=== PATIENT | male | born 1955 | race Caucasian/White ===

== ENCOUNTER → 2019-12-27 15:30 | Outpatient (BNVA) | payer OTHER, SELFPAY | PROVIDERS: PCP Internal Medicine; Referring Provider Internal Medicine; Visit Provider Internal Medicine Gastroenterology | DX: Z01.818 Encounter for other preprocedural examination (principal); K64.8 Other hemorrhoids; Z86.19 Personal history of other infectious and parasitic diseases | CPT/HCPCS: Q3014 ==

== ENCOUNTER 2020-01-01 06:42 | Outpatient (REF) | payer OTHER, SELFPAY ==
[2020-01-01 08:34] LABS: Creatinine Urine 83.17 mg/dL
[2020-01-01 09:15] LABS: Alanine Aminotransferase 18 U/L (0-40); Albumin Level 4.1 g/dL (3.5-5.0); Anion Gap 12 (12-20); Aspartate Amino Transferase 18 U/L (5-37); Bilirubin Total 0.5 mg/dL (0.0-1.0); Blood Urea Nitrogen 27 mg/dL (9-16); Calcium 9.1 mg/dL (8.4-10.2); Carbon Dioxide 29 mmol/L (22-29); Chloride 102 mmol/L (96-108); Cholesterol 117 mg/dL; Estimated Glomerular Filt Rate > 60; Glucose Fasting 140 mg/dL (60-99); HDL Cholesterol 39 mg/dL; LDL Cholesterol Calculated 61 mg/dl; Sodium 138 mmol/L (135-145); Total Protein 7.4 g/dL (6.5-8.0); Triglycerides 87 mg/dL
[2020-01-01 09:23] LABS: Alkaline Phosphatase 63 U/L (39-117)
== END 2020-01-01 06:43 | disposition home or self-care (01) ==
LOC: HO.LAB 06:42
PROVIDERS: PCP Internal Medicine; Visit Provider Internal Medicine Gastroenterology
DX: E11.9 Type 2 diabetes mellitus without complications (principal)
CPT/HCPCS: 80053; 80061; 82043

== ENCOUNTER 2020-02-06 15:10 | Outpatient (REF) | payer OTHER, SELFPAY | END 2020-02-06 15:11 | disposition home or self-care (01) | LOC: HO.LAB 15:10 | PROVIDERS: PCP Internal Medicine; Visit Provider Internal Medicine Gastroenterology | DX: Z86.19 Personal history of other infectious and parasitic diseases (principal) | CPT/HCPCS: 87338 ==

== ENCOUNTER 2020-02-07 06:54 | Outpatient (REF) | payer OTHER, SELFPAY ==
[2020-02-07 08:05] LABS: Alanine Aminotransferase 22 U/L (0-40); Albumin Level 4.1 g/dL (3.5-5.0); Alkaline Phosphatase 69 U/L (39-117); Anion Gap 10 (12-20); Aspartate Amino Transferase 20 U/L (5-37); Bilirubin Total 0.6 mg/dL (0.0-1.0); Blood Urea Nitrogen 23 mg/dL (9-16); Calcium 9.5 mg/dL (8.4-10.2); Carbon Dioxide 30 mmol/L (22-29); Chloride 101 mmol/L (96-108); Cholesterol 132 mg/dL; Estimated Glomerular Filt Rate > 60; Glucose Fasting 145 mg/dL (60-99); HDL Cholesterol 43 mg/dL; LDL Cholesterol Calculated 70 mg/dl; Potassium 4.7 mmol/l (3.3-5.1); Sodium 136 mmol/L (135-145); Total Protein 7.7 g/dL (6.5-8.0); Triglycerides 96 mg/dL
== END 2020-02-07 06:55 | disposition home or self-care (01) ==
LOC: HO.LAB 06:54
PROVIDERS: Absent Provider Internal Medicine Gastroenterology; PCP Internal Medicine; Visit Provider Internal Medicine
DX: E11.65 Type 2 diabetes mellitus with hyperglycemia (principal)
CPT/HCPCS: 80053; 80061

== ENCOUNTER 2020-03-11 12:53 | Outpatient (REF) | payer OTHER, SELFPAY ==
--- NOTE | 2020-03-11 12:57 | US_ITS ---
EXAMINATION: US SCROTUM CLINICAL INFORMATION: Testicular pain, unspecified. COMPARISON: Scrotal ultrasound dated 09/25/2018. TECHNIQUE: A sonogram of the scrotum was performed assessing gonzalez-scale appearance and color Doppler flow. Spectral Doppler analysis of the arterial and venous flow were performed in the testes bilaterally. FINDINGS: RIGHT: Right testicle measures 3.5 x 1.6 x 2.2 cm, volume 6.6 mL. The testicle has normal parenchymal echotexture. No microlithiasis or mass. Color Doppler images with spectral analysis reveals normal arterial and venous flow within the testicle. The epididymis is unremarkable. No evidence of hypervascularity within the epididymis. No hydrocele or varicocele. LEFT: Left testicle measures 3.8 x 1.6 x 2.5 cm, volume 7.8 mL. The testicle has normal parenchymal echotexture. No microlithiasis or mass. Color Doppler images with spectral analysis reveals normal arterial and venous flow within the testicle. The epididymis is unremarkable. No evidence of hypervascularity within the epididymis. No hydrocele or varicocele. The visualized scrotal veins measure less than 0.2 cm AP diameter. US/US scrotum IMPRESSION: No acute sonographic abnormalities within the scrotum. No evidence of epididymoorchitis or testicular mass.
== END 2020-03-11 12:54 | disposition home or self-care (01) ==
LOC: HO.US 12:53
PROVIDERS: PCP Internal Medicine; Visit Provider Internal Medicine
DX: N50.819 Testicular pain, unspecified (principal)
CPT/HCPCS: 76870

== ENCOUNTER 2020-04-05 10:23 | Outpatient (REF) | payer OTHER, SELFPAY ==
--- NOTE | ~2020-04-05 | XR_ITS ---
EXAMINATION: XR LUMBOSACRAL SPINE CLINICAL INFORMATION: Sciatica COMPARISON: Previous lumbar spine x-ray May 2015 TECHNIQUE: Three views of the lumbosacral spine. FINDINGS: Bone alignment is normal. No fracture or dislocation is seen. There is mild degenerative spondylosis and degenerative disc disease at T11-T12. There is mild degenerative spondylosis at L3-L4. Disc spaces are otherwise normal. There is lower lumbar spine facet arthritis. XR/XR lumbar spine 2-3V IMPRESSION: Mild degenerative changes.
== END 2020-04-05 10:24 | disposition home or self-care (01) ==
LOC: HO.XRAY 10:23
PROVIDERS: PCP Internal Medicine; Visit Provider Internal Medicine
DX: M54.30 Sciatica, unspecified side (principal)
CPT/HCPCS: 72100

== ENCOUNTER → 2020-05-07 08:51 | Outpatient (BNVA) | payer OTHER, SELFPAY | PROVIDERS: PCP Internal Medicine; Visit Provider Nurse Practitioner Gerontology | DX: E11.65 Type 2 diabetes mellitus with hyperglycemia (principal); E66.09 Other obesity due to excess calories; Z68.38 Body mass index [BMI] 38.0-38.9, adult | CPT/HCPCS: Q3014 ==

== ENCOUNTER → 2020-06-19 13:42 | Outpatient (BNVA) | payer OTHER, SELFPAY | PROVIDERS: PCP Internal Medicine; Visit Provider Internal Medicine Gastroenterology | DX: K64.8 Other hemorrhoids (principal); E11.65 Type 2 diabetes mellitus with hyperglycemia; I10 Essential (primary) hypertension; E66.01 Morbid (severe) obesity due to excess calories; Z88.8 Allergy status to other drugs, medicaments and biological substances; Z86.19 Personal history of other infectious and parasitic diseases; Z79.84 Long term (current) use of oral hypoglycemic drugs; Z79.899 Other long term (current) drug therapy | CPT/HCPCS: Q3014 ==

== ENCOUNTER 2020-08-16 11:00 | Emergency (ER) | payer MEDICARE, SELFPAY ==
[2020-08-16] VITALS (12 sets, daily range): BP systolic 119–170; BP diastolic 71–92; PULSE 58–87; RESP 17–18; TEMP 36.6–36.8; O2SAT 98; BMI 40.5
--- NOTE | 2020-08-16 11:34 | ED_ITS ---
HPI - General Adult General Chief complaint: General Medical Stated complaint: high blood sugar Time Seen by Provider: 08/16/20 11:25 Source: patient Mode of arrival: ambulatory Limitations: no limitations History of Present Illness HPI narrative: 65 y/o male with history of obesity, DM2, HTN, sciatica, hx H. pylori who presents with hyperglycemia and dizziness. He reports a glucose of 239 at home which increased from 130s shortly before. He is on Metformin for his diabetes and reports good glucose control. He started to feel slightly dizzy so he rechecked it and found to go have gone up 100 points so he came to the ER for evaluation. He did he a normal breakfast this morning. He reports his dizziness is much better on arrival. No weakness, numbness, tingling, headache, N/V, abdominal pain. POC 195 on arrival. MD complaint: hyeprglycemia & dizzy Onset (ago): hour(s) Location: head Radiation: non-radiation Severity: mild Severity scale (1-10): 3 Pain Consistency: now resolved Relieving factors: none Exacerbating factors: movement Associated symptoms: denies other symptoms Treatments prior to arrival: none Related Data Home Medications Medication Instructions Recorded Confirmed blood sugar diagnostic #10 ea 01/01/20 06/19/20 lancets 33 gauge #100 ea 01/01/20 06/19/20 Previous Rx's Medication Instructions Recorded dulaglutide 0.75 mg/0.5 mL 0.75 mg SUBCUT QWEEK 28 Days #2 ml 12/09/19 subcutaneous pen injector tadalafil 20 mg tablet 20 mg PO DAILY PRN 30 Days #3 tab 01/01/20 blood sugar diagnostic #50 ea 01/02/20 blood sugar diagnostic #50 ea 02/22/20 blood-glucose meter #1 ea 02/22/20 metformin 1,000 mg tablet 1,000 mg PO BID #60 tab 05/25/20 pioglitazone 15 mg tablet 15 mg PO DAILY #30 tab 05/25/20 Allergies Allergy/AdvReac Type Severity Reaction Status Date / Time canagliflozin [Invokana] AdvReac Unknown dizziness Verified 08/16/20 11:08 Review of Systems Review of Systems: Constitutional: No Fever, No Chills ENT/Mouth: No sore throat, No Rhinorrhea, No Swallowing Difficulty Eyes: No Eye Pain, No Swelling, No Redness, No vision changes Cardiovascular: No Chest Pain, No SOB, No Orthopnea, No Edema Respiratory: No Cough, No Sputum, No Wheezing, No dyspnea Gastrointestinal: No Nausea, No Vomiting, No Diarrhea, No abdominal Pain Genitourinary: No Dysuria, No Urinary Frequency, No Hematuria Musculoskeletal: No joint pain, No Myalgias Skin: No Skin Lesions, No rash Neuro: No Weakness, No Numbness, + Dizziness, No Headache Psych: + Anxiety/Panic, No Depression Heme/Lymph: No Bruising, No Lymphadenopathy Endocrine: No Polyuria, No Polydipsia [facility] Past Medical History Attestation statement: The following information was validated with the patient. Medical History BMI 38.0-38.9,adult Other obesity due to excess calories Sciatica Testicular pain Type 2 diabetes mellitus with hyperglycemia, without long-term current use of insulin Surgical History History of colonoscopy Hx of endoscopy Meningioma Family History Family History Father History of cancer Mother Hx of diabetes insipidus Social History Social History Household Members: Spouse Alcohol intake: never Advance Directives: Yes Advance Directives Information Provided: Yes Advance Directives on File: No Physical Exam Vital Signs: Vital Signs: Last Vital Signs Temp 98.2 F 08/16/20 12:21 Pulse 64 08/16/20 12:21 Resp 18 08/16/20 12:21 BP 119/71 08/16/20 12:21 Pulse Ox 98 08/16/20 12:21 Body Mass Index 40.5 Appearance: Alert. Oriented X3. No acute distress. Eyes: Pupils equal, round and reactive to light. ENT: Pharynx normal. Neck: Normal inspection. Neck supple. CVS: Normal heart rate and rhythm. Pulses normal. Respiratory: No respiratory distress. Breath sounds normal. Abdomen: Rotund, Soft and nontender. +BS x4 Skin: Skin warm and dry. Normal skin color. Normal skin turgor. No rashes. Extremities: No lower extremity edema. Neuro: Oriented X 3. No motor deficit. No sensory deficit. Steady gait. Non- focal. Course Course Course Narrative: 65 y/o male presenting with mild dizziness, now resolved and mild hyperglycemia. No signs or symptoms of infection or GA. Neuro exam is nonfocal. Doubt CVA or TIA as symptom seems to be related to hyperglycmia, NIH 0. Not a tPA candidate. His orthostatics VS are slightly positive wtih increase in HR upon standing. Will give 1L IVF, check basic labs, UA and repeat orthostatics. Anticipate d/c home. Reevaluation(s) Reevaluation #1: Lab workup unremarkable. Mildly elevated BUN, possible mild dehydration. Repeat orthostatic VS are negative. Glucose 160's on chemistry. He feels at his baseline. He is stable for discharge home. Medical Decision Making Lab Data Result diagrams: 08/16/20 12:29 08/16/20 12:29 Labs: Lab Results 08/16/20 08/16/20 08/16/20 Range/Units 11:28 12:29 12:29 WBC 7.0 (4.8-10.8) X10*3/uL RBC 4.31 L (4.60-5.80) X10*6/uL Hgb 13.6 L (14.0-18.0) g/dl Hct 40.7 L (42-52) % MCV 94.4 (80-98) fL MCH 31.6 (27.0-33.0) pg MCHC 33.4 (31.0-36.0) g/dl RDW 13.2 (11.0-16.0) % Plt Count 270 (160-400) X10*3/uL MPV 10.0 (9.4-12.4) fL Immature Gran % (Auto) 0.3 (0.0-0.4) % Neut % (Auto) 62.5 (45-73) % Lymph % (Auto) 23.9 (20-40) % [place] % (Auto) 11.9 H (2-11) % Eos % (Auto) 1.1 (0-4) % Baso % (Auto) 0.3 (0-2) % Lymph # (Auto) 1.7 (1.2-4.9) X10*3/uL [place] # (Auto) 0.8 (0.1-1.2) X10*3/uL Eos # (Auto) 0.1 (0.0-0.4) X10*3/uL Baso # (Auto) 0.0 (0.0-0.2) X10*3/uL Abs Immat Gran (auto) 0.02 (0.00-0.03) X10*3/uL Absolute Neuts (auto) 4.4 (2.0-8.3) X10*3/uL Absolute Nucleated RBC 0.000 (0.0-0.012) X10*3/uL Nucleated RBC % (auto) 0.0 (0.0-0.2) /100WBC Sodium 139 (135-145) mmol/L Potassium 4.9 (3.3-5.1) mmol/L Chloride 103 (96-108) mmol/L Carbon Dioxide 29 (22-29) mmol/L Anion Gap 12 (12-20) BUN 17 H (9-16) mg/dL Creatinine 0.96 (0.5-1.4) mg/dL Estim Creat Clear Calc 85.0 Estimated GFR > 60 POC Glucose 195 H (60-115) mg/dL Random Glucose 164 H (60-115) mg/dL Calcium 9.8 (8.4-10.2) mg/dL Magnesium 1.9 (1.6-2.6) mg/dL Urine Color Urine Appearance Urine pH (5.0-8.0) Ur Specific [place] (1.005-1.025) Urine Protein (NEG-TRACE) MG/DL Urine Glucose (UA) (NEG) MG/DL Urine Ketones (NEG) MG/DL Urine Blood (NEG) Urine Nitrite (NEG) Ur Leukocyte Esterase (NEG) 08/16/20 Range/Units 12:29 WBC (4.8-10.8) X10*3/uL RBC (4.60-5.80) X10*6/uL Hgb (14.0-18.0) g/dl Hct (42-52) % MCV (80-98) fL MCH (27.0-33.0) pg MCHC (31.0-36.0) g/dl RDW (11.0-16.0) % Plt Count (160-400) X10*3/uL MPV (9.4-12.4) fL Immature Gran % (Auto) (0.0-0.4) % Neut % (Auto) (45-73) % Lymph % (Auto) (20-40) % [place] % (Auto) (2-11) % Eos % (Auto) (0-4) % Baso % (Auto) (0-2) % Lymph # (Auto) (1.2-4.9) X10*3/uL [place] # (Auto) (0.1-1.2) X10*3/uL Eos # (Auto) (0.0-0.4) X10*3/uL Baso # (Auto) (0.0-0.2) X10*3/uL Abs Immat Gran (auto) (0.00-0.03) X10*3/uL Absolute Neuts (auto) (2.0-8.3) X10*3/uL Absolute Nucleated RBC (0.0-0.012) X10*3/uL Nucleated RBC % (auto) (0.0-0.2) /100WBC Sodium (135-145) mmol/L Potassium (3.3-5.1) mmol/L Chloride (96-108) mmol/L Carbon Dioxide (22-29) mmol/L Anion Gap (12-20) BUN (9-16) mg/dL Creatinine (0.5-1.4) mg/dL Estim Creat Clear Calc Estimated GFR POC Glucose (60-115) mg/dL Random Glucose (60-115) mg/dL Calcium (8.4-10.2) mg/dL Magnesium (1.6-2.6) mg/dL Urine Color YELLOW Urine Appearance CLEAR Urine pH 6.0 (5.0-8.0) Ur Specific [place] 1.010 (1.005-1.025) Urine Protein NEG (NEG-TRACE) MG/DL Urine Glucose (UA) 250 H (NEG) MG/DL Urine Ketones NEG (NEG) MG/DL Urine Blood NEG (NEG) Urine Nitrite NEG (NEG) Ur Leukocyte Esterase NEG (NEG) Discharge Plan Discharge Clinical Impression: Hyperglycemia Patient Disposition: Home, Self-Care Instructions: Diabetic Hyperglycemia (ED) Additional Instructions: Your blood glucose was mildly elevated today. You may have had some mild dehydation. Your sugar and your vital signs improved with IV fluids. Continue taking your metformin as prescribed. Monitor your blood glucose at home as directed by your doctor. Stick to a low carb, diabetic diet. Recommend following up with your doctor next week for further management. If you develop new or worsening symptoms call 911 or come back to the ER for further evaluation. Salazar nivel de glucosa en mary ellen se elev? levemente hoy. Es posible que haya tenido osiel deshidrataci?n leve. Salazar az?car y gwendolyn signos vitales mejoraron con l?quidos intravenosos. Contin?e tomando salazar metformina seg?n lo prescrito. Controle salazar glucosa en mary ellen en casa seg?n las indicaciones de salazar m?dico. Siga osiel dieta para diab?ticos baja en carbohidratos. Recomiende hacer un seguimiento con salazar m?dico la pr?xima semana para un mayor control. Si presenta s?ntomas nuevos o que empeoran, llame al 911 o regrese a la daniela de emergencias para osiel evaluaci?n adicional. Prescriptions: No Action Trulicity 0.75 mg/0.5 mL pen injector 0.75 mg subcut QWEEK 28 Days Qty: 2 RF: 5 (DME) blood sugar diagnostic Strip See Rx Instructions .ROUTE .MEDSUPPLY Qty: 50 RF: 2 (DME) FreeStyle Lite Strips Strip See Rx Instructions .ROUTE .MEDSUPPLY Qty: 50 RF: 11 (DME) blood-glucose meter [FreeStyle Lite Meter] Kit See Rx Instructions .ROUTE .MEDSUPPLY Qty: 1 RF: 0 pioglitazone 15 mg tablet 15 mg PO DAILY Qty: 30 RF: 2 metformin 1,000 mg tablet 1,000 mg PO BID Qty: 60 RF: 2 (DME) OneTouch Ultra Blue Test Strip Strip See Rx Instructions ea Not Applicable BID Qty: 10 RF: 0 (DME) lancets 33 gauge misc See Rx Instructions ea Not Applicable BID Qty: 100 RF: 0 tadalafil [Cialis] 20 mg tablet 20 mg PO DAILY PRN (Reason: sexual activity) 30 Days Qty: 3 RF: 5 Referrals: Ritika Forte MD [Primary Care Provider] - 3 days (diabetes management)
[2020-08-16 11:41] LABS: Glucose, Whole Blood 195 mg/dL (60-115)
[2020-08-16] MEDS: 0.9 % Sodium Chloride 1,000 ML 999 ML IVCONT (12:30)
--- NOTE | 2020-08-16 12:36 | PC.NURSE ---
pt denies dizziness since arrival to ED, states one episode of dizziness while he was getting into his car earlier today. + orthos upon arrival & asymptomatic , repeat orthos were neg.
[2020-08-16 12:37] LABS: Basophils Percent Auto 0.3 % (0-2); Eosinophils Absolute Auto 0.1 X10*3/uL (0.0-0.4); Eosinophils Percent Auto 1.1 % (0-4); Hematocrit 40.7 % (42-52); Hemoglobin 13.6 g/dl (14.0-18.0); Imm Gran Abs Auto 0.02 X10*3/uL (0.00-0.03); Imm Gran Pct Auto 0.3 % (0.0-0.4); Lymphocytes Absolute Auto 1.7 X10*3/uL (1.2-4.9); Lymphocytes Percent Auto 23.9 % (20-40); MANUAL DIFF FLAG NO; Mean Corpuscular HGB Conc 33.4 g/dl (31.0-36.0); Mean Corpuscular Hemoglobin 31.6 pg (27.0-33.0); Mean Corpuscular Volume 94.4 fL (80-98); Monocytes Absolute Auto 0.8 X10*3/uL (0.1-1.2); Monocytes Percent Auto 11.9 % (2-11); Neutrophils Absolute Auto 4.4 X10*3/uL (2.0-8.3); Neutrophils Percent Auto 62.5 % (45-73); Platelet Count 270 X10*3/uL (160-400); Red Blood Count 4.31 X10*6/uL (4.60-5.80); Red Cell Distribution Width 13.2 % (11.0-16.0)
[2020-08-16 12:38] LABS: Appearance Urine CLEAR; Color Urine YELLOW; Glucose Urine UA 250 MG/DL (NEG); Leukocyte Esterase Urine NEG (NEG); Nitrite Urine NEG (NEG); Urine Blood NEG (NEG); Urine Ketones NEG (NEG); Urine Protein NEG (NEG-TRACE)
[2020-08-16 13:07] LABS: Anion Gap 12 (12-20); Blood Urea Nitrogen 17 mg/dL (9-16); Calcium 9.8 mg/dL (8.4-10.2); Carbon Dioxide 29 mmol/L (22-29); Chloride 103 mmol/L (96-108); Estimated Glomerular Filt Rate > 60; Glucose Random 164 mg/dL (60-115); Magnesium 1.9 mg/dL (1.6-2.6); Potassium 4.9 mmol/L (3.3-5.1); Sodium 139 mmol/L (135-145)
== END 2020-08-16 13:30 | disposition home or self-care (01) ==
PROVIDERS: Physician Assistant; Emergency Provider Emergency Medicine Emergency Medical Services; PCP Internal Medicine
DX: E11.65 Type 2 diabetes mellitus with hyperglycemia (principal); Z79.84 Long term (current) use of oral hypoglycemic drugs
CPT/HCPCS: 36415; 80048; 81003; 82947; 83735; 85025; 96360; 99284

== ENCOUNTER → 2020-09-09 12:01 | Outpatient (BNVA) | payer MEDICARE, SELFPAY | PROVIDERS: PCP Internal Medicine; Visit Provider Nurse Practitioner Gerontology | DX: E11.65 Type 2 diabetes mellitus with hyperglycemia (principal); I10 Essential (primary) hypertension; E66.09 Other obesity due to excess calories; Z68.38 Body mass index [BMI] 38.0-38.9, adult; Z79.84 Long term (current) use of oral hypoglycemic drugs | CPT/HCPCS: 82947; 83036; 99212 ==

== ENCOUNTER 2021-01-17 07:45 | Outpatient (REF) | payer MEDICARE, SELFPAY ==
[2021-01-17 09:40] LABS: Estimated Average Glucose 171 mg/dL; Hemoglobin A1c % 7.6 %
[2021-01-17 10:04] LABS: Alanine Aminotransferase 17 U/L (0-40); Albumin Level 4.1 g/dL (3.5-5.0); Alkaline Phosphatase 75 U/L (39-117); Anion Gap 12 (12-20); Aspartate Amino Transferase 16 U/L (5-37); Bilirubin Total 0.6 mg/dL (0.0-1.0); Blood Urea Nitrogen 25 mg/dL (9-16); Calcium 9.7 mg/dL (8.4-10.2); Carbon Dioxide 27 mmol/L (22-29); Chloride 101 mmol/L (96-108); Cholesterol 148 mg/dL; Estimated Glomerular Filt Rate > 60; Glucose Fasting 143 mg/dL (60-99); HDL Cholesterol 43 mg/dL; LDL Cholesterol Calculated 88 mg/dl; Potassium 4.9 mmol/L (3.3-5.1); Sodium 135 mmol/L (135-145); Total Protein 7.6 g/dL (6.5-8.0); Triglycerides 88 mg/dL
== END 2021-01-17 07:46 | disposition home or self-care (01) ==
LOC: HO.LAB 07:45
PROVIDERS: PCP Internal Medicine; Visit Provider Nurse Practitioner Gerontology
DX: E11.65 Type 2 diabetes mellitus with hyperglycemia (principal)
CPT/HCPCS: 36415; 80053; 80061; 82043; 83036

== ENCOUNTER → 2021-01-28 12:23 | Outpatient (BNVA) | payer MEDICARE, SELFPAY | PROVIDERS: PCP Internal Medicine; Visit Provider Nurse Practitioner Gerontology | DX: E11.65 Type 2 diabetes mellitus with hyperglycemia (principal); E66.09 Other obesity due to excess calories; I10 Essential (primary) hypertension; Z68.38 Body mass index [BMI] 38.0-38.9, adult | CPT/HCPCS: 82947; 99212 ==

== ENCOUNTER 2021-05-14 09:20 | Outpatient (REF) | payer MEDICARE, SELFPAY ==
[2021-05-14 10:32] LABS: Alanine Aminotransferase 21 U/L (0-40); Albumin Level 4.1 g/dL (3.5-5.0); Alkaline Phosphatase 72 U/L (39-117); Anion Gap 13 (12-20); Aspartate Amino Transferase 17 U/L (5-37); Bilirubin Total 0.6 mg/dL (0.0-1.0); Blood Urea Nitrogen 22 mg/dL (9-16); Carbon Dioxide 28 mmol/L (22-29); Chloride 101 mmol/L (96-108); Cholesterol 132 mg/dL; Estimated Glomerular Filt Rate > 60; Glucose Fasting 151 mg/dL (60-99); HDL Cholesterol 45 mg/dL; LDL Cholesterol Calculated 75 mg/dl; Potassium 4.9 mmol/L (3.3-5.1); Sodium 137 mmol/L (135-145); Total Protein 7.7 g/dL (6.5-8.0); Triglycerides 63 mg/dL
[2021-05-14 12:42] LABS: Creatinine Urine 125.58 mg/dL; Microalbum/Creatinine Ratio Ur 4.7 ug/mg cr
== END 2021-05-14 09:21 | disposition home or self-care (01) ==
LOC: HO.LAB 09:20
PROVIDERS: PCP Internal Medicine; Visit Provider Nurse Practitioner Gerontology
DX: E11.65 Type 2 diabetes mellitus with hyperglycemia (principal)
CPT/HCPCS: 36415; 80053; 80061; 82043

== ENCOUNTER → 2021-05-18 12:00 | Outpatient (BNVA) | payer MEDICARE, MEDICAID, SELFPAY | PROVIDERS: PCP Internal Medicine; Visit Provider Nurse Practitioner Gerontology | DX: E11.65 Type 2 diabetes mellitus with hyperglycemia (principal); E66.09 Other obesity due to excess calories; Z68.38 Body mass index [BMI] 38.0-38.9, adult; I10 Essential (primary) hypertension; Z79.84 Long term (current) use of oral hypoglycemic drugs | CPT/HCPCS: 82947; 83036; 99212 ==

== ENCOUNTER 2021-07-09 12:43 | Emergency (ER) | payer MEDICARE, MEDICAID, SELFPAY ==
[2021-07-09 14:23] VITALS: BP 123/53; PULSE 98; RESP 18; TEMP 38.2; O2SAT 98; BMI 39.0
[2021-07-09 15:17] LABS: Basophils Percent Auto 0.2 % (0-2); Eosinophils Percent Auto 0.2 % (0-4); Hemoglobin 14.3 g/dl (14.0-18.0); Imm Gran Abs Auto 0.08 X10*3/uL (0.00-0.03); Imm Gran Pct Auto 0.4 % (0.0-0.4); Lymphocytes Absolute Auto 1.4 X10*3/uL (1.2-4.9); Lymphocytes Percent Auto 7.6 % (20-40); MANUAL DIFF FLAG SCAN; Mean Corpuscular HGB Conc 33.3 g/dl (31.0-36.0); Mean Corpuscular Hemoglobin 31.4 pg (27.0-33.0); Mean Corpuscular Volume 94.3 fL (80.0-98.0); Mean Platelet Volume 10.3 fL (9.4-12.4); Monocytes Absolute Auto 2.3 X10*3/uL (0.1-1.2); Neutrophils Percent Auto 79.6 % (45-73); Platelet Count 238 X10*3/uL (160-400); Red Blood Count 4.56 X10*6/uL (4.60-5.80); Red Cell Distribution Width 13.4 % (11.0-16.0); SCAN SMEAR FLAG 1; White Blood Count 18.8 X10*3/uL (4.8-10.8)
[2021-07-09 15:39] LABS: SLIDE REVIEW VERIFIED
[2021-07-09 15:40] LABS: Alanine Aminotransferase 20 U/L (0-40); Albumin Level 3.5 g/dL (3.5-5.0); Alkaline Phosphatase 87 U/L (39-117); Anion Gap 13 (12-20); Aspartate Amino Transferase 16 U/L (5-37); Bilirubin Total 0.6 mg/dL (0.0-1.0); Blood Urea Nitrogen 22 mg/dL (9-16); Carbon Dioxide 24 mmol/L (22-29); Chloride 101 mmol/L (96-108); Creatinine Clr Calc Pharmacy 67.8; Estimated Glomerular Filt Rate > 60; Glucose Random 199 mg/dL (60-115); Potassium 4.3 mmol/L (3.3-5.1); Sodium 134 mmol/L (135-145)
[2021-07-09 15:43] LABS: IDNOW Serial# 08D9AD1C; Influenza A Negative (Negative); Influenza B2 Negative (Negative)
[2021-07-09 15:44] LABS: COVID-19 Test Negative (Negative)
--- NOTE | 2021-07-09 18:14 | ED.GENADULT ---
HPI - General Adult General Chief complaint: General Medical Stated complaint: headache and back pain, pain when urinating Time Seen by Provider: 07/09/21 17:57 Source: patient Mode of arrival: ambulatory Limitations: no limitations History of Present Illness HPI narrative: Patient comes to the emergency room complaining of 2 days lower back pain, dysuria, head pressure. Patient denies respiratory symptoms or GI symptoms. Patient took ibuprofen this morning with no relief. When patient came, his temperature was 100.7 degrees. Patient states that he is unaware having a fever previously. Related Data Previous Rx's Medication Instructions Recorded blood sugar diagnostic (FreeStyle #50 ea 09/11/20 Lite Strips) blood-glucose meter (FreeStyle #1 ea 09/11/20 Lite Meter) lancets 33 gauge #100 ea 09/11/20 metformin 1,000 mg tablet 1,000 mg PO BID #60 tab 02/21/21 lisinopril 2.5 mg tablet 2.5 mg PO DAILY #30 tab 02/22/21 pioglitazone 15 mg tablet 15 mg PO DAILY #30 tab 03/03/21 dulaglutide 3 mg/0.5 mL 3 mg (0.5 mL) SUBCUT QWEEK 28 Days 05/18/21 subcutaneous pen injector #2 ml ([facility]) levofloxacin 750 mg tablet 750 mg PO DAILY #9 tab 07/09/21 Allergies Allergy/AdvReac Type Severity Reaction Status Date / Time canagliflozin [Invokana] AdvReac Unknown dizziness Verified 07/09/21 14:23 Review of Systems Review of Systems: Constitutional : No Weight loss, No Fever, No Chills, No Night Sweats, No Fatigue, No Malaise ENT/Mouth : No Hearing loss, No Ear Pain, No Nasal Congestion, No Sinus Pain, No Hoarseness, No sore throat, No Rhinorrhea, No Swallowing Difficulty Eyes: No Eye Pain, No Swelling, No Redness, No Foreign Body, No Discharge, No Vision Changes Cardiovascular : No Chest Pain, No SOB, No Dyspnea on Exertion, No Orthopnea, No Edema, No Palpitations Respiratory : No Cough, No Sputum, No Wheezing, No Smoke Exposure, No Dyspnea Gastrointestinal : No Nausea, No Vomiting, No Diarrhea, No Constipation, No abdominal Pain, No Hematochezia, No Melena Genitourinary : Complaining of dysuria, No Urinary Frequency, No Hematuria, No Urinary Incontinence, No Urgency, No Flank Pain, complaining of lower back pain, No Urinary Flow Changes, No Hesitancy Musculoskeletal : No joint pain, No Myalgias, No Joint Swelling Skin : No Skin Lesions, No rash Neuro : No Weakness, No Numbness, No Paresthesias, No Loss of Consciousness, No Dizziness, No Headache Psych : No Anxiety/Panic, No Depression, No SI/HI/AH/VH, No Social Issues, Heme/Lymph: No Bruising, No Bleeding,No Lymphadenopathy Endocrine : No Polyuria, No Polydipsia, No Temperature Intolerance [facility] Past Medical History Medical History BMI 38.0-38.9,adult Other obesity due to excess calories Sciatica Testicular pain Type 2 diabetes mellitus with hyperglycemia, without long-term current use of insulin Surgical History History of colonoscopy Hx of endoscopy Meningioma Family History Family History Father History of cancer Mother Hx of diabetes insipidus Social History Social History Household Members: Spouse Alcohol intake: never Patient Tobacco Use Status: Never used Tobacco Advance Directives: No Advance Directives Information Provided: No Physical Exam ED Vital Signs: Vital Signs - 24 hr 07/09/21 14:23 07/09/21 20:23 Temperature 100.7 F H 98.6 F Pulse Rate 98 99 Respiratory Rate 18 18 Blood Pressure 123/53 L 99/51 L Pulse Oximetry 98 97 BMI result Body Mass Index 39.0 Const Other: Appearance: Alert. Oriented X3. No acute distress. Eyes: Pupils equal, round and reactive to light. ENT: Pharynx normal. Neck: Normal inspection. Neck supple. No lymph nodes noted. No crepitus CVS: Normal heart rate and rhythm. Pulses normal. Normal S1 and S2 Respiratory: No respiratory distress. Breath sounds normal. No Wheezing. No rales Abdomen: Soft and nontender. No rigidity. No distention. Back: No CVA tenderness, no pain to palpation over the thoracic/lumbar spine, no pain over paraspinal muscles Skin: Skin warm and dry. Normal skin color. Normal skin turgor. Extremities: No lower extremity edema. No Lacerations. No Rash Neuro: Oriented X 3. No motor deficit. No sensory deficit. Moving all extremities. No slurred speech. CN 2 through 12 grossly intact Psych: calm, cooperative, normal affect Course Course Course Narrative: Patient has a white blood cell count of 18.8. Patient likely has UTI, urinalysis pending (18:20) Urinalysis resolved, Patient has a UTI, causing pyelonephritis. Lactic acid within normal limits, at this time no fever or chills. Patient refuses to stay in the hospital requesting to be discharged. Patient given 1 dose of levofloxacin. Medical Decision Making Lab Data Result diagrams: 07/09/21 15:03 07/09/21 15:03 Labs: Lab Results 07/09/21 07/09/21 07/09/21 Range/Units 15:03 15:03 15:03 WBC 18.8 H (4.8-10.8) X10*3/uL RBC 4.56 L (4.60-5.80) X10*6/uL Hgb 14.3 (14.0-18.0) g/dl Hct 43.0 (42.0-52.0) % MCV 94.3 (80.0-98.0) fL MCH 31.4 (27.0-33.0) pg MCHC 33.3 (31.0-36.0) g/dl RDW 13.4 (11.0-16.0) % Plt Count 238 (160-400) X10*3/uL MPV 10.3 (9.4-12.4) fL Immature Gran % (Auto) 0.4 (0.0-0.4) % Neut % (Auto) 79.6 H (45-73) % Lymph % (Auto) 7.6 L (20-40) % [place] % (Auto) 12.0 H (2-11) % Eos % (Auto) 0.2 (0-4) % Baso % (Auto) 0.2 (0-2) % Lymph # (Auto) 1.4 (1.2-4.9) X10*3/uL [place] # (Auto) 2.3 H (0.1-1.2) X10*3/uL Eos # (Auto) 0.0 (0.0-0.4) X10*3/uL Baso # (Auto) 0.0 (0.0-0.2) X10*3/uL Abs Immat Gran (auto) 0.08 H (0.00-0.03) X10*3/uL Absolute Neuts (auto) 15.0 H (2.0-8.3) x10*3/uL Absolute Nucleated RBC 0.000 (0.0-0.012) X10*3/uL Nucleated RBC % (auto) 0.0 (0.0-0.2) /100WBC Smear Tech's Comments VERIFIED Sodium 134 L (135-145) mmol/L Potassium 4.3 (3.3-5.1) mmol/L Chloride 101 (96-108) mmol/L Carbon Dioxide 24 (22-29) mmol/L Anion Gap 13 (12-20) BUN 22 H (9-16) mg/dL Creatinine 1.18 (0.5-1.4) mg/dL Estim Creat Clear Calc 67.8 Estimated GFR > 60 Random Glucose 199 H (60-115) mg/dL Lactic Acid (0.5-2.0) mmol/L Calcium 9.0 D (8.4-10.2) mg/dL Total Bilirubin 0.6 (0.0-1.0) mg/dL AST 16 (5-37) U/L ALT 20 (0-40) U/L Alkaline Phosphatase 87 D (39-117) U/L Total Protein 7.0 (6.5-8.0) g/dL Albumin 3.5 (3.5-5.0) g/dL Urine Color Urine Appearance Urine pH (5.0-8.0) Ur Specific [place] (1.005-1.025) Urine Protein (NEG-TRACE) MG/DL Urine Glucose (UA) (NEG) MG/DL Urine Ketones (NEG) MG/DL Urine Blood (NEG) Urine Nitrite (NEG) Ur Leukocyte Esterase (NEG) Urine RBC (0) /HPF Urine WBC (0-4) /HPF Ur Squamous Epith Cells /LPF Urine Bacteria /LPF COVID-19 ([facility]) Negative (Negative) COVID-19 Clin Com See Note Influenza Type A (MARYANA) (Negative) Influenza Type B (MARYANA) (Negative) Influenza A & B Note 07/09/21 07/09/21 07/09/21 Range/Units 15:03 18:56 20:04 WBC (4.8-10.8) X10*3/uL RBC (4.60-5.80) X10*6/uL Hgb (14.0-18.0) g/dl Hct (42.0-52.0) % MCV (80.0-98.0) fL MCH (27.0-33.0) pg MCHC (31.0-36.0) g/dl RDW (11.0-16.0) % Plt Count (160-400) X10*3/uL MPV (9.4-12.4) fL Immature Gran % (Auto) (0.0-0.4) % Neut % (Auto) (45-73) % Lymph % (Auto) (20-40) % [place] % (Auto) (2-11) % Eos % (Auto) (0-4) % Baso % (Auto) (0-2) % Lymph # (Auto) (1.2-4.9) X10*3/uL [place] # (Auto) (0.1-1.2) X10*3/uL Eos # (Auto) (0.0-0.4) X10*3/uL Baso # (Auto) (0.0-0.2) X10*3/uL Abs Immat Gran (auto) (0.00-0.03) X10*3/uL Absolute Neuts (auto) (2.0-8.3) x10*3/uL Absolute Nucleated RBC (0.0-0.012) X10*3/uL Nucleated RBC % (auto) (0.0-0.2) /100WBC Smear Tech's Comments Sodium (135-145) mmol/L Potassium (3.3-5.1) mmol/L Chloride (96-108) mmol/L Carbon Dioxide (22-29) mmol/L Anion Gap (12-20) BUN (9-16) mg/dL Creatinine (0.5-1.4) mg/dL Estim Creat Clear Calc Estimated GFR Random Glucose (60-115) mg/dL Lactic Acid 1.0 (0.5-2.0) mmol/L Calcium (8.4-10.2) mg/dL Total Bilirubin (0.0-1.0) mg/dL AST (5-37) U/L ALT (0-40) U/L Alkaline Phosphatase (39-117) U/L Total Protein (6.5-8.0) g/dL Albumin (3.5-5.0) g/dL Urine Color DK YELLOW Urine Appearance CLOUDY Urine pH 6.0 (5.0-8.0) Ur Specific [place] >= 1.030 H (1.005-1.025) Urine Protein 2+ H (NEG-TRACE) MG/DL Urine Glucose (UA) NEG (NEG) MG/DL Urine Ketones 5 (NEG) MG/DL Urine Blood 3+ H (NEG) Urine Nitrite POS H (NEG) Ur Leukocyte Esterase 1+ H (NEG) Urine RBC 5-9 H (0) /HPF Urine WBC 30-49 H (0-4) /HPF Ur Squamous Epith Cells 1+ /LPF Urine Bacteria 4+ /LPF COVID-19 ([facility]) (Negative) COVID-19 Clin Com Influenza Type A (MARYANA) Negative (Negative) Influenza Type B (MARYANA) Negative (Negative) Influenza A & B Note See Note Discharge Plan Discharge Clinical Impression: Acute pyelonephritis Patient Disposition: Home, Self-Care Instructions: Kidney Infection (ED) Additional Instructions: Please follow-up with your primary care physician tomorrow. If you have any worsening or new symptoms, please return to the emergency room or call 911 Prescriptions: New levofloxacin 750 mg tablet 750 mg PO DAILY Qty: 9 0RF No Action (DME) FreeStyle Lite Strips Strip See Rx Instructions .ROUTE .MEDSUPPLY Qty: 50 11RF Rx Instructions: As directed twice a day (DME) blood-glucose meter [FreeStyle Lite Meter] Kit See Rx Instructions .ROUTE .MEDSUPPLY Qty: 1 0RF Rx Instructions: As directed (DME) lancets 33 gauge misc See Rx Instructions ea Not Applicable BID Qty: 100 11RF Rx Instructions: Use 1 lancet once a day metformin 1,000 mg tablet 1,000 mg PO BID Qty: 60 6RF lisinopril 2.5 mg tablet 2.5 mg PO DAILY Qty: 30 4RF pioglitazone 15 mg tablet 15 mg PO DAILY Qty: 30 4RF Trulicity 3 mg/0.5 mL pen injector 3 mg subcut QWEEK 28 Days Qty: 2 6RF Rx Instructions: Dose increase
[2021-07-09 19:05] LABS: Appearance Urine CLOUDY; Color Urine DK YELLOW; Glucose Urine UA NEG (NEG); Leukocyte Esterase Urine 1+ (NEG); Nitrite Urine POS (NEG); Specific Gravity - Urine >= 1.030 (1.005-1.025); UACC Culture Trigger YES; Urine Blood 3+ (NEG); Urine Ketones 5 MG/DL (NEG); Urine Protein 2+ MG/DL (NEG-TRACE)
[2021-07-09 19:14] LABS: Bacteria Urine 4+ /LPF; Squamous Epithelial Cell Urine 1+ /LPF
[2021-07-09 19:16] LABS: WBC Urine 30-49 /HPF (0-4)
[2021-07-09 20:23] VITALS: BP 99/51; PULSE 99; RESP 18; TEMP 37; O2SAT 97
[2021-07-09] MEDS: levoFLOXacin 750 MG TABLET PO (23:02)
== END 2021-07-09 23:05 | disposition home or self-care (01) ==
PROVIDERS: Emergency Provider Emergency Medicine; PCP Internal Medicine
DX: N10 Acute pyelonephritis (principal); Z20.822 Contact with and (suspected) exposure to COVID-19; R50.9 Fever, unspecified; E11.9 Type 2 diabetes mellitus without complications; I10 Essential (primary) hypertension; Z79.899 Other long term (current) drug therapy
CPT/HCPCS: 36415; 80053; 81001; 83605; 85025; 87040; 87086; 87088; 87186; 87502; 87635; 99283; 99284

== ENCOUNTER → 2021-07-24 12:06 | Outpatient (BNVA) | payer MEDICARE, MEDICAID, SELFPAY | PROVIDERS: PCP Internal Medicine; Visit Provider Registered Nurse Diabetes Educator | DX: E11.65 Type 2 diabetes mellitus with hyperglycemia (principal) | CPT/HCPCS: 99211 ==

== ENCOUNTER 2021-08-08 09:39 | Outpatient (REF) | payer MEDICARE, MEDICAID, SELFPAY ==
[2021-08-08 09:49] LABS: MANUAL DIFF FLAG NO
[2021-08-08 10:25] LABS: Basophils Percent Auto 0.3 % (0-2); Eosinophils Absolute Auto 0.1 X10*3/uL (0.0-0.4); Eosinophils Percent Auto 1.5 % (0-4); Hematocrit 42.4 % (42.0-52.0); Hemoglobin 14.1 g/dl (14.0-18.0); Imm Gran Abs Auto 0.01 X10*3/uL (0.00-0.03); Imm Gran Pct Auto 0.1 % (0.0-0.4); Lymphocytes Absolute Auto 2.2 X10*3/uL (1.2-4.9); Mean Corpuscular HGB Conc 33.3 g/dl (31.0-36.0); Mean Corpuscular Hemoglobin 30.9 pg (27.0-33.0); Mean Platelet Volume 10.7 fL (9.4-12.4); Monocytes Absolute Auto 0.9 X10*3/uL (0.1-1.2); Monocytes Percent Auto 12.8 % (2-11); Neutrophils Absolute Auto 3.6 x10*3/uL (2.0-8.3); Neutrophils Percent Auto 53.3 % (45-73); Platelet Count 244 X10*3/uL (160-400); Red Blood Count 4.56 X10*6/uL (4.60-5.80); Red Cell Distribution Width 13.4 % (11.0-16.0); White Blood Count 6.7 X10*3/uL (4.8-10.8)
[2021-08-08 10:48] LABS: Anion Gap 11 (12-20); Blood Urea Nitrogen 26 mg/dL (9-16); Calcium 9.8 mg/dL (8.4-10.2); Carbon Dioxide 26 mmol/L (22-29); Chloride 103 mmol/L (96-108); Estimated Glomerular Filt Rate > 60; Glucose Random 152 mg/dL (60-115); Potassium 4.6 mmol/L (3.3-5.1); Sodium 135 mmol/L (135-145)
== END 2021-08-08 09:40 | disposition home or self-care (01) ==
LOC: HO.LAB 09:39
PROVIDERS: Absent Provider Internal Medicine; PCP Internal Medicine; Visit Provider Nurse Practitioner Family
DX: N10 Acute pyelonephritis (principal); D64.9 Anemia, unspecified
CPT/HCPCS: 36415; 80048; 85025

== ENCOUNTER 2021-10-22 07:05 | Outpatient (REF) | payer MEDICARE, MEDICAID, SELFPAY ==
[2021-10-22 07:29] LABS: MANUAL DIFF FLAG NO
[2021-10-22 07:43] LABS: Basophils Percent Auto 0.5 % (0-2); Eosinophils Absolute Auto 0.1 X10*3/uL (0.0-0.4); Eosinophils Percent Auto 1.5 % (0-4); Hematocrit 42.4 % (42.0-52.0); Hemoglobin 13.8 g/dl (14.0-18.0); Imm Gran Abs Auto 0.01 X10*3/uL (0.00-0.03); Imm Gran Pct Auto 0.2 % (0.0-0.4); Lymphocytes Absolute Auto 2.5 X10*3/uL (1.2-4.9); Lymphocytes Percent Auto 37.6 % (20-40); Mean Corpuscular HGB Conc 32.5 g/dl (31.0-36.0); Mean Corpuscular Hemoglobin 30.5 pg (27.0-33.0); Mean Corpuscular Volume 93.8 fL (80.0-98.0); Mean Platelet Volume 10.4 fL (9.4-12.4); Monocytes Absolute Auto 0.8 X10*3/uL (0.1-1.2); Monocytes Percent Auto 12.1 % (2-11); Neutrophils Absolute Auto 3.1 x10*3/uL (2.0-8.3); Neutrophils Percent Auto 48.1 % (45-73); Platelet Count 249 X10*3/uL (160-400); Red Blood Count 4.52 X10*6/uL (4.60-5.80); Red Cell Distribution Width 13.4 % (11.0-16.0); White Blood Count 6.5 X10*3/uL (4.8-10.8)
[2021-10-22 08:10] LABS: Alanine Aminotransferase 17 U/L (0-40); Alkaline Phosphatase 69 U/L (39-117); Anion Gap 14 (12-20); Aspartate Amino Transferase 17 U/L (5-37); Bilirubin Total 0.4 mg/dL (0.0-1.0); Blood Urea Nitrogen 21 mg/dL (9-16); Calcium 9.5 mg/dL (8.4-10.2); Carbon Dioxide 28 mmol/L (22-29); Chloride 102 mmol/L (96-108); Cholesterol 116 mg/dL; Estimated Glomerular Filt Rate > 60; Glucose Fasting 142 mg/dL (60-99); HDL Cholesterol 40 mg/dL; LDL Cholesterol Calculated 62 mg/dl; Potassium 4.7 mmol/L (3.3-5.1); Sodium 139 mmol/L (135-145); Total Protein 7.4 g/dL (6.5-8.0); Triglycerides 70 mg/dL
== END 2021-10-22 07:06 | disposition home or self-care (01) ==
LOC: HO.LAB 07:05
PROVIDERS: PCP Internal Medicine; Visit Provider Internal Medicine
DX: E78.5 Hyperlipidemia, unspecified (principal); D64.9 Anemia, unspecified; E11.65 Type 2 diabetes mellitus with hyperglycemia
CPT/HCPCS: 36415; 80053; 80061; 85025

== ENCOUNTER → 2021-10-23 13:38 | Outpatient (BNVA) | payer MEDICARE, MEDICAID, SELFPAY | PROVIDERS: PCP Internal Medicine; Visit Provider Registered Nurse Diabetes Educator | DX: E11.65 Type 2 diabetes mellitus with hyperglycemia (principal) | CPT/HCPCS: 99211 ==

== ENCOUNTER 2022-01-21 08:02 | Outpatient (REF) | payer MEDICARE, MEDICAID, SELFPAY ==
--- NOTE | ~2022-01-21 | MR_ITS ---
EXAMINATION: MR BRAIN WITHOUT CONTRAST CLINICAL INFORMATION: History of meningioma resection COMPARISON: None TECHNIQUE: Multiplanar multisequence MR imaging of the brain was obtained without intravenous contrast. FINDINGS: Stable postoperative appearance of the left posterior fossa status post retrosigmoid craniotomy with encephalomalacia and gliosis in the left cerebellar hemisphere. Within the limitations of a noncontrast examination, no evidence of local tumor recurrence. There is no acute infarct on diffusion-weighted imaging. There is no intracranial hemorrhage on iron-sensitive imaging. No extra-axial collection or mass effect/herniation. Scattered periventricular and deep white matter T2 FLAIR hyperintensities consistent with mild underlying microangiopathy. No hydrocephalus. The ventricles are normal in morphology and size. The major flow voids at the skull base are preserved. The midline structures are normal. The cerebellar tonsils are normally positioned. The craniocervical junction is normal. Marrow signal is within normal limits. The visualized soft tissues are without significant abnormality. Mild ethmoid sinus mucosal thickening. MR/MR head/brain wo con IMPRESSION: Stable postoperative appearance of the left posterior fossa status post meningioma resection. Within the limitations of a noncontrast exam, no evidence of tumor recurrence.
== END 2022-01-21 08:03 | disposition home or self-care (01) ==
LOC: HO.MRI 08:02
PROVIDERS: Visit Provider Internal Medicine
DX: H53.9 Unspecified visual disturbance (principal); R51.9 Headache, unspecified
CPT/HCPCS: 70551

== ENCOUNTER 2022-02-28 14:04 | Emergency (ER) | payer MEDICARE, MEDICAID, SELFPAY ==
[2022-02-28 14:11] VITALS: BP 182/83; PULSE 87; RESP 18; TEMP 36.7; O2SAT 98; BMI 25.8
--- NOTE | 2022-02-28 14:13 | ECG_ITS ---
Test Reason : Dizziness Blood Pressure : / mmHG Vent. Rate : 058 BPM Atrial Rate : 058 BPM P-R Int : 232 ms QRS Dur : 102 ms QT Int : 388 ms P-R-T Axes : 056 028 062 degrees QTc Int : 380 ms Sinus bradycardia with 1st degree A-V block Otherwise normal ECG No previous ECGs available Referred By: Jose Roberto Rios Electronically Signed By:RICCO MANCILLA MD
--- NOTE | 2022-02-28 14:16 | ED_ITS ---
HPI - General Adult General Chief complaint: General Medical Stated complaint: High blood sugar/Dizziness Related Data Previous Rx's Medication Instructions Recorded lancets 33 gauge #100 ea 09/11/20 metformin 1,000 mg tablet 1,000 mg PO BID #60 tabs 10/21/21 blood sugar diagnostic (FreeStyle #50 ea 01/28/22 Lite Strips) blood-glucose meter (FreeStyle #1 ea 01/28/22 Lite Meter kit) lisinopril 2.5 mg tablet 2.5 mg PO DAILY #30 tabs 02/08/22 dulaglutide 4.5 mg/0.5 mL 4.5 mg (0.5 mL) subcut QWEEK 90 02/11/22 subcutaneous pen injector days #6.5 mL (Trulicity) rosuvastatin 5 mg tablet 5 mg PO DAILY 90 days #90 tabs 02/11/22 Allergies Allergy/AdvReac Type Severity Reaction Status Date / Time pioglitazone AdvReac Mild diarrhea,po Verified 02/28/22 14:11 lyuria canagliflozin [Invokana] AdvReac Unknown dizziness Verified 02/28/22 14:11 [facility] Past Medical History Medical History BMI 38.0-38.9,adult Other obesity due to excess calories Sciatica Testicular pain Type 2 diabetes mellitus with hyperglycemia, without long-term current use of insulin Surgical History History of colonoscopy Hx of endoscopy Meningioma Family History Family History Father History of cancer Mother Hx of diabetes insipidus Social History Social History Household Members: Spouse Housing: Apartment Alcohol intake: never Patient Tobacco Use Status: Never used Tobacco e-Cigarette/Vaping Use: Never Used Second Hand Smoke Exposure: No service: No Current occupational status: employed Current occupational exposures/hazards: No Cognitive needs: No Hearing needs: No Vision needs: No Physical Exam ED Vital Signs: Vital Signs - 24 hr 02/28/22 14:11 Temperature 98.1 F Pulse Rate 87 Respiratory Rate 18 Blood Pressure 182/83 H Pulse Oximetry 98 Oxygen Delivery Method Room Air BMI result Body Mass Index 25.8 Course Course Course Narrative: RME: patient presents to the ED dizziness describes as room spiining and elevated gluce of 300. patient is a known diabetic and hypertensive without meds at home. patient nuero exam is intact. labs, EKg ordered. Discharge Plan Discharge Prescriptions: No Action (DME) lancets 33 gauge misc See Rx Instructions Not Applicable BID Qty: 100 11RF Rx Instructions: Use 1 lancet once a day metformin 1,000 mg tablet 1,000 mg PO BID Qty: 60 6RF (DME) blood-glucose meter [FreeStyle Lite Meter] Kit See Rx Instructions .ROUTE .MEDSUPPLY Qty: 1 0RF Rx Instructions: As directed (DME) FreeStyle Lite Strips Strip See Rx Instructions .ROUTE .MEDSUPPLY Qty: 50 11RF Rx Instructions: As directed twice a day lisinopril 2.5 mg tablet 2.5 mg PO DAILY Qty: 30 4RF rosuvastatin 5 mg tablet 5 mg PO DAILY 90 Days Qty: 90 1RF Trulicity 4.5 mg/0.5 mL pen injector 4.5 mg subcut QWEEK 90 Days Qty: 6.5 1RF
[2022-02-28 14:25] LABS: Glucose, Whole Blood 197 mg/dL (60-115)
[2022-02-28 14:26] VITALS: BP 152/69; PULSE 65; RESP 15
[2022-02-28 14:59] LABS: MANUAL DIFF FLAG NO
[2022-02-28 15:02] LABS: Basophils Percent Auto 0.3 % (0-2); Eosinophils Percent Auto 0.7 % (0-4); Hematocrit 42.3 % (42.0-52.0); Imm Gran Abs Auto 0.01 X10*3/uL (0.00-0.03); Imm Gran Pct Auto 0.2 % (0.0-0.4); Lymphocytes Absolute Auto 1.4 X10*3/uL (1.2-4.9); Lymphocytes Percent Auto 24.2 % (20-40); Mean Corpuscular HGB Conc 33.1 g/dl (31.0-36.0); Mean Corpuscular Volume 93.6 fL (80.0-98.0); Mean Platelet Volume 10.1 fL (9.4-12.4); Monocytes Absolute Auto 0.6 X10*3/uL (0.1-1.2); Monocytes Percent Auto 11.1 % (2-11); Neutrophils Absolute Auto 3.7 x10*3/uL (2.0-8.3); Neutrophils Percent Auto 63.5 % (45-73); Platelet Count 243 X10*3/uL (160-400); Red Blood Count 4.52 X10*6/uL (4.60-5.80); Red Cell Distribution Width 12.7 % (11.0-16.0); White Blood Count 5.8 X10*3/uL (4.8-10.8)
[2022-02-28 15:02] LABS: Appearance Urine Clear; Color Urine Yellow; Glucose Urine UA 250 mg/dL (Negative); Leukocyte Esterase Urine Negative (Negative); Nitrite Urine Negative (Negative); Specific Gravity - Urine <= 1.005 (1.005-1.025); Urine Blood Negative (Negative); Urine Ketones Negative (Negative); Urine Protein Negative (Neg-Trace)
--- NOTE | 2022-02-28 15:04 | PC.NURSE ---
report received from ANTONIA Miller Primarily zimbabwean speaking pt, resting comfortably on stretcher at this time. All blood work and orders have been complete up til this time. Dr. Machuca currently in with lang interpreter, awaiting new orders
[2022-02-28 15:05] LABS: INTERNATIONAL NORM RATIO 1.1 (0.9-1.1); Prothrombin Time 12.6 SEC (10.0-13.1)
[2022-02-28 15:08] LABS: Partial Thromboplastin Time 32.6 SEC (26.0-36.4)
[2022-02-28 15:18] LABS: Acetone, serum QL Negative (Negative)
[2022-02-28 15:25] LABS: Alanine Aminotransferase 18 U/L (0-40); Alkaline Phosphatase 69 U/L (39-117); Anion Gap 13 (12-20); Aspartate Amino Transferase 18 U/L (5-37); Bilirubin Total 0.3 mg/dL (0.0-1.0); Blood Urea Nitrogen 23 mg/dL (9-16); Calcium 9.6 mg/dL (8.4-10.2); Carbon Dioxide 27 mmol/L (22-29); Chloride 99 mmol/L (96-108); Creatinine Clr Calc Pharmacy 66.3; Estimated Glomerular Filt Rate > 60; Glucose Random 175 mg/dL (60-115); Potassium 4.4 mmol/L (3.3-5.1); Sodium 135 mmol/L (135-145); Total Protein 7.4 g/dL (6.5-8.0)
[2022-02-28 15:31] LABS: Troponin-I High Sensitivity < 3.5 ng/L (<3.5-35.0)
[2022-02-28 15:36] LABS: Influenza A PCR NEGATIVE (Negative); Influenza B PCR NEGATIVE (Negative); Resp Syncy Virus RNA Qual PCR NEGATIVE (Negative); SARS COV2 PCR INHOUSE NEGATIVE (Negative)
--- NOTE | 2022-02-28 16:02 | ED.GENADULT ---
HPI - General Adult General Chief complaint: General Medical Stated complaint: High blood sugar/Dizziness Time Seen by Provider: 02/28/22 15:00 Source: patient and lang interpreter Mode of arrival: ambulatory Limitations: no limitations History of Present Illness HPI narrative: 66-year-old male with history of type 2 diabetes patient is compliant with his medication, came in for elevated blood sugar to 190 at home despite taking his medication, patient also been feeling dizzy and low back pain, no fainting, no lightheadedness, no CP SOB, no coughing, no fever. Related Data Previous Rx's Medication Instructions Recorded lancets 33 gauge #100 ea 09/11/20 metformin 1,000 mg tablet 1,000 mg PO BID #60 tabs 10/21/21 blood sugar diagnostic (FreeStyle #50 ea 01/28/22 Lite Strips) blood-glucose meter (FreeStyle #1 ea 01/28/22 Lite Meter kit) lisinopril 2.5 mg tablet 2.5 mg PO DAILY #30 tabs 02/08/22 dulaglutide 4.5 mg/0.5 mL 4.5 mg (0.5 mL) subcut QWEEK 90 02/11/22 subcutaneous pen injector days #6.5 mL (Trulicity) rosuvastatin 5 mg tablet 5 mg PO DAILY 90 days #90 tabs 02/11/22 Allergies Allergy/AdvReac Type Severity Reaction Status Date / Time pioglitazone AdvReac Mild diarrhea,po Verified 02/28/22 14:11 lyuria canagliflozin [Invokana] AdvReac Unknown dizziness Verified 02/28/22 14:11 Review of Systems Review of Systems: All other systems are reviewed and are negative Constitutional: Reports as per HPI and Reports no additional constitutional complaints Eyes: Reports as per HPI and Reports no additional eye complaints Reports system reviewed and no additional complaints, except as documented Cardiovascular: Reports as per HPI and Reports no additional cardiovascular complaints Respiratory: Reports as per HPI and Reports no additional respiratory complaints Gastrointestinal: Reports as per HPI and Reports no additional gastrointestinal complaints Genitourinary: Reports no additional female genitourinary complaints Musculoskeletal: Reports no additional musculoskeletal complaints Skin/Breast: Reports system reviewed and no additional complaints, except as docu Psychiatric: Reports no additional psychiatric complaints Endocrine: Reports no additional endocrine complaints Hematologic/Lymphatic: Reports no additional hematologic/lymphatic complaints Allergic/Immunologic: Reports no additional allergic/immunologic complaints Reports system reviewed and no additional complaints, except as documented and Reports Abnormal speech present [facility] Past Medical History Medical History BMI 38.0-38.9,adult Other obesity due to excess calories Sciatica Testicular pain Type 2 diabetes mellitus with hyperglycemia, without long-term current use of insulin Surgical History History of colonoscopy Hx of endoscopy Meningioma Family History Family History Father History of cancer Mother Hx of diabetes insipidus Social History Social History Household Members: Spouse Housing: Apartment Alcohol intake: never Patient Tobacco Use Status: Never used Tobacco e-Cigarette/Vaping Use: Never Used Second Hand Smoke Exposure: No Advance Directives: No Advance Directives Information Provided: Yes service: No Current occupational status: employed Current occupational exposures/hazards: No Cognitive needs: No Hearing needs: No Vision needs: No Physical Exam ED Vital Signs: Vital Signs - 24 hr 02/28/22 14:11 02/28/22 14:26 Temperature 98.1 F Pulse Rate 87 65 Respiratory Rate 18 15 Blood Pressure 182/83 H 152/69 H Pulse Oximetry 98 Oxygen Delivery Method Room Air BMI result Body Mass Index 25.8 Vital signs have been reviewed as appeared to be correct. Blood pressure normal. Heart rate normal. Respiration rate normal. Temperature normal. Oxygen saturation normal. Appearance: Alert. Oriented X3. No acute distress. Head: Normal external exam. Normocephalic. Atraumatic. No Huertas signs noted. No raccoon eyes noted Eyes: PERRLA. EOMI. Conjunctiva and sclera normal. Eyelids normal. ENT: TM's Normal. Pharynx normal. Uvula midline. Moist mucous membranes. No trismus noted. No drooling noted. No muffled voice noted. Neck: Normal inspection. Neck supple. FROM. No adenopathy. Thyroid Normal. No meningeal signs. No neck mass noted. CVS: Normal heart rate and rhythm. Heart sound normal. No murmurs noted. Pulses normal throughout. Respiratory: No respiratory distress. Painless inspiration. Breath sounds normal. No wheezes/rales/rhonchi noted. Chest nontender. No accessory muscle usage noted or decreased air movement noted. Abdomen: Soft and nontender. Bowel sounds normal in all 4 quadrants. No distention noted. No organomegaly noted. No visible injury noted. Back: No CVA tenderness. Full range of motion noted. Skin: Skin warm and dry. Normal skin color. Normal skin turgor. No rashes/lesions/lacerations noted. Extremities: No lower extremity edema. Extremities exhibit normal range of motion. Extremities nontender. Neuro: Oriented X 3. Cranial nerve exam: II-XII are grossly intact No motor deficit. No sensory deficit. Reflexes normal. Course Course Course Narrative: Came for evaluation of high blood sugar despite taking his medication blood sugar is 190, no DKA. No UTI. POC is 143 at discharge. Medical Decision Making Differential Diagnosis Differential Diagnoses: The differential diagnosis associated with the presentation includes (UTI, hyperglycemia, DKA.) Lab Data MDM Lab Attestation statement: I reviewed the patient's lab results. 02/28/22 14:49 02/28/22 14:49 Labs: Lab Results 02/28/22 02/28/22 02/28/22 Range/Units 14:22 14:49 14:49 WBC 5.8 (4.8-10.8) X10*3/uL RBC 4.52 L (4.60-5.80) X10*6/uL Hgb 14.0 (14.0-18.0) g/dl Hct 42.3 (42.0-52.0) % MCV 93.6 (80.0-98.0) fL MCH 31.0 (27.0-33.0) pg MCHC 33.1 (31.0-36.0) g/dl RDW 12.7 (11.0-16.0) % Plt Count 243 (160-400) X10*3/uL MPV 10.1 (9.4-12.4) fL Immature Gran % (Auto) 0.2 (0.0-0.4) % Neut % (Auto) 63.5 (45-73) % Lymph % (Auto) 24.2 (20-40) % Villalba % (Auto) 11.1 H (2-11) % Eos % (Auto) 0.7 (0-4) % Baso % (Auto) 0.3 (0-2) % Lymph # (Auto) 1.4 (1.2-4.9) X10*3/uL Villalba # (Auto) 0.6 (0.1-1.2) X10*3/uL Eos # (Auto) 0.0 (0.0-0.4) X10*3/uL Baso # (Auto) 0.0 (0.0-0.2) X10*3/uL Abs Immat Gran (auto) 0.01 (0.00-0.03) X10*3/uL Absolute Neuts (auto) 3.7 (2.0-8.3) x10*3/uL Absolute Nucleated RBC 0.000 (0.0-0.012) X10*3/uL Nucleated RBC % (auto) 0.0 (0.0-0.2) /100WBC PT 12.6 (10.0-13.1) SEC INR 1.1 (0.9-1.1) APTT 32.6 (26.0-36.4) SEC Sodium (135-145) mmol/L Potassium (3.3-5.1) mmol/L Chloride (96-108) mmol/L Carbon Dioxide (22-29) mmol/L Anion Gap (12-20) BUN (9-16) mg/dL Creatinine (0.5-1.4) mg/dL Estim Creat Clear Calc Estimated GFR POC Glucose 197 H (60-115) mg/dL Random Glucose (60-115) mg/dL Calcium (8.4-10.2) mg/dL Total Bilirubin (0.0-1.0) mg/dL AST (5-37) U/L ALT (0-40) U/L Alkaline Phosphatase (39-117) U/L Troponin I High Sens (<3.5-35.0) ng/L Total Protein (6.5-8.0) g/dL Albumin (3.5-5.0) g/dL Urine Color Urine Appearance Urine pH (5.0-9.0) Ur Specific Adams (1.005-1.025) Urine Protein (Neg-Trace) mg/dL Urine Glucose (UA) (Negative) mg/dL Urine Ketones (Negative) mg/dL Urine Blood (Negative) Urine Nitrite (Negative) Ur Leukocyte Esterase (Negative) Acetone, Qual (Negative) Influenza Type A (PCR) (Negative) Influenza Type B (PCR) (Negative) RSV RNA Qual (PCR) (Negative) SARS-CoV-2 RNA (RT-PCR) (Negative) 02/28/22 02/28/22 02/28/22 Range/Units 14:49 14:49 14:49 WBC (4.8-10.8) X10*3/uL RBC (4.60-5.80) X10*6/uL Hgb (14.0-18.0) g/dl Hct (42.0-52.0) % MCV (80.0-98.0) fL MCH (27.0-33.0) pg MCHC (31.0-36.0) g/dl RDW (11.0-16.0) % Plt Count (160-400) X10*3/uL MPV (9.4-12.4) fL Immature Gran % (Auto) (0.0-0.4) % Neut % (Auto) (45-73) % Lymph % (Auto) (20-40) % Villalba % (Auto) (2-11) % Eos % (Auto) (0-4) % Baso % (Auto) (0-2) % Lymph # (Auto) (1.2-4.9) X10*3/uL Villalba # (Auto) (0.1-1.2) X10*3/uL Eos # (Auto) (0.0-0.4) X10*3/uL Baso # (Auto) (0.0-0.2) X10*3/uL Abs Immat Gran (auto) (0.00-0.03) X10*3/uL Absolute Neuts (auto) (2.0-8.3) x10*3/uL Absolute Nucleated RBC (0.0-0.012) X10*3/uL Nucleated RBC % (auto) (0.0-0.2) /100WBC PT (10.0-13.1) SEC INR (0.9-1.1) APTT (26.0-36.4) SEC Sodium 135 (135-145) mmol/L Potassium 4.4 (3.3-5.1) mmol/L Chloride 99 (96-108) mmol/L Carbon Dioxide 27 (22-29) mmol/L Anion Gap 13 (12-20) BUN 23 H (9-16) mg/dL Creatinine 1.06 (0.5-1.4) mg/dL Estim Creat Clear Calc 66.3 Estimated GFR > 60 POC Glucose (60-115) mg/dL Random Glucose 175 H (60-115) mg/dL Calcium 9.6 (8.4-10.2) mg/dL Total Bilirubin 0.3 (0.0-1.0) mg/dL AST 18 (5-37) U/L ALT 18 (0-40) U/L Alkaline Phosphatase 69 (39-117) U/L Troponin I High Sens < 3.5 (<3.5-35.0) ng/L Total Protein 7.4 (6.5-8.0) g/dL Albumin 4.0 (3.5-5.0) g/dL Urine Color Urine Appearance Urine pH (5.0-9.0) Ur Specific Adams (1.005-1.025) Urine Protein (Neg-Trace) mg/dL Urine Glucose (UA) (Negative) mg/dL Urine Ketones (Negative) mg/dL Urine Blood (Negative) Urine Nitrite (Negative) Ur Leukocyte Esterase (Negative) Acetone, Qual Negative (Negative) Influenza Type A (PCR) (Negative) Influenza Type B (PCR) (Negative) RSV RNA Qual (PCR) (Negative) SARS-CoV-2 RNA (RT-PCR) (Negative) 02/28/22 02/28/22 Range/Units 14:49 14:52 WBC (4.8-10.8) X10*3/uL RBC (4.60-5.80) X10*6/uL Hgb (14.0-18.0) g/dl Hct (42.0-52.0) % MCV (80.0-98.0) fL MCH (27.0-33.0) pg MCHC (31.0-36.0) g/dl RDW (11.0-16.0) % Plt Count (160-400) X10*3/uL MPV (9.4-12.4) fL Immature Gran % (Auto) (0.0-0.4) % Neut % (Auto) (45-73) % Lymph % (Auto) (20-40) % Villalba % (Auto) (2-11) % Eos % (Auto) (0-4) % Baso % (Auto) (0-2) % Lymph # (Auto) (1.2-4.9) X10*3/uL Villalba # (Auto) (0.1-1.2) X10*3/uL Eos # (Auto) (0.0-0.4) X10*3/uL Baso # (Auto) (0.0-0.2) X10*3/uL Abs Immat Gran (auto) (0.00-0.03) X10*3/uL Absolute Neuts (auto) (2.0-8.3) x10*3/uL Absolute Nucleated RBC (0.0-0.012) X10*3/uL Nucleated RBC % (auto) (0.0-0.2) /100WBC PT (10.0-13.1) SEC INR (0.9-1.1) APTT (26.0-36.4) SEC Sodium (135-145) mmol/L Potassium (3.3-5.1) mmol/L Chloride (96-108) mmol/L Carbon Dioxide (22-29) mmol/L Anion Gap (12-20) BUN (9-16) mg/dL Creatinine (0.5-1.4) mg/dL Estim Creat Clear Calc Estimated GFR POC Glucose (60-115) mg/dL Random Glucose (60-115) mg/dL Calcium (8.4-10.2) mg/dL Total Bilirubin (0.0-1.0) mg/dL AST (5-37) U/L ALT (0-40) U/L Alkaline Phosphatase (39-117) U/L Troponin I High Sens (<3.5-35.0) ng/L Total Protein (6.5-8.0) g/dL Albumin (3.5-5.0) g/dL Urine Color Yellow Urine Appearance Clear Urine pH 6.0 (5.0-9.0) Ur Specific Adams <= 1.005 (1.005-1.025) Urine Protein Negative (Neg-Trace) mg/dL Urine Glucose (UA) 250 H (Negative) mg/dL Urine Ketones Negative (Negative) mg/dL Urine Blood Negative (Negative) Urine Nitrite Negative (Negative) Ur Leukocyte Esterase Negative (Negative) Acetone, Qual (Negative) Influenza Type A (PCR) NEGATIVE (Negative) Influenza Type B (PCR) NEGATIVE (Negative) RSV RNA Qual (PCR) NEGATIVE (Negative) SARS-CoV-2 RNA (RT-PCR) NEGATIVE (Negative) Discharge Plan Discharge Clinical Impression: Hyperglycemia due to diabetes mellitus Patient Disposition: Home, Self-Care Instructions: Diabetic Hyperglycemia (ED) Prescriptions: No Action (DME) lancets 33 gauge misc See Rx Instructions Not Applicable BID Qty: 100 11RF Rx Instructions: Use 1 lancet once a day metformin 1,000 mg tablet 1,000 mg PO BID Qty: 60 6RF (DME) blood-glucose meter [FreeStyle Lite Meter] Kit See Rx Instructions .ROUTE .MEDSUPPLY Qty: 1 0RF Rx Instructions: As directed (DME) FreeStyle Lite Strips Strip See Rx Instructions .ROUTE .MEDSUPPLY Qty: 50 11RF Rx Instructions: As directed twice a day lisinopril 2.5 mg tablet 2.5 mg PO DAILY Qty: 30 4RF rosuvastatin 5 mg tablet 5 mg PO DAILY 90 Days Qty: 90 1RF Trulicity 4.5 mg/0.5 mL pen injector 4.5 mg subcut QWEEK 90 Days Qty: 6.5 1RF Referrals: Ritika Forte MD [Primary Care Provider] -
[2022-02-28 16:16] LABS: Glucose, Whole Blood 147 mg/dL (60-115)
== END 2022-02-28 16:24 | disposition home or self-care (01) ==
PROVIDERS: Physician Assistant; Emergency Provider Emergency Medicine; PCP Internal Medicine
DX: E11.65 Type 2 diabetes mellitus with hyperglycemia (principal); M54.50 Low back pain, unspecified; R42 Dizziness and giddiness; R07.89 Other chest pain; Z20.828 Contact with and (suspected) exposure to other viral communicable diseases; Z20.822 Contact with and (suspected) exposure to COVID-19; Z79.899 Other long term (current) drug therapy; Z79.4 Long term (current) use of insulin
CPT/HCPCS: 0241U; 36415; 80053; 81003; 82009; 82947; 84484; 85025; 85610; 85730; 93005; 99284

== ENCOUNTER 2022-04-22 15:40 | Outpatient (REF) | payer MEDICARE, MEDICAID, SELFPAY | END 2022-04-22 15:41 | disposition home or self-care (01) | LOC: HO.LAB 15:40 | PROVIDERS: Visit Provider Nurse Practitioner Family | DX: Z13.89 Encounter for screening for other disorder (principal) ==

== ENCOUNTER 2022-04-23 07:35 | Outpatient (REF) | payer MEDICARE, MEDICAID, SELFPAY ==
[2022-04-23 08:59] LABS: Prostate Specific Antigen 5.54 ng/mL (<0.05-4.0)
== END 2022-04-23 07:36 | disposition home or self-care (01) ==
LOC: HO.LAB 07:35
PROVIDERS: PCP Nurse Practitioner Family; Visit Provider Nurse Practitioner Family
DX: Z12.5 Encounter for screening for malignant neoplasm of prostate (principal); R35.0 Frequency of micturition
CPT/HCPCS: 36415; 84153; 87086

== ENCOUNTER → 2022-05-06 13:24 | Outpatient (BNVA) | payer MEDICARE, MEDICAID, SELFPAY | PROVIDERS: PCP Nurse Practitioner Family; Visit Provider Urology | DX: N40.1 Benign prostatic hyperplasia with lower urinary tract symptoms (principal); N52.9 Male erectile dysfunction, unspecified; R97.20 Elevated prostate specific antigen [PSA] | CPT/HCPCS: 51798; 99202 ==

== ENCOUNTER 2022-06-11 09:19 | Outpatient (REF) | payer MEDICARE, MEDICAID, SELFPAY ==
[2022-06-11 10:47] LABS: Creatinine Urine 91.15 mg/dL; Microalbum/Creatinine Ratio Ur 7.6 ug/mg cr
[2022-06-11 11:11] LABS: Alanine Aminotransferase 19 U/L (0-40); Albumin Level 3.9 g/dL (3.5-5.0); Alkaline Phosphatase 73 U/L (39-117); Anion Gap 13 (12-20); Aspartate Amino Transferase 17 U/L (5-37); Bilirubin Total 0.6 mg/dL (0.0-1.0); Blood Urea Nitrogen 25 mg/dL (9-16); Calcium 9.4 mg/dL (8.4-10.2); Carbon Dioxide 25 mmol/L (22-29); Chloride 103 mmol/L (96-108); Cholesterol 124 mg/dL; Estimated Glomerular Filt Rate > 60; Glucose Fasting 158 mg/dL (60-99); HDL Cholesterol 40 mg/dL; LDL Cholesterol Calculated 70 mg/dl; Potassium 4.7 mmol/L (3.3-5.1); Sodium 136 mmol/L (135-145); Total Protein 7.1 g/dL (6.5-8.0); Triglycerides 72 mg/dL
[2022-06-11 11:32] LABS: Vitamin D 25-OH Total 27.7 ng/mL (>30)
== END 2022-06-11 09:20 | disposition home or self-care (01) ==
LOC: HO.LAB 09:19
PROVIDERS: PCP Internal Medicine; Visit Provider Internal Medicine
DX: Z00.00 Encounter for general adult medical examination without abnormal findings (principal); E11.9 Type 2 diabetes mellitus without complications; E78.5 Hyperlipidemia, unspecified; E55.9 Vitamin D deficiency, unspecified
CPT/HCPCS: 36415; 80053; 80061; 82043; 82306

== ENCOUNTER 2022-06-28 07:14 | Outpatient (REF) | payer MEDICARE, MEDICAID, SELFPAY ==
[2022-06-28 07:47] VITALS: BMI 37.6
[2022-06-28 07:48] VITALS: BP 170/81; PULSE 58; RESP 16; TEMP 36.5; O2SAT 97
[2022-06-28 08:39] VITALS: BP 122/76; PULSE 71; RESP 16; O2SAT 95
--- NOTE | 2022-06-28 08:40 | P.HPSUR_ITS ---
Pre-Procedural Eval Section A Date of Service: 06/28/22 The History & Physical has been completed within 30 days and I have reviewed it.: No Section B Chief Complaint: Elevated prostate specific antigen [PSA] Details of Present Illness: The patient is a Sammarinese speaking male. Certified Sammarinese interpreters present during the encounter and available to assist with consent. C/o's concerns regarding problems getting and maintaining erections Wakes up 3 times at night and 2-4 times during the day to void. States he feels that he completely emptying his bladder after voiding. FHx: Father and uncle had prostate cancer. States his father was 82 years old when he was diagnosed with prostate cancer. Brother had surgery for enlarged prostate. The patient was instructed to start antibiotics one day prior to procedure. PSA results reviewed?04/23/2022?5.54. BUN levels reviewed--02/28/2022--. Relevant Family History (Specify if Yes): Yes Medical History: Significant History (Diabetes) Allergies: Allergies Allergy/AdvReac Type Severity Reaction Status Date / Time pioglitazone AdvReac Mild diarrhea,po Verified 06/17/22 13:17 lyuria canagliflozin [Invokana] AdvReac Unknown dizziness Verified 06/17/22 13:17 Review of Systems Review of Systems Comment: 10 point ROS negative other than stated in HPI Exam Surgical H&P Exam: Normal: HEENT, Normal: Heart and Normal: Lungs Plan Diagnosis/Plan: Unchanged I have reviewed the history and physical and performed a pertinent physical examination on my patient. No changes have occurred unless specified. Transrectal ultrasound guided biopsy of prostate Time Spent With Patient Time: Total time managing care of this patient today ____ minutes.
--- NOTE | 2022-06-28 08:45 | W.PM.OPN ---
Operative Note Operative Note Date of Service: 06/28/22 Narrative: PreOperative Diagnosis:? ? Elevated PSA Post Operative Diagnosis:??Elevated PSA Procedure:?1. Transrectal ultrasound guided biopsy of the prostate 12 core 2. Transrectal ultrasound measurement of prostate 3. Transrectal ultrasound guided pudendal nerve block Surgeon:?Dr Geoffrey Ziegler Anesthesia:? Local, Valium 5 mg PO Indications for procedure: Elevated PSA Procedure: Preoperative antibiotics confirmed. After informed consent was verified the patient was placed on the procedure table in left lateral position. Patient identity confirmed. Safety pause time-out performed. Digital rectal exam performed to dilate rectal sphincter, iodine mixed with lubricant jelly 30 cc placed per rectum. Ultrasound probe was placed per rectum. The prostate was visualized. The prostate was measured height 3.70 cm, width 5.23 cm, length 4.85 cm with a volume of 49.1 mL. An ultrasound guided pudendal nerve block was performed using 10 cc of 1% lidocaine. A 12 core biopsy was performed from the left base, left mid, left apex and right base, mid, apex 2 biopsies from each section. The ultrasound probe was removed and digital palpation of the prostate for 1-2 minutes for hemostasis was performed. The patient tolerated the procedure well. Complications: None
== END 2022-06-28 07:15 | disposition home or self-care (01) ==
LOC: HO.MS 07:14
PROVIDERS: PCP Internal Medicine; Visit Provider Urology
PROC: (CPT 55700; principal; 2022-06-28 08:00)
DX: R97.20 Elevated prostate specific antigen [PSA] (principal)
CPT/HCPCS: 55700; 76942; 88305

== ENCOUNTER 2022-09-09 11:24 | Outpatient (AMB) | payer MEDICARE, MEDICAID, SELFPAY ==
--- NOTE | 2022-09-09 06:55 | MHC.OFFVIS ---
Intake Intake Visit Reasons: biops results Intake Note: Patient presents today for a follow-up on Biopsy Results: Meds- None Allergies to Antibiotic- No Known Allergies Blood Thinner- None Production Control Expediter Required: Yes Production Control Expediter Language: Lebanese Accompanied by: Self / Same As Patient Allergies pioglitazone Adverse Reaction (Mild, Verified 09/09/22 11:29) diarrhea,polyuria canagliflozin [Invokana] Adverse Reaction (Unknown, Verified 09/09/22 11:29) dizziness Medication List - Last Reconciled 09/09/22 by Geoffrey Ziegler MD blood sugar diagnostic (FreeStyle Lite Strips) As directed twice a day blood-glucose meter (FreeStyle Lite Meter kit) As directed diazepam (Valium) 5 mg PO DAILY dulaglutide (Trulicity) 4.5 mg (0.5 mL) subcut QWEEK 90 days finasteride (Proscar) 5 mg PO DAILY 90 days lancets (TRUEplus Lancets) TEST BLOOD SUGAR ONCE DAILY losartan 50 mg PO DAILY 30 days metformin 1,000 mg PO BID miscellaneous medical supply (Blood Pressure Cuff) As directed rosuvastatin 5 mg PO DAILY 90 days HPI HPI Comments History of Present Illness Details Hay is a 66-year-old male who presents to the clinic as fu evaluation for elevated PSA. Prior visit 05/06/2022-- The patient is a male. Qualified Lebanese speaker was present during the encounter. He complains increased voiding. C/o's concerns regarding problems getting and maintaining erections Wakes up 3 times at night and 2-4 times during the day to void. States completely emptying his bladder after voiding. Complains having right lower back pain. FHx: Father and uncle had prostate cancer. States his father was 82 years old when he was diagnosed with prostate cancer. Brother had surgery for enlarged prostate. PSA results reviewed?04/23/2022?5.54. BUN levels reviewed--02/28/2022--23. Evaluation today-- Blood: negative, Leukocytes: negative. Bladder scan PVR: 50 mL.? USG scrotum results reviewed--03/11/2020--Unremarkable. Prostate exam: Moderately enlarged.? Plan: Elevated PSA- Schedule prostate biopsy procedure minor procedure room. ED- Testosterone free and total test prior was ordered due to problem with erections. ? ? Today's visit-- 09/09/2022-- Hay is a 67-year-old Lebanese speaking male who presents today to the office for follow-up on biopsy results. The patient is a Lebanese speaking male. Certified director of research center was present during the visit. He is here today to review the prostate biopsy results which were done on 06/28/2022. He was evaluated for elevated PSA; his last visit in the office was on 05/06/2022. He reports on and off urinary urgency. He denies any dysuria or hematuria. Pathology of the prostate tissue was benign, estimated prostate size on transrectal was 49.1mL. I have discussed place the patient on Proscar 5 mg daily. Will monitor PSA. Plan: Repeat the PSA in 6 months. Prescribed Proscar 5 mg once daily. Follow up in 6 months [facility] Medical History BMI 38.0-38.9,adult Other obesity due to excess calories Sciatica Testicular pain Type 2 diabetes mellitus with hyperglycemia, without long-term current use of insulin Surgical History History of colonoscopy Hx of endoscopy Meningioma Family History Father History of cancer Mother Hx of diabetes insipidus Social History Household Members: Spouse Housing: Apartment Alcohol intake: never Patient Tobacco Use Status: Never used Tobacco e-Cigarette/Vaping Use: Never Used Second Hand Smoke Exposure: No service: No Current occupational status: employed Current occupational exposures/hazards: No Cognitive needs: No Hearing needs: No Vision needs: No Review of Systems Const All systems reviewed & are unremarkable except as noted in HPI and below Reports no additional complaints Eyes Reports no additional complaints ENT Reports no additional complaints Card Denies dyspnea Resp Denies cough and Denies dyspnea GI Reports no additional complaints Musc Reports no additional complaints Skin/Breast Denies rash and Denies unusual bruising Neuro Reports no additional complaints Psych Reports no additional complaints Endo Reports no additional complaints Giancarlo/Lymph Reports no additional complaints Aller/Immun Reports no additional complaints Physical Exam Const General: no acute distress and well developed Orientation/consciousness: patient oriented x3 HEENT Head: Yes normocephalic and Yes atraumatic Eyes Conjunctivae: conjunctivae normal Neck Neck: Yes normal visual inspection Chest Chest palpation & inspection: normal inspection of the chest Resp Effort & Inspection: normal respiratory effort Cardio Rate: regular rate GI Inspection: Yes normal to inspection Skin General skin exam: no rashes or lesions noted Neuro General: patient oriented x3 Psych Appearance: grossly normal Affect: normal affect Results AMB Urinalysis, Automated UA Leukoctes 0 Martín/uL Last Edit by JALEESA Parker on 09/09/22 11:38 UA Nitrite Negative Last Edit by Mansi Nunez Jorge on 09/09/22 11:38 UA Urobilinogen 0.2 mg/dL Last Edit by JALEESA Parker on 09/09/22 11:38 UA Protein 0 mg/dL Last Edit by Mansi Nunez [facility] on 09/09/22 11:38 UA pH 6.0 Last Edit by Mansi Nunez Jorge on 09/09/22 11:38 UA Blood 0 Yvon/uL Last Edit by Mansi Nunez [facility] on 09/09/22 11:38 UA Specific Oral 1.015 Last Edit by JALEESA Parker on 09/09/22 11:38 UA Ketone Negative Last Edit by Mansi Nunez Jorge on 09/09/22 11:38 UA Bilirubin 0 mg/dL Last Edit by Mansi Nunez Jorge on 09/09/22 11:38 UA Glucose 1000 mg/dL Last Edit by Mansi Nunez [facility] on 09/09/22 11:38 3+ Mansi Nunez 09/09/22 11:38 Results Reviewed Results Reviewed: Laboratory Last Values Urine pH (Auto) 6.0 09/09/22 11:28 Specific Oral (Auto) 1.015 09/09/22 11:28 Urine Protein (Auto) 0 mg/dL 09/09/22 11:28 Glucose (UA)(Auto) 1000 mg/dL 09/09/22 11:28 Urine Ketones (Auto) Negative 09/09/22 11:28 Urine Blood (Auto) 0 Yvon/uL 09/09/22 11:28 Urine Nitrite (Auto) Negative 09/09/22 11:28 Urine Bilirubin (Auto) 0 mg/dL 09/09/22 11:28 Urine Urobilinogen (Auto) 0.2 mg/dL 09/09/22 11:28 Leukocyte Esterase (Auto) 0 Martín/uL 09/09/22 11:28 Assessment & Plan Assessment & Plan (1) Elevated PSA: Code(s): R97.20 - Elevated prostate specific antigen [PSA] (2) BPH loc w urin obs/LUTS: Code(s): N40.1 - Benign prostatic hyperplasia with lower urinary tract symptoms Plan Repeat the PSA in 6 months. Prescribed Proscar 5 mg once daily. Follow up in 6 months Orders: Orders AMB Urinalysis Automated 09/09/22 Z13.9 - Encounter for screening, unspecified Medications: New finasteride (Proscar) 5 mg PO DAILY 90 tabs 3RF 90 days C61 - Malignant neoplasm of prostate Patient Instructions: The patient had an opportunity to ask questions regarding treatment plan. All questions were answered. Imaging, Laboratory studies and physical exam results were discussed and reviewed in detail. No major barriers to understanding were identified. The patient expressed understanding and agreement with the above treatment plan.? ? ? The patient is aware they should contact our office by phone for worsening of their current condition or the appearance of new symptoms. Compliance is encouraged with any medications and followup testing that is ordered.? ? ? It is a privilege to be allowed the opportunity to participate in the urologic care of your patient. If you have any questions or concerns regarding treatment for the above conditions please do not hesitate to contact me. The office telephone contact is [phone].? ? ? This note is constructed in part using voice recognition software. While every effort has been made to ensure accuracy flying squad worker errors may have been included.? ? ? Yours sincerely,? ? ? Geoffrey Ziegler MD? Coding Level of Care Code Est Pt Level 4 (82849) Diagnoses Elevated PSA R97.20 BPH loc w urin obs/LUTS N40.1
== END 2022-09-09 11:53 | disposition home or self-care (01) ==
PROVIDERS: PCP Internal Medicine; Visit Provider Urology
DX: R97.20 Elevated prostate specific antigen [PSA] (principal); N40.1 Benign prostatic hyperplasia with lower urinary tract symptoms
CPT/HCPCS: 99214

== ENCOUNTER → 2022-09-09 11:24 | Outpatient (BNVA) | payer MEDICARE, MEDICAID, SELFPAY | PROVIDERS: PCP Internal Medicine; Visit Provider Urology | DX: N40.1 Benign prostatic hyperplasia with lower urinary tract symptoms (principal); R97.20 Elevated prostate specific antigen [PSA] | CPT/HCPCS: 99212 ==

== ENCOUNTER 2022-10-16 07:35 | Outpatient (REF) | payer MEDICARE, MEDICAID, SELFPAY ==
[2022-10-16 09:17] LABS: Alanine Aminotransferase 17 U/L (0-40); Albumin Level 3.6 g/dL (3.5-5.0); Alkaline Phosphatase 66 U/L (39-117); Anion Gap 13 (12-20); Aspartate Amino Transferase 16 U/L (5-37); Bilirubin Total 0.4 mg/dL (0.0-1.0); Blood Urea Nitrogen 22 mg/dL (9-16); Calcium 9.3 mg/dL (8.4-10.2); Carbon Dioxide 22 mmol/L (22-29); Chloride 105 mmol/L (96-108); Cholesterol 110 mg/dL (<200); Estimated Glomerular Filt Rate > 60; Glucose Fasting 168 mg/dL (60-99); HDL Cholesterol 35 mg/dL (>40); LDL Cholesterol Calculated 60 mg/dL (<100); Potassium 4.2 mmol/L (3.3-5.1); Sodium 136 mmol/L (135-145); Total Protein 7.1 g/dL (6.5-8.0); Triglycerides 77 mg/dL (<150)
[2022-10-16 09:19] LABS: Microalbum/Creatinine Ratio Ur 5.6 ug/mg cr (<30)
[2022-10-20 14:53] LABS: Testosterone, Free 53.5 pg/mL (35.0-155.0); Testosterone, Total 332 ng/dL (250-1100)
== END 2022-10-16 07:36 | disposition home or self-care (01) ==
LOC: HO.LAB 07:35
PROVIDERS: Urology; PCP Internal Medicine; Visit Provider Internal Medicine
DX: E11.65 Type 2 diabetes mellitus with hyperglycemia (principal); N52.9 Male erectile dysfunction, unspecified; E78.5 Hyperlipidemia, unspecified
CPT/HCPCS: 36415; 80053; 80061; 82043; 82570; 84402; 84403

== ENCOUNTER 2022-10-21 13:58 | Outpatient (AMB) | payer MEDICARE, MEDICAID, SELFPAY ==
[2022-10-21 14:08] VITALS: BP 118/72; BMI 37.4
--- NOTE | 2022-10-21 14:08 | A.OFFPC_ITS ---
Vital Signs 10/21/22 14:08 Height 5 ft 4 in Weight 218 lb BMI 37.4 BP 118/72 Blood Pressure Location Lt brachial Position Sitting Intake Visit Reasons: dm Intake Note: Patient here for a follow up DM Transplant Surgeon Required: No Accompanied by: Self / Same As Patient Allergies pioglitazone Adverse Reaction (Mild, Verified 10/21/22 14:21) diarrhea,polyuria canagliflozin [Invokana] Adverse Reaction (Unknown, Verified 10/21/22 14:21) dizziness Medication List - Last Reconciled 10/21/22 by Ritika Hernández MD blood sugar diagnostic (FreeStyle Lite Strips) As directed twice a day blood-glucose meter (FreeStyle Lite Meter kit) As directed dulaglutide (Trulicity) 4.5 mg (0.5 mL) subcut QWEEK 90 days finasteride (Proscar) 5 mg PO DAILY 90 days lancets (TRUEplus Lancets) TEST BLOOD SUGAR ONCE DAILY losartan 50 mg PO DAILY 30 days metformin 1,000 mg PO BID miscellaneous medical supply (Blood Pressure Cuff) As directed rosuvastatin 5 mg PO DAILY 90 days Tobacco use date assessed: 05/26/22 Fall risk assessment: No Falls in past year Last assessed Fall Risk: 10/21/22 Dental Screening Dental Screen Date: 10/21/22 Did you have a dental visit in the last 12 months?: No Did you have a dental problem in the last 6 months where you did not have access to dental care?: No Was dental information given to patient?: Patient has dentist HPI HPI Comments History of Present Illness Details This is a 67-year-old male with diabetes mellitus type 2, hypertension and hyperlipidemia that comes today for follow-up on his conditions. He has BPH and is follow by Urology. A1c elevated and I will add a medication. Blood pressure stable. LDL within goal. Has nocturia due to BPH. No chest pain or shortness of breath. PFSH Medical History Sciatica Testicular pain Type 2 diabetes mellitus with hyperglycemia, without long-term current use of insulin Other obesity due to excess calories BMI 38.0-38.9,adult Surgical History Meningioma Hx of endoscopy History of colonoscopy Family History Father History of cancer Mother Hx of diabetes insipidus Social History Household Members: Spouse Housing: Apartment Alcohol intake: never Patient Tobacco Use Status: Never used Tobacco e-Cigarette/Vaping Use: Never Used Second Hand Smoke Exposure: No service: No Current occupational status: employed Current occupational exposures/hazards: No Cognitive needs: No Hearing needs: No Vision needs: No Questionnaire Thrive Questionnaire Date Thrive assessed: 06/17/22 KALEB-7 AMB Questionnaire KALEB-7 Date KALEB - 7 assessed: 06/17/22 Source: Developed by Drs. Rocael Sarabia, Whitney Hoang, Schuyler Dickens and colleagues, with an educational rei from [employer]. Review of Systems Const All systems reviewed & are unremarkable except as noted in HPI and below Eyes Reports no additional complaints, Denies change in vision and Denies other vi sual disturbances Card Denies chest pain at rest, Denies chest pain with activity, Denies edema, Denies irregular heart rhythm, Denies claudication, Denies dyspnea, Denies dyspnea on exertion, Denies orthopnea, Denies paroxysmal nocturnal dyspnea and Denies slow heart rate Resp Denies cough, Denies dyspnea and Denies dyspnea on exertion GI Denies abdominal pain, Denies change in bowel habits, Denies excessive flatus, Denies nausea and Denies vomiting Denies urinary hesitancy, Denies urinary incontinence and Denies urinary urgency Musc Denies abnormal gait, Denies atrophy, Denies deformity and Denies limited range of motion Skin/Breast Denies bleeding lesions, Denies changing lesions and Denies rash Neuro Denies abnormal gait and Denies lack of coordination Physical exam (Primary Care) Vital Signs: Last Vital Signs BP 118/72 10/21/22 14:08 BMI result Body Mass Index 37.4 Tobacco/Smoking Status: Tobacco use Status Tobacco use date assessed 05/26/22 10/21/22 14:12 Patient Tobacco Use Status Never used Tobacco 10/21/22 14:12 e-Cigarette/Vaping Use Never Used 10/21/22 14:12 Thrive Assessment: Date of Thrive Assessment Date Thrive assessed 06/17/22 10/21/22 14:12 Eyes General: appearance normal, both eyes and all related structures Eyelids: Yes eyelids normal Conjunctivae: conjunctivae normal Neck Neck: Yes normal visual inspection and Yes supple Resp Effort & Inspection: normal respiratory effort Auscultation: clear to auscultation bilaterally Cardio Jugular venous distension: no JVD Rate: regular rate Rhythm: regular rhythm Heart sounds: S1 normal heart sound present and S2 normal heart sound present Extrem General: Yes full ROM Results AMB Hemoglobin A1c AMB Hemoglobin A1c 7.5 % Last Edit by JALEESA Chester on 10/21/22 14:1 5 Results Reviewed Results Reviewed: Laboratory Last Values Hgb A1c (Clinic) 7.5 % (4.0-6.0) H 10/21/22 14:13 Assessment and Plan Assessment & Plan (1) Type 2 diabetes mellitus with hyperglycemia, without long-term current use of insulin: Code(s): E11.65 - Type 2 diabetes mellitus with hyperglycemia Plan: Continue metformin and Trulicity. Start Farxiga. A1c goal is equal or less than 7%. (2) Hypertension: Code(s): I10 - Essential (primary) hypertension Qualifiers: Hypertension type: primary hypertension Qualified Code(s): I10 - Essential (primary) hypertension Plan: Continue losartan. Blood pressure goal is equal or less than 130/80 (3) Hyperlipidemia LDL goal <70: Code(s): E78.5 - Hyperlipidemia, unspecified Plan: Continue statins. LDL goal is less than 70. (4) BPH loc w urin obs/LUTS: Code(s): N40.1 - Benign prostatic hyperplasia with lower urinary tract symptoms Plan: Continue finasteride. Follow-up with Urology. Orders: Orders AMB Hemoglobin A1c Today E11.65 - Type 2 diabetes mellitus with hyperglycemia Microalbumin, Random (w Creat) 4 Months E11.9 - Type 2 diabetes mellitus without complications Lipid Panel 4 Months E78.5 - Hyperlipidemia, unspecified Medications: New dapagliflozin propanediol (Farxiga) 5 mg PO DAILY 30 days 30 tabs 1RF Coding Level of Care Code Est Pt Level 4 (64527) Diagnoses Type 2 diabetes mellitus with hyperglycemia, without long-term current use of insulin E11.65 Primary hypertension I10 Hypertension type: primary hypertension Hyperlipidemia LDL goal <70 E78.5 BPH loc w urin obs/LUTS N40.1 Time Spent (min) 20
== END 2022-10-21 14:31 | disposition home or self-care (01) ==
PROVIDERS: PCP Internal Medicine; Visit Provider Internal Medicine
DX: E11.65 Type 2 diabetes mellitus with hyperglycemia (principal); I10 Essential (primary) hypertension; E78.5 Hyperlipidemia, unspecified; N40.1 Benign prostatic hyperplasia with lower urinary tract symptoms
CPT/HCPCS: 83036; 99214

== ENCOUNTER 2022-12-05 09:06 | Emergency (ER) | payer MEDICARE, MEDICAID, SELFPAY ==
[2022-12-05 09:10] VITALS: BP 154/86; PULSE 74; RESP 18; TEMP 35.8; O2SAT 99; BMI 37.5
[2022-12-05 09:27] LABS: MANUAL DIFF FLAG NO
[2022-12-05 09:29] LABS: Basophils Percent Auto 0.3 % (0-2); Eosinophils Absolute Auto 0.1 X10*3/uL (0.0-0.4); Eosinophils Percent Auto 0.9 % (0-4); Hematocrit 45.4 % (42.0-52.0); Hemoglobin 15.1 g/dl (14.0-18.0); Imm Gran Abs Auto 0.01 X10*3/uL (0.00-0.03); Imm Gran Pct Auto 0.2 % (0.0-0.4); Lymphocytes Absolute Auto 1.8 X10*3/uL (1.2-4.9); Lymphocytes Percent Auto 28.5 % (20-40); Mean Corpuscular HGB Conc 33.3 g/dl (31.0-36.0); Mean Corpuscular Hemoglobin 31.4 pg (27.0-33.0); Mean Corpuscular Volume 94.4 fL (80.0-98.0); Mean Platelet Volume 10.1 fL (9.4-12.4); Monocytes Absolute Auto 0.8 X10*3/uL (0.1-1.2); Monocytes Percent Auto 12.8 % (2-11); Neutrophils Absolute Auto 3.7 x10*3/uL (2.0-8.3); Neutrophils Percent Auto 57.3 % (45-73); Platelet Count 280 X10*3/uL (160-400); Red Blood Count 4.81 X10*6/uL (4.60-5.80); White Blood Count 6.4 X10*3/uL (4.8-10.8)
[2022-12-05 09:45] LABS: IDNOW Serial# BCCEAD1C; Influenza A Negative (Negative); Influenza B2 Negative (Negative)
[2022-12-05 09:48] LABS: Alanine Aminotransferase 21 U/L (0-40); Alkaline Phosphatase 77 U/L (39-117); Anion Gap 14 (12-20); Aspartate Amino Transferase 18 U/L (5-37); Bilirubin Direct 0.2 mg/dL (0.0-0.5); Bilirubin Total 0.6 mg/dL (0.0-1.0); Blood Urea Nitrogen 24 mg/dL (9-16); Calcium 9.7 mg/dL (8.4-10.2); Carbon Dioxide 24 mmol/L (22-29); Chloride 106 mmol/L (96-108); Creatinine Clr Calc Pharmacy 70.5; Estimated Glomerular Filt Rate > 60; Glucose Random 153 mg/dL (60-115); Lipase 21 U/L (8-78); Potassium 4.5 mmol/L (3.3-5.1); Sodium 139 mmol/L (135-145); Total Protein 7.9 g/dL (6.5-8.0)
[2022-12-05 09:50] LABS: COVID-19 Test Negative (Negative); IDNOW Serial# 08D9AD1C
--- NOTE | 2022-12-05 10:23 | ED_ITS ---
HPI - Nausea/Vomiting/Diarrhea General Chief complaint: Nausea/Vomiting/Diarrhea Stated complaint: Diarrhea Time Seen by Provider: 12/05/22 10:15 Source: patient, old records reviewed and [employer] Mode of arrival: ambulatory Limitations: no limitations History of Present Illness HPI Narrative: 67 yo male with PMH of HLD, BPH, UTI, pyelonephritis, HTN, DM, here with c/o diarrhea x 3 days but only 2 to 3 episodes per day without pain, blood, fevers, weakness. He is blaming his new medication farxiga. He has not been on antibiotics in the past month. He has not had this before. He otherwise feels fine. Tried a little bit of pepto without relief. MD elicited complaint: diarrhea Onset (ago): day(s) (3) Description of diarrhea: loose Associated nausea: No Associated abdominal pain: No Severity: mild Exacerbating factors: eating Relieving factors: none Context: new medication Associated symptoms: denies other symptoms Treatment prior to arrival: other OTC medicine Related Data Previous Rx's Medication Instructions Recorded blood sugar diagnostic (FreeStyle #50 ea 01/28/22 Lite Strips) blood-glucose meter (FreeStyle #1 ea 01/28/22 Lite Meter kit) lancets 33 gauge (TRUEplus Lancets) ##100 04/24/22 miscellaneous medical supply #1 ea 05/26/22 (Blood Pressure Cuff) metformin 1,000 mg tablet 1,000 mg PO BID #60 tabs 06/27/22 rosuvastatin 5 mg tablet 5 mg PO DAILY 90 days #90 tabs 08/26/22 finasteride 5 mg tablet (Proscar) 5 mg PO DAILY 90 days #90 tabs 09/09/22 dulaglutide 4.5 mg/0.5 mL 4.5 mg (0.5 mL) subcut QWEEK 90 09/17/22 subcutaneous pen injector days #6.5 mL (Trulicity) losartan 50 mg tablet 50 mg PO DAILY 30 days #30 tabs 10/03/22 dapagliflozin propanediol 5 mg 5 mg PO DAILY 30 days #30 tabs 10/21/22 tablet (Farxiga) diphenoxylate-atropine 2.5 5 ml PO BID PRN diarrhea 2 days 12/05/22 mg-0.025 mg/5 mL oral liquid #60 mL Allergies Allergy/AdvReac Type Severity Reaction Status Date / Time pioglitazone AdvReac Mild diarrhea,po Verified 10/21/22 14:21 lyuria canagliflozin [Invokana] AdvReac Unknown dizziness Verified 10/21/22 14:21 Review of Systems 2 Review of Systems: Constitutional : No Weight loss, No Fever, No Chills ENT/Mouth : No sore throat, No Rhinorrhea Eyes: No Swelling, No Redness Cardiovascular : No Chest Pain, No SOB, NoEdema Respiratory : No Cough, No Sputum, No Wheezing Gastrointestinal : no Nausea, no Vomiting, positive Diarrhea, no abdominal Pain, No Hematochezia, No Melena Genitourinary : No Dysuria, No Urinary Frequency, No Hematuria, No Urgency Musculoskeletal : No joint pain, No Myalgias, No Joint Swelling Skin : No Skin Lesions, No rash Neuro : No Weakness, No Numbness, No Dizziness, No Headache Psych : No Anxiety/Panic, No Depression Heme/Lymph: No Bruising, No Lymphadenopathy Endocrine : No Polyuria, No Polydipsia All other systems reviewed and are negative. Gastrointestinal: Gastrointestinal: Denies nausea PMFSH Past Medical History Attestation statement: The following information was validated with the patient. Source: old records reviewed Medical History Sciatica Testicular pain Type 2 diabetes mellitus with hyperglycemia, without long-term current use of insulin Other obesity due to excess calories BMI 38.0-38.9,adult Surgical History Meningioma Hx of endoscopy History of colonoscopy Family History Family History Father History of cancer Mother Hx of diabetes insipidus Social History Social History Household Members: Spouse Housing: Apartment Alcohol intake: never Patient Tobacco Use Status: Never used Tobacco e-Cigarette/Vaping Use: Never Used Second Hand Smoke Exposure: No Advance Directives: No Advance Directives Information Provided: Yes service: No Current occupational status: employed Current occupational exposures/hazards: No Cognitive needs: No Hearing needs: No Vision needs: No Physical Exam 2 Vital Signs: Vital Signs: Last Vital Signs Temp 96.5 F L 12/05/22 09:10 Pulse 74 12/05/22 09:10 Resp 18 12/05/22 09:10 BP 154/86 H 12/05/22 09:10 Pulse Ox 99 12/05/22 09:10 O2 Del Method Room Air 12/05/22 09:10 BMI result Body Mass Index 37.5 Appearance: Alert. Oriented X3. No acute distress. Eyes: Pupils equal, round and reactive to light. ENT: Pharynx normal. Neck: Normal inspection. Neck supple. CVS: Normal heart rate and rhythm. Pulses normal. Respiratory: No respiratory distress. Breath sounds normal. Abdomen: Soft and nontender. Skin: Skin warm and dry. Normal skin color. Normal skin turgor. Extremities: No lower extremity edema. No calf ttp Neuro: Oriented X 3. No motor deficit. No sensory deficit. Medical Decision Making Medical Decision Making [facility] Narrative: 67 yo male with PMH of HLD, BPH, UTI, pyelonephritis, HTN, DM, here with c/o diarrhea x 3 days but only 2 to 3 episodes per day without pain, blood, fevers, weakness and no sick contacts, travel, abx with benign abdominal exam. At this time he is eating multiple cups of oatmeal a day, he will have a stool sample and diarrhea diet along with immodium x 2 days. He is otherwise not toxic. Differential Diagnosis Differential Diagnoses: The differential diagnosis associated with the presentation includes diarrhea, med reaction, increased fiber Admission/Observation Consideration of admission/observation: Escalation of care including admission/observation considered not toxic, stable for outpatient management Lab Data [facility] Lab Attestation statement: I reviewed the patient's lab results. 12/05/22 09:24 12/05/22 09:24 Labs: Lab Results 12/05/22 Range/Units 09:24 WBC 6.4 (4.8-10.8) X10*3/uL RBC 4.81 (4.60-5.80) X10*6/uL Hgb 15.1 (14.0-18.0) g/dl Hct 45.4 (42.0-52.0) % MCV 94.4 (80.0-98.0) fL MCH 31.4 (27.0-33.0) pg MCHC 33.3 (31.0-36.0) g/dl RDW 13.0 (11.0-16.0) % Plt Count 280 (160-400) X10*3/uL MPV 10.1 (9.4-12.4) fL Immature Gran % (Auto) 0.2 (0.0-0.4) % Neut % (Auto) 57.3 (45-73) % Lymph % (Auto) 28.5 (20-40) % [place] % (Auto) 12.8 H (2-11) % Eos % (Auto) 0.9 (0-4) % Baso % (Auto) 0.3 (0-2) % Lymph # (Auto) 1.8 (1.2-4.9) X10*3/uL [place] # (Auto) 0.8 (0.1-1.2) X10*3/uL Eos # (Auto) 0.1 (0.0-0.4) X10*3/uL Baso # (Auto) 0.0 (0.0-0.2) X10*3/uL Abs Immat Gran (auto) 0.01 (0.00-0.03) X10*3/uL Absolute Neuts (auto) 3.7 (2.0-8.3) x10*3/uL Absolute Nucleated RBC 0.000 (0.0-0.012) X10*3/uL Nucleated RBC % (auto) 0.0 (0.0-0.2) /100WBC Sodium 139 (135-145) mmol/L Potassium 4.5 (3.3-5.1) mmol/L Chloride 106 (96-108) mmol/L Carbon Dioxide 24 (22-29) mmol/L Anion Gap 14 (12-20) BUN 24 H (9-16) mg/dL Creatinine 1.08 (0.5-1.4) mg/dL Estim Creat Clear Calc 70.5 Estimated GFR > 60 Random Glucose 153 H (60-115) mg/dL Calcium 9.7 (8.4-10.2) mg/dL Total Bilirubin 0.6 (0.0-1.0) mg/dL Direct Bilirubin 0.2 (0.0-0.5) mg/dL AST 18 (5-37) U/L ALT 21 (0-40) U/L Alkaline Phosphatase 77 (39-117) U/L Total Protein 7.9 (6.5-8.0) g/dL Albumin 4.0 (3.5-5.0) g/dL Lipase 21 (8-78) U/L COVID-19 ([facility]) Negative (Negative) COVID-19 Clin Com See Note Influenza Type A (MARYANA) Negative (Negative) Influenza Type B (MARYANA) Negative (Negative) Influenza A & B Note See Note Independent Historian Clinical information obtained from an independent historian. History obtained from or confirmed by: Spouse External Record Review External record reviewed: Inpatient record Tests considered The following testing was considered but not selected: CT scan but given no pain and only loose stools doubt colitis/diverticulitis Prescription Management I considered prescription management with: Other Discharge Plan Discharge Clinical Impression: Diarrhea Qualifiers: Diarrhea type: unspecified type Qualified Code(s): R19.7 - Diarrhea, unspecified Patient Disposition: Home, Self-Care Instructions: Acute Diarrhea (ED) Additional Instructions: return for pain, fevers, inability to eat or drink, blood in stool. decrease your fiber intake. immodium for only 2 days. eat a diarrhea diet. we will call you for abnormal stool results. Regrese por dolor, fiebre, incapacidad para comer o beber, mary ellen en las heces. Disminuya rizzo consumo de fibra. immodium por solo 2 d?as. seguir osiel dieta para la diarrea. Lo llamaremos si hay resultados anormales en las heces. Prescriptions: New diphenoxylate-atropine 2.5-0.025 mg/5 mL liquid 5 ml PO BID PRN (Reason: diarrhea) 2 Days Qty: 60 0RF No Action (DME) blood-glucose meter [FreeStyle Lite Meter] Kit See Rx Instructions .ROUTE .MEDSUPPLY Qty: 1 0RF Rx Instructions: As directed (DME) FreeStyle Lite Strips Strip See Rx Instructions .ROUTE .MEDSUPPLY Qty: 50 11RF Rx Instructions: As directed twice a day (DME) lancets [TRUEplus Lancets] 33 gauge misc See Rx Instructions .ROUTE .COMPLEX Qty: 100 11RF Dose Instruction: TEST BLOOD SUGAR ONCE DAILY Rx Instructions: TEST BLOOD SUGAR ONCE DAILY metformin 1,000 mg tablet 1,000 mg PO BID Qty: 60 6RF rosuvastatin 5 mg tablet 5 mg PO DAILY 90 Days Qty: 90 1RF Trulicity 4.5 mg/0.5 mL pen injector 4.5 mg subcut QWEEK 90 Days Qty: 6.5 1RF losartan 50 mg tablet 50 mg PO DAILY 30 Days Qty: 30 1RF Farxiga 5 mg tablet 5 mg PO DAILY 30 Days Qty: 30 1RF (DME) Blood Pressure Cuff Misc See Rx Instructions .ROUTE .MEDSUPPLY Qty: 1 0RF Rx Instructions: As directed finasteride [Proscar] 5 mg tablet 5 mg PO DAILY 90 Days Qty: 90 3RF Print Language: Chinese
[2022-12-05 11:41] VITALS: BP 135/72; PULSE 56; RESP 18; TEMP 36.9; O2SAT 97
== END 2022-12-05 11:55 | disposition home or self-care (01) ==
PROVIDERS: Emergency Provider Emergency Medicine; PCP Internal Medicine
DX: R11.2 Nausea with vomiting, unspecified (principal); R19.7 Diarrhea, unspecified; Z11.52 Encounter for screening for COVID-19; Z20.822 Contact with and (suspected) exposure to COVID-19; Z79.899 Other long term (current) drug therapy
CPT/HCPCS: 36415; 80053; 82248; 83690; 85025; 87502; 87635; 99283; 99284

== ENCOUNTER 2022-12-24 07:04 | Outpatient (AMB) | payer MEDICARE, MEDICAID, SELFPAY ==
[2022-12-24 07:07] VITALS: BP 150/68; PULSE 80; O2SAT 98; BMI 37.6
--- NOTE | 2022-12-24 07:07 | A.OFFPC_ITS ---
Vital Signs 12/24/22 07:07 Height 5 ft 4 in Weight 219 lb BMI 37.6 BP 150/68 H Blood Pressure Location Lt brachial Position Sitting Pulse 80 Pulse Source Pulse Oximeter Pulse Oximetry (%) 98 Oxygen Delivery Method Room Air Intake Visit Reasons: feels like BP is high/medication is not working Intake Note: Patient did have coffee this morning. Attendant Self Service Store Required: Yes Attendant Self Service Store Language: Grinder Set Up Operator Universal Name: [id number] Information Interpreted: non-clinical & clinical Allergies pioglitazone Adverse Reaction (Mild, Verified 12/24/22 07:20) diarrhea,polyuria canagliflozin [Invokana] Adverse Reaction (Unknown, Verified 12/24/22 07:20) dizziness Medication List - Last Reconciled 12/24/22 by FREDO Ortiz blood sugar diagnostic (FreeStyle Lite Strips) As directed twice a day blood-glucose meter (FreeStyle Lite Meter kit) As directed dapagliflozin propanediol (Farxiga) 5 mg PO DAILY diphenoxylate-atropine 2.5-0.025 mg/5 mL 5 mL PO BID PRN 2 days dulaglutide (Trulicity) 4.5 mg (0.5 mL) subcut QWEEK 90 days finasteride (Proscar) 5 mg PO DAILY 90 days lancets (TRUEplus Lancets) TEST BLOOD SUGAR ONCE DAILY losartan 50 mg PO DAILY 30 days metformin 1,000 mg PO BID miscellaneous medical supply (Blood Pressure Cuff) As directed rosuvastatin 5 mg PO DAILY 90 days Tobacco use date assessed: 05/26/22 Fall risk assessment: No Falls in past year Last assessed Fall Risk: 12/24/22 Dental Screening Dental Screen Date: 12/24/22 Did you have a dental visit in the last 12 months?: Yes Did you have a dental problem in the last 6 months where you did not have access to dental care?: No Was dental information given to patient?: Patient has dentist HPI HPI Comments History of Present Illness Details 67-year-old Ukrainian-speaking male past m edical history significant type 2 diabetes mellitus, hypertension, hyperlipidemia,bph and elevated PSA. Patient of Dr. Randall presents today for high bloodpressure. Patient reports that his blood pressures have been running high and feels like his medication is not working. Patient does not check blood pressure at home as he states he never received the blood pressure cuff. Refill sent on this prescription. Patient states he does have headaches and vision changes for which she thinks is related to elevated blood pressure. Blood pressure in office today 150/68, discussed increasing losartan to 75 mg daily, patient agreeable. Appointment was com pleted with certified civil litigation attorney. [facility] Medical History Sciatica Testicular pain Type 2 diabetes mellitus with hyperglycemia, without long-term current use of insulin Other obesity due to excess calories BMI 38.0-38.9,adult Surgical History Meningioma Hx of endoscopy History of colonoscopy Family History Father History of cancer Mother Hx of diabetes insipidus Social History Household Members: Spouse Housing: Apartment Alcohol intake: never Patient Tobacco Use Status: Never used Tobacco e-Cigarette/Vaping Use: Never Used Second Hand Smoke Exposure: No service: No Current occupational status: employed Current occupational exposures/hazards: No Cognitive needs: No Hearing needs: No Vision needs: No Questionnaire PHQ-9 Over the last 2 weeks, how often have you been bothered by any of the following problems? 1. Little interest or pleasure in doing things: not at all 2. Feeling down, depressed, or hopeless: not at all 3. Trouble falling or staying asleep, or sleeping too much: not at all 4. Feeling tired or having little energy: not at all 5. Poor appetite or overeating: not at all 6. Feeling bad about yourself - or that you are a failure or have let yourself or your family down: not at all 7. Trouble concentrating on things, such as reading the newspaper or watching television: not at all 8. Moving or speaking so slowly that other people could have noticed. Or the opposite - being so fidgety or restless that you have been moving around a lot more than usual: not at all 9. Thoughts that you would be better off or of hurting yourself in some way: not at all Total score: 0 Depression Screening Interpretation: Negative Depression Screening Done: Yes 61396 - PHQ-9 Billing: Yes Source: Developed by Drs. Rocael Sarabia, Whitney Hoang, Schuyler Dickens and colleagues, with an educational rei from [employer]. Thrive Questionnaire Date Thrive assessed: 06/17/22 AUDIT C Alcohol Use Questionnaire (AUDIT-C) 1. How often do you have a drink containing alcohol?: Never Total Score: 0 Score Reviewed/Action Taken: No KALEB-7 AMB Questionnaire KALEB-7 Date KALEB - 7 assessed: 06/17/22 Source: Developed by Drs. Rocael Sarabia, Schuyler Martin and colleagues, with an educational rei from [employer]. Review of Systems Const Denies chills, Denies fatigue, Denies fever(s) and Denies poor appetite Eyes Denies no additional complaints ENT Reports Normal hearing present Card Denies chest pain, Denies syncope, Denies rapid heart rate and Denies dyspnea Resp Denies cough and Denies dyspnea GI Denies change in stool character, Denies constipation, Denies diarrhea, Denies nausea and Denies vomiting Denies dysuria, Denies urinary frequency and Denies urinary urgency Neuro Reports Normal hearing present, Denies confusion and Denies syncope Psych Denies confusion Endo Denies fatigue Physical exam (Primary Care) Vital Signs: Last Vital Signs Pulse 80 12/24/22 07:07 BP 150/68 H 12/24/22 07:07 Pulse Ox 98 12/24/22 07:07 Oxygen Delivery Method Room Air 12/24/22 07:07 BMI result Body Mass Index 37.6 Tobacco/Smoking Status: Tobacco use Status Tobacco use date assessed 05/26/22 12/24/22 07:12 Patient Tobacco Use Status Never used Tobacco 12/24/22 07:12 e-Cigarette/Vaping Use Never Used 12/24/22 07:12 PHQ-9: PHQ-9 Score PHQ-9: Total score 0 12/24/22 07:18 Depression Screening Interpretation: Negative Thrive Assessment: Date of Thrive Assessment Date Thrive assessed 06/17/22 12/24/22 07:12 Const General: No confusion Orientation/consciousness: No confusion HENMT Head: Yes normocephalic and Yes atraumatic Eyes Conjunctivae: conjunctivae normal Chest Chest palpation & inspection: normal inspection of the chest Resp Effort & Inspection: normal respiratory effort Auscultation: clear to auscultation bilaterally, no crackles, no rhonchi and no wheezes Cardio Rate: regular rate Rhythm: regular rhythm Heart sounds: S1 normal heart sound present and S2 normal heart sound present GI Inspection: Yes normal to inspection Neuro General: No confusion Cranial nerves: Yes Normal hearing present Extrem General: No edema Assessment and Plan Assessment & Plan (1) Hypertension: Code(s): I10 - Essential (primary) hypertension Qualifiers: Hypertension type: primary hypertension Qualified Code(s): I10 - Essential (primary) hypertension Plan: Will increase losartan 50 mg daily to 75 mg daily. Patient advised to follow low-salt diet and exercise. Follow-up in 2 weeks with navigation nurse for blood pressure recheck. (2) Type 2 diabetes mellitus with hyperglycemia, without long-term current use of insulin: Code(s): E11.65 - Type 2 diabetes mellitus with hyperglycemia Plan: Continue on metformin and Trulicity. Patient educated to decrease the amount of carbohydrate intake such as pasta, bread, rice and potatoes are all sugar in addition to the sweet stuff. Remember that fruits are good but they also have sugar. A1c:7.3% in October (3) Hyperlipidemia LDL goal <70: Code(s): E78.5 - Hyperlipidemia, unspecified Plan: Continue on rosuvastatin 5 mg daily. Avoid fried foods, chicken skin, eggs, butter,margarine, pastries and?? red meat. LDL below goal: 60 Plan Keep scheduled follow-up with PCP or follow-up sooner if needed. Medications: New losartan 25 mg PO DAILY 30 tabs 3RF Refilled miscellaneous medical supply (Blood Pressure Cuff) As directed 1 ea 0RF I10 - Essential (primary) hypertension Coding Level of Care Code Est Pt Level 4 (74332) Diagnoses Primary hypertension I10 Hypertension type: primary hypertension Type 2 diabetes mellitus with hyperglycemia, without long-term current use of insulin E11.65 Hyperlipidemia LDL goal <70 E78.5
== END 2022-12-24 07:34 | disposition home or self-care (01) ==
PROVIDERS: PCP Internal Medicine; Visit Provider Nurse Practitioner Family
DX: I10 Essential (primary) hypertension (principal); E11.65 Type 2 diabetes mellitus with hyperglycemia; E78.5 Hyperlipidemia, unspecified
CPT/HCPCS: 99214

== ENCOUNTER 2022-12-25 09:31 | Emergency (ER) | payer MEDICARE, MEDICAID, SELFPAY ==
[2022-12-25 09:33] VITALS: BP 171/93; PULSE 84; RESP 17; TEMP 36.3; O2SAT 97; BMI 37.5
--- NOTE | 2022-12-25 09:44 | ED.GENADULT ---
HPI - General Adult General Chief complaint: General Medical Stated complaint: high blood pressure Time Seen by Provider: 12/25/22 09:44 Source: patient and family Mode of arrival: ambulatory Limitations: language barrier (Afghan speaking only) History of Present Illness HPI narrative: 67-year-old male with history of hypertension, diabetes mellitus, hyperlipidemia who presents emergency department for evaluation elevated blood pressure. Patient states that approximately 2-3 hours after taking his losartan he develops a hot sensation in his face and turns red. He states that his doctor has been increasing his losartan medication he believes that the medication is making feel worse. The patient states that he has a new blood pressure machine but has not started using it. Patient's son took him to the pharmacy today and had his blood pressure checked he was told that his blood pressure was high therefore came to emergency department for evaluation. He denied headache, nausea, vomiting, chest pain, shortness of breath, dyspnea on exertion. He states that he has had normal urine output. He denied myalgias arthralgias Related Data Previous Rx's Medication Instructions Recorded blood sugar diagnostic (FreeStyle #50 ea 01/28/22 Lite Strips) blood-glucose meter (FreeStyle #1 ea 01/28/22 Lite Meter kit) lancets 33 gauge (TRUEplus Lancets) ##100 04/24/22 rosuvastatin 5 mg tablet 5 mg PO DAILY 90 days #90 tabs 08/26/22 finasteride 5 mg tablet (Proscar) 5 mg PO DAILY 90 days #90 tabs 09/09/22 dulaglutide 4.5 mg/0.5 mL 4.5 mg (0.5 mL) subcut QWEEK 90 09/17/22 subcutaneous pen injector days #6.5 mL (Trulicity) diphenoxylate-atropine 2.5 5 ml PO BID PRN diarrhea 2 days 12/05/22 mg-0.025 mg/5 mL oral liquid #60 mL dapagliflozin propanediol 5 mg 5 mg PO DAILY 90 days #90 tabs 12/24/22 tablet (Farxiga) losartan 25 mg tablet 25 mg PO DAILY #30 tabs 12/24/22 losartan 50 mg tablet 50 mg PO DAILY 90 days #90 tabs 12/24/22 metformin 1,000 mg tablet 1,000 mg PO BID #180 tabs 12/24/22 miscellaneous medical supply #1 ea 12/24/22 (Blood Pressure Cuff) Allergies Allergy/AdvReac Type Severity Reaction Status Date / Time pioglitazone AdvReac Mild diarrhea,po Verified 12/24/22 07:20 lyuria canagliflozin [Invokana] AdvReac Unknown dizziness Verified 12/24/22 07:20 Review of Systems Review of Systems: Yes all other systems are reviewed and are negative [facility] Past Medical History [facility] Narrative: Social history: He denies tobacco, alcohol and drug use Medical History Sciatica Testicular pain Type 2 diabetes mellitus with hyperglycemia, without long-term current use of insulin Other obesity due to excess calories BMI 38.0-38.9,adult Surgical History Meningioma Hx of endoscopy History of colonoscopy Family History Family History Father History of cancer Mother Hx of diabetes insipidus Social History Social History Household Members: Spouse Housing: Apartment Alcohol intake: never Patient Tobacco Use Status: Never used Tobacco Smoked in Last 30 Days: No e-Cigarette/Vaping Use: Never Used Second Hand Smoke Exposure: No Use of substances other than those prescribed or required for medical reasons: No Advance Directives: No Advance Directives Information Provided: No service: No Current occupational status: employed Current occupational exposures/hazards: No Cognitive needs: No Hearing needs: No Vision needs: No Physical Exam ED Vital Signs: Vital Signs - 24 hr 12/25/22 09:33 12/25/22 14:18 Temperature 97.4 F 98.1 F Pulse Rate 84 74 Respiratory Rate 17 18 Blood Pressure 171/93 H 146/74 H Pulse Oximetry 97 98 Oxygen Delivery Method Room Air Room Air BMI result Body Mass Index 37.5 Vital signs revealed an elevated blood pressure of 171/93 Exam General: Awake, alert in no distress Head: Normocephalic, atraumatic EENT: PERRL, Lids normal, sclera normal, conjunctiva normal, nose normal , ears normal, throat without erythema or exudates Neck: Supple, no adenopathy, no trachea midline or C-spine tenderness Lung: breath sounds symmetric, no wheezing, rales or rhonchi Chest: symmetric movement, nontender Heart: regular rate and rhythm, normal S1, S2 no murmurs or rubs Abdomen: soft, non-tender, nondistended, normal bowel sounds Back: no vertebral tenderness, no CVAT Extremities: no deformities, moves all extremities symmetrically Skin: no rashes, no lesion, normal color and warmth Neuro: Awake, alert, oriented, normal speech, cranial nerves intact, moves all extremities symmetrically Psych: Pleasant, cooperative Medical Decision Making Lab Data 12/25/22 11:22 12/25/22 11: Labs: Lab Results 12/25/22 Range/Units 11: WBC 5.7 (4.8-10.8) X10*3/uL RBC 4.72 (4.60-5.80) X10*6/uL Hgb 14.6 (14.0-18.0) g/dl Hct 43.9 (42.0-52.0) % MCV 93.0 (80.0-98.0) fL MCH 30.9 (27.0-33.0) pg MCHC 33.3 (31.0-36.0) g/dl RDW 12.8 (11.0-16.0) % Plt Count 275 (160-400) X10*3/uL MPV 9.8 (9.4-12.4) fL Immature Gran % (Auto) 0.2 (0.0-0.4) % Neut % (Auto) 61.7 (45-73) % Lymph % (Auto) 27.0 (20-40) % Casey % (Auto) 9.8 (2-11) % Eos % (Auto) 0.9 (0-4) % Baso % (Auto) 0.4 (0-2) % Lymph # (Auto) 1.5 (1.2-4.9) X10*3/uL Casey # (Auto) 0.6 (0.1-1.2) X10*3/uL Eos # (Auto) 0.1 (0.0-0.4) X10*3/uL Baso # (Auto) 0.0 (0.0-0.2) X10*3/uL Abs Immat Gran (auto) 0.01 (0.00-0.03) X10*3/uL Absolute Neuts (auto) 3.5 (2.0-8.3) x10*3/uL Absolute Nucleated RBC 0.000 (0.0-0.012) X10*3/uL Nucleated RBC % (auto) 0.0 (0.0-0.2) /100WBC Sodium 136 (135-145) mmol/L Potassium 4.2 (3.3-5.1) mmol/L Chloride 103 (96-108) mmol/L Carbon Dioxide 26 (22-29) mmol/L Anion Gap 11 L (12-20) BUN 22 H (9-16) mg/dL Creatinine 0.83 (0.5-1.4) mg/dL Estim Creat Clear Calc 91.7 Estimated GFR > 60 Random Glucose 124 H (60-115) mg/dL Calcium 9.4 (8.4-10.2) mg/dL Total Bilirubin 0.5 (0.0-1.0) mg/dL AST 17 (5-37) U/L ALT 14 (0-40) U/L Alkaline Phosphatase 72 (39-117) U/L Troponin I High Sens < 2.7 (<3.5-35.0) ng/L Total Protein 7.4 (6.5-8.0) g/dL Albumin 3.8 (3.5-5.0) g/dL Discharge Plan Discharge Clinical Impression: Essential (primary) hypertension Patient Disposition: Home, Self-Care Additional Instructions: Your blood work was normal. Take your lisinopril 1-1/2 pills daily until your doctor gives you the extra 25 mg pill. Take your blood blood pressure in the morning on Wednesdays and Fridays for 2 weeks and then show these blood pressures to your doctor. When your doctor changes your blood pressure medication is sometimes takes 4-6 weeks before the medication helps with your blood pressure. Continue taking your other medications as prescribed by your providers Follow-up with your doctor in 2 days. Please return to the emergency department if your symptoms get worse or if you develop any symptoms that are concerning to you. Please see the work Prescriptions: No Action (DME) blood-glucose meter [FreeStyle Lite Meter] Kit See Rx Instructions .ROUTE .MEDSULY Qty: 1 0RF Rx Instructions: As directed (DME) FreeStyle Lite Strips Strip See Rx Instructions .ROUTE .MEDSUPPLY Qty: 50 11RF Rx Instructions: As directed twice a day (DME) lancets [TRUEplus Lancets] 33 gauge misc See Rx Instructions .ROUTE .COMPLEX Qty: 100 11RF Dose Instruction: TEST BLOOD SUGAR ONCE DAILY Rx Instructions: TEST BLOOD SUGAR ONCE DAILY rosuvastatin 5 mg tablet 5 mg PO DAILY 90 Days Qty: 90 1RF Trulicity 4.5 mg/0.5 mL pen injector 4.5 mg subcut QWEEK 90 Days Qty: 6.5 1RF metformin 1,000 mg tablet 1,000 mg PO BID Qty: 180 3RF Farxiga 5 mg tablet 5 mg PO DAILY 90 Days Qty: 90 1RF losartan 50 mg tablet 50 mg PO DAILY 90 Days Qty: 90 1RF diphenoxylate-atropine 2.5-0.025 mg/5 mL liquid 5 ml PO BID PRN (Reason: diarrhea) 2 Days Qty: 60 0RF losartan 25 mg tablet 25 mg PO DAILY Qty: 30 3RF (DME) Blood Pressure Cuff Misc See Rx Instructions .ROUTE .MEDSUPPLY Qty: 1 0RF Rx Instructions: As directed finasteride [Proscar] 5 mg tablet 5 mg PO DAILY 90 Days Qty: 90 3RF Stand Alone Forms: Work/School Release
--- NOTE | 2022-12-25 10:15 | PC.NURSE ---
PROVIDER AND THIS RN AT BEDSIDE. PT STATES HE HAS NOT TAKEN HIS RECENTLY PRESCRIBED BP MEDICATION BECAUSE IT DOES NOT WORK AND MAKES HIM FEEL UNWELL. PROVIDER PROVIDED EDUCATION TO PT AND STATES IT CAN GENERALLY TAKE 4-6 WEEKS TO SEE RESULTS/CHANGE WITH BP; PT ALSO EDUCATED ON THE IMPORTANCE OF NOT ABRUPTLY STOPPING THESE MEDICATIONS, AND PROVIDED WITH TIMES TO CHECK HIS BP. PT STATES UNDERSTANDING OF THIS INFORMATION; ORDERS TO FOLLOW.
[2022-12-25 11:35] LABS: MANUAL DIFF FLAG NO
[2022-12-25 11:48] LABS: Basophils Percent Auto 0.4 % (0-2); Eosinophils Absolute Auto 0.1 X10*3/uL (0.0-0.4); Eosinophils Percent Auto 0.9 % (0-4); Hematocrit 43.9 % (42.0-52.0); Hemoglobin 14.6 g/dl (14.0-18.0); Imm Gran Abs Auto 0.01 X10*3/uL (0.00-0.03); Imm Gran Pct Auto 0.2 % (0.0-0.4); Lymphocytes Absolute Auto 1.5 X10*3/uL (1.2-4.9); Mean Corpuscular HGB Conc 33.3 g/dl (31.0-36.0); Mean Corpuscular Hemoglobin 30.9 pg (27.0-33.0); Mean Platelet Volume 9.8 fL (9.4-12.4); Monocytes Absolute Auto 0.6 X10*3/uL (0.1-1.2); Monocytes Percent Auto 9.8 % (2-11); Neutrophils Absolute Auto 3.5 x10*3/uL (2.0-8.3); Neutrophils Percent Auto 61.7 % (45-73); Platelet Count 275 X10*3/uL (160-400); Red Blood Count 4.72 X10*6/uL (4.60-5.80); Red Cell Distribution Width 12.8 % (11.0-16.0); White Blood Count 5.7 X10*3/uL (4.8-10.8)
[2022-12-25 11:54] LABS: Alanine Aminotransferase 14 U/L (0-40); Albumin Level 3.8 g/dL (3.5-5.0); Alkaline Phosphatase 72 U/L (39-117); Anion Gap 11 (12-20); Aspartate Amino Transferase 17 U/L (5-37); Bilirubin Total 0.5 mg/dL (0.0-1.0); Blood Urea Nitrogen 22 mg/dL (9-16); Calcium 9.4 mg/dL (8.4-10.2); Carbon Dioxide 26 mmol/L (22-29); Chloride 103 mmol/L (96-108); Creatinine Clr Calc Pharmacy 91.7; Estimated Glomerular Filt Rate > 60; Glucose Random 124 mg/dL (60-115); Potassium 4.2 mmol/L (3.3-5.1); Sodium 136 mmol/L (135-145); Total Protein 7.4 g/dL (6.5-8.0)
[2022-12-25 12:05] LABS: Troponin-I High Sensitivity < 2.7 ng/L (<3.5-35.0)
[2022-12-25 14:18] VITALS: BP 146/74; PULSE 74; RESP 18; TEMP 36.7; O2SAT 98
[2022-12-25 16:25] VITALS: BP 138/78; PULSE 98; RESP 18; O2SAT 98
== END 2022-12-25 16:34 | disposition home or self-care (01) ==
PROVIDERS: Emergency Provider Emergency Medicine Emergency Medical Services; PCP Internal Medicine
DX: I10 Essential (primary) hypertension (principal); E11.9 Type 2 diabetes mellitus without complications; E78.5 Hyperlipidemia, unspecified; Z79.85 Long-term (current) use of injectable non-insulin antidiabetic drugs; Z79.84 Long term (current) use of oral hypoglycemic drugs; Z79.899 Other long term (current) drug therapy
CPT/HCPCS: 36415; 80053; 84484; 85025; 99284

== ENCOUNTER 2023-02-24 12:59 | Outpatient (AMB) | payer MEDICARE, MEDICAID, SELFPAY ==
[2023-02-24 13:24] VITALS: BP 160/70; BMI 37.1
--- NOTE | 2023-02-24 13:24 | MHC.PC.OV ---
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 Required: No Accompanied by: Self / Same As Patient Allergies pioglitazone Adverse Reaction (Mild, Verified 02/24/23 13:52) diarrhea,polyuria canagliflozin [Invokana] Adverse Reaction (Unknown, Verified 02/24/23 13:52) dizziness Medication List - Last Reconciled 02/24/23 by Ritika Hernández MD blood sugar diagnostic (FreeStyle Lite Strips) As directed twice a day blood-glucose meter (FreeStyle Lite Meter kit) As directed dapagliflozin propanediol (Farxiga) 5 mg PO DAILY 90 days dulaglutide (Trulicity) 4.5 mg (0.5 mL) subcut QWEEK 90 days finasteride (Proscar) 5 mg PO DAILY 90 days lancets (TRUEplus Lancets) TEST BLOOD SUGAR ONCE DAILY losartan 50 mg PO DAILY 90 days losartan 25 mg PO DAILY metformin 1,000 mg PO BID miscellaneous medical supply (Blood Pressure Cuff) As directed rosuvastatin 5 mg PO DAILY 90 days Tobacco use date assessed: 02/24/23 Fall risk assessment: No Falls in past year Last assessed Fall Risk: 02/24/23 Dental Screening Dental Screen Date: 02/24/23 Did you have a dental visit in the last 12 months?: No Did you have a dental problem in the last 6 months where you did not have access to dental care?: No Was dental information given to patient?: Patient has dentist HPI HPI Comments History of Present Illness Details This is a 67-year-old male with diabetes mellitus type 2, hypertension, hyperlipidemia and elevated PSA that comes today for follow-up on his conditions. A1c elevated and I will discontinue Farxiga and start him on Jardiance. Blood pressure elevated and I will increase losartan from 75 mg to 100 mg. Blood pressure will be recheck in 3 weeks by nurse navigator. Lipid panel was ordered. PSAs elevated and this is follow by Urology which did prostate biopsy in June 2022 which was negative. Had colonoscopy recently with a poor prep and needs to be repeated. Has follow-up 03/17/2023 due to that matter. FORMERLY [facility], [facility] Medical History (Updated 12/26/22 @ 00:01 by Dali Salas) Sciatica Testicular pain Type 2 diabetes mellitus with hyperglycemia, without long-term current use of insulin Other obesity due to excess calories BMI 38.0-38.9,adult Surgical History Meningioma Hx of endoscopy History of colonoscopy Family History Father History of cancer Mother Hx of diabetes insipidus Social History Household Members: Spouse Housing: Apartment Alcohol intake: never Patient Tobacco Use Status: Never used Tobacco e-Cigarette/Vaping Use: Never Used Second Hand Smoke Exposure: No service: No Current occupational status: employed Current occupational exposures/hazards: No Cognitive needs: No Hearing needs: No Vision needs: No Questionnaire PHQ-9 Over the last 2 weeks, how often have you been bothered by any of the following problems? 1. Little interest or pleasure in doing things: not at all 2. Feeling down, depressed, or hopeless: not at all 3. Trouble falling or staying asleep, or sleeping too much: not at all 4. Feeling tired or having little energy: not at all 5. Poor appetite or overeating: not at all 6. Feeling bad about yourself - or that you are a failure or have let yourself or your family down: not at all 7. Trouble concentrating on things, such as reading the newspaper or watching television: not at all 8. Moving or speaking so slowly that other people could have noticed. Or the opposite - being so fidgety or restless that you have been moving around a lot more than usual: not at all 9. Thoughts that you would be better off or of hurting yourself in some way: not at all Total score: 0 Depression Screening Interpretation: Negative Depression Screening Done: Yes 84615 - PHQ-9 Billing: Yes Source: Developed by Drs. Rocael Sarabia, Whitney Hoang, Schuyler Dickens and colleagues, with an educational rei from [employer]. Thrive Questionnaire Date Thrive assessed: 02/24/23 I am a: Patient What is your living situation today?: I have a steady place to live Within the past 12 months, did the food you bought not last and you didn't have the money to get more?: Never true Within the past 12 months, did you worry whether your food would run out before you got money to buy more?: Never true Do you have trouble paying for medicines?: No Do you have trouble getting transportation to medical appointments?: No Do you have trouble paying your heating and electricity bill?: No Do you have trouble taking care of your child, family member or friend?: No Do you have trouble with day-to-day activities such as bathing, preparing meals, shopping, managing finances, etc.?: No Are you currently unemployed and looking for a job?: No Are you interested in more education?: No Please select the resources that you would like help with: None Currently or been in a relationship where the following occur: no concerns reported AUDIT C Alcohol Use Questionnaire (AUDIT-C) 1. How often do you have a drink containing alcohol?: Never Total Score: 0 KALEB-7 AMB Questionnaire KALEB-7 Date KALEB - 7 assessed: 02/24/23 Feeling nervous, anxious, or on edge: 0 = Not at all Not being able to stop or control worryin = Not at all Worrying too much about different things: 0 = Not at all Trouble relaxin = Not at all Being so restless that it is hard to sit still: 0 = Not at all Becoming easily annoyed or irritable: 0 = Not at all Feeling afraid as if something awful might happen: 0 = Not at all Total KALEB-7 score (0-4 normal; 5-9 mild; 10-14 moderate; 15-21 severe): 0 Source: Developed by Drs. Rocael Sarabia, Whitney Hoang, Schuyler Dickens and colleagues, with an educational rei from [employer]. KALEB-7 Assessment Billing KALEB-7 Assessment Tool: KALEB-7 Assessment 01324 Review of Systems Const All systems reviewed & are unremarkable except as noted in HPI and below Eyes Reports no additional complaints, Denies change in vision and Denies other visual disturbances Card Denies chest pain at rest, Denies chest pain with activity, Denies edema, Denies irregular heart rhythm, Denies claudication, Denies dyspnea, Denies dyspnea on exertion, Denies orthopnea, Denies paroxysmal nocturnal dyspnea and Denies slow heart rate Resp Denies cough, Denies dyspnea and Denies dyspnea on exertion GI Denies abdominal pain, Denies change in bowel habits, Denies excessive flatus, Denies nausea and Denies vomiting Denies urinary hesitancy, Denies urinary incontinence and Denies urinary urgency Musc Denies abnormal gait, Denies atrophy, Denies deformity and Denies limited range of motion Skin/Breast Denies bleeding lesions, Denies changing lesions and Denies rash Neuro Denies abnormal gait, Denies behavioral changes and Denies lack of coordination Psych Denies behavioral changes Physical exam (Primary Care) Vital Signs: Last Vital Signs BP 160/70 H 02/24/23 13:24 BMI result Body Mass Index 37.1 Tobacco/Smoking Status: Tobacco use Status Tobacco use date assessed 02/24/23 02/24/23 13:31 Patient Tobacco Use Status Never used Tobacco 02/24/23 13:31 e-Cigarette/Vaping Use Never Used 02/24/23 13:31 PHQ-9: PHQ-9 Score PHQ-9: Total score 0 02/24/23 13:39 Depression Screening Interpretation: Negative Thrive Assessment: Date of Thrive Assessment Date Thrive assessed 02/24/23 02/24/23 13:33 Currently or been in a relationship where the following occur: no concerns reported Eyes General: appearance normal, both eyes and all related structures Eyelids: Yes eyelids normal Conjunctivae: conjunctivae normal Neck Neck: Yes normal visual inspection and Yes supple Resp Effort & Inspection: normal respiratory effort Auscultation: clear to auscultation bilaterally Cardio Jugular venous distension: no JVD Rate: regular rate Rhythm: regular rhythm Heart sounds: S1 normal heart sound present and S2 normal heart sound present Extrem General: Yes full ROM Office Procedures Flu Questionnaire Does the patient have a severe egg allergy?: No Results AMB Hemoglobin A1c AMB Hemoglobin A1c 9.3 % Last Edit by JALEESA Chester on 02/24/23 13:34 Immunizations flu vacc [id number] 6mos up(PF) 60 mcg(15 mcgx4)/0.5 mL IM syringe Performing Provider: Ritika Hernández MD [facility] Documented (not given) by: JALEESA Chester on 02/24/23 13:31 Reason Not Given: Patient Refused Results Reviewed Results Reviewed: Laboratory Last Values Hgb A1c (Clinic) 9.3 % (4.0-6.0) H 02/24/23 13:22 Assessment and Plan Assessment & Plan (1) Type 2 diabetes mellitus with hyperglycemia, without long-term current use of insulin: Code(s): E11.65 - Type 2 diabetes mellitus with hyperglycemia Plan: Continue Trulicity and metformin. Discontinue Farxiga. Start Jardiance. A1c goal is equal or less than 7%. (2) Hyperlipidemia LDL goal <70: Code(s): E78.5 - Hyperlipidemia, unspecified Plan: Continue statins. Repeat lipid panel. LDL goal is less than 70. (3) Hypertension: Code(s): I10 - Essential (primary) hypertension Qualifiers: Hypertension type: primary hypertension Qualified Code(s): I10 - Essential (primary) hypertension Plan: Increase losartan to 100 mg once a day. Recheck blood pressure with nurse navigator in 3 weeks. Blood pressure goal is equal or less than 130/80. (4) Elevated PSA: Code(s): R97.20 - Elevated prostate specific antigen [PSA] Plan: Follow-up with Urology. Orders: Orders Influenza [id number] Immunization Today Z23 - Encounter for immunization Microalbumin, Random (w Creat) Today E11.9 - Type 2 diabetes mellitus without complications AMB Hemoglobin A1c Today E11.65 - Type 2 diabetes mellitus with hyperglycemia Lipid Panel Today E78.5 - Hyperlipidemia, unspecified Comprehensive Umpire. Panel Fast Today E11.65 - Type 2 diabetes mellitus with hyperglycemia Medications: New empagliflozin (Jardiance) 25 mg PO DAILY 90 days 90 tabs 1RF losartan 100 mg PO DAILY 90 days 90 tabs 1RF I10 - Essential (primary) hypertension Refilled dulaglutide (Trulicity) 4.5 mg (0.5 mL) subcut QWEEK 90 days 6.5 mL 1RF E11.65 - Type 2 diabetes mellitus with hyperglycemia Discontinued losartan Discontinued Reason: Patient Completed Course 50 mg PO DAILY 90 days 90 tabs 1RF I10 - Essential (primary) hypertension losartan Discontinued Reason: Patient Completed Course 25 mg PO DAILY 30 tabs 3RF dapagliflozin propanediol (Farxiga) Discontinued Reason: Patient Completed Course 5 mg PO DAILY 90 days 90 tabs 1RF Coding Level of Care Code Est Pt Level 4 (66117) Diagnoses Type 2 diabetes mellitus with hyperglycemia, without long-term current use of insulin E11.65 Hyperlipidemia LDL goal <70 E78.5 Primary hypertension I10 Hypertension type: primary hypertension Elevated PSA R97.20 Additional Codes KALEB-7 Assessment Billing - KALEB-7 Assessment Tool: KALEB-7 Assessment 35707 ([id number]) Time Spent (min) 22
== END 2023-02-24 14:05 | disposition home or self-care (01) ==
PROVIDERS: PCP Internal Medicine; Visit Provider Internal Medicine
DX: E11.65 Type 2 diabetes mellitus with hyperglycemia (principal); E78.5 Hyperlipidemia, unspecified; I10 Essential (primary) hypertension; R97.20 Elevated prostate specific antigen [PSA]
CPT/HCPCS: 83036; 99214

== ENCOUNTER 2023-03-08 13:36 | Emergency (ER) | payer MEDICARE, MEDICAID, SELFPAY ==
--- NOTE | ~2023-03-08 | XR_ITS ---
EXAMINATION: XR LUMBOSACRAL SPINE CLINICAL INFORMATION: Low back pain COMPARISON: Lumbar spine April 05, 2020 TECHNIQUE: Three views of the lumbosacral spine. FINDINGS: There is no acute abnormality. No fracture or subluxation. Alignment of vertebrae normal. No spondylolysis. Moderate multilevel degenerative spondylosis. Multilevel vertebral endplate spurs. Mild disc height narrowing at L3-L4. Facet joints are normal. Normal sacroiliac joint. Compared to prior study of 2020 there has been progressive degenerative arthrosis of the lumbar spine with interval development of larger vertebral endplate spurs. The disc height narrowing at L3-L4 has slightly progressed. XR/XR lumbar spine 2-3V IMPRESSION: 1. No acute abnormality. 2. Degenerative spondylosis of lumbar spine.
--- NOTE | 2023-03-08 13:53 | ED_ITS ---
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 Patient denies fall or other trauma. States pain began after lifting heavy trays at work. Has been using ibuprofen with mild temporary relief. Denies any radiation of pain to lower extremities. Denies any weakness, numbness or tingling to lower extremities. Denies any saddle anesthesia or bowel or bladder incontinence. Denies any urinary symptoms. Denies any fevers. Has been using topical lidocaine patches as well with good relief. MD elicited complaint: back pain Pertinent past history: prior back pain Onset (ago): day(s) Timing: constant Severity: severe Similar Symptoms Previously: Yes Quality: aching Location: lumbar spine Radiation: none Relieving factors: medication Context: while lifting Associated symptoms: denies other symptoms Treatments prior to arrival: NSAIDS Related Data Previous Rx's Medication Instructions Recorded lancets 33 gauge (TRUEplus Lancets) ##100 04/24/22 rosuvastatin 5 mg tablet 5 mg PO DAILY 90 days #90 tabs 08/26/22 finasteride 5 mg tablet (Proscar) 5 mg PO DAILY 90 days #90 tabs 09/09/22 miscellaneous medical supply #1 ea 12/24/22 (Blood Pressure Cuff) metformin 1,000 mg tablet 1,000 mg PO BID #180 tabs 01/08/23 blood sugar diagnostic (FreeStyle #50 ea 02/05/23 Lite Strips) blood-glucose meter (FreeStyle #1 ea 02/05/23 Lite Meter kit) dulaglutide 4.5 mg/0.5 mL 4.5 mg (0.5 mL) subcut QWEEK 90 02/24/23 subcutaneous pen injector days #6.5 mL (Trulicity) empagliflozin 25 mg tablet 25 mg PO DAILY 90 days #90 tabs 02/24/23 (Jardiance) losartan 100 mg tablet 100 mg PO DAILY 90 days #90 tabs 02/24/23 cyclobenzaprine 5 mg tablet 5 mg PO TID PRN muscle spasm #10 03/08/23 tabs diclofenac sodium 1 % topical gel 2 g topical TID #100 grams 03/08/23 lidocaine 5 % topical patch 1 patch topical DAILY #15 ea 03/08/23 Allergies Allergy/AdvReac Type Severity Reaction Status Date / Time pioglitazone AdvReac Mild diarrhea,po Verified 03/08/23 13:53 lyuria canagliflozin [Invokana] AdvReac Unknown dizziness Verified 03/08/23 13:53 Review of Systems Review of Systems: As per HPI. Yes all other systems are reviewed and are negative Constitutional: Constitutional: Reports as per HPI [facility] Past Medical History Medical History Sciatica Testicular pain Type 2 diabetes mellitus with hyperglycemia, without long-term current use of insulin Other obesity due to excess calories BMI 38.0-38.9,adult Surgical History Meningioma Hx of endoscopy History of colonoscopy Family History Family History Father History of cancer Mother Hx of diabetes insipidus Social History Social History Household Members: Spouse Housing: Apartment Alcohol intake: never Patient Tobacco Use Status: Never used Tobacco e-Cigarette/Vaping Use: Never Used Second Hand Smoke Exposure: No Advance Directives: No Advance Directives Information Provided: Yes service: No Current occupational status: employed Current occupational exposures/hazards: No Cognitive needs: No Hearing needs: No Vision needs: No Physical Exam Vital Signs: Vital Signs: Last Vital Signs Temp 98 F 03/08/23 13:54 Pulse 98 03/08/23 13:54 Resp 18 03/08/23 13:54 BP 129/79 03/08/23 13:54 Pulse Ox 98 03/08/23 13:54 O2 Del Method Room Air 03/08/23 13:54 BMI result Body Mass Index 36.9 Vital signs have been reviewed and appear to be correct. Blood pressure normal. Heart rate normal. Respiratory rate normal. Temperature normal. Oxygen saturation normal. Const: General: cooperative, healthy appearing and no acute distress Orientation/consciousness: oriented to person, oriented to place, oriented to time and patient oriented x3 Limitations: no limitations HEENT: Head: Yes normocephalic and Yes atraumatic Ears: external ears normal General nose exam: Normal external nose present Face and sinus: Yes face symmetric Mouth: oropharynx normal and moist mucous membranes Throat: Yes uvula midline Eyes: Pupils: Equal, round and reactive pupils present Neck: Neck: Yes normal visual inspection and Yes supple Resp: Effort & Inspection: normal respiratory effort and able to speak in complete sentences Auscultation: clear to auscultation bilaterally Cardio: Rate: regular rate Rhythm: regular rhythm Heart sounds: S1 normal heart sound present and S2 normal heart sound present GI: Palpation (GI): Soft to palpation and nontender Auscultation: normoactive bowel sounds : General: Yes no CVA tenderness Back/Spine/Pelvis: Back: no CVA tenderness Thoracic/Lumbar Spine: thoracic and lumbar spine normal to inspection, thoraco-lumbar ROM normal, straight leg raise negative bilaterally, pain with thoraco-lumbar ROM, paraspinal muscle tenderness on the right in the upper lumbar and in the mid lumbar, No thoracic spinal tenderness and No lumbar spinal tenderness Pelvis: no pain with anterior-posterior compression and no pain with lateral compression Sacroiliac joints: on the right tender to palpation Skin: General skin exam: elasticity normal and turgor normal Neuro: General: oriented to person, oriented to place, oriented to time, patient oriented x3, gait normal, tone normal, moves all extremities, Normal light touch and pain sensation, no focal motor deficits, CN's II-XI intact bilaterally and deep tendon reflexes 2+ bilaterally Cranial nerves: Yes Equal, round and reactive pupils present Cognition (Neuro): normal cognition Motor exam (neuro): 5/5 motor strength present throughout, Normal motor muscle tone present throughout and Motor abnormalities not present Extrem: General: Yes full ROM, Yes no pedal edema and Yes no calf tenderness Psych: Mental Status: mental status grossly normal Affect: normal affect Thought process: Normal thought process present Course Course Course Narrative: RME: 67 year-old w/ PMHx HLD, diabetes, sciatica, presenting to the ED c/o right low back pain x2 days s/p moving heavy objects at work. Pain worse w/moving/sitting. denies incontinence/retention/hematuria ambulating w/steady gait XRs ordered. Will need pain control Full HPI, ROS and PE to be performed by primary ED provider. Medical Decision Making Medical Decision Making MDM Narrative: Patient is a 67-year-old male with history of DM, HTN presenting to the emergency department with right lower back pain for 2 days. On exam patient is awake, A+Ox3, VS WNL, afebrile, normal neurological exam without focal deficits, physical exam findings as above. Given reported symptoms and physical exam findings, initial differential includes initial differential includes lumbar strain, lumbar radiculopathy, degenerative disc disease, disc herniation, spinal stenosis, spondylosis. Less likely vertebral fracture. Do not suspect malignancy/mass, SEA, cauda equina/cord compression. X-ray notable for degenerative spondylosis of lumbar spine. My interpretation is in agreement with the radiologist's interpretation. Will treat patient with cyclobenzaprine, diclofenac gel and topical lidocaine patches. Instructed patient to follow-up with primary care provider. Return precautions discussed at bedside. Patient verbalized understanding of and agreement with plan. Differential Diagnosis Differential Diagnoses: The differential diagnosis associated with the presentation includes As per MDM. Independent Interpretation I performed an independent interpretation of an: Plain X-Ray Interpretation: Degenerative spondylosis of lumbar spine Radiology Impression Discussion of test interpretation with radiology: I have reviewed the radiologist's reading. Radiologist Impression: XR/XR lumbar spine 2-3V IMPRESSION: 1. No acute abnormality. 2. Degenerative spondylosis of lumbar spine. External Record Review External record reviewed: Inpatient record, Office record and Outpatient record Prescription Management I considered prescription management with: Pain Medication and Other Discharge Plan Discharge Clinical Impression: Lumbar strain Patient Disposition: Home, Self-Care Instructions: Low Back Strain (ED) Additional Instructions: You were evaluated in the emergency department today for back pain. Your evaluation did not show signs of medical conditions requiring emergent intervention at this time. We recommended that you use ibuprofen or Tylenol per package directions every 6 hours as needed for pain. If necessary, you can alternate these medications so that you take one medication every 3 hours. For instance, at noon take ibuprofen, then at 3:00 p.m. take Tylenol, then at 6:00 p.m. take ibuprofen. You have been prescribed a muscle relaxer which you may take every 8 hours as needed for spasms. You have been prescribed 5% topical lidocaine patches which you can wear for up to 12 hours in a 24 hour period. Do not apply heat directly over the patches. You are being prescribed diclofenac gel which you can apply three times daily as needed, do not apply under lidocaine patches. Please schedule an appointment for follow-up with your primary care physician this week for further evaluation of your symptoms. Return to the emergency department if you experience worsening back pain, difficulty walking, fevers, numbness, tingling, incontinence, groin numbness or tingling, or any other concerning symptoms. Prescriptions: New cyclobenzaprine 5 mg tablet 5 mg PO TID PRN (Reason: muscle spasm) Qty: 10 0RF lidocaine 5 % adhesive patch,medicated 1 patch topical DAILY Qty: 15 0RF Rx Instructions: leave on most painful area for up to 12 hrs diclofenac sodium 1 % gel 2 g topical TID Qty: 100 0RF Rx Instructions: apply to right lower back No Action (DME) lancets [TRUEplus Lancets] 33 gauge misc See Rx Instructions .ROUTE .COMPLEX Qty: 100 11RF Dose Instruction: TEST BLOOD SUGAR ONCE DAILY Rx Instructions: TEST BLOOD SUGAR ONCE DAILY rosuvastatin 5 mg tablet 5 mg PO DAILY 90 Days Qty: 90 1RF metformin 1,000 mg tablet 1,000 mg PO BID Qty: 180 3RF (DME) FreeStyle Lite Strips Strip See Rx Instructions .ROUTE .MEDSUPPLY Qty: 50 11RF Rx Instructions: As directed twice a day (DME) blood-glucose meter [FreeStyle Lite Meter] Kit See Rx Instructions .ROUTE .MEDSUPPLY Qty: 1 0RF Rx Instructions: As directed Jardiance 25 mg tablet 25 mg PO DAILY 90 Days Qty: 90 1RF Trulicity 4.5 mg/0.5 mL pen injector 4.5 mg subcut QWEEK 90 Days Qty: 6.5 1RF losartan 100 mg tablet 100 mg PO DAILY 90 Days Qty: 90 1RF (DME) Blood Pressure Cuff Misc See Rx Instructions .ROUTE .MEDSUPPLY Qty: 1 0RF Rx Instructions: As directed finasteride [Proscar] 5 mg tablet 5 mg PO DAILY 90 Days Qty: 90 3RF Stand Alone Forms: Work/School Release
[2023-03-08 13:54] VITALS: BP 129/79; PULSE 98; RESP 18; TEMP 36.6; O2SAT 98; BMI 36.9
== END 2023-03-08 17:35 | disposition home or self-care (01) ==
PROVIDERS: Emergency Provider Emergency Medicine Emergency Medical Services; PCP Internal Medicine
DX: S39.012A Strain of muscle, fascia and tendon of lower back, initial encounter (principal); X50.0XXA Overexertion from strenuous movement or load, initial encounter; Y93.89 Activity, other specified; Y92.9 Unspecified place or not applicable; Y99.0 Civilian activity done for income or pay
CPT/HCPCS: 72100; 99281; 99283

== ENCOUNTER 2023-03-10 09:39 | Outpatient (REF) | payer MEDICARE, MEDICAID, SELFPAY ==
[2023-03-10 11:34] LABS: Alanine Aminotransferase 16 U/L (0-40); Albumin Level 3.8 g/dL (3.5-5.0); Alkaline Phosphatase 70 U/L (39-117); Anion Gap 12 (12-20); Aspartate Amino Transferase 15 U/L (5-37); Bilirubin Total 0.5 mg/dL (0.0-1.0); Blood Urea Nitrogen 25 mg/dL (9-16); Calcium 9.9 mg/dL (8.4-10.2); Carbon Dioxide 26 mmol/L (22-29); Chloride 103 mmol/L (96-108); Cholesterol 122 mg/dL (<200); Estimated Glomerular Filt Rate > 60; Glucose Fasting 128 mg/dL (60-99); HDL Cholesterol 42 mg/dL (>40); LDL Cholesterol Calculated 67 mg/dL (<100); Potassium 4.3 mmol/L (3.3-5.1); Sodium 137 mmol/L (135-145); Total Protein 7.9 g/dL (6.5-8.0); Triglycerides 69 mg/dL (<150)
[2023-03-10 11:42] LABS: Prostate Specific Antigen 5.58 ng/mL (<0.05-4.0)
[2023-03-10 11:54] LABS: Creatinine Urine 110.87 mg/dL; Microalbum/Creatinine Ratio Ur 6.3 ug/mg cr (<30)
== END 2023-03-10 09:40 | disposition home or self-care (01) ==
LOC: HO.LAB 09:39
PROVIDERS: Absent Provider Urology; PCP Internal Medicine; Visit Provider Internal Medicine
DX: E11.65 Type 2 diabetes mellitus with hyperglycemia (principal); E78.5 Hyperlipidemia, unspecified; N40.1 Benign prostatic hyperplasia with lower urinary tract symptoms; N13.8 Other obstructive and reflux uropathy
CPT/HCPCS: 36415; 80053; 80061; 82043; 82570; 84153

== ENCOUNTER 2023-03-17 11:31 | Outpatient (AMB) | payer MEDICARE, MEDICAID, SELFPAY ==
--- NOTE | 2023-03-17 11:39 | MHC.OFFVIS ---
Intake Vital Signs 03/17/23 11:41 Height 5 ft 4 in Weight 213 lb BMI 36.6 BP 139/71 Blood Pressure Location Lt brachial Position Sitting Pulse 80 Intake Visit Reasons: pre colonoscopy screening Intake Note: Patient follow up for 2nd pre colonoscopy screening. Patient denies any other GI issues. Senior Media Planner Required: Yes Senior Media Planner Name: [facility] interpeter Accompanied by: Daughter Allergies pioglitazone Adverse Reaction (Mild, Verified 03/17/23 11:38) diarrhea,polyuria canagliflozin [Invokana] Adverse Reaction (Unknown, Verified 03/17/23 11:38) dizziness Medication List - Last Reconciled 03/17/23 by Ingrid Arita MD blood sugar diagnostic (FreeStyle Lite Strips) As directed twice a day blood-glucose meter (FreeStyle Lite Meter kit) As directed cyclobenzaprine 5 mg PO TID PRN diclofenac sodium 1% 2 grams topical TID dulaglutide (Trulicity) 4.5 mg (0.5 mL) subcut QWEEK 90 days empagliflozin (Jardiance) 25 mg PO DAILY 90 days finasteride (Proscar) 5 mg PO DAILY 90 days lancets (TRUEplus Lancets) TEST BLOOD SUGAR ONCE DAILY lidocaine 5% 1 patch topical DAILY losartan 100 mg PO DAILY 90 days metformin 1,000 mg PO BID miscellaneous medical supply (Blood Pressure Cuff) As directed rosuvastatin 5 mg PO DAILY 90 days HPI pre colonoscopy screening HPI Details GI CLINIC VISIT FOR THIS 67-YEAR-OLD GUATEMALAN-SPEAKING MALE FOR FOLLOW-UP OF RECTAL BLEEDING. . 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 Plan: Await pathology results Continue present medications Patient has an appointment on 01/09/19 in the GI Clinic with Ingrid Arita M.D. Repeat Colonoscopy in 1 year due to fair to poor prep in the right colon. Colon polyps and hemorrhoids handouts were provided. BIOPSIES SHOWED: A. Stomach, random, biopsies: Moderate active gastritis; Helicobacter pylori organisms present. B. Esophagus, distal, biopsies: Esophagogastric junctional mucosa with moderate chronic inflammation and squamous epithelium with reactive features suggestive of reflux disease; negative for intestinal metaplasia; negative for dysplasia. C. Rectum, polyp, polypectomy: Fragments of hyperplastic polyp. TODAY'S VISIT Patient follow up for 2nd pre colonoscopy screening. Patient denies any other GI issues. 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 Denies change in appetite, heartburn or dysphagia. Has not been vaccinated for COVID LAST VISIT: One episode of rectal bleeding a week. Blood was bright red without any clots. He passed pure blood - in the toilet bowl and on the toilet bowl Denies abdominal or rectal pain. DEnies recent change in bowel habits - has a BM 1-2 times a day. Denies dysphagia, heartburn, nausea or vomiting, change in appetite or weight. Denies known FH of colon polyps or colon cancer in the family. Dad had stomach cancer at age 82 yrs [facility] Medical History Sciatica Testicular pain Type 2 diabetes mellitus with hyperglycemia, without long-term current use of insulin Other obesity due to excess calories BMI 38.0-38.9,adult Surgical History Meningioma Hx of endoscopy History of colonoscopy Family History Father History of cancer Mother Hx of diabetes insipidus Social History Household Members: Spouse Housing: Apartment Alcohol intake: never Patient Tobacco Use Status: Never used Tobacco e-Cigarette/Vaping Use: Never Used Second Hand Smoke Exposure: No service: No Current occupational status: employed Current occupational exposures/hazards: No Cognitive needs: No Hearing needs: No Vision needs: No Review of Systems Const All systems reviewed & are unremarkable except as noted in HPI and below Physical Exam Vital Signs: Last Vital Signs Pulse 80 03/17/23 11:41 BP 139/71 03/17/23 11:41 BMI result Body Mass Index 36.6 Const General: healthy appearing and no acute distress Nutritional Appearance: obese Orientation/consciousness: patient oriented x3 Limitations: language barrier HEENT Head: Yes normal to inspection Ears: hearing grossly normal bilaterally Eyes Sclerae: sclerae normal Pupils: Equal, round and reactive pupils present Neck Neck: Yes normal visual inspection Chest Chest palpation & inspection: normal inspection of the chest Resp Effort & Inspection: normal respiratory effort Auscultation: clear to auscultation bilaterally Cardio Palpation: normal PMI Rate: regular rate Rhythm: regular rhythm Heart sounds: S1 normal heart sound present, S2 normal heart sound present and no murmurs GI Palpation (GI): Soft to palpation, nontender and No hepatosplenomegaly present Auscultation: normal bowel sounds Rectal Exam - Male: Yes deferred Skin General skin exam: no rashes or lesions noted Neuro General: patient oriented x3, gait normal and moves all extremities Cranial nerves: Yes Equal, round and reactive pupils present Psych Appearance: grossly normal Mental Status: mental status grossly normal Assessment & Plan Assessment & Plan (1) Rectal bleeding: Code(s): K62.5 - Hemorrhage of anus and rectum (2) Colon cancer screening: Comment: Dec 2018 colonoscopy showed hemorrhoids and a hyperplastic polyp was removed. Patient denies known family history of colon polyps or colon cancer. He was advised to have a stool fit test checked - if positive repeat colonoscopy will be scheduled due to fair to poor prep in the right colon during last Colonoscopy. If FIT test is negative, repeat colon in 5 yrs. Code(s): Z12.11 - Encounter for screening for malignant neoplasm of colon (3) Hemorrhoids, internal, with bleeding: Code(s): K64.8 - Other hemorrhoids (4) History of Helicobacter pylori infection: Comment: 12/25/18 EGD showed gastritis with positive H Pylori. Patient was treated with amoxicillin, clarithromycin and omeprazole twice daily for 10 days. FU Stool test for H pylori antigen was negative Code(s): Z86.19 - Personal history of other infectious and parasitic diseases Plan 67 YM ith hypertension, diabetes mellitus, joint pain followed in GI for rectal bleeding. 12/25/18 EGD showed gastritis with positive H Pylori. Patient was treated with amoxicillin, clarithromycin and omeprazole twice daily for 10 days. FU Stool test for H pylori antigen was negative Same day colonoscopy showed hemorrhoids and a hyperplastic polyp was removed. Patient denies known family history of colon polyps or colon cancer. He was advised to have a stool fit test checked - if positive repeat colonoscopy will be scheduled due to fair to poor prep in the right colon during last Colonoscopy. Rectal bleeding likely from hemorrhoids - he denies recurrent bleeding. 03/17/23 Pt was advised to schedule a colonoscopy in summer due to fair to poor prep in the right colon on past colonoscopy Follow-up appointment after colonoscopy. Medications: New polyethylene glycol 3350 (Miralax) Mix Miralax with 64 oz(8 cups) of Crystal light. Take 2 tablets of Dulcolax qt 12 pm. Wait to have your 1st bowel movement, then begin drinking Miralax. Drink a glass of Miralax every 10-15 minutes until you are finished. You will drink at least another 4 cups of clear liquid of your choice over the next 2 hours. Please drink as many clear liquids as possible You may have clear liquids up to four hours before your procedure 17 grams PO DAILY 1 day 238 grams 0RF Colonoscopy prep bisacodyl (Dulcolax (bisacodyl)) Take 2 tablets at 12 pm starting 5 days before colonoscopy 10 mg (2 x 5 mg) PO ONCE 5 days 10 tabs 0RF colonoscopy prep Coding Level of Care Code Est Pt Level 4 (55556) Diagnoses Rectal bleeding K62.5 Colon cancer screening Z12.11 Hemorrhoids, internal, with bleeding K64.8 History of Helicobacter pylori infection Z86.19 Time Spent (min) 21
[2023-03-17 11:41] VITALS: BP 139/71; PULSE 80; BMI 36.6
== END 2023-03-17 12:51 | disposition home or self-care (01) ==
PROVIDERS: PCP Internal Medicine; Referring Provider Internal Medicine; Visit Provider Internal Medicine Gastroenterology
DX: K62.5 Hemorrhage of anus and rectum (principal); Z12.11 Encounter for screening for malignant neoplasm of colon; K64.8 Other hemorrhoids; Z86.19 Personal history of other infectious and parasitic diseases
CPT/HCPCS: 99214

== ENCOUNTER → 2023-03-17 11:31 | Outpatient (BNVA) | payer MEDICARE, MEDICAID, SELFPAY | PROVIDERS: PCP Internal Medicine; Visit Provider Internal Medicine Gastroenterology | DX: K62.5 Hemorrhage of anus and rectum (principal); K64.8 Other hemorrhoids; Z86.19 Personal history of other infectious and parasitic diseases | CPT/HCPCS: 99212 ==

== ENCOUNTER 2023-04-22 09:56 | Outpatient (AMB) | payer MEDICARE, MEDICAID, SELFPAY ==
--- NOTE | 2023-04-22 09:59 | A.OFFVIS_ITS ---
Intake Intake Visit Reasons: 6m/PSA Intake Note: Patient presents today for a follow-up on PSA: Results 5.58 ng/mL 03/10/2023 Meds- Finasteride Allergies to Antibiotic- No Known Allergies Blood Thinner- None Post Void Residual: Executor Of Estate Required: No Accompanied by: Family/Other Allergies pioglitazone Adverse Reaction (Mild, Verified 04/22/23 10:03) diarrhea,polyuria canagliflozin [Invokana] Adverse Reaction (Unknown, Verified 04/22/23 10:03) dizziness HPI HPI Comments History of Present Illness Details 04/22/23--Hay is a 66-year-old male who presents to the clinic as fu evaluation for elevated PSA. He is here with his daughters who interprets for him. I have reviewed recent PSA obtained 03/10/2023 which is stable at 5.58 ng/mL. He is prescribed Proscar 5 mg daily. The patient is compliant on the medication. He denies irritative voiding symptoms. He states he has a good urinary flow. Review of chart 05/06/2022--The patient is a mal e. Qualified Prydeinig speaker was present during the encounter. He complains increased voiding. C/o's concerns regarding problems getting and maintaining erections Wakes up 3 times at night and 2-4 times during the day to void. States completely emptying his bladder after voiding. Complains having right lower back pain. FHx: Father and uncle had prostate cancer. States his father was 82 years old when he was diagnosed with prostate cancer. Brother had surgery for enlarged prostate. PSA results reviewed?04/23/2022?5.54. BUN levels reviewed--02/28/2022--23. Evaluation today-- Blood: negative, Leukocytes: negative. Bladder scan PVR: 50 mL.? USG scrotum results reviewed--03/11/2020--Unremarkable. Prostate exam: Moderately enlarged.? Plan: Elevated PSA- Schedule prostate biopsy procedure minor procedure room. ED- Testosterone free and total test prior was ordered due to problem with erections. ? ? 09/09/2022-- Hay is a 67-year-old Prydeinig speaking male who presents today to the office for follow-up on biopsy results. The patient is a Prydeinig speaking male. 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 He is here today to review the prostate biopsy results which were done on 06/28/2022. He was evaluated for elevated PSA; his last visit in the office was on 05/06/2022. He reports on and off urinary urgency. He denies any dysuria or hematuria. Pathology of the prostate tissue was benign, estimated prostate size on t ransrectal was 49.1mL. I have discussed place the patient on Proscar 5 mg daily. Will monitor PSA. 04/22/2023 Plan: Continue to monitor PSA. Repeat the PSA in 6 months. Continue Proscar 5 mg once daily. Follow up in 6 months PFSH Medical History Sciatica Testicular pain Type 2 diabetes mellitus with hyperglycemia, without long-term current use of insulin Other obesity due to excess calories BMI 38.0-38.9,adult Surgical History Meningioma Hx of endoscopy History of colonoscopy Family History Father History of cancer Mother Hx of diabetes insipidus Social History Household Members: Spouse Housing: Apartment Alcohol intake: never Patient Tobacco Use Status: Never used Tobacco e-Cigarette/Vaping Use: Never Used Second Hand Smoke Exposure: No service: No Current occupational status: employed Current occupational exposures/hazards: No Cognitive needs: No Hearing needs: No Vision needs: No Review of Systems Const All systems reviewed & are unremarkable except as noted in HPI and below Reports no additional complaints Eyes Reports no additional complaints ENT Reports no additional complaints Card Reports no additional complaints Resp Reports no additional complaints GI Reports no additional complaints Reports as per HPI Musc Reports no additional complaints Skin/Breast Reports system reviewed and no additional complaints, except as documented Neuro Reports no additional complaints Psych Reports no additional complaints Endo Reports no additional complaints Giancarlo/Lymph Reports no additional complaints Aller/Immun Reports no additional complaints Results AMB Urinalysis, Automated UA Leukoctes 0 Martín/uL Last Edit by Mansi Nunez Jorge on 04/22/23 10:20 UA Nitrite Negative Last Edit by Mansi Nunez Jorge on 04/22/23 10:20 UA Urobilinogen 0.2 mg/dL Last Edit by Mansi uNnez [facility] on 04/22/23 10:2 0 UA Protein 0 mg/dL Last Edit by Mansi Nunez [facility] on 04/22/23 10:20 UA pH 6.0 Last Edit by Mansi Nunez [facility] on 04/22/23 10:20 UA Blood 0 Yvon/uL Last Edit by Mansi Nunez [facility] on 04/22/23 10:20 UA Specific [place] 1.010 Last Edit by Mansi Nunez [facility] on 04/22/23 10: 20 UA Ketone Negative Last Edit by Mansi Nunez [facility] on 04/22/23 10:20 UA Bilirubin 0 mg/dL Last Edit by Mansi Nunez [facility] on 04/22/23 10:20 UA Glucose 1000 mg/dL Last Edit by Mansi Nunez [facility] on 04/22/23 10:20 3+ Mansi Nunez 04/22/23 10:20 Results Reviewed Results Reviewed: Laboratory Last Values Urine pH (Auto) 6.0 04/22/23 10:18 Specific [place] (Auto) 1.010 04/22/23 10:18 Urine Protein (Auto) 0 mg/dL 04/22/23 10:18 Glucose (UA)(Auto) 1000 mg/dL 04/22/23 10:18 Urine Ketones (Auto) Negative 04/22/23 10:18 Urine Blood (Auto) 0 Yvon/uL 04/22/23 10:18 Urine Nitrite (Auto) Negative 04/22/23 10:18 Urine Bilirubin (Auto) 0 mg/dL 04/22/23 10:18 Urine Urobilinogen (Auto) 0.2 mg/dL 04/22/23 10:18 Leukocyte Esterase (Auto) 0 Martín/uL 04/22/23 10:18 Assessment & Plan Assessment & Plan (1) Elevated PSA: Code(s): R97.20 - Elevated prostate specific antigen [PSA] (2) BPH loc w urin obs/LUTS: Code(s): N40.1 - Benign prostatic hyperplasia with lower urinary tract symptoms Plan Repeat the PSA in 6 months. Prescribed Proscar 5 mg once daily. Follow up in 6 months Orders: Orders AMB Urinalysis Automated 04/22/23 Z13.9 - Encounter for screening, unspecified PSA,Total (Free>4and<10) 8 Months R97.20 - Elevated prostate specific antigen [PSA] Medications: Refilled finasteride (Proscar) 5 mg PO DAILY 90 tabs 3RF 90 days C61 - Malignant neoplasm of prostate Patient Instructions: The patient had an opportunity to ask questions regarding treatment plan. All questions were answered. The patient expressed understanding and agreement with the above treatment plan. The patient is aware they should contact our office by phone for worsening of their current condition or the appearance of new symptoms. Compliance is encou raged with any medications and followup testing that is ordered. It is a privilege to be allowed the opportunity to participate in the urologic care of your patient. If you have any questions or concerns regarding treatment for the above conditions please do not hesitate to contact me. The office telephone contact is [phone]. This note is constructed in part using voice recognition software. While every effort has been made to ensure accuracy nursing tech errors may have been included. Yours sincerely, Geoffrey Ziegler MD Coding Level of Care Code Est Pt Level 3 (62619) Diagnoses Elevated PSA R97.20 BPH loc w urin obs/LUTS N40.1
== END 2023-04-22 11:09 | disposition home or self-care (01) ==
PROVIDERS: PCP Internal Medicine; Visit Provider Urology
DX: R97.20 Elevated prostate specific antigen [PSA] (principal); N40.1 Benign prostatic hyperplasia with lower urinary tract symptoms
CPT/HCPCS: 99213

== ENCOUNTER → 2023-04-22 09:56 | Outpatient (BNVA) | payer MEDICARE, MEDICAID, SELFPAY | PROVIDERS: PCP Internal Medicine; Visit Provider Urology | DX: N40.1 Benign prostatic hyperplasia with lower urinary tract symptoms (principal); R97.20 Elevated prostate specific antigen [PSA] | CPT/HCPCS: 81003; 99212 ==

== ENCOUNTER 2023-06-30 06:04 | Outpatient (REF) | payer MEDICARE, MEDICAID, SELFPAY ==
[2023-06-30 08:22] LABS: Creatinine Urine 88.32 mg/dL; Microalbum/Creatinine Ratio Ur 10.1 ug/mg cr (<30)
[2023-06-30 08:35] LABS: Alanine Aminotransferase 16 U/L (0-40); Albumin Level 3.7 g/dL (3.5-5.0); Alkaline Phosphatase 65 U/L (39-117); Anion Gap 13 (12-20); Aspartate Amino Transferase 16 U/L (5-37); Bilirubin Total 0.5 mg/dL (0.0-1.0); Blood Urea Nitrogen 25 mg/dL (9-16); Calcium 9.1 mg/dL (8.4-10.2); Carbon Dioxide 23 mmol/L (22-29); Chloride 105 mmol/L (96-108); Cholesterol 124 mg/dL (<200); Estimated Glomerular Filt Rate > 60; Glucose Fasting 188 mg/dL (60-99); HDL Cholesterol 37 mg/dL (>40); LDL Cholesterol Calculated 68 mg/dL (<100); Sodium 137 mmol/L (135-145); Total Protein 7.3 g/dL (6.5-8.0); Triglycerides 98 mg/dL (<150)
[2023-06-30 08:39] LABS: Vitamin D 25-OH Total 20.9 ng/mL (>30)
== END 2023-06-30 06:05 | disposition home or self-care (01) ==
LOC: HO.LAB 06:04
PROVIDERS: PCP Internal Medicine; Visit Provider Internal Medicine
DX: E78.5 Hyperlipidemia, unspecified (principal); E11.9 Type 2 diabetes mellitus without complications; E55.9 Vitamin D deficiency, unspecified
CPT/HCPCS: 36415; 80053; 80061; 82043; 82306; 82570

== ENCOUNTER 2023-06-30 12:31 | Outpatient (AMB) | payer MEDICARE, MEDICAID, SELFPAY ==
--- NOTE | 2023-06-30 12:40 | A.OFFPC_ITS ---
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: No Accompanied by: Self / Same As Patient Allergies pioglitazone Adverse Reaction (Mild, Verified 06/30/23 12:56) diarrhea,polyuria canagliflozin [Invokana] Adverse Reaction (Unknown, Verified 06/30/23 12:56) dizziness Medication List - Last Reconciled 06/30/23 by Ritika Hernández MD bisacodyl (Dulcolax (bisacodyl)) 10 mg (2 x 5 mg) PO ONCE 5 days blood sugar diagnostic (FreeStyle Lite Strips) As directed twice a day blood-glucose meter (FreeStyle Lite Meter kit) As directed cyclobenzaprine 5 mg PO TID PRN diclofenac sodium 1% 2 grams topical TID dulaglutide (Trulicity) 4.5 mg (0.5 mL) subcut QWEEK 90 days empagliflozin (Jardiance) 25 mg PO DAILY 90 days finasteride (Proscar) 5 mg PO DAILY 90 days lancets (TRUEplus Lancets) TEST BLOOD SUGAR ONCE DAILY lidocaine 5% 1 patch topical DAILY losartan 100 mg PO DAILY 90 days metformin 1,000 mg PO BID miscellaneous medical supply (Blood Pressure Cuff) As directed polyethylene glycol 3350 (Miralax) 17 grams PO DAILY 1 day rosuvastatin 5 mg PO DAILY 90 days Tobacco use date assessed: 02/24/23 Fall risk assessment: No Falls in past year Last assessed Fall Risk: 06/30/23 Dental Screening Dental Screen Date: 02/24/23 HPI HPI Comments History of Present Illness Details This is a 67-year-old male with diabetes mellitus type 2 that comes for his physical exam. A1c not on goal and he has not had Trulicity in a while due to being out of stock. I will change it to Ozempic. Had colonoscopy 2018 and will have a repeated colonoscopy next month. No chest pain or shortness of breath. [facility] Medical History (Updated 06/30/23 @ 13:48 by Ritika Hernández MD) Sciatica Testicular pain Type 2 diabetes mellitus with hyperglycemia, without long-term current use of insulin Other obesity due to excess calories BMI 38.0-38.9,adult Surgical History Meningioma Hx of endoscopy History of colonoscopy Family History Father History of cancer Mother Hx of diabetes insipidus Social History Household Members: Spouse Housing: Apartment Alcohol intake: never Patient Tobacco Use Status: Never used Tobacco e-Cigarette/Vaping Use: Never Used Second Hand Smoke Exposure: No service: No Current occupational status: employed Current occupational exposures/hazards: No Cognitive needs: No Hearing needs: No Vision needs: No Questionnaire Thrive Questionnaire Date Thrive assessed: 02/24/23 KALEB-7 AMB Questionnaire KALEB-7 Date KALEB - 7 assessed: 02/24/23 Source: Developed by Drs. Rocael Sarabia, Whitney Hoang, Schuyler Dickens and colleagues, with an educational rei from [employer]. Review of Systems Const All systems reviewed & are unremarkable except as noted in HPI and below Card Denies chest pain at rest, Denies chest pain with activity, Denies edema, Denies irregular heart rhythm, Denies claudication, Denies dyspnea, Denies dyspnea on exertion, Denies orthopnea, Denies paroxysmal nocturnal dyspnea and Denies slow heart rate Resp Denies cough, Denies dyspnea and Denies dyspnea on exertion Physical exam (Primary Care) Vital Signs: Last Vital Signs BP 140/72 H 06/30/23 12:41 BMI result Body Mass Index 37.2 Tobacco/Smoking Status: Tobacco use Status Tobacco use date assessed 02/24/23 06/30/23 12:48 Patient Tobacco Use Status Never used Tobacco 06/30/23 12:48 e-Cigarette/Vaping Use Never Used 06/30/23 12:48 Thrive Assessment: Date of Thrive Assessment Date Thrive assessed 02/24/23 06/30/23 12:48 Const Orientation/consciousness: patient oriented x3 HENMT Head: Yes normal to inspection, Yes normocephalic and Yes atraumatic Ears: external ears normal Eyes General: appearance normal, both eyes and all related structures Eyelids: Yes eyelids normal Conjunctivae: conjunctivae normal Neck Neck: Yes normal visual inspection and Yes supple Resp Effort & Inspection: normal respiratory effort Auscultation: clear to auscultation bilaterally Cardio Jugular venous distension: no JVD Rate: regular rate Rhythm: regular rhythm Heart sounds: S1 normal heart sound present and S2 normal heart sound present GI Inspection: Yes normal to inspection Palpation (GI): Soft to palpation and nontender Auscultation: normal bowel sounds Skin General skin exam: no rashes or lesions noted Neuro General: patient oriented x3 and no focal motor deficits Extrem General: Yes full ROM Psych Appearance: grossly normal Results AMB Hemoglobin A1c AMB Hemoglobin A1c 8.2 % Last Edit by JALEESA Chester on 06/30/23 12:5 3 Results Reviewed Results Reviewed: Laboratory Last Values Hgb A1c (Clinic) 8.2 % (4.0-6.0) H 06/30/23 12:40 Assessment and Plan Assessment & Plan (1) Physical exam: Code(s): Z00.00 - Encounter for general adult medical examination without abnormal findings Plan: Repeat in a year. (2) Type 2 diabetes mellitus with hyperglycemia, without long-term current use of insulin: Code(s): E11.65 - Type 2 diabetes mellitus with hyperglycemia Plan: Continue Jardiance. Discontinue Trulicity. Start Ozempic. A1c goal is equal or less than 7%. Orders: Orders Lipid Panel 4 Months E78.5 - Hyperlipidemia, unspecified Vitamin D 25-OH Total 4 Months E55.9 - Vitamin D deficiency, unspecified AMB Hemoglobin A1c Today E11.65 - Type 2 diabetes mellitus with hyperglycemia Microalbumin, Random (w Creat) 4 Months E11.9 - Type 2 diabetes mellitus without complications Comprehensive [place] [facility]. Panel Fast 4 Months E11.65 - Type 2 diabetes mellitus with hyperglycemia Medications: New cholecalciferol (vitamin D3) 25 mcg PO DAILY 90 caps 1RF 90 days semaglutide (Ozempic) for 4 weeks 0.25 mg (0.368 mL) subcut QWEEK 4 weeks 1.472 mL 0RF E11.65 - Type 2 diabetes mellitus with hyperglycemia semaglutide (Ozempic) for 4 weeks 0.25 mg (0.368 mL) subcut QWEEK 1.472 mL 0RF 4 weeks E11.65 - Type 2 diabetes mellitus with hyperglycemia Refilled empagliflozin (Jardiance) 25 mg PO DAILY 90 days 90 tabs 1RF empagliflozin (Jardiance) 25 mg PO DAILY 90 tabs 1RF 90 days losartan 100 mg PO DAILY 90 tabs 1RF 90 days I10 - Essential (primary) hypertension rosuvastatin 5 mg PO DAILY 90 tabs 1RF 90 days Discontinued dulaglutide (Trulicity) Discontinued Reason: Patient Completed Course 4.5 mg (0.5 mL) subcut QWEEK 90 days 6.5 mL 1RF E11.65 - Type 2 diabetes mellitus with hyperglycemia Coding Level of Care Code Est Pt Prev Care >65y(04105) Diagnoses Physical exam Z00.00 Type 2 diabetes mellitus with hyperglycemia, without long-term current use of insulin E11.65 Time Spent (min) 31
[2023-06-30 12:41] VITALS: BP 140/72; BMI 37.2
== END 2023-06-30 13:16 | disposition home or self-care (01) ==
PROVIDERS: PCP Internal Medicine; Visit Provider Internal Medicine
DX: Z00.00 Encounter for general adult medical examination without abnormal findings (principal); E11.65 Type 2 diabetes mellitus with hyperglycemia
CPT/HCPCS: 83036; 99397

== ENCOUNTER 2023-07-24 09:12 | Emergency (ER) | payer MEDICARE, MEDICAID, SELFPAY ==
--- NOTE | ~2023-07-24 | XR_ITS ---
Examination: Right ankle and right foot CLINICAL INFORMATION: pain in the right foot and ankle COMPARISON: None TECHNIQUE: AP oblique and lateral view of right foot and right ankle FINDINGS: Right ankle 3 views demonstrate no fractures soft tissues unremarkable. Ankle mortise is preserved. Right foot: 3 views of right foot reveals no fractures or changes of osteoarthritis. Soft tissues unremarkable there is plantar calcaneal spur. XR/XR ankle RT 2V IMPRESSION: Plantar calcaneal spur.
--- NOTE | ~2023-07-24 | XR_ITS ---
Examination: Right ankle and right foot CLINICAL INFORMATION: pain in the right foot and ankle COMPARISON: None TECHNIQUE: AP oblique and lateral view of right foot and right ankle FINDINGS: Right ankle 3 views demonstrate no fractures soft tissues unremarkable. Ankle mortise is preserved. Right foot: 3 views of right foot reveals no fractures or changes of osteoarthritis. Soft tissues unremarkable there is plantar calcaneal spur. XR/XR foot RT 2V IMPRESSION: Plantar calcaneal spur.
[2023-07-24 09:28] VITALS: BP 146/80; PULSE 96; RESP 16; TEMP 36.2; O2SAT 97; BMI 40.8
[2023-07-24 10:00] VITALS: BP 139/83; PULSE 89; TEMP 36.5; O2SAT 99
--- NOTE | 2023-07-24 11:44 | ED.LOWEXIN ---
HPI - Extremity Injury (Lower) General Chief Complaint: Extremity Injury, Lower Stated Complaint: Foot pain Time Seen by Provider: 07/24/23 11:35 Source: patient Mode of arrival: ambulatory Limitations: no limitations History of Present Illness HPI Narrative: Patient is a 67-year-old male who presents emergency department for evaluation of right lateral foot pain. Reports while walking down the stairs he tripped resulting in a mechanical fall, and inversion injury of his right foot. He denies any head strike or loss of consciousness he denies or cold sensation to the foot. Related Data Previous Rx's ?Medication ?Instructions ?Recorded lancets 33 gauge (TRUEplus Lancets) ##100 04/24/22 miscellaneous medical supply #1 ea 12/24/22 (Blood Pressure Cuff) metformin 1,000 mg tablet 1,000 mg PO BID #180 tabs 01/08/23 blood sugar diagnostic (FreeStyle #50 ea 02/05/23 Lite Strips) blood-glucose meter (FreeStyle #1 ea 02/05/23 Lite Meter kit) cyclobenzaprine 5 mg tablet 5 mg PO TID PRN muscle spasm #10 03/08/23 tabs diclofenac sodium 1 % topical gel 2 g topical TID #100 grams 03/08/23 lidocaine 5 % topical patch 1 patch topical DAILY #15 ea 03/08/23 bisacodyl 5 mg tablet,delayed 10 mg (2 x 5 mg) PO ONCE 03/17/23 release (Dulcolax (bisacodyl)) colonoscopy prep 5 days #10 tabs polyethylene glycol 3350 17 17 g PO DAILY Colonoscopy prep 1 03/17/23 gram/dose oral powder (Miralax) day #238 grams finasteride 5 mg tablet (Proscar) 5 mg PO DAILY 90 days #90 tabs 04/22/23 cholecalciferol (vitamin D3) 25 25 mcg PO DAILY 90 days #90 caps 06/30/23 mcg (1,000 unit) capsule empagliflozin 25 mg tablet 25 mg PO DAILY 90 days #90 tabs 06/30/23 (Jardiance) losartan 100 mg tablet 100 mg PO DAILY 90 days #90 tabs 06/30/23 rosuvastatin 5 mg tablet 5 mg PO DAILY 90 days #90 tabs 06/30/23 dulaglutide 1.5 mg/0.5 mL 1.5 mg (0.5 mL) subcut QWEEK 90 07/20/23 subcutaneous pen injector days #6.5 mL (Trulicity) Allergies Allergy/AdvReac Type Severity Reaction Status Date / Time pioglitazone AdvReac Mild diarrhea,po Verified 07/24/23 09:29 lyuria canagliflozin [Invokana] AdvReac Unknown dizziness Verified 07/24/23 09:29 Review of Systems Review of Systems: Yes all other systems are reviewed and are negative [facility] Past Medical History Attestation statement: The following information was validated with the patient. Source: old records reviewed Medical History Sciatica Testicular pain Type 2 diabetes mellitus with hyperglycemia, without long-term current use of insulin Other obesity due to excess calories BMI 38.0-38.9,adult Surgical History Meningioma Hx of endoscopy History of colonoscopy Family History Family History Father History of cancer Mother Hx of diabetes insipidus Social History Social History Household Members: Spouse Housing: Apartment Alcohol intake: never Patient Tobacco Use Status: Never used Tobacco e-Cigarette/Vaping Use: Never Used Second Hand Smoke Exposure: No Advance Directives: No Advance Directives Information Provided: Yes Do you have a plan to hurt others: No Plan service: No Current occupational status: employed Current occupational exposures/hazards: No Cognitive needs: No Hearing needs: No Vision needs: No Physical Exam Vital Signs: Vital Signs: Last Vital Signs Temp 97.7 F 07/24/23 10:00 Pulse 89 07/24/23 10:00 Resp 16 07/24/23 09:28 BP 139/83 07/24/23 10:00 Pulse Ox 99 07/24/23 10:00 O2 Del Method Room Air 07/24/23 10:00 BMI result Body Mass Index 40.8 Appearance: Alert.?Oriented to person, place and time. No acute distress.?Normal affect.?? Neck: Normal inspection.? Neck supple.?? CVS: Heart sounds normal. Normal heart rate and rhythm.? Pulses normal.?? Respiratory: No respiratory distress.? Lung sounds clear to auscultation bilaterally?? Skin: Skin warm and dry.? Normal skin color.? Extremities: No lower extremity edema.? No calf ttp? Tenderness upon palpation to the right lateral malleolus. 2+ DP/PT pulse bilaterally Neuro: Moves all extremities spontaneously. Sensation intact bilaterally. Ambulates with normal steady gait. Medical Decision Making Medical Decision Making MDM Narrative: patient is a 67-year-old male who presents emergency department for evaluation of traumatic right lateral ankle pain after a mechanical trip and fall. XR is obtained to exclude fracture /dislocation, and is without acute pathology. Symptoms at this time most concerning for a sprain. He has ambulatory with a steady gait, provided with an Alphonso bandage for compression, discussed rest, ice, elevation, acetaminophen for pain, provided with a work note and advised outpatient follow-up with his primary care provider. All questions answered. Stable for discharge. Differential Diagnosis Differential Diagnoses: The differential diagnosis associated with the presentation includes ( See narrative above) Independent Interpretation I performed an independent interpretation of an: Plain X-Ray ( see narrative above) Radiology Impression Discussion of test interpretation with radiology: I have reviewed the radiologist's reading. Radiologist Impression: XR/XR foot RT 2V IMPRESSION: Plantar calcaneal spur. Independent Historian Clinical information obtained from an independent historian. History obtained from or confirmed by: Spouse Prescription Management I considered prescription management with: Pain Medication Discharge Plan Discharge Clinical Impression: Ankle sprain Qualifiers: Encounter type: initial encounter Laterality: right Patient Disposition: Home, Self-Care Instructions: Ankle Sprain (ED), How to Use an Elastic Bandage (ED), R.I.C.E. Treatment (ED) Prescriptions: No Action (DME) lancets [TRUEplus Lancets] 33 gauge misc See Rx Instructions .ROUTE .COMPLEX Qty: 100 11RF Dose Instruction: TEST BLOOD SUGAR ONCE DAILY Rx Instructions: TEST BLOOD SUGAR ONCE DAILY metformin 1,000 mg tablet 1,000 mg PO BID Qty: 180 3RF (DME) FreeStyle Lite Strips Strip See Rx Instructions .ROUTE .MEDSUPPLY Qty: 50 11RF Rx Instructions: As directed twice a day (DME) blood-glucose meter [FreeStyle Lite Meter] Kit See Rx Instructions .ROUTE .MEDSUPPLY Qty: 1 0RF Rx Instructions: As directed Trulicity 1.5 mg/0.5 mL pen injector 1.5 mg subcut QWEEK 90 Days Qty: 6.5 0RF cyclobenzaprine 5 mg tablet 5 mg PO TID PRN (Reason: muscle spasm) Qty: 10 0RF lidocaine 5 % adhesive patch,medicated 1 patch topical DAILY Qty: 15 0RF Rx Instructions: leave on most painful area for up to 12 hrs diclofenac sodium 1 % gel 2 g topical TID Qty: 100 0RF Rx Instructions: apply to right lower back losartan 100 mg tablet 100 mg PO DAILY 90 Days Qty: 90 1RF Jardiance 25 mg tablet 25 mg PO DAILY 90 Days Qty: 90 1RF rosuvastatin 5 mg tablet 5 mg PO DAILY 90 Days Qty: 90 1RF cholecalciferol (vitamin D3) 25 mcg (1,000 unit) capsule 25 mcg PO DAILY 90 Days Qty: 90 1RF (DME) Blood Pressure Cuff Misc See Rx Instructions .ROUTE .MEDSUPPLY Qty: 1 0RF Rx Instructions: As directed bisacodyl [Dulcolax (bisacodyl)] 5 mg tablet,delayed release (DR/EC) 10 mg PO ONCE 5 Days Qty: 10 0RF Rx Instructions: Take 2 tablets at 12 pm starting 5 days before colonoscopy polyethylene glycol 3350 [Miralax] 17 gram/dose powder 17 g PO DAILY 1 Days Qty: 238 0RF Rx Instructions: Mix Miralax with 64 oz(8 cups) of Crystal light. Take 2 tablets of Dulcolax qt 12 pm. Wait to have your 1st bowel movement, then begin drinking Miralax. Drink a glass of Miralax every 10-15 minutes until you are finished. You will drink at least another 4 cups of clear liquid of your choice over the next 2 hours. Please drink as many clear liquids as possible You may have clear liquids up to four hours before your procedure finasteride [Proscar] 5 mg tablet 5 mg PO DAILY 90 Days Qty: 90 3RF Referrals: Ritika Forte MD [Primary Care Provider] - Print Language: Australian
[2023-07-24 13:59] VITALS: BP 123/65; PULSE 74; TEMP 36.1; O2SAT 98
[2023-07-24 14:26] VITALS: BP 123/65; PULSE 74; RESP 17; TEMP 36.1; O2SAT 98
== END 2023-07-24 14:27 | disposition home or self-care (01) ==
PROVIDERS: Emergency Provider Emergency Medicine; PCP Internal Medicine
DX: S93.401A Sprain of unspecified ligament of right ankle, initial encounter (principal); E11.9 Type 2 diabetes mellitus without complications; W10.9XXA Fall (on) (from) unspecified stairs and steps, initial encounter; Y93.9 Activity, unspecified; Y92.9 Unspecified place or not applicable; Y99.9 Unspecified external cause status
CPT/HCPCS: 73600; 73620; 99283; 99284

== ENCOUNTER 2023-09-07 05:33 | Emergency (ER) | payer MEDICARE, SELFPAY ==
[2023-09-07 05:35] VITALS: BP 153/80; PULSE 94; RESP 18; TEMP 37; O2SAT 96; BMI 37.1
--- NOTE | 2023-09-07 06:29 | ED_ITS ---
HPI - Headache General Chief Complaint: Headache Stated Complaint: gen med? 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 He reports the it is a constant, vague, frontal headache that is now improved and does not radiate elsewhere. He checked his BP this morning and states that his systolic BP being in the 170s making him come to the ER. He is not sure if his BP machine at home is accurate. He is on 100 mg of losartan, compliant with his medications, has not taken them yet today. Patient has associated ear pain which he notes how that typically happens with his headaches. Did not take any medication to help with symptoms. He admits to not watching what he has been eating lately; eating a lot of rice and salt. He reports having a scheduled appointment with his PCP either this month or next month. He keeps track of all his BP readings. Denies vision changes, dizziness, chest pain, palpitations, dyspnea, N/V, abdominal pain, fever and chills. MD elicited complaint: headache Pertinent past history: hypertension Onset (ago): day(s) (1) Onset description: gradually Location: frontal Severity: mild Quality & Timing: aching Exacerbating factors: none Relieving factors: nothing Context: occurred at rest Associated symptoms: none Treatments prior to arrival: none Related Data Previous Rx's ?Medication ?Instructions ?Recorded lancets 33 gauge (TRUEplus Lancets) ##100 04/24/22 miscellaneous medical supply #1 ea 12/24/22 (Blood Pressure Cuff) metformin 1,000 mg tablet 1,000 mg PO BID #180 tabs 01/08/23 blood sugar diagnostic (FreeStyle #50 ea 02/05/23 Lite Strips) blood-glucose meter (FreeStyle #1 ea 02/05/23 Lite Meter kit) cyclobenzaprine 5 mg tablet 5 mg PO TID PRN muscle spasm #10 03/08/23 tabs diclofenac sodium 1 % topical gel 2 g topical TID #100 grams 03/08/23 lidocaine 5 % topical patch 1 patch topical DAILY #15 ea 03/08/23 bisacodyl 5 mg tablet,delayed 10 mg (2 x 5 mg) PO ONCE 03/17/23 release (Dulcolax (bisacodyl)) colonoscopy prep 5 days #10 tabs polyethylene glycol 3350 17 17 g PO DAILY Colonoscopy prep 1 03/17/23 gram/dose oral powder (Miralax) day #238 grams finasteride 5 mg tablet (Proscar) 5 mg PO DAILY 90 days #90 tabs 04/22/23 empagliflozin 25 mg tablet 25 mg PO DAILY 90 days #90 tabs 06/30/23 (Jardiance) losartan 100 mg tablet 100 mg PO DAILY 90 days #90 tabs 06/30/23 rosuvastatin 5 mg tablet 5 mg PO DAILY 90 days #90 tabs 06/30/23 dulaglutide 1.5 mg/0.5 mL 1.5 mg (0.5 mL) subcut QWEEK 90 07/20/23 subcutaneous pen injector days #6.5 mL (Trulicity) bisacodyl 5 mg tablet,delayed 20 mg (4 x 5 mg) PO ONCE 1 day #4 08/04/23 release (Dulcolax (bisacodyl)) tabs polyethylene glycol 3350 17 238 g PO ONCE 1 day #238 grams 08/04/23 gram/dose oral powder (Miralax) cholecalciferol (vitamin D3) 25 25 mcg PO DAILY 90 days #90 caps 08/22/23 mcg (1,000 unit) capsule Allergies Allergy/AdvReac Type Severity Reaction Status Date / Time pioglitazone AdvReac Mild diarrhea,po Verified 09/07/23 05:43 lyuria canagliflozin [Invokana] AdvReac Unknown dizziness Verified 09/07/23 05:43 Review of Systems Constitutional: Constitutional: Reports as per HPI Eyes: Eyes: Reports as per HPI ENT: Reports as per HPI Cardiovascular: Cardiovascular: Reports as per HPI Respiratory: Respiratory: Reports as per HPI Gastrointestinal: Gastrointestinal: Reports as per HPI Genitourinary: Genitourinary: Reports as per HPI Musculoskeletal: Musculoskeletal: Reports as per HPI Integumentary/Breasts: Skin/Breast: Reports as per HPI Neurologic: Reports as per HPI Psychiatric: Psychiatric: Reports as per HPI Endocrine: Endocrine: Reports as per HPI Hematologic/Lymphatic: Hematologic/Lymphatic: Reports as per HPI Allergic/Immunologic: Allergic/Immunologic: Reports as per HPI PMF Past Medical History Medical History Sciatica Testicular pain Type 2 diabetes mellitus with hyperglycemia, without long-term current use of insulin Other obesity due to excess calories BMI 38.0-38.9,adult Surgical History Meningioma Hx of endoscopy History of colonoscopy Family History Family History Father History of cancer Mother Hx of diabetes insipidus Social History Social History Household Members: Spouse Housing: Apartment Alcohol intake: never Patient Tobacco Use Status: Never used Tobacco Smoked in Last 30 Days: No e-Cigarette/Vaping Use: Never Used Second Hand Smoke Exposure: No Use of substances other than those prescribed or required for medical reasons: No Advance Directives: No Advance Directives Information Provided: Yes service: No Current occupational status: employed Current occupational exposures/hazards: No Cognitive needs: No Hearing needs: No Vision needs: No Physical Exam Vital Signs: Vital Signs: Last Vital Signs Temp 98.6 F 09/07/23 07:18 Pulse 77 09/07/23 07:20 Resp 188 H 09/07/23 07:20 BP 125/74 09/07/23 07:20 Pulse Ox 96 09/07/23 07:18 O2 Del Method Room Air 09/07/23 07:18 BMI result Body Mass Index 37.1 Appearance: Alert. Oriented X3. No acute distress. Head: normocephalic, atraumatic. Eyes: Pupils equal, round and reactive to light. ENT: Pharynx normal. No tonsillar swelling or exudate. Neck: Normal inspection. Neck supple. CVS: Normal heart rate and rhythm. Pulses normal. Respiratory: No respiratory distress. Breath sounds normal. Abdomen: Soft and nontender. +BS x4 Skin: Skin warm and dry. Normal skin color. Normal skin turgor. No rashes. Extremities: No lower extremity edema. No joint swelling. Neuro/psych: Oriented X 3. No motor deficit. No sensory deficit. CN II-XII intact. Normal speech and cognition. Medications Administered Discontinued Medications Generic Name Dose Route Start Last Admin Trade Name Estuardo PRN Reason Stop Dose Admin Acetaminophen 975 mg 09/07/23 06:50 09/07/23 07:20 Acetaminophen 325 Mg Tablet PO 09/07/23 06:51 975 mg ONCE ONE Administration Medical Decision Making Medical Decision Making MDM Narrative: 68 year old male with a PMHx of sciatica, testicular pain, T2DM, obesity and HTN presents to the ER due to a headache that began last night. On arrival, the patients is afebrile, BP 155/80, HR 94, and O2 96% on room air. The patient is alert and oriented x3, in no distress. Physical exam is unremarkable. He reports that his headache have improved since arrival to the ER, repeat BP is 122/71. At this time, I have low suspicion for intracranial hemorrhage as this patients BP is WNL and symptoms have improved, therefore, not needing head CT. If BP remained elevated and patient was symptomatic I would consider CMP and urine analysis to check for kidney function. Patients history and exam is consistent with a mild tension headache. A dose of Tylenol is given for his headache in the ER. The plan is to discharge patient if no complications arise, advised to limit daily salt intake to 2 grams, exercise, and begin heart healthy diet. Cardiology contact information given to patient to schedule appointment. Return precautions were discussed with patient having clear understanding. Differential Diagnosis Differential Diagnoses: The differential diagnosis associated with the presentation includes tension-like headache, migraine, cluster headache, sinus headache, low suspicion for intracranial hemorrhage Admission/Observation Consideration of admission/observation: Escalation of care including admission/observation considered External Record Review External record reviewed: Outpatient record, Prior outpatient labs and Prior outpatient radiology Tests considered The following testing was considered but not selected: CT head, labs, EKG considered Prescription Management I considered prescription management with: Other (antihypertensive) Chronic Conditions Patient?s care impacted by: Diabetes and Hypertension Critical Care Time Critical Care Time Critical Care Time: No Discharge Plan Discharge Clinical Impression: Headache, Hypertension Patient Disposition: Home, Self-Care Instructions: DASH Eating Plan (ED), Hypertension (ED) Additional Instructions: Your blood pressure today improved to 122/71 without treatment Continue your Losartan 100 mg per day Follow up with your doctor Information for Cardiology office is below - call for an appointment If you develop new or worsening symptoms call 911 or come back to the ER for further evaluation. Prescriptions: No Action (DME) lancets [TRUEplus Lancets] 33 gauge misc See Rx Instructions .ROUTE .COMPLEX Qty: 100 11RF Dose Instruction: TEST BLOOD SUGAR ONCE DAILY Rx Instructions: TEST BLOOD SUGAR ONCE DAILY metformin 1,000 mg tablet 1,000 mg PO BID Qty: 180 3RF (DME) FreeStyle Lite Strips Strip See Rx Instructions .ROUTE .MEDSUPPLY Qty: 50 11RF Rx Instructions: As directed twice a day (DME) blood-glucose meter [FreeStyle Lite Meter] Kit See Rx Instructions .ROUTE .MEDSUPPLY Qty: 1 0RF Rx Instructions: As directed Trulicity 1.5 mg/0.5 mL pen injector 1.5 mg subcut QWEEK 90 Days Qty: 6.5 0RF bisacodyl [Dulcolax (bisacodyl)] 5 mg tablet,delayed release (DR/EC) 20 mg PO ONCE 1 Days Qty: 4 0RF Rx Instructions: take at noon the day before colonoscopy polyethylene glycol 3350 [Miralax] 17 gram/dose powder 238 g PO ONCE 1 Days Qty: 238 0RF Rx Instructions: Take as directed by mouth the day before your procedure. cholecalciferol (vitamin D3) 25 mcg (1,000 unit) capsule 25 mcg PO DAILY 90 Days Qty: 90 1RF cyclobenzaprine 5 mg tablet 5 mg PO TID PRN (Reason: muscle spasm) Qty: 10 0RF lidocaine 5 % adhesive patch,medicated 1 patch topical DAILY Qty: 15 0RF Rx Instructions: leave on most painful area for up to 12 hrs diclofenac sodium 1 % gel 2 g topical TID Qty: 100 0RF Rx Instructions: apply to right lower back losartan 100 mg tablet 100 mg PO DAILY 90 Days Qty: 90 1RF Jardiance 25 mg tablet 25 mg PO DAILY 90 Days Qty: 90 1RF rosuvastatin 5 mg tablet 5 mg PO DAILY 90 Days Qty: 90 1RF (DME) Blood Pressure Cuff Misc See Rx Instructions .ROUTE .MEDSUPPLY Qty: 1 0RF Rx Instructions: As directed bisacodyl [Dulcolax (bisacodyl)] 5 mg tablet,delayed release (DR/EC) 10 mg PO ONCE 5 Days Qty: 10 0RF Rx Instructions: Take 2 tablets at 12 pm starting 5 days before colonoscopy polyethylene glycol 3350 [Miralax] 17 gram/dose powder 17 g PO DAILY 1 Days Qty: 238 0RF Rx Instructions: Mix Miralax with 64 oz(8 cups) of Crystal light. Take 2 tablets of Dulcolax qt 12 pm. Wait to have your 1st bowel movement, then begin drinking Miralax. Drink a glass of Miralax every 10-15 minutes until you are finished. You will drink at least another 4 cups of clear liquid of your choice over the next 2 hours. Please drink as many clear liquids as possible You may have clear liquids up to four hours before your procedure finasteride [Proscar] 5 mg tablet 5 mg PO DAILY 90 Days Qty: 90 3RF Referrals: [facility] [place] [facility] [Provider Group] (HTN) Stand Alone Forms: Work/School Release Interventions: ED Discharge Assessment Last Done: 09/07/23 07:18 Discharge Date/Time: 09/07/23 07:23 Print Language: Faroese
[2023-09-07 06:53] VITALS: BP 122/71
--- NOTE | 2023-09-07 06:53 | PC.NURSE ---
report given to Brittani KNIGHT
[2023-09-07 07:18] VITALS: BP 122/71; PULSE 94; RESP 18; TEMP 37; O2SAT 96
[2023-09-07 07:20] VITALS: BP 125/74; PULSE 77; RESP 188
[2023-09-07] MEDS: Acetaminophen 325 MG TABLET 975 MG PO (07:20)
== END 2023-09-07 07:23 | disposition home or self-care (01) ==
PROVIDERS: Emergency Provider Emergency Medicine Emergency Medical Services
DX: R51.9 Headache, unspecified (principal); I10 Essential (primary) hypertension; E11.9 Type 2 diabetes mellitus without complications; Z79.899 Other long term (current) drug therapy
CPT/HCPCS: 99283; 99284

== ENCOUNTER 2023-09-18 16:47 | Emergency (ER) | payer MEDICARE, SELFPAY ==
--- NOTE | ~2023-09-18 | CT_ITS ---
EXAMINATION: CT HEAD WITHOUT CONTRAST CT CERVICAL SPINE WITHOUT CONTRAST CLINICAL INFORMATION: Posterior headache and posterior neck pain COMPARISON: MRI brain 02/02/2022 TECHNIQUE: Contiguous axial imaging was performed from the skull base to vertex without intravenous administration of contrast. Contiguous axial imaging was performed from the upper chest through the skull base without intravenous administration of contrast. Coronal and sagittal reformats were obtained at the acquisition workstation. This CT examination was performed using dose optimization techniques as appropriate, variously including the following: *Automated exposure control *Adjustment of mA and/or kV according to patient size (this includes techniques or standardized protocols for targeted exams where dose is matched to indication/reason for exam; i.e. extremities or head) *Use of iterative reconstruction technique DLP: 1346 mGy-cm FINDINGS: Head: There is no evidence of acute intracranial hemorrhage. Ventricles and cortical sulci are proportional without significant volume loss. Few scattered hypodensities in the periventricular deep white matter likely representing mild chronic microangiopathy. 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 No mass effect or midline shift. No acute extra-axial collections. No acute soft tissue or osseous abnormalities. The mastoid air cells and visualized paranasal sinuses are clear. Cervical Spine: The atlantooccipital and atlantoaxial articulations remain well aligned. Straightening of the normal cervical lordosis. Otherwise, there is anatomic alignment of the vertebral bodies and posterior elements. No evidence of acute fracture or traumatic subluxation. The vertebral body heights and disc spaces are maintained. Mild to moderate right facet arthropathy at C7-T1. There is no prevertebral soft tissue swelling. The thyroid gland appears unremarkable. Scattered subcentimeter in short axis bilateral cervical lymph nodes which are not pathologic by size criteria. The lung apices demonstrate no abnormalities. CT/CT cervical spine wo IV con IMPRESSION: 1. No acute intracranial pathology. 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 Evaluation for local tumor recurrence is limited in the absence of intravenous contrast. Mild chronic microangiopathic changes. 2. No acute fracture or traumatic subluxation involving the cervical spine.
[2023-09-18 16:59] VITALS: BP 141/88; PULSE 106; RESP 17; TEMP 37; O2SAT 97; BMI 36.7
--- NOTE | 2023-09-18 17:10 | ED.GENADULT ---
HPI - General Adult General Chief complaint: Headache Stated complaint: head/neck pain Time Seen by Provider: 09/18/23 17:39 Related Data Previous Rx's ?Medication ?Instructions ?Recorded lancets 33 gauge (TRUEplus Lancets) ##100 04/24/22 miscellaneous medical supply #1 ea 12/24/22 (Blood Pressure Cuff) metformin 1,000 mg tablet 1,000 mg PO BID #180 tabs 01/08/23 blood sugar diagnostic (FreeStyle #50 ea 02/05/23 Lite Strips) blood-glucose meter (FreeStyle #1 ea 02/05/23 Lite Meter kit) cyclobenzaprine 5 mg tablet 5 mg PO TID PRN muscle spasm #10 03/08/23 tabs diclofenac sodium 1 % topical gel 2 g topical TID #100 grams 03/08/23 lidocaine 5 % topical patch 1 patch topical DAILY #15 ea 03/08/23 bisacodyl 5 mg tablet,delayed 10 mg (2 x 5 mg) PO ONCE 03/17/23 release (Dulcolax (bisacodyl)) colonoscopy prep 5 days #10 tabs polyethylene glycol 3350 17 17 g PO DAILY Colonoscopy prep 1 03/17/23 gram/dose oral powder (Miralax) day #238 grams finasteride 5 mg tablet (Proscar) 5 mg PO DAILY 90 days #90 tabs 04/22/23 empagliflozin 25 mg tablet 25 mg PO DAILY 90 days #90 tabs 06/30/23 (Jardiance) losartan 100 mg tablet 100 mg PO DAILY 90 days #90 tabs 06/30/23 rosuvastatin 5 mg tablet 5 mg PO DAILY 90 days #90 tabs 06/30/23 dulaglutide 1.5 mg/0.5 mL 1.5 mg (0.5 mL) subcut QWEEK 90 07/20/23 subcutaneous pen injector days #6.5 mL (Trulicity) bisacodyl 5 mg tablet,delayed 20 mg (4 x 5 mg) PO ONCE 1 day #4 08/04/23 release (Dulcolax (bisacodyl)) tabs polyethylene glycol 3350 17 238 g PO ONCE 1 day #238 grams 08/04/23 gram/dose oral powder (Miralax) cholecalciferol (vitamin D3) 25 25 mcg PO DAILY 90 days #90 caps 08/22/23 mcg (1,000 unit) capsule cefuroxime axetil 500 mg tablet 500 mg PO BID 7 days #14 tabs 09/18/23 cyclobenzaprine 10 mg tablet 10 mg PO TID PRN pain #14 tabs 09/18/23 ibuprofen 400 mg tablet 400 mg PO Q6H PRN pain #20 tabs 09/18/23 Allergies Allergy/AdvReac Type Severity Reaction Status Date / Time pioglitazone AdvReac Mild diarrhea,po Verified 09/18/23 17:09 lyuria canagliflozin [Invokana] AdvReac Unknown dizziness Verified 09/18/23 17:09 [facility] Past Medical History Medical History Sciatica Testicular pain Type 2 diabetes mellitus with hyperglycemia, without long-term current use of insulin Other obesity due to excess calories BMI 38.0-38.9,adult Surgical History Meningioma Hx of endoscopy History of colonoscopy Family History Family History Father History of cancer Mother Hx of diabetes insipidus Social History Social History Household Members: Spouse Housing: Apartment Alcohol intake: never Patient Tobacco Use Status: Never used Tobacco e-Cigarette/Vaping Use: Never Used Second Hand Smoke Exposure: No Advance Directives: No Advance Directives Information Provided: Yes Do you have a plan to hurt others: No Plan service: No Current occupational status: employed Current occupational exposures/hazards: No Cognitive needs: No Hearing needs: No Vision needs: No Physical Exam ED Vital Signs: Vital Signs - 24 hr 09/18/23 16:59 09/18/23 20:00 Temperature 98.6 F 98.7 F Pulse Rate 106 H 90 Respiratory Rate 17 18 Blood Pressure 141/88 H 157/89 H Pulse Oximetry 97 97 Oxygen Delivery Method Room Air Room Air BMI result Body Mass Index 36.7 Course Course Course Narrative: RME: Done by ROSARIO Rios. 68-year-old male presents to ED for posterior neck pain and posterior headache for the past couple of days. Patient's secondary complaint is blood in his urine without any abdominal pain. Patient states history of enlarged prostate. Patient states history of brain tumor 2015 where surgeon informed him the removed 99% of the tumor in his brain. Due to patient has history of brain tumor we will order head CT scan. Also order cervical spine CT scan for posterior neck tenderness. Negative for any neuro deficits. NIH score is 0. Abdomen benign. Patient denies any chest pain, shortness of breath, nausea, vomiting, or dizziness. Medical Decision Making Lab Data 09/18/23 17:30 09/18/23 17:30 Labs: Lab Results 09/18/23 09/18/23 Range/Units 17:30 20:51 WBC 17.4 H (4.8-10.8) X10*3/uL RBC 4.69 (4.60-5.80) X10*6/uL Hgb 14.9 (14.0-18.0) g/dl Hct 43.3 (42.0-52.0) % MCV 92.3 (80.0-98.0) fL MCH 31.8 (27.0-33.0) pg MCHC 34.4 (31.0-36.0) g/dl RDW 13.2 (11.0-16.0) % Plt Count 283 (160-400) X10*3/uL MPV 9.7 (9.4-12.4) fL Immature Gran % (Auto) 0.3 (0.0-0.4) % Neut % (Auto) 82.2 H (45-73) % Lymph % (Auto) 8.6 L (20-40) % [place] % (Auto) 8.6 (2-11) % Eos % (Auto) 0.1 (0-4) % Baso % (Auto) 0.2 (0-2) % Lymph # (Auto) 1.5 (1.2-4.9) X10*3/uL [place] # (Auto) 1.5 H (0.1-1.2) X10*3/uL Eos # (Auto) 0.0 (0.0-0.4) X10*3/uL Baso # (Auto) 0.0 (0.0-0.2) X10*3/uL Abs Immat Gran (auto) 0.06 H (0.00-0.03) X10*3/uL Absolute Neuts (auto) 14.3 H (2.0-8.3) x10*3/uL Absolute Nucleated RBC 0.000 (0.0-0.012) X10*3/uL Nucleated RBC % (auto) 0.0 (0.0-0.2) /100WBC Sodium 136 (135-145) mmol/L Potassium 4.6 (3.3-5.1) mmol/L Chloride 102 (96-108) mmol/L Carbon Dioxide 25 (22-29) mmol/L Anion Gap 14 (12-20) BUN 27 H (9-16) mg/dL Creatinine 1.21 (0.5-1.4) mg/dL Estim Creat Clear Calc 61.3 Estimated GFR 60 Random Glucose 182 H (60-115) mg/dL Calcium 10.4 H D (8.4-10.2) mg/dL Total Bilirubin 0.5 (0.0-1.0) mg/dL AST 13 (5-37) U/L ALT 18 (0-40) U/L Alkaline Phosphatase 83 (39-117) U/L Total Protein 8.4 H (6.5-8.0) g/dL Albumin 4.2 (3.5-5.0) g/dL Urine Color Yellow Urine Appearance Cloudy Urine pH 5.5 (5.0-9.0) Ur Specific [place] >= 1.030 H (1.005-1.025) Urine Protein 30 (1+) H (Neg-Trace) mg/dL Urine Glucose (UA) >=1000 H (Negative) mg/dL Urine Ketones 15 (Negative) mg/dL Urine Blood Large (3+) H (Negative) Urine Nitrite Positive H (Negative) Ur Leukocyte Esterase Moderate (2+) H (Negative) Discharge Plan Discharge Clinical Impression: Urinary tract infection, Musculoskeletal neck pain Patient Disposition: Home, Self-Care Instructions: Urinary Tract Infection in Men (ED), Acute Neck Pain (ED) Prescriptions: New cefuroxime axetil 500 mg tablet 500 mg PO BID 7 Days Qty: 14 0RF cyclobenzaprine 10 mg tablet 10 mg PO TID PRN (Reason: pain) Qty: 14 0RF ibuprofen 400 mg tablet 400 mg PO Q6H PRN (Reason: pain) Qty: 20 0RF No Action (DME) lancets [TRUEplus Lancets] 33 gauge misc See Rx Instructions .ROUTE .COMPLEX Qty: 100 11RF Dose Instruction: TEST BLOOD SUGAR ONCE DAILY Rx Instructions: TEST BLOOD SUGAR ONCE DAILY metformin 1,000 mg tablet 1,000 mg PO BID Qty: 180 3RF (DME) FreeStyle Lite Strips Strip See Rx Instructions .ROUTE .MEDSUPPLY Qty: 50 11RF Rx Instructions: As directed twice a day (DME) blood-glucose meter [FreeStyle Lite Meter] Kit See Rx Instructions .ROUTE .MEDSUPPLY Qty: 1 0RF Rx Instructions: As directed Trulicity 1.5 mg/0.5 mL pen injector 1.5 mg subcut QWEEK 90 Days Qty: 6.5 0RF bisacodyl [Dulcolax (bisacodyl)] 5 mg tablet,delayed release (DR/EC) 20 mg PO ONCE 1 Days Qty: 4 0RF Rx Instructions: take at noon the day before colonoscopy polyethylene glycol 3350 [Miralax] 17 gram/dose powder 238 g PO ONCE 1 Days Qty: 238 0RF Rx Instructions: Take as directed by mouth the day before your procedure. cholecalciferol (vitamin D3) 25 mcg (1,000 unit) capsule 25 mcg PO DAILY 90 Days Qty: 90 1RF cyclobenzaprine 5 mg tablet 5 mg PO TID PRN (Reason: muscle spasm) Qty: 10 0RF lidocaine 5 % adhesive patch,medicated 1 patch topical DAILY Qty: 15 0RF Rx Instructions: leave on most painful area for up to 12 hrs diclofenac sodium 1 % gel 2 g topical TID Qty: 100 0RF Rx Instructions: apply to right lower back losartan 100 mg tablet 100 mg PO DAILY 90 Days Qty: 90 1RF Jardiance 25 mg tablet 25 mg PO DAILY 90 Days Qty: 90 1RF rosuvastatin 5 mg tablet 5 mg PO DAILY 90 Days Qty: 90 1RF (DME) Blood Pressure Cuff Misc See Rx Instructions .ROUTE .MEDSUPPLY Qty: 1 0RF Rx Instructions: As directed bisacodyl [Dulcolax (bisacodyl)] 5 mg tablet,delayed release (DR/EC) 10 mg PO ONCE 5 Days Qty: 10 0RF Rx Instructions: Take 2 tablets at 12 pm starting 5 days before colonoscopy polyethylene glycol 3350 [Miralax] 17 gram/dose powder 17 g PO DAILY 1 Days Qty: 238 0RF Rx Instructions: Mix Miralax with 64 oz(8 cups) of Crystal light. Take 2 tablets of Dulcolax qt 12 pm. Wait to have your 1st bowel movement, then begin drinking Miralax. Drink a glass of Miralax every 10-15 minutes until you are finished. You will drink at least another 4 cups of clear liquid of your choice over the next 2 hours. Please drink as many clear liquids as possible You may have clear liquids up to four hours before your procedure finasteride [Proscar] 5 mg tablet 5 mg PO DAILY 90 Days Qty: 90 3RF Referrals: Ritika Forte MD [Primary Care Provider] - 09/21/23 Print Language: Ecuadorean
[2023-09-18 17:36] LABS: MANUAL DIFF FLAG NO
[2023-09-18 17:38] LABS: Basophils Percent Auto 0.2 % (0-2); Eosinophils Percent Auto 0.1 % (0-4); Hematocrit 43.3 % (42.0-52.0); Hemoglobin 14.9 g/dl (14.0-18.0); Imm Gran Abs Auto 0.06 X10*3/uL (0.00-0.03); Imm Gran Pct Auto 0.3 % (0.0-0.4); Lymphocytes Absolute Auto 1.5 X10*3/uL (1.2-4.9); Lymphocytes Percent Auto 8.6 % (20-40); Mean Corpuscular HGB Conc 34.4 g/dl (31.0-36.0); Mean Corpuscular Hemoglobin 31.8 pg (27.0-33.0); Mean Corpuscular Volume 92.3 fL (80.0-98.0); Mean Platelet Volume 9.7 fL (9.4-12.4); Monocytes Absolute Auto 1.5 X10*3/uL (0.1-1.2); Monocytes Percent Auto 8.6 % (2-11); Neutrophils Absolute Auto 14.3 x10*3/uL (2.0-8.3); Neutrophils Percent Auto 82.2 % (45-73); Platelet Count 283 X10*3/uL (160-400); Red Blood Count 4.69 X10*6/uL (4.60-5.80); Red Cell Distribution Width 13.2 % (11.0-16.0); White Blood Count 17.4 X10*3/uL (4.8-10.8)
[2023-09-18 17:52] LABS: Alanine Aminotransferase 18 U/L (0-40); Albumin Level 4.2 g/dL (3.5-5.0); Alkaline Phosphatase 83 U/L (39-117); Anion Gap 14 (12-20); Aspartate Amino Transferase 13 U/L (5-37); Bilirubin Total 0.5 mg/dL (0.0-1.0); Blood Urea Nitrogen 27 mg/dL (9-16); Calcium 10.4 mg/dL (8.4-10.2); Carbon Dioxide 25 mmol/L (22-29); Chloride 102 mmol/L (96-108); Creatinine Clr Calc Pharmacy 61.3; Estimated Glomerular Filt Rate 60; Glucose Random 182 mg/dL (60-115); Potassium 4.6 mmol/L (3.3-5.1); Sodium 136 mmol/L (135-145); Total Protein 8.4 g/dL (6.5-8.0)
[2023-09-18 20:00] VITALS: BP 157/89; PULSE 90; RESP 18; TEMP 37.1; O2SAT 97
--- NOTE | 2023-09-18 20:38 | MHC.EDTECH ---
This tech took over care of patient at this time,rounds and vitals completed,attempted to get a urine sample ,patient is unable to at this time,patient stated he just went,RN was made aware. Call burleson in reach
--- NOTE | 2023-09-18 20:53 | MHC.EDTECH ---
Patient urinated 200mls of pink tinged urine,sample collected and sent to lab, was made aware of the color,RN aware
--- NOTE | 2023-09-18 20:56 | ED.HA ---
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 Presents today with having increasing neck pain over the last 24 hours. Patient denies any fever chills currently not on any blood thinners. No headache. No focal weakness. No nausea no vomiting. No diaphoresis. The pain is over the left side. There is no bowel urinary issues. It is made worse with movement of the head. Patient is complaining of pain on urination. Also noted some blood in the urine. Related Data Previous Rx's ?Medication ?Instructions ?Recorded lancets 33 gauge (TRUEplus Lancets) ##100 04/24/22 miscellaneous medical supply #1 ea 12/24/22 (Blood Pressure Cuff) metformin 1,000 mg tablet 1,000 mg PO BID #180 tabs 01/08/23 blood sugar diagnostic (FreeStyle #50 ea 02/05/23 Lite Strips) blood-glucose meter (FreeStyle #1 ea 02/05/23 Lite Meter kit) cyclobenzaprine 5 mg tablet 5 mg PO TID PRN muscle spasm #10 03/08/23 tabs diclofenac sodium 1 % topical gel 2 g topical TID #100 grams 03/08/23 lidocaine 5 % topical patch 1 patch topical DAILY #15 ea 03/08/23 bisacodyl 5 mg tablet,delayed 10 mg (2 x 5 mg) PO ONCE 03/17/23 release (Dulcolax (bisacodyl)) colonoscopy prep 5 days #10 tabs polyethylene glycol 3350 17 17 g PO DAILY Colonoscopy prep 1 03/17/23 gram/dose oral powder (Miralax) day #238 grams finasteride 5 mg tablet (Proscar) 5 mg PO DAILY 90 days #90 tabs 04/22/23 empagliflozin 25 mg tablet 25 mg PO DAILY 90 days #90 tabs 06/30/23 (Jardiance) losartan 100 mg tablet 100 mg PO DAILY 90 days #90 tabs 06/30/23 rosuvastatin 5 mg tablet 5 mg PO DAILY 90 days #90 tabs 06/30/23 dulaglutide 1.5 mg/0.5 mL 1.5 mg (0.5 mL) subcut QWEEK 90 06/05/24 subcutaneous pen injector days #6.5 mL (Trulicity) bisacodyl 5 mg tablet,delayed 20 mg (4 x 5 mg) PO ONCE 1 day #4 08/04/23 release (Dulcolax (bisacodyl)) tabs polyethylene glycol 3350 17 238 g PO ONCE 1 day #238 grams 08/04/23 gram/dose oral powder (Miralax) cholecalciferol (vitamin D3) 25 25 mcg PO DAILY 90 days #90 caps 08/22/23 mcg (1,000 unit) capsule cefuroxime axetil 500 mg tablet 500 mg PO BID 7 days #14 tabs 09/18/23 cyclobenzaprine 10 mg tablet 10 mg PO TID PRN pain #14 tabs 09/18/23 ibuprofen 400 mg tablet 400 mg PO Q6H PRN pain #20 tabs 09/18/23 Allergies Allergy/AdvReac Type Severity Reaction Status Date / Time pioglitazone AdvReac Mild diarrhea,po Verified 09/18/23 17:09 lyuria canagliflozin [Invokana] AdvReac Unknown dizziness Verified 09/18/23 17:09 Review of Systems Review of Systems: Positive neck pain on the left side Yes all other systems are reviewed and are negative PMFSH Past Medical History Attestation statement: The following information was validated with the patient. Medical History Sciatica Testicular pain Type 2 diabetes mellitus with hyperglycemia, without long-term current use of insulin Other obesity due to excess calories BMI 38.0-38.9,adult Surgical History Meningioma Hx of endoscopy History of colonoscopy Family History Family History Father History of cancer Mother Hx of diabetes insipidus Social History Social History Household Members: Spouse Housing: Apartment Alcohol intake: never Patient Tobacco Use Status: Never used Tobacco e-Cigarette/Vaping Use: Never Used Second Hand Smoke Exposure: No Advance Directives: No Advance Directives Information Provided: Yes Do you have a plan to hurt others: No Plan service: No Current occupational status: employed Current occupational exposures/hazards: No Cognitive needs: No Hearing needs: No Vision needs: No Physical Exam Vital Signs: Vital Signs: Last Vital Signs Temp 98.7 F 09/18/23 20:00 Pulse 90 09/18/23 20:00 Resp 18 09/18/23 20:00 BP 157/89 H 09/18/23 20:00 Pulse Ox 97 09/18/23 20:00 O2 Del Method Room Air 09/18/23 20:00 BMI result Body Mass Index 36.7 Appearance: Alert. Oriented X3. No acute distress. Eyes: Pupils equal, round and reactive to light. ENT: Pharynx normal. Neck: Normal inspection. Neck supple. No lymph nodes noted. No crepitus CVS: Normal heart rate and rhythm. Pulses normal. Normal S1 and S2 Respiratory: No respiratory distress. Breath sounds normal. No Wheezing. No rales Abdomen: Soft and nontender. No rigidity. No distention. good BS x4 Skin: Skin warm and dry. Normal skin color. Normal skin turgor. Extremities: No lower extremity edema. Neurovascular intact to all extremities. No Lacerations. No Rash Neuro: Oriented X 3. No motor deficit. No sensory deficit. Moving all extermities. No slurred speech Medical Decision Making Medical Decision Making [facility] Narrative: Patient well-appearing no acute distress neurologically intact. No headache. No fever. Symptoms not consistent with having meningitis. Patient is range of motion is actually grossly intact. There is good strength in the upper and lower extremity there is no evidence of any bowel urinary incontinence. CT scan of the head showed no acute evidence of bleeding. It showed postoperative changes. Not new. C-spine CT showed no acute fracture. Patient is white count was elevated. Electrolytes are unremarkable. Urine was sent off as patient had some pain on urination some blood he saw in the urine. Urine is grossly infected. Started patient on a dose of Rocephin after previous culture reviewed. Will give a prescription for Ceftin. Follow-up on an outpatient basis. Differential Diagnosis Differential Diagnoses: The differential diagnosis associated with the presentation includes Urinary tract infection, intracranial mass, fracture, bleed Admission/Observation Consideration of admission/observation: Escalation of care including admission/observation considered Lab Data [facility] Lab Attestation statement: I reviewed the patient's lab results. 09/18/23 17:30 09/18/23 17:30 Labs: Lab Results 09/18/23 09/18/23 Range/Units 17:30 20:51 WBC 17.4 H (4.8-10.8) X10*3/uL RBC 4.69 (4.60-5.80) X10*6/uL Hgb 14.9 (14.0-18.0) g/dl Hct 43.3 (42.0-52.0) % MCV 92.3 (80.0-98.0) fL MCH 31.8 (27.0-33.0) pg MCHC 34.4 (31.0-36.0) g/dl RDW 13.2 (11.0-16.0) % Plt Count 283 (160-400) X10*3/uL MPV 9.7 (9.4-12.4) fL Immature Gran % (Auto) 0.3 (0.0-0.4) % Neut % (Auto) 82.2 H (45-73) % Lymph % (Auto) 8.6 L (20-40) % [place] % (Auto) 8.6 (2-11) % Eos % (Auto) 0.1 (0-4) % Baso % (Auto) 0.2 (0-2) % Lymph # (Auto) 1.5 (1.2-4.9) X10*3/uL [place] # (Auto) 1.5 H (0.1-1.2) X10*3/uL Eos # (Auto) 0.0 (0.0-0.4) X10*3/uL Baso # (Auto) 0.0 (0.0-0.2) X10*3/uL Abs Immat Gran (auto) 0.06 H (0.00-0.03) X10*3/uL Absolute Neuts (auto) 14.3 H (2.0-8.3) x10*3/uL Absolute Nucleated RBC 0.000 (0.0-0.012) X10*3/uL Nucleated RBC % (auto) 0.0 (0.0-0.2) /100WBC Sodium 136 (135-145) mmol/L Potassium 4.6 (3.3-5.1) mmol/L Chloride 102 (96-108) mmol/L Carbon Dioxide 25 (22-29) mmol/L Anion Gap 14 (12-20) BUN 27 H (9-16) mg/dL Creatinine 1.21 (0.5-1.4) mg/dL Estim Creat Clear Calc 61.3 Estimated GFR 60 Random Glucose 182 H (60-115) mg/dL Calcium 10.4 H D (8.4-10.2) mg/dL Total Bilirubin 0.5 (0.0-1.0) mg/dL AST 13 (5-37) U/L ALT 18 (0-40) U/L Alkaline Phosphatase 83 (39-117) U/L Total Protein 8.4 H (6.5-8.0) g/dL Albumin 4.2 (3.5-5.0) g/dL Urine Color Yellow Urine Appearance Cloudy Urine pH 5.5 (5.0-9.0) Ur Specific [address] >= 1.030 H (1.005-1.025) Urine Protein 30 (1+) H (Neg-Trace) mg/dL Urine Glucose (UA) >=1000 H (Negative) mg/dL Urine Ketones 15 (Negative) mg/dL Urine Blood Large (3+) H (Negative) Urine Nitrite Positive H (Negative) Ur Leukocyte Esterase Moderate (2+) H (Negative) Independent Interpretation I performed an independent interpretation of an: CT Scan (CT scan head grossly no evidence of bleeding) Radiology Impression Discussion of test interpretation with radiology: I have reviewed the radiologist's reading. Independent Historian Clinical information obtained from an independent historian. History obtained from or confirmed by: Spouse External Record Review External record reviewed: Prior outpatient labs Previous lab results Discharge Plan Discharge Clinical Impression: Urinary tract infection, Musculoskeletal neck pain Patient Disposition: Home, Self-Care Instructions: Urinary Tract Infection in Men (ED), Acute Neck Pain (ED) Prescriptions: New cefuroxime axetil 500 mg tablet 500 mg PO BID 7 Days Qty: 14 0RF cyclobenzaprine 10 mg tablet 10 mg PO TID PRN (Reason: pain) Qty: 14 0RF ibuprofen 400 mg tablet 400 mg PO Q6H PRN (Reason: pain) Qty: 20 0RF No Action (DME) lancets [TRUEplus Lancets] 33 gauge misc See Rx Instructions .ROUTE .COMPLEX Qty: 100 11RF Dose Instruction: TEST BLOOD SUGAR ONCE DAILY Rx Instructions: TEST BLOOD SUGAR ONCE DAILY metformin 1,000 mg tablet 1,000 mg PO BID Qty: 180 3RF (DME) FreeStyle Lite Strips Strip See Rx Instructions .ROUTE .MEDSUPPLY Qty: 50 11RF Rx Instructions: As directed twice a day (DME) blood-glucose meter [FreeStyle Lite Meter] Kit See Rx Instructions .ROUTE .MEDSUPPLY Qty: 1 0RF Rx Instructions: As directed Trulicity 1.5 mg/0.5 mL pen injector 1.5 mg subcut QWEEK 90 Days Qty: 6.5 0RF bisacodyl [Dulcolax (bisacodyl)] 5 mg tablet,delayed release (DR/EC) 20 mg PO ONCE 1 Days Qty: 4 0RF Rx Instructions: take at noon the day before colonoscopy polyethylene glycol 3350 [Miralax] 17 gram/dose powder 238 g PO ONCE 1 Days Qty: 238 0RF Rx Instructions: Take as directed by mouth the day before your procedure. cholecalciferol (vitamin D3) 25 mcg (1,000 unit) capsule 25 mcg PO DAILY 90 Days Qty: 90 1RF cyclobenzaprine 5 mg tablet 5 mg PO TID PRN (Reason: muscle spasm) Qty: 10 0RF lidocaine 5 % adhesive patch,medicated 1 patch topical DAILY Qty: 15 0RF Rx Instructions: leave on most painful area for up to 12 hrs diclofenac sodium 1 % gel 2 g topical TID Qty: 100 0RF Rx Instructions: apply to right lower back losartan 100 mg tablet 100 mg PO DAILY 90 Days Qty: 90 1RF Jardiance 25 mg tablet 25 mg PO DAILY 90 Days Qty: 90 1RF rosuvastatin 5 mg tablet 5 mg PO DAILY 90 Days Qty: 90 1RF (DME) Blood Pressure Cuff Misc See Rx Instructions .ROUTE .MEDSUPPLY Qty: 1 0RF Rx Instructions: As directed bisacodyl [Dulcolax (bisacodyl)] 5 mg tablet,delayed release (DR/EC) 10 mg PO ONCE 5 Days Qty: 10 0RF Rx Instructions: Take 2 tablets at 12 pm starting 5 days before colonoscopy polyethylene glycol 3350 [Miralax] 17 gram/dose powder 17 g PO DAILY 1 Days Qty: 238 0RF Rx Instructions: Mix Miralax with 64 oz(8 cups) of Crystal light. Take 2 tablets of Dulcolax qt 12 pm. Wait to have your 1st bowel movement, then begin drinking Miralax. Drink a glass of Miralax every 10-15 minutes until you are finished. You will drink at least another 4 cups of clear liquid of your choice over the next 2 hours. Please drink as many clear liquids as possible You may have clear liquids up to four hours before your procedure finasteride [Proscar] 5 mg tablet 5 mg PO DAILY 90 Days Qty: 90 3RF Referrals: Ritika Forte MD [Primary Care Provider] - 09/21/23 Print Language: Luxembourgish
[2023-09-18 21:01] LABS: Appearance Urine Cloudy; Color Urine Yellow; Glucose Urine UA >=1000 mg/dL (Negative); Leukocyte Esterase Urine Moderate (2+) (Negative); Nitrite Urine Positive (Negative); PH 5.5 (5.0-9.0); Specific Gravity - Urine >= 1.030 (1.005-1.025); UMIC TRIGGER UACC YES; Urine Blood Large (3+) (Negative); Urine Ketones 15 mg/dL (Negative); Urine Protein 30 (1+) mg/dL (Neg-Trace)
--- NOTE | 2023-09-18 21:26 | PC.NURSE ---
Per DR. Tillman, blood draw for lactic acid and blood cultures not needed prior ICVCefriaxone administration.
--- NOTE | 2023-09-18 21:37 | PC.NURSE ---
Per MD, patient adjusted basal rate of insulin pump to 0.5, continue to monitor POC Q 1 H.
[2023-09-18 22:00] VITALS: BP 162/84; PULSE 89; RESP 18; TEMP 37; O2SAT 96
[2023-09-18 22:00] LABS: Bacteria Urine 2+ (None Seen); RBC Urine >20 /HPF (0-2); Squamous Epithelial Cell Urine 0-2 /HPF (0-2); UACC Culture Trigger YES; WBC Urine >50 /HPF (0-5)
[2023-09-18] MEDS: cefTRIAXone sodium 1 GM in 0.9 % Sodium Chloride 50 ML IV (22:12)
[2023-09-18 23:26] VITALS: BP 149/78; PULSE 80; RESP 16; TEMP 36.8; O2SAT 97
== END 2023-09-18 23:27 | disposition home or self-care (01) ==
PROVIDERS: Physician Assistant; Emergency Provider Emergency Medicine Emergency Medical Services; PCP Internal Medicine
DX: N39.0 Urinary tract infection, site not specified (principal); R51.9 Headache, unspecified; M54.2 Cervicalgia; Z79.899 Other long term (current) drug therapy
CPT/HCPCS: 36415; 70450; 72125; 80053; 81001; 81003; 85025; 87086; 87088; 87186; 96360; 99284; J0696

== ENCOUNTER 2023-09-20 15:35 | Outpatient (AMB) | payer MEDICARE, SELFPAY ==
[2023-09-20 15:48] VITALS: BP 122/86; BMI 36.4
--- NOTE | 2023-09-20 15:48 | MHC.PC.OV ---
Vital Signs 09/20/23 15:48 Height 5 ft 4 in Weight 212 lb BMI 36.4 BP 122/86 Blood Pressure Location Lt brachial Position Sitting Intake Visit Reasons: [facility] [place] 09/17 Head/neck pain Rn Recovery Required: No Accompanied by: Self / Same As Patient Allergies pioglitazone Adverse Reaction (Mild, Verified 09/20/23 16:00) diarrhea,polyuria canagliflozin [Invokana] Adverse Reaction (Unknown, Verified 09/20/23 16:00) dizziness Medication List - Last Reconciled 09/20/23 by Riitka Hernández MD bisacodyl (Dulcolax (bisacodyl)) 20 mg (4 x 5 mg) PO ONCE 1 day bisacodyl (Dulcolax (bisacodyl)) 10 mg (2 x 5 mg) PO ONCE 5 days blood sugar diagnostic (FreeStyle Lite Strips) As directed twice a day blood-glucose meter (FreeStyle Lite Meter kit) As directed cefuroxime axetil 500 mg PO BID 7 days cholecalciferol (vitamin D3) 25 mcg PO DAILY 90 days cyclobenzaprine 5 mg PO TID PRN cyclobenzaprine 10 mg PO TID PRN diclofenac sodium 1% 2 grams topical TID dulaglutide (Trulicity) 1.5 mg (0.5 mL) subcut QWEEK 90 days empagliflozin (Jardiance) 25 mg PO DAILY 90 days finasteride (Proscar) 5 mg PO DAILY 90 days ibuprofen 400 mg PO Q6H PRN lancets (TRUEplus Lancets) TEST BLOOD SUGAR ONCE DAILY lidocaine 5% 1 patch topical DAILY losartan 100 mg PO DAILY 90 days metformin 1,000 mg PO BID miscellaneous medical supply (Blood Pressure Cuff) As directed polyethylene glycol 3350 (Miralax) 17 grams PO DAILY 1 day polyethylene glycol 3350 (Miralax) 238 grams PO ONCE 1 day rosuvastatin 5 mg PO DAILY 90 days Tobacco use date assessed: 02/24/23 Fall risk assessment: No Falls in past year Last assessed Fall Risk: 09/20/23 Dental Screening Dental Screen Date: 02/24/23 HPI HPI Comments History of Present Illness Details This is a 68-year-old male with diabetes mellitus type 2, hypertension hyperlipidemia that comes today accompanied by significant other as hospital discharge follow-up due to neck pain that started few days ago. Denies any previous trauma. He woke up like that. Has limited neck lateral movements and limited extension. No fever. Neck CT showed no acute abnormality. Was found to have a UTI and elevated white blood cells and was given antibiotics. Will be referred to physical therapy and start a stronger muscle relaxer. A1c elevated but improving. Blood pressure stable. On statins for hyperlipidemia. No chest pain or shortness on breath. [facility] Medical History (Updated 09/20/23 @ 16:06 by Ritika Hernández MD) Sciatica Testicular pain Type 2 diabetes mellitus with hyperglycemia, without long-term current use of insulin Other obesity due to excess calories BMI 38.0-38.9,adult Surgical History Meningioma Hx of endoscopy History of colonoscopy Family History Father History of cancer Mother Hx of diabetes insipidus Social History Household Members: Spouse Housing: Apartment Alcohol intake: never Patient Tobacco Use Status: Never used Tobacco e-Cigarette/Vaping Use: Never Used Second Hand Smoke Exposure: No service: No Current occupational status: employed Current occupational exposures/hazards: No Cognitive needs: No Hearing needs: No Vision needs: No Questionnaire Thrive Questionnaire Date Thrive assessed: 02/24/23 KALEB-7 AMB Questionnaire KALEB-7 Date KALEB - 7 assessed: 02/24/23 Source: Developed by Drs. Rocael Sarabia, Whitney Hoang, Schuyler Dickens and colleagues, with an educational rei from [employer]. Review of Systems Const All systems reviewed & are unremarkable except as noted in HPI and below ENT Reports neck pain Card Denies chest pain at rest, Denies chest pain with activity, Denies edema, Denies irregular heart rhythm, Denies claudication, Denies dyspnea, Denies dyspnea on exertion, Denies orthopnea, Denies paroxysmal nocturnal dyspnea and Denies slow heart rate Resp Denies cough, Denies dyspnea and Denies dyspnea on exertion Musc Reports neck pain Neuro Denies lack of coordination Physical exam (Primary Care) Vital Signs: Last Vital Signs BP 122/86 09/20/23 15:48 BMI result Body Mass Index 36.4 BMI Assessment/Plan discussion: High BMI High, discussed plan: lifestyle, weight reduction, dietary and physical activity Tobacco/Smoking Status: Tobacco use Status Tobacco use date assessed 02/24/23 09/20/23 15:48 Patient Tobacco Use Status Never used Tobacco 09/20/23 15:48 e-Cigarette/Vaping Use Never Used 09/20/23 15:48 Thrive Assessment: Date of Thrive Assessment Date Thrive assessed 02/24/23 09/20/23 15:48 Neck Other: Limited neck extension and lateral neck movements. Neck: Yes tender Resp Effort & Inspection: normal respiratory effort Auscultation: clear to auscultation bilaterally Cardio Jugular venous distension: no JVD Rate: regular rate Rhythm: regular rhythm Heart sounds: S1 normal heart sound present and S2 normal heart sound present Neuro General: no focal motor deficits Extrem General: Yes full ROM Assessment and Plan Assessment & Plan (1) Neck pain: Code(s): M54.2 - Cervicalgia Plan: Start physical therapy. Start Soma. (2) Type 2 diabetes mellitus with hyperglycemia, without long-term current use of insulin: Code(s): E11.65 - Type 2 diabetes mellitus with hyperglycemia Plan: Continue metformin, Jardiance and Trulicity. A1c goal is equal or less than 7%. (3) Hyperlipidemia LDL goal <70: Code(s): E78.5 - Hyperlipidemia, unspecified Plan: Continue statins. LDL goal is less than 70. (4) Hypertension: Code(s): I10 - Essential (primary) hypertension Qualifiers: Hypertension type: primary hypertension Qualified Code(s): I10 - Essential (primary) hypertension Plan: Continue losartan. Blood pressure goal is equal or less than 130/80. Orders: Orders PT Evaluation and Treatment Today M54.2 - Cervicalgia Medications: New carisoprodol 250 mg PO BEDTIME 7 days PRN 7 tabs 0RF muscle pain M54.2 - Cervicalgia Coding Level of Care Code Est Pt Level 4 (59287) Complex EM visit Add On G2211 Diagnoses Neck pain M54.2 Type 2 diabetes mellitus with hyperglycemia, without long-term current use of insulin E11.65 Hyperlipidemia LDL goal <70 E78.5 Primary hypertension I10 Hypertension type: primary hypertension Time Spent (min) 21
== END 2023-09-20 16:08 | disposition home or self-care (01) ==
PROVIDERS: PCP Internal Medicine; Visit Provider Internal Medicine
DX: M54.2 Cervicalgia (principal); E11.65 Type 2 diabetes mellitus with hyperglycemia; E78.5 Hyperlipidemia, unspecified; I10 Essential (primary) hypertension
CPT/HCPCS: 99214; G2211

== ENCOUNTER 2023-11-24 14:23 | Outpatient (AMB) | payer MEDICARE, SELFPAY ==
--- NOTE | 2023-11-24 14:40 | MHC.PC.OV ---
Vital Signs 11/24/23 14:41 Height 5 ft 4 in Weight 212 lb BMI 36.4 BP 122/80 Blood Pressure Location Lt brachial Position Sitting Intake Visit Reasons: dm Intake Note: Patient here for a follow up DM Event Sales Assistant Required: No Accompanied by: Self / Same As Patient Allergies pioglitazone Adverse Reaction (Mild, Verified 11/24/23 15:01) diarrhea,polyuria canagliflozin [Invokana] Adverse Reaction (Unknown, Verified 11/24/23 15:01) dizziness Medication List - Last Reconciled 11/24/23 by Ritika Hernández MD bisacodyl (Dulcolax (bisacodyl)) 20 mg (4 x 5 mg) PO ONCE 1 day blood sugar diagnostic (FreeStyle Lite Strips) As directed twice a day blood-glucose meter (FreeStyle Lite Meter kit) As directed carisoprodol 250 mg PO BEDTIME PRN 7 days cholecalciferol (vitamin D3) 25 mcg PO DAILY 90 days cyclobenzaprine 10 mg PO TID PRN diclofenac sodium 1% 2 grams topical TID dulaglutide (Trulicity) 1.5 mg (0.5 mL) subcut QWEEK 90 days empagliflozin (Jardiance) 25 mg PO DAILY 90 days finasteride (Proscar) 5 mg PO DAILY 90 days ibuprofen 400 mg PO Q6H PRN lancets (TRUEplus Lancets) TEST BLOOD SUGAR ONCE DAILY lidocaine 5% 1 patch topical DAILY losartan 100 mg PO DAILY 90 days metformin 1,000 mg PO BID miscellaneous medical supply (Blood Pressure Cuff) As directed polyethylene glycol 3350 (Miralax) 17 grams PO DAILY 1 day polyethylene glycol 3350 (Miralax) 238 grams PO ONCE 1 day rosuvastatin 5 mg PO DAILY 90 days Tobacco use date assessed: 02/24/23 Fall risk assessment: No Falls in past year Last assessed Fall Risk: 11/24/23 Dental Screening Dental Screen Date: 11/24/23 Did you have a dental visit in the last 12 months?: No Did you have a dental problem in the last 6 months where you did not have access to dental care?: No Was dental information given to patient?: Patient has dentist HPI HPI Comments History of Present Illness Details This is a 68-year-old male with diabetes mellitus type 2, hypertension and hyperlipidemia that comes today for follow-up on his conditions. A1c not on goal and I will increase Trulicity. Blood pressure stable. LDL within goal. Had leukocytosis that will be repeated. Denies any chest pain or shortness on breath. No fever or cough. He is obese with a BMI of 36.4 and was advised to do diet and exercise to reach BMI goal less than 30. [facility] Medical History (Updated 11/24/23 @ 17:27 by Ritika Hernández MD) Sciatica Testicular pain Type 2 diabetes mellitus with hyperglycemia, without long-term current use of insulin Other obesity due to excess calories BMI 38.0-38.9,adult Surgical History Meningioma Hx of endoscopy History of colonoscopy Family History Father History of cancer Mother Hx of diabetes insipidus Social History Household Members: Spouse Housing: Apartment Alcohol intake: never Patient Tobacco Use Status: Never used Tobacco e-Cigarette/Vaping Use: Never Used Second Hand Smoke Exposure: No service: No Current occupational status: employed Current occupational exposures/hazards: No Cognitive needs: No Hearing needs: No Vision needs: No Questionnaire Thrive Questionnaire Date Thrive assessed: 02/24/23 Are you currently unemployed and looking for a job?: Yes KALEB-7 AMB Questionnaire KALEB-7 Date KALEB - 7 assessed: 02/24/23 Source: Developed by Drs. Rocael Sarabia, Whitney Hoang, Schuyler Dickens and colleagues, with an educational rei from [employer]. Review of Systems Const All systems reviewed & are unremarkable except as noted in HPI and below Card Denies chest pain at rest, Denies chest pain with activity, Denies edema, Denies irregular heart rhythm, Denies claudication, Denies dyspnea, Denies dyspnea on exertion, Denies orthopnea, Denies paroxysmal nocturnal dyspnea and Denies slow heart rate Resp Denies cough, Denies dyspnea and Denies dyspnea on exertion Physical exam (Primary Care) Vital Signs: Last Vital Signs BP 122/80 11/24/23 14:41 BMI result Body Mass Index 36.4 BMI Assessment/Plan discussion: High BMI High, discussed plan: lifestyle, weight reduction, dietary and physical activity Tobacco/Smoking Status: Tobacco use Status Tobacco use date assessed 02/24/23 11/24/23 14:43 Patient Tobacco Use Status Never used Tobacco 11/24/23 14:43 e-Cigarette/Vaping Use Never Used 11/24/23 14:43 Thrive Assessment: Date of Thrive Assessment Date Thrive assessed 02/24/23 11/24/23 14:43 Resp Effort & Inspection: normal respiratory effort Auscultation: clear to auscultation bilaterally Cardio Jugular venous distension: no JVD Rate: regular rate Rhythm: regular rhythm Heart sounds: S1 normal heart sound present and S2 normal heart sound present Extrem General: Yes full ROM Office Procedures Flu Questionnaire Does the patient have a severe egg allergy?: No Does the patient have severe life threatening allergies?: No Does the patient have a fever or illness today?: No Has the patient ever had Guillain-[place] Syndrome?: No Has the patient ever had any past reaction to a flu shot?: No Results AMB Hemoglobin A1c AMB Hemoglobin A1c 8.3 % Last Edit by JALEESA Chester on 11/24/23 14:52 Immunizations Fluarix Triv [id number] (PF) 45 mcg (15 mcg x 3)/0.5 mL IM syringe Performing Provider: Ritika Hernández MD [facility] Administered by: JALEESA Chester on 11/24/23 15:09 Dose Route Admin Location Dispensed Lot Number Expiration Date [facility] Director [employer] 0.5 mL IM Left Deltoid 0.5 mL [id number] 08/13/24 [id number] [employer] VIS Given Date VIS Provided VIS Publication Date 11/24/23 Single Vaccine 20 Eligibility Eligibility Date Funding Source Not [facility] Eligible 11/24/23 Private Results Reviewed Results Reviewed: Laboratory Last Values Hgb A1c (Clinic) 8.3 % (4.0-6.0) H 11/24/23 14:39 Coding Level of Care Code Est Pt Level 4 (54109) Complex EM visit Add On G2211 Diagnoses Type 2 diabetes mellitus with hyperglycemia, without long-term current use of insulin E11.65 Primary hypertension I10 Hypertension type: primary hypertension Hyperlipidemia LDL goal <70 E78.5 Leukocytosis D72.829 Time Spent (min) 22 Assessment & Plan Assessment & Plan (1) Type 2 diabetes mellitus with hyperglycemia, without long-term current use of insulin: Code(s): E11.65 - Type 2 diabetes mellitus with hyperglycemia Category: Medical Plan: Continue metformin and Jardiance. Increase Trulicity. A1c goal is equal or less than 7%. (2) Hypertension: Code(s): I10 - Essential (primary) hypertension Category: Medical Qualifiers: Hypertension type: primary hypertension Qualified Code(s): I10 - Essential (primary) hypertension Plan: Continue losartan. Blood pressure goal is equal or less than 130/80. (3) Hyperlipidemia LDL goal <70: Code(s): E78.5 - Hyperlipidemia, unspecified Category: Medical Plan: Continue statins. LDL goal is less than 70. (4) Leukocytosis: Code(s): D72.829 - Elevated white blood cell count, unspecified Category: Medical Plan: Repeat white blood cells. Orders: Orders Lipid Panel 4 Months E78.5 - Hyperlipidemia, unspecified Microalbumin, Random (w Creat) 4 Months R80.9 - Proteinuria, unspecified Influenza [id number] Immunization Today Z23 - Encounter for immunization AMB Hemoglobin A1c Today E11.65 - Type 2 diabetes mellitus with hyperglycemia Complete Blood Count Auto Diff 4 Months D64.9 - Anemia, unspecified Vitamin D 25-OH Total 4 Months E55.9 - Vitamin D deficiency, unspecified Vitamin B12 and Folate 4 Months E53.8 - Deficiency of other specified B group vitamins Comprehensive [place]. Panel Fast 4 Months E78.5 - Hyperlipidemia, unspecified Medications: New dulaglutide (Trulicity) 3 mg (0.5 mL) subcut QWEEK 90 days 6.5 mL 2RF Discontinued dulaglutide (Trulicity) Discontinued Reason: Patient Completed Course 1.5 mg (0.5 mL) subcut QWEEK 90 days 6.5 mL 2RF
[2023-11-24 14:41] VITALS: BP 122/80; BMI 36.4
== END 2023-11-24 15:16 | disposition home or self-care (01) ==
PROVIDERS: PCP Internal Medicine; Visit Provider Internal Medicine
DX: E11.65 Type 2 diabetes mellitus with hyperglycemia (principal); I10 Essential (primary) hypertension; E78.5 Hyperlipidemia, unspecified; D72.829 Elevated white blood cell count, unspecified; Z23 Encounter for immunization

== ENCOUNTER → 2023-11-24 14:23 | Outpatient (BNVA) | payer MEDICARE, SELFPAY | PROVIDERS: PCP Internal Medicine; Visit Provider Internal Medicine | DX: Z23 Encounter for immunization (principal); E11.65 Type 2 diabetes mellitus with hyperglycemia; E78.5 Hyperlipidemia, unspecified; D72.829 Elevated white blood cell count, unspecified; I10 Essential (primary) hypertension | CPT/HCPCS: 83036; 90471; 90656; 99212 ==

== ENCOUNTER 2023-12-07 15:35 | Emergency (ER) | payer MEDICARE, SELFPAY ==
[2023-12-07 15:48] VITALS: BP 137/81; PULSE 90; RESP 16; TEMP 36.2; O2SAT 97; BMI 36.1
--- NOTE | 2023-12-07 15:54 | ED.RECABL ---
HPI - Recheck/Abnormal Lab/Rx General Chief Complaint: Recheck/Abnormal Lab/Rx Stated Complaint: high blood sugar Time Seen by Provider: 12/07/23 16:08 Source: patient and RN notes reviewed Mode of arrival: ambulatory Limitations: no limitations History of Present Illness ED Provider: Patricia Rutherford PA-C HPI narrative: This is a 43-dcpr-lxy-male, with a hx of HTN and DM, who presents to the ER with complaints of elevated blood glucose level and blood pressure reading at home. Pt states that he was checking his blood glucose level and it was elevated at 191 this AM. He also took his BP at home and it was elevated at 150/50. He states that he is feeling well and has no current complaints at this time. He denies any headaches, dizziness, blurred vision, chest pain, SOB, abdominal pain, nausea, vomiting, diarrhea, fevers, urinary symptoms. He denies any missed dosages of any of his medications. No other complaints or concerns at this time. MD complaint: abnormal lab Initial visit (ago): hour(s) Symptoms since prior visit: no new symptoms Associated symptoms: none Related Data Previous Rx's ?Medication ?Instructions ?Recorded lancets 33 gauge (TRUEplus Lancets) ##100 04/24/22 miscellaneous medical supply #1 ea 12/24/22 (Blood Pressure Cuff) metformin 1,000 mg tablet 1,000 mg PO BID #180 tabs 01/08/23 blood sugar diagnostic (FreeStyle #50 ea 02/05/23 Lite Strips) blood-glucose meter (FreeStyle #1 ea 02/05/23 Lite Meter kit) diclofenac sodium 1 % topical gel 2 g topical TID #100 grams 03/08/23 lidocaine 5 % topical patch 1 patch topical DAILY #15 ea 03/08/23 polyethylene glycol 3350 17 17 g PO DAILY Colonoscopy prep 1 03/17/23 gram/dose oral powder (Miralax) day #238 grams finasteride 5 mg tablet (Proscar) 5 mg PO DAILY 90 days #90 tabs 04/22/23 empagliflozin 25 mg tablet 25 mg PO DAILY 90 days #90 tabs 06/30/23 (Jardiance) losartan 100 mg tablet 100 mg PO DAILY 90 days #90 tabs 06/30/23 rosuvastatin 5 mg tablet 5 mg PO DAILY 90 days #90 tabs 06/30/23 bisacodyl 5 mg tablet,delayed 20 mg (4 x 5 mg) PO ONCE 1 day #4 08/04/23 release (Dulcolax (bisacodyl)) tabs polyethylene glycol 3350 17 238 g PO ONCE 1 day #238 grams 08/04/23 gram/dose oral powder (Miralax) cholecalciferol (vitamin D3) 25 25 mcg PO DAILY 90 days #90 caps 08/22/23 mcg (1,000 unit) capsule cyclobenzaprine 10 mg tablet 10 mg PO TID PRN pain #14 tabs 09/18/23 ibuprofen 400 mg tablet 400 mg PO Q6H PRN pain #20 tabs 09/18/23 carisoprodol 250 mg tablet 250 mg PO BEDTIME PRN muscle pain 09/20/23 7 days #7 tabs dulaglutide 3 mg/0.5 mL 3 mg (0.5 mL) subcut QWEEK 90 days 11/24/23 subcutaneous pen injector #6.5 mL (Trulicity) Allergies Allergy/AdvReac Type Severity Reaction Status Date / Time pioglitazone AdvReac Mild diarrhea,po Verified 12/07/23 15:52 lyuria canagliflozin [Invokana] AdvReac Unknown dizziness Verified 12/07/23 15:52 Review of Systems Review of Systems: Yes all other systems are reviewed and are negative Constitutional: Constitutional: Reports as per [facility] Past Medical History Attestation statement: The following information was validated with the patient. Medical History Sciatica Testicular pain Type 2 diabetes mellitus with hyperglycemia, without long-term current use of insulin Other obesity due to excess calories BMI 38.0-38.9,adult Surgical History Meningioma Hx of endoscopy History of colonoscopy Family History Family History Father History of cancer Mother Hx of diabetes insipidus Social History Social History Household Members: Spouse Housing: Apartment Alcohol intake: never Patient Tobacco Use Status: Never used Tobacco e-Cigarette/Vaping Use: Never Used Second Hand Smoke Exposure: No Advance Directives: No Advance Directives Information Provided: Yes service: No Current occupational status: employed Current occupational exposures/hazards: No Cognitive needs: No Hearing needs: No Vision needs: No Physical Exam Vital Signs: Vital Signs: Last Vital Signs Temp 97.2 F 12/07/23 16:27 Pulse 90 12/07/23 16:27 Resp 16 12/07/23 16:27 BP 137/81 12/07/23 16:27 Pulse Ox 97 12/07/23 16:27 O2 Del Method Room Air 12/07/23 16:27 BMI result Body Mass Index 36.1 Const: General: cooperative, comfortable and no acute distress Orientation/consciousness: patient oriented x3 Limitations: no limitations HEENT: Head: Yes normal to inspection, Yes normocephalic and Yes atraumatic Ears: hearing grossly normal bilaterally General nose exam: Normal external nose present Face and sinus: Yes normal facial exam Mouth: Normal oral and palatal mucosa present, oropharynx normal and moist mucous membranes Throat: Yes posterior oropharynx normal Eyes: General: appearance normal, both eyes and all related structures Eyelids: Yes eyelids normal Conjunctivae: conjunctivae normal Sclerae: sclerae normal Pupils: Equal, round and reactive pupils present EOM: EOMs intact bilaterally Neck: Neck: Yes normal visual inspection, Yes full ROM and Yes no lymphadenopathy Lymphatic: no lymphadenopathy noted Chest: Chest palpation & inspection: normal inspection of the chest Resp: Effort & Inspection: normal respiratory effort and able to speak in complete sentences Auscultation: clear to auscultation bilaterally, no crackles, no rales, no rhonchi and no wheezes Cardio: Rate: regular rate Rhythm: regular rhythm Heart sounds: S1 normal heart sound present and S2 normal heart sound present GI: Inspection: Yes normal to inspection Skin: General skin exam: no rashes or lesions noted Trauma: no lacerations or abrasions Wounds: no wounds Neuro: General: patient oriented x3 and moves all extremities Cranial nerves: Yes Equal, round and reactive pupils present Extrem: General: Yes normal to inspection Right upper extremity: normal to inspection Left upper extremity: normal to inspection Right lower extremity: normal to inspection Left lower extremity: normal to inspection Medical Decision Making Medical Decision Making MDM Narrative: This is a 68 year old british speaking male (sign language interpreter used) with a known hx of DM and HTN who presents to the ER with concerns for elevated blood glucose level at home at 191. He states typically his sugars are 150s-160s, never 190s. He has been taking his medications at home with no missed dosages. He is asymptomatic. Repeat POC was 114. His blood pressure is 137/81. Discussed that his blood glucose is WNL and blood pressure is slightly elevated however would not treat as he is asymptomatic. Given these findings, pt does not need further workup. Advised to f.u with PCP and hotel front desk clerk. given return precautions. Pt stable for d.c Differential Diagnosis Differential Diagnoses: The differential diagnosis associated with the presentation includes hyperglycemia, DKA - unlikely, DM, HTN, HTN urgency, HTN emergency Lab Data MDM Lab Attestation statement: I reviewed the patient's lab results. Labs: Lab Results 12/07/23 Range/Units 16:02 POC Glucose 117 H (60-115) mg/dL Chronic Conditions Patient?s care impacted by: Diabetes and Hypertension Discharge Plan Discharge Clinical Impression: Diabetes mellitus Patient Disposition: Home, Self-Care Instructions: Diabetes and Nutrition (ED), How to Check your Blood Sugar (ED), Type 2 Diabetes Management for Adults (ED) Additional Instructions: You were seen in the emergency department in your blood glucose level was 117. Continue taking all prescribed medications at home. Follow-up with your primary care physician. If any new or worsening symptoms occur including but not limited to severe chest pain, shortness of breath, severe headache, dizziness, please seek emergent care. Prescriptions: No Action (DME) lancets [TRUEplus Lancets] 33 gauge misc See Rx Instructions .ROUTE .COMPLEX Qty: 100 11RF Dose Instruction: TEST BLOOD SUGAR ONCE DAILY Rx Instructions: TEST BLOOD SUGAR ONCE DAILY metformin 1,000 mg tablet 1,000 mg PO BID Qty: 180 3RF (DME) FreeStyle Lite Strips Strip See Rx Instructions .ROUTE .MEDSUPPLY Qty: 50 11RF Rx Instructions: As directed twice a day (DME) blood-glucose meter [FreeStyle Lite Meter] Kit See Rx Instructions .ROUTE .MEDSUPPLY Qty: 1 0RF Rx Instructions: As directed bisacodyl [Dulcolax (bisacodyl)] 5 mg tablet,delayed release (DR/EC) 20 mg PO ONCE 1 Days Qty: 4 0RF Rx Instructions: take at noon the day before colonoscopy polyethylene glycol 3350 [Miralax] 17 gram/dose powder 238 g PO ONCE 1 Days Qty: 238 0RF Rx Instructions: Take as directed by mouth the day before your procedure. cholecalciferol (vitamin D3) 25 mcg (1,000 unit) capsule 25 mcg PO DAILY 90 Days Qty: 90 1RF lidocaine 5 % adhesive patch,medicated 1 patch topical DAILY Qty: 15 0RF Rx Instructions: leave on most painful area for up to 12 hrs diclofenac sodium 1 % gel 2 g topical TID Qty: 100 0RF Rx Instructions: apply to right lower back cyclobenzaprine 10 mg tablet 10 mg PO TID PRN (Reason: pain) Qty: 14 0RF ibuprofen 400 mg tablet 400 mg PO Q6H PRN (Reason: pain) Qty: 20 0RF losartan 100 mg tablet 100 mg PO DAILY 90 Days Qty: 90 1RF Jardiance 25 mg tablet 25 mg PO DAILY 90 Days Qty: 90 1RF rosuvastatin 5 mg tablet 5 mg PO DAILY 90 Days Qty: 90 1RF carisoprodol 250 mg tablet 250 mg PO BEDTIME PRN (Reason: muscle pain) 7 Days Qty: 7 0RF (DME) Blood Pressure Cuff Misc See Rx Instructions .ROUTE .MEDSUPPLY Qty: 1 0RF Rx Instructions: As directed polyethylene glycol 3350 [Miralax] 17 gram/dose powder 17 g PO DAILY 1 Days Qty: 238 0RF Rx Instructions: Mix Miralax with 64 oz(8 cups) of Crystal light. Take 2 tablets of Dulcolax qt 12 pm. Wait to have your 1st bowel movement, then begin drinking Miralax. Drink a glass of Miralax every 10-15 minutes until you are finished. You will drink at least another 4 cups of clear liquid of your choice over the next 2 hours. Please drink as many clear liquids as possible You may have clear liquids up to four hours before your procedure finasteride [Proscar] 5 mg tablet 5 mg PO DAILY 90 Days Qty: 90 3RF Trulicity 3 mg/0.5 mL pen injector 3 mg subcut QWEEK 90 Days Qty: 6.5 2RF Stand Alone Forms: Work/School Release Interventions: ED Discharge Assessment Last Done: 12/07/23 16:27 Discharge Date/Time: 12/07/23 16:27 Print Language: Marshallese
[2023-12-07 16:07] LABS: Glucose, Whole Blood 117 mg/dL (60-115)
[2023-12-07 16:27] VITALS: BP 137/81; PULSE 90; RESP 16; TEMP 36.2; O2SAT 97
== END 2023-12-07 16:27 | disposition home or self-care (01) ==
LOC: HO.ED 16:24
PROVIDERS: Emergency Provider Emergency Medicine
DX: E11.9 Type 2 diabetes mellitus without complications (principal)
CPT/HCPCS: 82947; 99282

== ENCOUNTER 2024-02-27 08:46 | Outpatient (AMB) | payer MEDICARE, SELFPAY ==
[2024-02-27 09:20] VITALS: BP 140/78; PULSE 61; TEMP 36.7; O2SAT 98; BMI 36.4
--- NOTE | 2024-02-27 09:20 | AM.OFFWIN_ITS ---
Intake Vital Signs 02/27/24 09:20 Height 5 ft 4 in Weight 212 lb BMI 36.4 BP 140/78 H Blood Pressure Location Lt brachial Position Sitting Pulse 61 Pulse Source Pulse Oximeter Temp 98.1 F Temp Source Oral Pulse Oximetry (%) 98 Oxygen Delivery Method Room Air Intake Visit Reasons: EP Eye concerns Intake Note: Pt is here today c/o eye itchyness and redness ? pink eye Patient Tobacco Use Status: Never used Tobacco Allergies pioglitazone Adverse Reaction (Mild, Verified 02/27/24 09:21) diarrhea,polyuria canagliflozin [Invokana] Adverse Reaction (Unknown, Verified 02/27/24 09:21) dizziness HPI HPI Comments History of Present Illness Details History of Present Illness - The patient is a 68-year-old male pres enting with ocular symptoms. - He has been experiencing symptoms for three days, primarily affecting vision clarity. - Both eyes are involved, but symptoms i n the left eye are more pronounced. - Ongoing treatment includes specific in structions for medication use and frequency. - Hygienic measures were emphasized to m itigate the risk of transmission. - Does not wear contacts Physical Exam General: Cooperative, healthy appearing, comfortable, no acute distress and well developed Orientation: Patient oriented x3 Limitations: No limitations Head: Normal to inspection Ears: Hearing grossly normal bilaterally Nose: Normal Nxternal nose present Face and sinus: ormal facial exam Eyes: bilateral eyes injected with green and crusty discharge Neck: Normal visual inspection and Yes full ROM Respiratory: Normal respiratory effort and able to speak in complete sentences. Skin: No rashes or lesions noted Neuro: Patient oriented x3 Extremities: Normal to inspection PFSH Medical History Sciatica Testicular pain Type 2 diabetes mellitus with hyperglycemia, without long-term current use of insulin Other obesity due to excess calories BMI 38.0-38.9,adult Surgical History Meningioma Hx of endoscopy History of colonoscopy Family History Father History of cancer Mother Hx of diabetes insipidus Social History Household Members: Spouse Housing: Apartment Alcohol intake: never Patient Tobacco Use Status: Never used Tobacco e-Cigarette/Vaping Use: Never Used Second Hand Smoke Exposure: No service: No Current occupational status: employed Current occupational exposures/hazards: No Cognitive needs: No Hearing needs: No Vision needs: No Review of Systems Const All systems reviewed & are unremarkable except as noted in HPI and below Physical Exam Vital Signs: Last Vital Signs Temp 98.1 F 02/27/24 09:20 Pulse 61 02/27/24 09:20 BP 140/78 H 02/27/24 09:20 Pulse Ox 98 02/27/24 09:20 Oxygen Delivery Method Room Air 02/27/24 09:20 BMI result Body Mass Index 36.4 Assessment & Plan Assessment & Plan (1) Bacterial conjunctivitis of both eyes: Code(s): H10.9 - Unspecified conjunctivitis; B96.89 - Other specified bacterial agents as the cause of diseases classified elsewhere Plan: Plan The patient's conjunctivitis will be managed with the use of prescribed ophthalmic drops or ointment administered four times daily for seven days. Hand hygiene is crucial to prevent the transmission of infection. The treatment approach has been tailored to address both eyes with a focus on ensuring compliance and effectiveness. Patient was informed and verbally consented to the use of an ambient scribe for clinic note documentation during this visit. Medications: New erythromycin Apply to left eye 4 times a day while awake 0.5 inches ophthalmic (eye) QID 3.5 grams 0RF Coding Level of Care Code Est Pt Level 3 (54889) Diagnoses Bacterial conjunctivitis of both eyes H10.9; B96.89
== END 2024-02-27 10:07 | disposition home or self-care (01) ==
PROVIDERS: PCP Internal Medicine; Visit Provider Physician Assistant
DX: H10.9 Unspecified conjunctivitis (principal); B96.89 Other specified bacterial agents as the cause of diseases classified elsewhere

== ENCOUNTER → 2024-02-27 08:46 | Outpatient (BNVA) | payer MEDICARE, SELFPAY | PROVIDERS: PCP Internal Medicine; Visit Provider Physician Assistant | DX: H10.9 Unspecified conjunctivitis (principal); B96.89 Other specified bacterial agents as the cause of diseases classified elsewhere | CPT/HCPCS: 99212 ==

== ENCOUNTER 2024-03-29 14:29 | Outpatient (AMB) | payer MEDICARE, SELFPAY ==
--- NOTE | 2024-03-29 14:46 | A.OFFPC_ITS ---
Vital Signs 03/29/24 14:54 Height 5 ft 4 in Weight 212 lb BMI 36.4 BP 138/86 Blood Pressure Location Lt brachial Position Sitting Intake Visit Reasons: dm Intake Note: Patient here for a follow up DM Director Human Services Required: Yes Director Human Services Language: Mixer Whipped Topping Name: Ritika Hernández MD Information Interpreted: non-clinical & clinical Accompanied by: Self / Same As Patient Allergies pioglitazone Adverse Reaction (Mild, Verified 03/29/24 15:19) diarrhea,polyuria canagliflozin [Invokana] Adverse Reaction (Unknown, Verified 03/29/24 15:19) dizziness Medication List - Last Reconciled 03/29/24 by Ritika Hernández MD bisacodyl (Dulcolax (bisacodyl)) 20 mg (4 x 5 mg) PO ONCE 1 day blood sugar diagnostic (FreeStyle Lite Strips) As directed twice a day blood-glucose meter (FreeStyle Lite Meter kit) As directed carisoprodol 250 mg PO BEDTIME PRN 7 days cholecalciferol (vitamin D3) 25 mcg PO DAILY 90 days cyclobenzaprine 10 mg PO TID PRN dulaglutide (Trulicity) 3 mg (0.5 mL) subcut QWEEK 90 days empagliflozin (Jardiance) 25 mg PO DAILY 90 days erythromycin 0.5 inches ophthalmic (eye) QID finasteride (Proscar) 5 mg PO DAILY 90 days ibuprofen 400 mg PO Q6H PRN lancets (TRUEplus Lancets) TEST BLOOD SUGAR ONCE DAILY losartan 100 mg PO DAILY 90 days metformin 1,000 mg PO BID miscellaneous medical supply (Blood Pressure Cuff) As directed rosuvastatin 5 mg PO DAILY 90 days tobramycin 0.3% 1 drp ophthalmic (eye) Q4H 7 days Tobacco use date assessed: 03/29/24 Fall risk assessment: No Falls in past year Last assessed Fall Risk: 03/29/24 Dental Screening Dental Screen Date: 03/29/24 Did you have a dental visit in the last 12 months?: Yes Did you have a dental problem in the last 6 months where you did not have access to dental care?: No Was dental information given to patient?: Patient has dentist HPI HPI Comments History of Present Illness Details The patient is a 68-year-old male presenting with chronic management needs for essential hypertension, diabetes mellitus type 2, benign prostatic hyperplasia, and hypercholesterolemia, alongside recent discomfort in the right ear. His blood pressure was recorded at 138/86 mmHg, which he noted to be better than previous measurements. He previously tried dietary and medication adjustments, eliminating high salt intake and discontinuing soda consumption for the past decade. For diabetes, he takes Metformin and Trulicity, with a history of an HbA1c of 8.2%. His medication regime also includes Jardiance, Losartan, Flexeril, and Rosuvastatin. The patient reports taking his medications as prescribed, including vitamin D supplementation. He mentioned experiencing dizziness with a medication named Limbocana. He has a history of benign prostatic hyperplasia, for which he takes Proscar, and recently noted a concern about elevated blood glucose levels at home. The patient denies any recent chest pain but reports persistent right ear discomfort which he believes may be due to a blockage or infection. [facility] Medical History (Updated 03/30/24 @ 17:56 by Ritika Hernández MD) Sciatica Testicular pain Type 2 diabetes mellitus with hyperglycemia, without long-term current use of insulin Other obesity due to excess calories BMI 38.0-38.9,adult Surgical History Meningioma Hx of endoscopy History of colonoscopy Family History Father History of cancer Mother Hx of diabetes insipidus Social History Household Members: Spouse Housing: Apartment Alcohol intake: never Patient Tobacco Use Status: Never used Tobacco e-Cigarette/Vaping Use: Never Used Second Hand Smoke Exposure: No service: No Current occupational status: employed Current occupational exposures/hazards: No Cognitive needs: No Hearing needs: No Vision needs: No Questionnaire PHQ-9 Over the last 2 weeks, how often have you been bothered by any of the following problems? 1. Little interest or pleasure in doing things: not at all 2. Feeling down, depressed, or hopeless: not at all 3. Trouble falling or staying asleep, or sleeping too much: not at all 4. Feeling tired or having little energy: not at all 5. Poor appetite or overeating: not at all 6. Feeling bad about yourself - or that you are a failure or have let yourself or your family down: not at all 7. Trouble concentrating on things, such as reading the newspaper or watching television: not at all 8. Moving or speaking so slowly that other people could have noticed. Or the opposite - being so fidgety or restless that you have been moving around a lot more than usual: not at all 9. Thoughts that you would be better off or of hurting yourself in some way: not at all Total score: 0 Depression Screening Interpretation: Negative Depression Screening Done: Yes 92066 - PHQ-9 Billing: Yes Source: Developed by Drs. Rocael Sarabia, Whitney Hoang, Schuyler Dickens and colleagues, with an educational rei from [employer]. Thrive Questionnaire Date Thrive assessed: 03/29/24 I am a: Patient What is your living situation today?: I have a steady place to live Within the past 12 months, did the food you bought not last and you didn't have the money to get more?: Never true Within the past 12 months, did you worry whether your food would run out before you got money to buy more?: Never true Do you have trouble paying for medicines?: No Do you have trouble getting transportation to medical appointments?: No Do you have trouble paying your heating and electricity bill?: No Do you have trouble taking care of your child, family member or friend?: No Do you have trouble with day-to-day activities such as bathing, preparing meals, shopping, managing finances, etc.?: No Are you currently unemployed and looking for a job?: No Are you interested in more education?: No Please select the resources that you would like help with: None Currently or been in a relationship where the following occur: No concerns reported THRIVE Score: 0 AUDIT C Alcohol Use Questionnaire (AUDIT-C) 1. How often do you have a drink containing alcohol?: Never Total Score: 0 Score Reviewed/Action Taken: No KALEB-7 AMB Questionnaire KALEB-7 Date KALEB - 7 assessed: 03/29/24 Feeling nervous, anxious, or on edge: 0 = Not at all Not being able to stop or control worryin = Not at all Worrying too much about different things: 0 = Not at all Trouble relaxin = Not at all Being so restless that it is hard to sit still: 0 = Not at all Becoming easily annoyed or irritable: 0 = Not at all Feeling afraid as if something awful might happen: 0 = Not at all Total KALEB-7 score (0-4 normal; 5-9 mild; 10-14 moderate; 15-21 severe): 0 Source: Developed by Drs. Rocael Sarabia, Whitney Hoang, Schuyler Dickens and colleagues, with an educational rei from [employer]. KALEB-7 Assessment Billing KALEB-7 Assessment Tool: KALEB-7 Assessment 51775 Review of Systems Const All systems reviewed & are unremarkable except as noted in HPI and below Card Denies chest pain at rest, Denies chest pain with activity, Denies edema, Denies irregular heart rhythm, Denies claudication, Denies dyspnea, Denies dyspnea on exertion, Denies orthopnea, Denies paroxysmal nocturnal dyspnea and Denies slow heart rate Resp Denies cough, Denies dyspnea and Denies dyspnea on exertion GI Denies abdominal pain, Denies change in bowel habits, Denies excessive flatus, Denies nausea and Denies vomiting Physical exam (Primary Care) Vital Signs: Last Vital Signs BP 138/86 03/29/24 14:54 BMI result Body Mass Index 36.4 Tobacco/Smoking Status: Tobacco use Status Tobacco use date assessed 03/29/24 03/29/24 14:56 Patient Tobacco Use Status Never used Tobacco 03/29/24 14:48 e-Cigarette/Vaping Use Never Used 03/29/24 14:48 PHQ-9: PHQ-9 Score PHQ-9: Total score 0 03/29/24 15:23 Depression Screening Interpretation: Negative Thrive Assessment: Date of Thrive Assessment Date Thrive assessed 03/29/24 03/29/24 14:48 Currently or been in a relationship where the following occur: No concerns reported Resp Effort & Inspection: normal respiratory effort Auscultation: clear to auscultation bilaterally Cardio Jugular venous distension: no JVD Rate: regular rate Rhythm: regular rhythm Heart sounds: S1 normal heart sound present and S2 normal heart sound present GI Inspection: Yes normal to inspection Palpation (GI): Soft to palpation and nontender Auscultation: normal bowel sounds Extrem General: Yes full ROM Results AMB Hemoglobin A1c AMB Hemoglobin A1c 8.2 % Last Edit by JALEESA Chester on 03/29/24 15:0 3 Results Reviewed Results Reviewed: Laboratory Last Values Hgb A1c (Clinic) 8.2 % (4.0-6.0) H 03/29/24 14:46 Coding Level of Care Code Est Pt Level 4 (57317) Complex EM visit Add On G2211 Diagnoses Right otitis media H66.91 Hyperlipidemia LDL goal <70 E78.5 Type 2 diabetes mellitus with hyperglycemia, without long-term current use of insulin E11.65 Primary hypertension I10 Hypertension type: primary hypertension BPH (benign prostatic hyperplasia) N40.0 Additional Codes KALEB-7 Assessment Billing - KALEB-7 Assessment Tool: KALEB-7 Assessment 42697 ([id number]) PHQ-9 - 88968 - PHQ-9 Billing: Yes ([id number]) Time Spent (min) 22 Assessment & Plan Assessment & Plan (1) Right otitis media: Code(s): H66.91 - Otitis media, unspecified, right ear Category: Medical (2) Hyperlipidemia LDL goal <70: Code(s): E78.5 - Hyperlipidemia, unspecified Category: Medical (3) Type 2 diabetes mellitus with hyperglycemia, without long-term current use of insulin: Code(s): E11.65 - Type 2 diabetes mellitus with hyperglycemia Category: Medical (4) Hypertension: Code(s): I10 - Essential (primary) hypertension Category: Medical Qualifiers: Hypertension type: primary hypertension Qualified Code(s): I10 - Essential (primary) hypertension (5) BPH (benign prostatic hyperplasia): Code(s): N40.0 - Benign prostatic hyperplasia without lower urinary tract symptoms Category: Medical Plan - Plan to adjust diabetes management to optimize blood glucose control; increase Trulicity dosage. - Prescribe oral antibiotics for potential right ear infection. - Continue current antihypertensive regimen with Losartan. - Continue management of hypercholesterolemia with rosuvastatin. - Recommend consistent antihypertensive medication adherence for optimal control. - Counseling regarding medication effects and compliance. - Follow-up tests to monitor disease progression and medication effectiveness. Patient was informed and verbally consented to the use of an ambient scribe for clinic note documentation during this visit. During our discussion, we reviewed the ongoing management of the patient's chronic conditions, including hypertension, diabetes, benign prostatic hyperplasia, and hypercholesterolemia. I proposed adjusting the Trulicity dosage to better manage diabetes, and we discussed potential side effects of all medications. The patient was advised about the possible effects of medications on blood pressure, particularly noting concerns regarding the use of medications such as Viagra on blood pressure. The patient is aware of the importance of regular monitoring to assess medication efficacy. We discussed initiating antibiotic therapy for his reported right ear discomfort, suspecting an infection, and plans for continued monitoring. Clear instructions were provided for medication adherence and the importance of dietary adjustments, and both preventative and follow-up care strategies were outlined. Reinforcement was given for the discontinuation of harmful lifestyle practices and adherence to medication schedules. Follow-up appointments were encouraged to reassess treatment efficacy and address any emergent issues. Orders: Orders Lipid Panel 03/29/24 E78.5 - Hyperlipidemia, unspecified Comprehensive [place]. Panel Fast 03/29/24 E78.5 - Hyperlipidemia, unspecified AMB Hemoglobin A1c 03/29/24 E11.65 - Type 2 diabetes mellitus with hyperglycemia Microalbumin, Random (w Creat) 03/29/24 R80.9 - Proteinuria, unspecified Vitamin D 25-OH Total 03/29/24 E55.9 - Vitamin D deficiency, unspecified Medications: New dulaglutide (Trulicity) 4.5 mg (0.5 mL) subcut QWEEK 6.5 mL 1RF 90 days amoxicillin 500 mg PO Q12H 14 caps 0RF 7 days H66.91 - Otitis media, unspecified, right ear Discontinued dulaglutide (Trulicity) Discontinued Reason: Patient Completed Course 3 mg (0.5 mL) subcut QWEEK 90 days 6.5 mL 2RF Patient Instructions: - Commence prescribed antibiotics for right ear discomfort. - Adjust Trulicity dosage as directed to improve blood sugar control. - Regularly monitor blood pressure and glucose levels at home. - Continue current medication regimen, including Proscar, Metformin, Jardiance, Losartan, and Rosuvastatin. - Adhere to dietary guidelines with limited salt intake. - Schedule follow-up laboratory evaluations to monitor health conditions.
[2024-03-29 14:54] VITALS: BP 138/86; BMI 36.4
== END 2024-03-29 15:28 | disposition home or self-care (01) ==
PROVIDERS: PCP Internal Medicine; Visit Provider Internal Medicine
DX: E11.65 Type 2 diabetes mellitus with hyperglycemia (principal)

== ENCOUNTER → 2024-03-29 14:30 | Outpatient (BNVA) | payer MEDICARE, SELFPAY | PROVIDERS: PCP Internal Medicine; Visit Provider Internal Medicine | DX: H66.91 Otitis media, unspecified, right ear (principal); E78.5 Hyperlipidemia, unspecified; E11.65 Type 2 diabetes mellitus with hyperglycemia; I10 Essential (primary) hypertension; N40.0 Benign prostatic hyperplasia without lower urinary tract symptoms | CPT/HCPCS: 83036; 96127; 99212 ==

== ENCOUNTER 2024-04-13 16:54 | Emergency (ER) | payer MEDICARE, SELFPAY ==
[2024-04-13 17:15] VITALS: BP 141/81; PULSE 110; RESP 20; TEMP 36.7; O2SAT 96; BMI 36.0
--- NOTE | 2024-04-13 17:15 | ED.GENADULT ---
HPI - General Adult General Chief complaint: General Medical Stated complaint: high bp Time Seen by Provider: 04/13/24 19:46 Source: patient, family, RN notes reviewed and old records reviewed Mode of arrival: ambulatory History of Present Illness ED Provider: Myra Murrell PA-C HPI narrative: 68-year-old male with a medical history BPH, HTN, sciatica, presenting to the ED c/o high blood pressure at home 140-150/80's with assoc headache x4-5 days. reports compliance with his blood pressure medications at home, denies any recent medication changes. States normally ranges systolically 130s to 140s. Denies chest pain, shortness of breath, numbness, tingling, weakness. Related Data Previous Rx's ?Medication ?Instructions ?Recorded lancets 33 gauge (TRUEplus Lancets) ##100 04/24/22 miscellaneous medical supply #1 ea 12/24/22 (Blood Pressure Cuff) blood-glucose meter (FreeStyle #1 ea 02/05/23 Lite Meter kit) finasteride 5 mg tablet (Proscar) 5 mg PO DAILY 90 days #90 tabs 04/22/23 empagliflozin 25 mg tablet 25 mg PO DAILY 90 days #90 tabs 06/30/23 (Jardiance) bisacodyl 5 mg tablet,delayed 20 mg (4 x 5 mg) PO ONCE 1 day #4 08/04/23 release (Dulcolax (bisacodyl)) tabs cyclobenzaprine 10 mg tablet 10 mg PO TID PRN pain #14 tabs 09/18/23 ibuprofen 400 mg tablet 400 mg PO Q6H PRN pain #20 tabs 09/18/23 carisoprodol 250 mg tablet 250 mg PO BEDTIME PRN muscle pain 09/20/23 7 days #7 tabs metformin 1,000 mg tablet 1,000 mg PO BID #180 tabs 01/22/24 rosuvastatin 5 mg tablet 5 mg PO DAILY 90 days #90 tabs 01/22/24 erythromycin 5 mg/gram (0.5 %) eye 0.5 inch ophthalmic (eye) QID #3.5 02/27/24 ointment grams tobramycin 0.3 % eye drops 1 drp ophthalmic (eye) Q4H 7 days 03/01/24 #5 mL cholecalciferol (vitamin D3) 25 25 mcg PO DAILY 90 days #90 caps 03/20/24 mcg (1,000 unit) capsule losartan 100 mg tablet 100 mg PO DAILY 90 days #90 tabs 03/20/24 blood sugar diagnostic (FreeStyle #50 ea 03/23/24 Lite Strips) amoxicillin 500 mg capsule 500 mg PO Q12H 7 days #14 caps 03/29/24 dulaglutide 4.5 mg/0.5 mL 4.5 mg (0.5 mL) subcut QWEEK 90 03/29/24 subcutaneous pen injector days #6.5 mL (Trulicity) Allergies Allergy/AdvReac Type Severity Reaction Status Date / Time pioglitazone AdvReac Mild diarrhea,po Verified 04/13/24 17:16 lyuria canagliflozin [Invokana] AdvReac Unknown dizziness Verified 04/13/24 17:16 Review of Systems Review of Systems: Yes all other systems are reviewed and are negative Constitutional: Constitutional: Reports as per HPI Neurologic: Denies Abnormal speech present [facility] Past Medical History Attestation statement: The following information was validated with the patient. Source: old records reviewed Medical History Sciatica Testicular pain Type 2 diabetes mellitus with hyperglycemia, without long-term current use of insulin Other obesity due to excess calories BMI 38.0-38.9,adult Surgical History Meningioma Hx of endoscopy History of colonoscopy Family History Family History Father History of cancer Mother Hx of diabetes insipidus Social History Social History Household Members: Spouse Housing: Apartment Alcohol intake: never Patient Tobacco Use Status: Never used Tobacco e-Cigarette/Vaping Use: Never Used Second Hand Smoke Exposure: No Advance Directives: No Advance Directives Information Provided: No service: No Current occupational status: employed Current occupational exposures/hazards: No Cognitive needs: No Hearing needs: No Vision needs: No Physical Exam ED Vital Signs: Vital Signs - 24 hr 04/13/24 17:15 04/13/24 19:47 Temperature 98.1 F 97.5 F Pulse Rate 110 H 97 Respiratory Rate 20 17 Blood Pressure 141/81 H 145/83 H Pulse Oximetry 96 98 Oxygen Delivery Method Room Air Room Air BMI result Body Mass Index 36.0 Const General: cooperative, healthy appearing and no acute distress Orientation/consciousness: patient oriented x3 Limitations: no limitations HENMT Head: Yes normal to inspection and Yes atraumatic Ears: hearing grossly normal bilaterally General nose exam: Normal external nose present Face and sinus: Yes normal facial exam Eyes General: appearance normal, both eyes and all related structures EOM: EOMs intact bilaterally Neck Neck: Yes normal visual inspection and Yes no meningeal signs Resp Effort & Inspection: normal respiratory effort and no respiratory distress Auscultation: clear to auscultation bilaterally Cardio Rate: regular rate Heart sounds: S1 normal heart sound present and S2 normal heart sound present Skin Rashes: no rashes Wounds: no wounds Neuro General: patient oriented x3, gait normal, tone normal, moves all extremities, no meningeal signs, no focal motor deficits and CN's II-XI intact bilaterally Cranial nerves: Yes CN's II-XII intact bilaterally Cognition (Neuro): normal cognition Speech: No Abnormal speech present Gait exam (Neuro): Normal gait present Extrem General: Yes normal to inspection Course Course Course Narrative: This is a Rapid Medical Exam performed in triage by Myra Murrell PA-C. Full HPI, ROS and PE to be performed by primary ED provider. 68-year-old male with a medical history BPH, HTN, sciatica, presenting to the ED c/o high blood pressure at home 140-150/80 with assoc headache x4-5 days. Normal range for him is 130-140s systolically. No recent med changes. denies CP PE: nontoxic appearing, ambulating with steady gait, talking in complete sentences Plan: EKG, labs 1952-- WBC count 14.8 > low suspicion for severe sepsis. Tachycardia likely from increased anxiety. No evidence of infection. BUN chronically elevated -Troponin negative. Labs otherwise reassuring - repeat blood pressure 145/83 > patient asymptomatic Results discussed with patient including worrisome signs and symptoms and strict return precautions, and when to return to the emergency department. They verbalized understanding and feel safe for discharge at this time. Medical Decision Making Medical Decision Making MDM Narrative: 68-year-old male with a medical history BPH, HTN, sciatica, presenting to the ED c/o high blood pressure at home 140-150/80's with assoc headache x4-5 days. On exam blood pressure 141/81, NAD, nontoxic appearing, physical exam as noted above. Concern for hypertension vs metabolic abnormalities vs anxiety. Lower suspicion for hypertensive urgency /emergency. Unlikely ICH plan: EKG, labs, blood pressure monitoring Please refer to course for remaining clinical decision making, interpretation of labs/imaging results, and discussions with consultants and/or family members. Differential Diagnosis Differential Diagnoses: The differential diagnosis associated with the presentation includes As above Admission/Observation Consideration of admission/observation: Escalation of care including admission/observation considered Lab Data MDM Lab Attestation statement: I reviewed the patient's lab results. 04/13/24 17:47 04/13/24 17:47 Labs: Lab Results 04/13/24 04/13/24 Range/Units 17:46 17:47 WBC 14.8 H (4.8-10.8) X10*3/uL RBC 4.71 (4.60-5.80) X10*6/uL Hgb 14.9 (14.0-18.0) g/dl Hct 44.2 (42.0-52.0) % MCV 93.8 (80.0-98.0) fL MCH 31.6 (27.0-33.0) pg MCHC 33.7 (31.0-36.0) g/dl RDW 13.2 (11.0-16.0) % Plt Count 192 D (160-400) X10*3/uL MPV 11.1 (9.4-12.4) fL Immature Gran % (Auto) 0.3 (0.0-0.4) % Neut % (Auto) 81.5 H (45-73) % Lymph % (Auto) 7.9 L (20-40) % [place] % (Auto) 9.9 (2-11) % Eos % (Auto) 0.2 (0-4) % Baso % (Auto) 0.2 (0-2) % Lymph # (Auto) 1.2 (1.2-4.9) X10*3/uL [place] # (Auto) 1.5 H (0.1-1.2) X10*3/uL Eos # (Auto) 0.0 (0.0-0.4) X10*3/uL Baso # (Auto) 0.0 (0.0-0.2) X10*3/uL Abs Immat Gran (auto) 0.05 H (0.00-0.03) X10*3/uL Absolute Neuts (auto) 12.1 H (2.0-8.3) x10*3/uL Absolute Nucleated RBC 0.000 (0.0-0.012) X10*3/uL Nucleated RBC % (auto) 0.0 (0.0-0.2) /100WBC PT 11.4 (10.9-12.4) SEC INR 1.0 (0.9-1.1) Sodium 137 (135-145) mmol/L Potassium 4.0 (3.3-5.1) mmol/L Chloride 107 (96-108) mmol/L Carbon Dioxide 22 (22-29) mmol/L Anion Gap 12 (12-20) BUN 29 H (9-16) mg/dL Creatinine 1.11 (0.5-1.4) mg/dL Estim Creat Clear Calc 66.3 Estimated GFR > 60 Random Glucose 178 H (60-115) mg/dL Calcium 9.2 D (8.4-10.2) mg/dL Magnesium 1.9 (1.6-2.6) mg/dL Total Bilirubin 0.4 (0.0-1.0) mg/dL Direct Bilirubin 0.1 (0.0-0.5) mg/dL AST 20 (5-37) U/L ALT 19 (0-40) U/L Alkaline Phosphatase 81 (39-117) U/L Troponin I High Sens < 2.7 (<3.5-35.0) ng/L Total Protein 8.0 (6.5-8.0) g/dL Albumin 3.9 (3.5-5.0) g/dL Independent Interpretation I performed an independent interpretation of an: EKG ( my interpretation EKG sinus tachycardia with first-degree AV block rate of 103. QRS 98. No STEMI.) Radiology Impression Discussion of test interpretation with radiology: I have reviewed the radiologist's reading. Independent Historian Clinical information obtained from an independent historian. History obtained from or confirmed by: Other (daughter) External Record Review External record reviewed: Inpatient record, Office record, Outpatient record, Prior outpatient labs, Prior outpatient radiology, Primary care record and Outside ED record Tests considered The following testing was considered but not selected: As above Prescription Management I considered prescription management with: Other Chronic Conditions Patient?s care impacted by: Other Social Determinants Patient?s care significantly limited by Social Determinants of Health including: Other Social Determinant of Health Discharge Plan Discharge Clinical Impression: HTN (hypertension) Patient Disposition: Home, Self-Care Instructions: DASH Eating Plan (ED), Hypertension (ED) Additional Instructions: your blood work is reassuring Continue to monitor blood pressure at home, after physical activity or increased anxiety wait 10-15 minutes prior to taking her blood pressure If it is persistently high greater than 160s or low return to the emergency department immediately if you develop headache, lightheadedness /dizziness, chest pain return to the ED Prescriptions: No Action (DME) lancets [TRUEplus Lancets] 33 gauge misc See Rx Instructions .ROUTE .COMPLEX Qty: 100 11RF Dose Instruction: TEST BLOOD SUGAR ONCE DAILY Rx Instructions: TEST BLOOD SUGAR ONCE DAILY (DME) blood-glucose meter [FreeStyle Lite Meter] Kit See Rx Instructions .ROUTE .MEDSUPPLY Qty: 1 0RF Rx Instructions: As directed bisacodyl [Dulcolax (bisacodyl)] 5 mg tablet,delayed release (DR/EC) 20 mg PO ONCE 1 Days Qty: 4 0RF Rx Instructions: take at noon the day before colonoscopy rosuvastatin 5 mg tablet 5 mg PO DAILY 90 Days Qty: 90 1RF metformin 1,000 mg tablet 1,000 mg PO BID Qty: 180 3RF tobramycin 0.3 % drops 1 drp ophthalmic (eye) Q4H 7 Days Qty: 5 0RF cholecalciferol (vitamin D3) 25 mcg (1,000 unit) capsule 25 mcg PO DAILY 90 Days Qty: 90 1RF losartan 100 mg tablet 100 mg PO DAILY 90 Days Qty: 90 1RF (DME) FreeStyle Lite Strips Strip See Rx Instructions .ROUTE .MEDSUPPLY Qty: 50 11RF Rx Instructions: As directed twice a day cyclobenzaprine 10 mg tablet 10 mg PO TID PRN (Reason: pain) Qty: 14 0RF ibuprofen 400 mg tablet 400 mg PO Q6H PRN (Reason: pain) Qty: 20 0RF Jardiance 25 mg tablet 25 mg PO DAILY 90 Days Qty: 90 1RF carisoprodol 250 mg tablet 250 mg PO BEDTIME PRN (Reason: muscle pain) 7 Days Qty: 7 0RF (DME) Blood Pressure Cuff Misc See Rx Instructions .ROUTE .MEDSUPPLY Qty: 1 0RF Rx Instructions: As directed finasteride [Proscar] 5 mg tablet 5 mg PO DAILY 90 Days Qty: 90 3RF erythromycin 5 mg/gram (0.5 %) ointment 0.5 inch ophthalmic (eye) QID Qty: 3.5 0RF Rx Instructions: Apply to left eye 4 times a day while awake Trulicity 4.5 mg/0.5 mL pen injector 4.5 mg subcut QWEEK 90 Days Qty: 6.5 1RF amoxicillin 500 mg capsule 500 mg PO Q12H 7 Days Qty: 14 0RF Referrals: Ritika Forte MD [Primary Care Provider] - 3 days Print Language: Belarusian
--- NOTE | 2024-04-13 17:19 | ECG_ITS ---
Test Reason : HYPERTENSIVE Blood Pressure : */* mmHG Vent. Rate : 103 BPM Atrial Rate : 103 BPM P-R Int : 244 ms QRS Dur : 98 ms QT Int : 324 ms P-R-T Axes : 37 -7 43 degrees QTcB Int : 424 ms Sinus tachycardia with 1st degree A-V block Possible Left atrial enlargement Borderline ECG When compared with ECG of 28-Feb-2022 14:39, Vent. rate has increased by 45 bpm Referred By: Myra Murrell Electronically Signed By: Sushil Vang
[2024-04-13 17:53] LABS: MANUAL DIFF FLAG NO
[2024-04-13 17:59] LABS: Prothrombin Time 11.4 SEC (10.9-12.4)
[2024-04-13 18:11] LABS: Alanine Aminotransferase 19 U/L (0-40); Albumin Level 3.9 g/dL (3.5-5.0); Alkaline Phosphatase 81 U/L (39-117); Anion Gap 12 (12-20); Aspartate Amino Transferase 20 U/L (5-37); Bilirubin Direct 0.1 mg/dL (0.0-0.5); Bilirubin Total 0.4 mg/dL (0.0-1.0); Blood Urea Nitrogen 29 mg/dL (9-16); Calcium 9.2 mg/dL (8.4-10.2); Carbon Dioxide 22 mmol/L (22-29); Chloride 107 mmol/L (96-108); Creatinine Clr Calc Pharmacy 66.3; Estimated Glomerular Filt Rate > 60; Glucose Random 178 mg/dL (60-115); Magnesium 1.9 mg/dL (1.6-2.6); Sodium 137 mmol/L (135-145)
[2024-04-13 18:18] LABS: Troponin-I High Sensitivity < 2.7 ng/L (<3.5-35.0)
[2024-04-13 18:22] LABS: Basophils Percent Auto 0.2 % (0-2); Eosinophils Percent Auto 0.2 % (0-4); Hematocrit 44.2 % (42.0-52.0); Hemoglobin 14.9 g/dl (14.0-18.0); Imm Gran Abs Auto 0.05 X10*3/uL (0.00-0.03); Imm Gran Pct Auto 0.3 % (0.0-0.4); Lymphocytes Absolute Auto 1.2 X10*3/uL (1.2-4.9); Lymphocytes Percent Auto 7.9 % (20-40); Mean Corpuscular HGB Conc 33.7 g/dl (31.0-36.0); Mean Corpuscular Hemoglobin 31.6 pg (27.0-33.0); Mean Corpuscular Volume 93.8 fL (80.0-98.0); Mean Platelet Volume 11.1 fL (9.4-12.4); Monocytes Absolute Auto 1.5 X10*3/uL (0.1-1.2); Monocytes Percent Auto 9.9 % (2-11); Neutrophils Absolute Auto 12.1 x10*3/uL (2.0-8.3); Neutrophils Percent Auto 81.5 % (45-73); Platelet Count 192 X10*3/uL (160-400); Red Blood Count 4.71 X10*6/uL (4.60-5.80); Red Cell Distribution Width 13.2 % (11.0-16.0); White Blood Count 14.8 X10*3/uL (4.8-10.8)
[2024-04-13 19:47] VITALS: BP 145/83; PULSE 97; RESP 17; TEMP 36.4; O2SAT 98
[2024-04-13 19:55] VITALS: BP 145/83; PULSE 97; RESP 17; TEMP 36.4; O2SAT 98
== END 2024-04-13 19:55 | disposition home or self-care (01) ==
PROVIDERS: Physician Assistant; Emergency Provider Student in an Organized Health Care Education/Training Program; PCP Internal Medicine
DX: R51.9 Headache, unspecified (principal); I10 Essential (primary) hypertension; E11.9 Type 2 diabetes mellitus without complications; R10.2 Pelvic and perineal pain; R00.0 Tachycardia, unspecified; Z79.84 Long term (current) use of oral hypoglycemic drugs; Z79.899 Other long term (current) drug therapy
CPT/HCPCS: 36415; 80048; 80076; 83735; 84484; 85025; 85610; 93005; 99283

== ENCOUNTER → 2024-04-13 17:19 | Outpatient (BNV) | payer MEDICARE, SELFPAY | PROVIDERS: Emergency Provider Student in an Organized Health Care Education/Training Program; PCP Internal Medicine; Visit Provider Internal Medicine Cardiovascular Disease | DX: I44.0 Atrioventricular block, first degree (principal); R00.0 Tachycardia, unspecified | CPT/HCPCS: 93010 ==

== ENCOUNTER 2024-04-14 01:12 | Emergency (ER) | payer MEDICARE, SELFPAY ==
--- NOTE | ~2024-04-14 | XR_ITS ---
CLINICAL HISTORY: Lower spinal pain 3 views lumbar spine Comparison: CR/SR - XR LUMBAR SPINE 2-3V - 03/08/23 14:09 EST Findings: Normal alignment. No acute fractures or dislocation. [id number] degenerative endplate changes are present at the lumbar spine. IMPRESSION: 1. No acute fracture or dislocation injury identified at the lumbar spine. This document has been electronically signed by: Sukumar Figeuredo MD on 04/14/2024 03:48:12
[2024-04-14 01:15] VITALS: BP 133/71; PULSE 100; RESP 17; TEMP 36.2; O2SAT 98; BMI 35.7
--- NOTE | 2024-04-14 02:50 | ED.BACK ---
HPI - Back Pain/Injury General Chief Complaint: Back Pain/Injury Stated Complaint: severe back pain Time Seen by Provider: 04/14/24 02:48 Source: patient Mode of arrival: ambulatory Limitations: no limitations History of Present Illness ED Provider: HPI Narrative: Patient's history of chronic low back pain was seen at here for hypertension now comes back as he had pain in the lower back took Tylenol and felt much better no fall no injury patient has had previous x-rays which were also negative no radiation of the pain no urinary symptom Related Data Previous Rx's ?Medication ?Instructions ?Recorded lancets 33 gauge (TRUEplus Lancets) ##100 04/24/22 miscellaneous medical supply #1 ea 12/24/22 (Blood Pressure Cuff) blood-glucose meter (FreeStyle #1 ea 02/05/23 Lite Meter kit) finasteride 5 mg tablet (Proscar) 5 mg PO DAILY 90 days #90 tabs 04/22/23 empagliflozin 25 mg tablet 25 mg PO DAILY 90 days #90 tabs 06/30/23 (Jardiance) bisacodyl 5 mg tablet,delayed 20 mg (4 x 5 mg) PO ONCE 1 day #4 08/04/23 release (Dulcolax (bisacodyl)) tabs cyclobenzaprine 10 mg tablet 10 mg PO TID PRN pain #14 tabs 09/18/23 ibuprofen 400 mg tablet 400 mg PO Q6H PRN pain #20 tabs 09/18/23 carisoprodol 250 mg tablet 250 mg PO BEDTIME PRN muscle pain 09/20/23 7 days #7 tabs metformin 1,000 mg tablet 1,000 mg PO BID #180 tabs 01/22/24 rosuvastatin 5 mg tablet 5 mg PO DAILY 90 days #90 tabs 01/22/24 erythromycin 5 mg/gram (0.5 %) eye 0.5 inch ophthalmic (eye) QID #3.5 02/27/24 ointment grams tobramycin 0.3 % eye drops 1 drp ophthalmic (eye) Q4H 7 days 03/01/24 #5 mL cholecalciferol (vitamin D3) 25 25 mcg PO DAILY 90 days #90 caps 03/20/24 mcg (1,000 unit) capsule losartan 100 mg tablet 100 mg PO DAILY 90 days #90 tabs 03/20/24 blood sugar diagnostic (FreeStyle #50 ea 03/23/24 Lite Strips) amoxicillin 500 mg capsule 500 mg PO Q12H 7 days #14 caps 03/29/24 dulaglutide 4.5 mg/0.5 mL 4.5 mg (0.5 mL) subcut QWEEK 90 03/29/24 subcutaneous pen injector days #6.5 mL (Trulicity) Allergies Allergy/AdvReac Type Severity Reaction Status Date / Time pioglitazone AdvReac Mild diarrhea,po Verified 04/14/24 01:18 lyuria canagliflozin [Invokana] AdvReac Unknown dizziness Verified 04/14/24 01:18 Review of Systems Review of Systems: Yes all other systems are reviewed and are negative PMFSH Past Medical History Medical History Sciatica Testicular pain Type 2 diabetes mellitus with hyperglycemia, without long-term current use of insulin Other obesity due to excess calories BMI 38.0-38.9,adult Surgical History Meningioma Hx of endoscopy History of colonoscopy Family History Family History Father History of cancer Mother Hx of diabetes insipidus Social History Social History Household Members: Spouse Housing: Apartment Unable to assess alcohol history related to: Unknown Alcohol intake: never Patient Tobacco Use Status: Never used Tobacco e-Cigarette/Vaping Use: Never Used Second Hand Smoke Exposure: No service: No Current occupational status: employed Current occupational exposures/hazards: No Cognitive needs: No Hearing needs: No Vision needs: No Physical Exam Vital Signs: Vital Signs: Last Vital Signs Temp 97.1 F 04/14/24 04:48 Pulse 100 04/14/24 04:48 Resp 17 04/14/24 04:48 BP 133/71 04/14/24 04:48 Pulse Ox 98 04/14/24 04:48 O2 Del Method Room Air 04/14/24 04:48 BMI result Body Mass Index 35.7 Appearance: Alert. Oriented X3. No acute distress. Eyes: No pallor or icterus ENT: Pharynx normal. Oral Mucosa moist Neck: Normal inspection. Neck supple. CVS: Normal heart rate and rhythm. Pulses normal. Respiratory: No respiratory distress. Equal air entry bilateral, no wheezing/rales/rhonchi Abdomen: Soft and nontender. Bowel sounds are present, no mass palpable, no CVA tenderness Skin: Skin warm and dry. Normal skin color. Normal skin turgor. Extremities: No lower extremity edema. No calf tenderness Back: Mild tenderness L3-L4 area good range of movement sacral sensation intact ambulatory in steady gait SLR negative bilaterally Neuro: Oriented X 3. No motor deficit. No sensory deficit.No cerebellar signs , cranial nerves II-XII intact Medications Administered Discontinued Medications Generic Name Dose Route Start Last Admin Trade Name Freq PRN Reason Stop Dose Admin Ibuprofen 600 mg 04/14/24 03:03 04/14/24 03:39 Ibuprofen 600 Mg Tablet PO 04/14/24 03:04 600 mg ONCE ONE Administration Medical Decision Making Medical Decision Making [facility] Narrative: Patient with chronic low back pain x-ray negative for compression fracture ambulatory in steady gait will discharge patient home on advised to take Tylenol/Motrin Lab Data [facility] Lab Attestation statement: I reviewed the patient's lab results. Labs: Lab Results 04/14/24 Range/Units 03:58 Urine Color Yellow Urine Appearance Clear Urine pH 5.5 (5.0-9.0) Ur Specific [place] >= 1.030 H (1.005-1.025) Urine Protein Negative (Neg-Trace) mg/dL Urine Glucose (UA) >=1000 H (Negative) mg/dL Urine Ketones 15 (Negative) mg/dL Urine Blood Negative (Negative) Urine Nitrite Negative (Negative) Ur Leukocyte Esterase Negative (Negative) Urine RBC 0-2 (0-2) /HPF Urine WBC 6-10 (0-5) /HPF Ur Squamous Epith Cells 0-2 (0-2) /HPF Urine Bacteria 2+ (None Seen) Hyaline Casts 0-2 (0-2) /LPF Radiology Impression Discussion of test interpretation with radiology: I have reviewed the radiologist's reading. Discharge Plan Discharge Clinical Impression: Strain of lumbar region Patient Disposition: Home, Self-Care Instructions: Back Pain (ED) Additional Instructions: Take Tylenol/Motrin for pain Follow with your PCP as needed Prescriptions: No Action (DME) lancets [TRUEplus Lancets] 33 gauge misc See Rx Instructions .ROUTE .COMPLEX Qty: 100 11RF Dose Instruction: TEST BLOOD SUGAR ONCE DAILY Rx Instructions: TEST BLOOD SUGAR ONCE DAILY (DME) blood-glucose meter [FreeStyle Lite Meter] Kit See Rx Instructions .ROUTE .MEDSUPPLY Qty: 1 0RF Rx Instructions: As directed bisacodyl [Dulcolax (bisacodyl)] 5 mg tablet,delayed release (DR/EC) 20 mg PO ONCE 1 Days Qty: 4 0RF Rx Instructions: take at noon the day before colonoscopy rosuvastatin 5 mg tablet 5 mg PO DAILY 90 Days Qty: 90 1RF metformin 1,000 mg tablet 1,000 mg PO BID Qty: 180 3RF tobramycin 0.3 % drops 1 drp ophthalmic (eye) Q4H 7 Days Qty: 5 0RF cholecalciferol (vitamin D3) 25 mcg (1,000 unit) capsule 25 mcg PO DAILY 90 Days Qty: 90 1RF losartan 100 mg tablet 100 mg PO DAILY 90 Days Qty: 90 1RF (DME) FreeStyle Lite Strips Strip See Rx Instructions .ROUTE .MEDSUPPLY Qty: 50 11RF Rx Instructions: As directed twice a day cyclobenzaprine 10 mg tablet 10 mg PO TID PRN (Reason: pain) Qty: 14 0RF ibuprofen 400 mg tablet 400 mg PO Q6H PRN (Reason: pain) Qty: 20 0RF Jardiance 25 mg tablet 25 mg PO DAILY 90 Days Qty: 90 1RF carisoprodol 250 mg tablet 250 mg PO BEDTIME PRN (Reason: muscle pain) 7 Days Qty: 7 0RF (DME) Blood Pressure Cuff Misc See Rx Instructions .ROUTE .MEDSUPPLY Qty: 1 0RF Rx Instructions: As directed finasteride [Proscar] 5 mg tablet 5 mg PO DAILY 90 Days Qty: 90 3RF erythromycin 5 mg/gram (0.5 %) ointment 0.5 inch ophthalmic (eye) QID Qty: 3.5 0RF Rx Instructions: Apply to left eye 4 times a day while awake Trulicity 4.5 mg/0.5 mL pen injector 4.5 mg subcut QWEEK 90 Days Qty: 6.5 1RF amoxicillin 500 mg capsule 500 mg PO Q12H 7 Days Qty: 14 0RF Stand Alone Forms: Work/School Release Interventions: ED Discharge Assessment Last Done: 04/14/24 04:48 Discharge Date/Time: 04/14/24 04:48 Print Language: Tajik
[2024-04-14] MEDS: Ibuprofen 600 MG TABLET PO (03:39)
[2024-04-14 04:03] LABS: Appearance Urine Clear; Color Urine Yellow; Glucose Urine UA >=1000 mg/dL (Negative); Leukocyte Esterase Urine Negative (Negative); Nitrite Urine Negative (Negative); PH 5.5 (5.0-9.0); Specific Gravity - Urine >= 1.030 (1.005-1.025); UMIC TRIGGER UACC YES; Urine Blood Negative (Negative); Urine Ketones 15 mg/dL (Negative); Urine Protein Negative (Neg-Trace)
[2024-04-14 04:14] LABS: Bacteria Urine 2+ (None Seen); Hyaline Casts Urine 0-2 /LPF (0-2); RBC Urine 0-2 /HPF (0-2); Squamous Epithelial Cell Urine 0-2 /HPF (0-2); UACC Culture Trigger YES
[2024-04-14 04:48] VITALS: BP 133/71; PULSE 100; RESP 17; TEMP 36.2; O2SAT 98
== END 2024-04-14 04:48 | disposition home or self-care (01) ==
PROVIDERS: Emergency Provider Internal Medicine; PCP Internal Medicine
DX: S39.012A Strain of muscle, fascia and tendon of lower back, initial encounter (principal); X58.XXXA Exposure to other specified factors, initial encounter; E11.9 Type 2 diabetes mellitus without complications; I10 Essential (primary) hypertension; N40.1 Benign prostatic hyperplasia with lower urinary tract symptoms; Y93.9 Activity, unspecified; Y92.9 Unspecified place or not applicable; Y99.9 Unspecified external cause status; Z79.85 Long-term (current) use of injectable non-insulin antidiabetic drugs; Z79.4 Long term (current) use of insulin
CPT/HCPCS: 72100; 81001; 87086; 87088; 87186; 99283; 99284

== ENCOUNTER → 2024-04-14 03:03 | Outpatient (BNV) | payer MEDICARE, SELFPAY | PROVIDERS: Emergency Provider Internal Medicine; PCP Internal Medicine; Visit Provider Radiology Diagnostic Radiology | DX: M54.50 Low back pain, unspecified (principal) | CPT/HCPCS: 72100 ==

== ENCOUNTER 2024-05-21 14:04 | Outpatient (AMB) | payer MEDICARE, SELFPAY ==
[2024-05-21 14:36] VITALS: BP 138/80; PULSE 78; BMI 35.9
--- NOTE | 2024-05-21 14:36 | MHC.OFFVIS ---
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 Tile Installer Required: Yes Resilient Tile Installer Name: BRITTANY [id number] Allergies pioglitazone Adverse Reaction (Mild, Verified 04/14/24 01:18) diarrhea,polyuria canagliflozin [Invokana] Adverse Reaction (Unknown, Verified 04/14/24 01:18) dizziness Medication List - Last Reconciled 05/21/24 by Jesus Alberto Chatterjee MD blood sugar diagnostic (FreeStyle Lite Strips) As directed twice a day blood-glucose meter (FreeStyle Lite Meter kit) As directed cholecalciferol (vitamin D3) 25 mcg PO DAILY 90 days dulaglutide (Trulicity) 4.5 mg (0.5 mL) subcut QWEEK 90 days empagliflozin (Jardiance) 25 mg PO DAILY 90 days finasteride (Proscar) 5 mg PO DAILY 90 days lancets (TRUEplus Lancets) TEST BLOOD SUGAR ONCE DAILY losartan 100 mg PO DAILY 90 days metformin 1,000 mg PO BID miscellaneous medical supply (Blood Pressure Cuff) As directed HPI Comments Details: Hay is here for consultation regarding hypertension. He is on losartan 100 mg. However, blood pressure seems to be slightly on the higher side. He believes home blood pressures somewhere in the 140s systolic. Today, slightly lower than that. He has had ER visits for high blood pressure associated with a headache. However, the pressure was not too high and seems like 140/150s/80s. He also has diabetes. He does not have any known cardiac issues including coronary disease or myocardial infarction or cardiomyopathy. Within limits of his activity, no clear-cut anginal-type symptoms. He describes a burning-type sensation in his ears, somewhat nonspecific. Doubt if it reflects high blood pressure or cardiac etiology. [facility] Medical History Sciatica Testicular pain Type 2 diabetes mellitus with hyperglycemia, without long-term current use of insulin Other obesity due to excess calories BMI 38.0-38.9,adult Surgical History Meningioma Hx of endoscopy History of colonoscopy Family History Father History of cancer Mother Hx of diabetes insipidus Social History Household Members: Spouse Housing: Apartment Unable to assess alcohol history related to: Unknown Alcohol intake: never Patient Tobacco Use Status: Never used Tobacco e-Cigarette/Vaping Use: Never Used Second Hand Smoke Exposure: No service: No Current occupational status: employed Current occupational exposures/hazards: No Cognitive needs: No Hearing needs: No Vision needs: No Review of Systems Const Reports headache(s) and Denies weakness ENT Denies dizziness and Reports headache(s) Card Denies chest pain, Denies chest pain with activity, Denies syncope, Denies rapid heart rate, Denies pedal edema, Denies edema, Denies leg edema, Denies lightheadedness, Denies palpitations, Denies dyspnea, Denies dyspnea on exertion and Denies orthopnea Resp Denies cough, Denies dyspnea and Denies dyspnea on exertion GI Denies hematochezia and Denies change in stool character Musc Denies abnormal gait, Denies muscle cramps, Denies muscle weakness, Denies numbness, Denies radiating pain into limb and Denies tingling Neuro Denies abnormal gait, Denies dizziness, Denies syncope, Reports headache(s), Denies numbness, Denies tingling and Denies weakness Endo Denies palpitations Physical Exam Vital Signs: Last Vital Signs Pulse 78 05/21/24 14:36 BP 138/80 05/21/24 14:36 BMI result Body Mass Index 35.9 Const General: comfortable and no acute distress Orientation/consciousness: patient oriented x3 HEENT Other: Unremarkable Head: Yes normal to inspection Neck Neck: Yes normal visual inspection Chest Chest palpation & inspection: normal inspection of the chest Resp Auscultation: clear to auscultation bilaterally Cardio Palpation: normal PMI Heart sounds: S1 normal heart sound present, S2 normal heart sound present, no gallops, no murmurs and no rubs GI Palpation (GI): Soft to palpation Back/Spine/Pelvis Other: unremarkable Skin General skin exam: no rashes or lesions noted Neuro General: patient oriented x3 Extrem General: Yes normal to inspection Psych Mental Status: mental status grossly normal Assessment & Plan Assessment & Plan (1) Hypertension: Code(s): I10 - Essential (primary) hypertension Category: Medical Qualifiers: Hypertension type: primary hypertension Qualified Code(s): I10 - Essential (primary) hypertension (2) Type 2 diabetes mellitus with hyperglycemia, without long-term current use of insulin: Code(s): E11.65 - Type 2 diabetes mellitus with hyperglycemia Category: Medical Plan In the recent EKG, underlying rhythm is sinus at 103/Min; TN prolongation to 244 milliseconds; left atrial enlargement; normal corrected QT. Overall, hypertension with less than ideal control; diabetes. He is currently on losartan 100 mg daily. We can add amlodipine 2.5 mg daily. Dose can be uptitrated as needed. With regard to diabetes, hemoglobin A1c is 8.2%. This indicates again < ideal control. He seems to be on Trulicity, Jardiance, metformin. We will plan on getting an echocardiogram/stress test for further cardiac evaluation. Follow-up after the above. Discussed with significant other. Orders: Orders CA echo transthoracic complete Today E11.65 - Type 2 diabetes mellitus with hyperglycemia, I10 - Essential (primary) hypertension CA stress test Today E11.65 - Type 2 diabetes mellitus with hyperglycemia, I10 - Essential (primary) hypertension Medications: New amlodipine 2.5 mg PO DAILY 90 tabs 1RF Coding Level of Care Code New Pt Level 4 (78268) Complex EM visit Add On G2211 Diagnoses Primary hypertension I10 Hypertension type: primary hypertension Type 2 diabetes mellitus with hyperglycemia, without long-term current use of insulin E11.65
== END 2024-05-21 15:01 | disposition home or self-care (01) ==
LOC: HO.HCS 14:05
PROVIDERS: PCP Internal Medicine; Visit Provider Internal Medicine
DX: I10 Essential (primary) hypertension (principal); E11.65 Type 2 diabetes mellitus with hyperglycemia
CPT/HCPCS: 99204; G2211

== ENCOUNTER → 2024-05-21 14:04 | Outpatient (BNVA) | payer MEDICARE, SELFPAY | PROVIDERS: PCP Internal Medicine; Visit Provider Internal Medicine | DX: E11.65 Type 2 diabetes mellitus with hyperglycemia (principal); I10 Essential (primary) hypertension; Z79.899 Other long term (current) drug therapy | CPT/HCPCS: 99202 ==

== ENCOUNTER → 2024-06-15 10:26 | Outpatient (REF) | payer MEDICARE, SELFPAY ==
--- NOTE | 2024-06-15 10:30 | CA_ITS ---
Acquisition Time: 2024-06-15 10:48:56 Total Exercise Time: 00:07:18 Test Indications: CP Medications: SEE H&P Protocol: BRIAN Max HR: 130 BPM 85% of Pred: 152 BPM Max BP: 192/78 mmHG Max Work Load: 8.8 METS Exercise stress test with exercise 7 mins 18 secs of Brian Protoco, reduced speed to 2.9mph and incline upto 14%, achieving 86% MPHR, with reports of anginal symptoms, with isolated PVCs, with normotensive response- baseline high BP of 148/70 that hung upto 192/78 with exercise. Without EKG changes meeting criteria for ischemia. In recovery, BP improved - 140/70. Test reviewed with Dr. Vang. Referred By: Jesus Alberto Chatterjee Electronically Signed By: Rafa Patterson
== END ==
LOC: HO.CARD 10:26
PROVIDERS: PCP Internal Medicine; Visit Provider Internal Medicine
DX: I10 Essential (primary) hypertension (principal); E11.65 Type 2 diabetes mellitus with hyperglycemia
CPT/HCPCS: 93017

== ENCOUNTER → 2024-06-15 10:30 | Outpatient (BNV) | payer MEDICARE, SELFPAY | PROVIDERS: PCP Internal Medicine | DX: I49.3 Ventricular premature depolarization (principal) | CPT/HCPCS: 93016; 93018 ==

== ENCOUNTER 2024-06-20 13:14 | Emergency (ER) | payer MEDICARE, SELFPAY ==
--- NOTE | 2024-06-20 13:22 | ED_ITS ---
HPI - General Adult General Chief complaint: Urogenital-Male Stated complaint: Urinary Infection High Blood Pressure Time Seen by Provider: 06/20/24 15:04 Source: patient and paraprofessional interpreter (all interactions with this patient were facilitated with an [facility] [place]ese interpreter) Mode of arrival: ambulatory Limitations: language barrier (all interactions with this patient were facilitated with an [facility] [place]ese interpreter) History of Present Illness ED Provider: Sheila Rodriguez PA-C HPI narrative: Patient is a 68 year old assigned male at with a history of DM, HTN, BPH, HLD, and sciatica presenting to the emergency department today with painful urination and difficulty urinating. Patient states that over the last few days he has had difficulty starting his urinary stream as well as painful urination. Patient states that he is also randomly having bilateral ear redness and warmth. Patient denies any dizziness, lightheadedness, abdominal pain, nausea, vomiting, fever, chills, blurry vision, double vision, loss of vision, chest pain, difficulty breathing, shortness of breath, back pain, night sweats, syncope or a near syncopal episode, recent trauma or falls, bowel incontinence, bladder incontinence, or any other complaints at this time. Onset (ago): day(s) Related Data Previous Rx's ?Medication ?Instructions ?Recorded lancets 33 gauge (TRUEplus Lancets) ##100 04/24/22 miscellaneous medical supply #1 ea 12/24/22 (Blood Pressure Cuff) blood-glucose meter (FreeStyle #1 ea 02/05/23 Lite Meter kit) finasteride 5 mg tablet (Proscar) 5 mg PO DAILY 90 days #90 tabs 04/22/23 metformin 1,000 mg tablet 1,000 mg PO BID #180 tabs 01/22/24 cholecalciferol (vitamin D3) 25 25 mcg PO DAILY 90 days #90 caps 03/20/24 mcg (1,000 unit) capsule losartan 100 mg tablet 100 mg PO DAILY 90 days #90 tabs 03/20/24 blood sugar diagnostic (FreeStyle #50 ea 03/23/24 Lite Strips) dulaglutide 4.5 mg/0.5 mL 4.5 mg (0.5 mL) subcut QWEEK 90 03/29/24 subcutaneous pen injector days #6.5 mL (Trulicity) empagliflozin 25 mg tablet 25 mg PO DAILY 90 days #90 tabs 05/02/24 (Jardiance) amlodipine 2.5 mg tablet 2.5 mg PO DAILY #90 tabs 05/21/24 cefuroxime axetil 250 mg tablet 250 mg PO BID 7 days #14 tabs 06/20/24 Allergies Allergy/AdvReac Type Severity Reaction Status Date / Time pioglitazone AdvReac Mild diarrhea,po Verified 06/20/24 13:25 lyuria canagliflozin [Invokana] AdvReac Unknown dizziness Verified 06/20/24 13:25 Review of Systems 2 Constitutional: Constitutional: Reports no additional constitutional complaints, Denies chills, Denies fever(s) and Denies night sweats Eyes: Eyes: Reports no additional eye complaints, Denies blurry vision, Denies change in vision, Denies diplopia, Denies eye discharge, Denies loss of vision and Denies eye pain ENT: Denies dizziness Comments: intermittent bilateral ear redness / burning Cardiovascular: Cardiovascular: Reports no additional cardiovascular complaints, Denies chest pain, Denies lightheadedness, Denies Loss of Consciousness and Denies dyspnea Respiratory: Respiratory: Reports no additional respiratory complaints and Denies dyspnea Gastrointestinal: Gastrointestinal: Reports no additional gastrointestinal complaints, Denies abdominal pain, Denies melena, Denies hematochezia, Denies change in bowel habits and Denies change in stool character Genitourinary: Genitourinary: Reports no additional male genitourinary complaints, Denies hematuria, Denies oliguria, Reports difficulty urinating, Reports dysuria and Denies urinary incontinence Musculoskeletal: Musculoskeletal: Reports no additional musculoskeletal complaints, Denies numbness and Denies tingling Neurologic: Denies dizziness, Denies loss of vision, Denies numbness and Denies tingling Psychiatric: Psychiatric: Reports no additional psychiatric complaints Endocrine: Endocrine: Reports no additional endocrine complaints Hematologic/Lymphatic: Hematologic/Lymphatic: Reports no additional hematologic/lymphatic complaints Allergic/Immunologic: Allergic/Immunologic: Reports no additional allergic/immunologic complaints PMFSH Past Medical History Attestation statement: The following information was validated with the patient. Source: old records reviewed and nursing notes reviewed Medical History Sciatica Testicular pain Type 2 diabetes mellitus with hyperglycemia, without long-term current use of insulin Other obesity due to excess calories BMI 38.0-38.9,adult Surgical History Meningioma Hx of endoscopy History of colonoscopy Family History Family History Father History of cancer Mother Hx of diabetes insipidus Social History Social History Household Members: Spouse Housing: Apartment Unable to assess alcohol history related to: Unknown Alcohol intake: never Patient Tobacco Use Status: Never used Tobacco e-Cigarette/Vaping Use: Never Used Second Hand Smoke Exposure: No service: No Current occupational status: employed Current occupational exposures/hazards: No Cognitive needs: No Hearing needs: No Vision needs: No Physical Exam ED Vital Signs: Vital Signs - 24 hr 06/20/24 13:23 06/20/24 14:56 06/20/24 16:19 Temperature 97.5 F 97.9 F 97.9 F Pulse Rate 94 79 61 Respiratory Rate 18 16 18 Blood Pressure 122/77 128/70 120/60 Pulse Oximetry 95 97 96 Oxygen Delivery Method Room Air Room Air Room Air 06/20/24 16:49 Temperature 97.9 F Pulse Rate 61 Respiratory Rate 18 Blood Pressure 120/60 Pulse Oximetry 96 Oxygen Delivery Method Room Air BMI result Body Mass Index 35.3 Const General: cooperative, no acute distress, alert and awake Nutritional Appearance: well nourished Orientation/consciousness: patient oriented x3 HENMT Head: Yes normal to inspection and Yes atraumatic Ears: hearing grossly normal bilaterally and external ears normal General nose exam: Normal external nose present, no nasal discharge noted and no epistaxis Face and sinus: Yes normal facial exam, No abrasion and No laceration Mouth: Normal oral and palatal mucosa present, no drooling and no muffled voice Eyes General: appearance normal, both eyes and all related structures Periorbital: periorbital findings normal Eyelids: Yes eyelids normal Conjunctivae: conjunctivae normal Pupils: Equal, round and reactive pupils present EOM: EOMs intact bilaterally Neck Neck: Yes normal visual inspection, Yes full ROM and Yes no lymphadenopathy Resp Effort & Inspection: normal respiratory effort and able to speak in complete sentences Neuro General: patient oriented x3, moves all extremities and CN's II-XI intact bilaterally Cranial nerves: Yes Equal, round and reactive pupils present Cognition (Neuro): normal cognition Extrem General: Yes normal to inspection, Yes full ROM and Yes capillary refill normal Psych Appearance: grossly normal Mental Status: mental status grossly normal Affect: normal affect Attitude: cooperative Thought process: Normal thought process present Thought content: Normal thought content present Insight: Good insight present (Psych) Course Course Course Narrative: This is a Rapid Medical Exam performed in triage by Myra Murrell PA-C. Full HPI, ROS and PE to be performed by primary ED provider. 68 yo male with PMHx of HLD, BPH with LUTS, T2DM, H.pylori, HTN, presenting to the ED c/o difficulty urinating for 3-4 days. He states he is urinating but it is difficult. Denies fever, hematuria, nausea, vomiting, chest pain, SOB PE: No CVA TTP, lumbar paraspinal TTP, abdoment soft, non tender. Plan: Labs, UA,bladder scan Reevaluation(s) Reevaluation #1: 06/24/24 0919 ROSARIO Dong Urine culture grew over 193029 E coli. Sensitive to cefazolin, cefepime, ceftriaxone, ciprofloxacin, gentamicin, nitrofurantoin, Bactrim. Resistant to ampicillin. Patient was treated appropriately with Ceftin. Medical Decision Making Medical Decision Making [facility] Narrative: Patient is a 68 year old assigned male at with a history of DM, HTN, BPH, HLD, and sciatica presenting to the emergency department today with painful urination and difficulty urinating. Patient's physical exam was unremarkable. Patient's blood work was unremarkable. Patient's urine showed evidence of an acute infection. Patient's clinical presentation is most consistent with an acute UTI and red ear syndrome. Patient denied any flank pain to me. I explained my physical exam findings as well as all test results to the patient. I answered all questions asked by the patient. I stressed the importance of the patient taking his medication as directed (either prescribed or as the over the counter packaging recommends). I stressed the importance of the patient following up with his primary care provider and his urologist. I stressed the importance of the patient returning to the emergency department immediately if his symptoms were to worsen or if he were to develop any dizziness, shortness of breath, difficulty breathing, chest pain, blurry vision, loss of vision, nausea, vomiting, abdominal pain, fever, chills, back pain, or any other complaints. Patient verbalized agreement and understanding with this treatment plan and discharge. Differential Diagnosis Differential Diagnoses: The differential diagnosis associated with the presentation includes UTI Red ear syndrome BPH Admission/Observation Consideration of admission/observation: Escalation of care including admission/observation considered Patient would have been admitted to the hospital had his work up had any findings where hospital admission was appropriate and his clinical presentation warranted hospital admission. Lab Data [facility] Lab Attestation statement: I reviewed the patient's lab results. My interpretation of these results are in the MDM Rationale portion of this note. 06/20/24 15:22 06/20/24 15:22 Labs: Lab Results 06/20/24 Range/Units 15:22 WBC 8.9 (4.8-10.8) X10*3/uL RBC 4.99 (4.60-5.80) X10*6/uL Hgb 15.6 (14.0-18.0) g/dl Hct 45.7 (42.0-52.0) % MCV 91.6 (80.0-98.0) fL MCH 31.3 (27.0-33.0) pg MCHC 34.1 (31.0-36.0) g/dl RDW 13.4 (11.0-16.0) % Plt Count 283 D (160-400) X10*3/uL MPV 10.0 (9.4-12.4) fL Immature Gran % (Auto) 0.3 (0.0-0.4) % Neut % (Auto) 71.0 (45-73) % Lymph % (Auto) 18.8 L (20-40) % [place] % (Auto) 8.8 (2-11) % Eos % (Auto) 0.9 (0-4) % Baso % (Auto) 0.2 (0-2) % Lymph # (Auto) 1.7 (1.2-4.9) X10*3/uL [place] # (Auto) 0.8 (0.1-1.2) X10*3/uL Eos # (Auto) 0.1 (0.0-0.4) X10*3/uL Baso # (Auto) 0.0 (0.0-0.2) X10*3/uL Abs Immat Gran (auto) 0.03 (0.00-0.03) X10*3/uL Absolute Neuts (auto) 6.3 (2.0-8.3) x10*3/uL Absolute Nucleated RBC 0.000 (0.0-0.012) X10*3/uL Nucleated RBC % (auto) 0.0 (0.0-0.2) /100WBC Sodium 139 (135-145) mmol/L Potassium 4.1 (3.3-5.1) mmol/L Chloride 105 (96-108) mmol/L Carbon Dioxide 25 (22-29) mmol/L Anion Gap 13 (12-20) BUN 32 H (9-16) mg/dL Creatinine 0.96 (0.5-1.4) mg/dL Estim Creat Clear Calc 75.8 Estimated GFR > 60 Random Glucose 180 H (60-115) mg/dL Calcium 9.7 (8.4-10.2) mg/dL Magnesium 2.0 (1.6-2.6) mg/dL Total Bilirubin 0.6 (0.0-1.0) mg/dL Direct Bilirubin 0.2 (0.0-0.5) mg/dL AST 21 (5-37) U/L ALT 21 (0-40) U/L Alkaline Phosphatase 81 (39-117) U/L Total Protein 7.7 (6.5-8.0) g/dL Albumin 4.0 (3.5-5.0) g/dL Urine Color Yellow Urine Appearance Turbid Urine pH 5.5 (5.0-9.0) Ur Specific [place] >= 1.030 H (1.005-1.025) Urine Protein 30 (1+) H (Neg-Trace) mg/dL Urine Glucose (UA) >=1000 H (Negative) mg/dL Urine Ketones Trace (Negative) mg/dL Urine Blood Small (1+) H (Negative) Urine Nitrite Negative (Negative) Ur Leukocyte Esterase Moderate (2+) H (Negative) Urine RBC 6-10 H (0-2) /HPF Urine WBC >50 H (0-5) /HPF Ur Squamous Epith Cells 0-2 (0-2) /HPF Urine Bacteria 4+ (None Seen) Hyaline Casts 0-2 (0-2) /LPF Tests considered The following testing was considered but not selected: I considered obtaining a CT scan of the abdomen/pelvis however, the patient's current clinical presentation did not warrant this. I discussed this with the patient who verbalized understanding and agreement. Prescription Management I considered prescription management with: Antibiotic (patient prescribed an antibiotic for UTI) Chronic Conditions Patient?s care impacted by: Diabetes and Hypertension Discharge Plan Discharge Clinical Impression: Acute UTI Patient Disposition: Home, Self-Care Instructions: Urinary Tract Infection in Men (DC) Additional Instructions: Take your antibiotic as prescribed. [place] el antibi?marquise miley y jay se lo dewey recetado. Follow up with your primary care provider and the Urology team. [facility] will be contacting you in 2 business days (after discharge from the emergency department). During this phone call, they will inform you of when your follow up appointment with them / their office will be. If you have not received a call from [facility] after 2 business days, please call their office at [phone]. Return to the emergency department immediately if your symptoms worsen or if you develop any numbness, tingling, dizziness, shortness of breath, difficulty breathing, chest pain, blurry vision, loss of vision, nausea, vomiting, abdominal pain, fever, chills, back pain, or any other complaints. Kirstin un seguimiento con salazar proveedor de atenci?n primaria y el equipo de Urolog?a. [facility] se pondr? en contacto con usted en 2 d?as laborables (despu?s del chai del servicio de urgencias). Geraldo esta llamada telef?nreis, le informar?n de cu?ndo ser? salazar john de seguimiento con ellos / salazar consulta. Si usted no garduno recibido osiel llamada de [facility]?a despu?s de 2 d?as h?tamiko, por favor llame a salazar oficina al [phone]. Vuelva al servicio de urgencias inmediatamente si gwendolyn s?ntomas empeoran o si presenta entumecimiento, hormigueo, mareos, falta de aliento, dificultad para respirar, dolor en el pecho, visi?n borrosa, p?rdida de visi?n, n?useas, v?mitos, dolor abdominal, fiebre, escalofr?os, dolor de espalda o cualquier otra molestia. Please see the information below about our Patient Portal. If you are not yet enrolled in the [facility] Patient Portal, you will receive an enrollment email invitation following your visit to any [facility] care setting. You may also self-enroll in the Patient Portal by visiting our website: [email or web address] The following information is required to access the Patient Portal: - Your [facility] Medical Record Number - Your personal home email address (must match what is in your electronic medical record, Registration staff can assist with this) - Name - Date of Capabilities of the Patient Portal: - Message some providers - View upcoming appointments - Access your health summary, medical history, and visit history - View current conditions and allergies - View procedure and lab results - View your medications, including guidelines, side effects, and precautions - Complete pre-appointment questionnaires requested by your provider - Ready summary reports of your office visits and procedures To access the Patient Portal Mobile [employer], follow these directions: - Search [email or web address] in the [employer] Store or [employer] Store - Download the Nataliia - Search for [facility] - Enter your login/password Portal del paciente Si usted no esta inscrito en el portal de pacientes de [facility], recibira osiel invitacion de inscripcion despues de salazar visita al [facility] o al [facility] via correo electronico. Tambien puede inscribirse voluntariamente en el portal de pacientes visitando nuestra pagina web: [email or web address] La siguiente informacion sera requerida para acceder al portal: - Salazar giulia de historia medica de [facility] - Salazar direccion de correo electronico personal - Nombre - Fecha de nacimiento Capacidades: Las siguientes capacidades estan disponibles en el portal de pacientes: - Enviar mensajes a algunos doctores - Verificar proximas citas - Acceso a salazar historial de nathaly, registro medico e historial de visitas - Reji las condiciones actuales y alergias reji procedimientos y resultados del laboratorio - Reji gwendolyn medicamentos, incluyendo las pautas - Efectos secundarios y precauciones - Completar o llenar formularios / cuestionarios de - Citas solicitadas por salazar doctor - Leer los resumenes de reportes medicos de gwendolyn visitas y procedimientos [place] acceder a la aplicacion movil: - [employer] en la [employer] Store o [employer] Store - Descargue la aplicacion - [facility] - Ingrese salazar nombre de usuario / Contrasena Prescriptions: New cefuroxime axetil 250 mg tablet 250 mg PO BID 7 Days Qty: 14 0RF No Action (DME) lancets [TRUEplus Lancets] 33 gauge misc See Rx Instructions .ROUTE .COMPLEX Qty: 100 11RF Dose Instruction: TEST BLOOD SUGAR ONCE DAILY Rx Instructions: TEST BLOOD SUGAR ONCE DAILY (DME) blood-glucose meter [FreeStyle Lite Meter] Kit See Rx Instructions .ROUTE .MEDSUPPLY Qty: 1 0RF Rx Instructions: As directed metformin 1,000 mg tablet 1,000 mg PO BID Qty: 180 3RF cholecalciferol (vitamin D3) 25 mcg (1,000 unit) capsule 25 mcg PO DAILY 90 Days Qty: 90 1RF losartan 100 mg tablet 100 mg PO DAILY 90 Days Qty: 90 1RF (DME) FreeStyle Lite Strips Strip See Rx Instructions .ROUTE .MEDSUPPLY Qty: 50 11RF Rx Instructions: As directed twice a day Jardiance 25 mg tablet 25 mg PO DAILY 90 Days Qty: 90 1RF (DME) Blood Pressure Cuff Misc See Rx Instructions .ROUTE .MEDSUPPLY Qty: 1 0RF Rx Instructions: As directed finasteride [Proscar] 5 mg tablet 5 mg PO DAILY 90 Days Qty: 90 3RF amlodipine 2.5 mg tablet 2.5 mg PO DAILY Qty: 90 1RF Trulicity 4.5 mg/0.5 mL pen injector 4.5 mg subcut QWEEK 90 Days Qty: 6.5 1RF Referrals: [facility] [Provider Group] ([facility] will be contacting you in 2 business days (after discharge from the emergency department). During this phone call, they will inform you of when your follow up appointment with them / their office will be. If you have not received a call from [facility] after 2 business days, please call their office at [phone]. [facility] se pondr? en contacto con usted en 2 d?as laborables (despu?s del chai del servicio de urgencias). Geraldo esta llamada telef?neris, le informar?n de cu?ndo ser? salazar john de seguimiento con ellos / salazar oficina. Si usted no garduno recibido osile llamada de [facility]?a despu?s de 2 d?as h?tamiko, por favor llame a salazar oficina al [phone]. ) Ritika Forte MD [Primary Care Provider] - Stand Alone Forms: Work/School Release Interventions: ED Discharge Assessment Last Done: 06/20/24 16:49 Discharge Date/Time: 06/20/24 16:49 Print Language: Latvian
[2024-06-20 13:23] VITALS: BP 122/77; PULSE 94; RESP 18; TEMP 36.4; O2SAT 95; BMI 35.3
[2024-06-20 14:56] VITALS: BP 128/70; PULSE 79; RESP 16; TEMP 36.6; O2SAT 97
[2024-06-20 15:26] LABS: MANUAL DIFF FLAG NO
[2024-06-20 15:29] LABS: Basophils Percent Auto 0.2 % (0-2); Eosinophils Absolute Auto 0.1 X10*3/uL (0.0-0.4); Eosinophils Percent Auto 0.9 % (0-4); Hematocrit 45.7 % (42.0-52.0); Hemoglobin 15.6 g/dl (14.0-18.0); Imm Gran Abs Auto 0.03 X10*3/uL (0.00-0.03); Imm Gran Pct Auto 0.3 % (0.0-0.4); Lymphocytes Absolute Auto 1.7 X10*3/uL (1.2-4.9); Lymphocytes Percent Auto 18.8 % (20-40); Mean Corpuscular HGB Conc 34.1 g/dl (31.0-36.0); Mean Corpuscular Hemoglobin 31.3 pg (27.0-33.0); Mean Corpuscular Volume 91.6 fL (80.0-98.0); Monocytes Absolute Auto 0.8 X10*3/uL (0.1-1.2); Monocytes Percent Auto 8.8 % (2-11); Neutrophils Absolute Auto 6.3 x10*3/uL (2.0-8.3); Platelet Count 283 X10*3/uL (160-400); Red Blood Count 4.99 X10*6/uL (4.60-5.80); Red Cell Distribution Width 13.4 % (11.0-16.0); White Blood Count 8.9 X10*3/uL (4.8-10.8)
[2024-06-20 15:36] LABS: Appearance Urine Turbid; Color Urine Yellow; Glucose Urine UA >=1000 mg/dL (Negative); Leukocyte Esterase Urine Moderate (2+) (Negative); Nitrite Urine Negative (Negative); PH 5.5 (5.0-9.0); Specific Gravity - Urine >= 1.030 (1.005-1.025); UMIC TRIGGER UACC YES; Urine Blood Small (1+) (Negative); Urine Ketones Trace mg/dL (Negative); Urine Protein 30 (1+) mg/dL (Neg-Trace)
[2024-06-20 15:39] LABS: Bacteria Urine 4+ (None Seen); Hyaline Casts Urine 0-2 /LPF (0-2); Squamous Epithelial Cell Urine 0-2 /HPF (0-2); UACC Culture Trigger YES; WBC Urine >50 /HPF (0-5)
[2024-06-20 16:03] LABS: Alanine Aminotransferase 21 U/L (0-40); Anion Gap 13 (12-20); Aspartate Amino Transferase 21 U/L (5-37); Bilirubin Direct 0.2 mg/dL (0.0-0.5); Bilirubin Total 0.6 mg/dL (0.0-1.0); Blood Urea Nitrogen 32 mg/dL (9-16); Calcium 9.7 mg/dL (8.4-10.2); Carbon Dioxide 25 mmol/L (22-29); Chloride 105 mmol/L (96-108); Creatinine Clr Calc Pharmacy 75.8; Estimated Glomerular Filt Rate > 60; Glucose Random 180 mg/dL (60-115); Potassium 4.1 mmol/L (3.3-5.1); Sodium 139 mmol/L (135-145); Total Protein 7.7 g/dL (6.5-8.0)
[2024-06-20 16:19] VITALS: BP 120/60; PULSE 61; RESP 18; TEMP 36.6; O2SAT 96
[2024-06-20 16:19] LABS: Alkaline Phosphatase 81 U/L (39-117)
[2024-06-20 16:49] VITALS: BP 120/60; PULSE 61; RESP 18; TEMP 36.6; O2SAT 96
== END 2024-06-20 16:49 | disposition home or self-care (01) ==
PROVIDERS: Physician Assistant; Emergency Provider Emergency Medicine; PCP Internal Medicine
DX: N39.0 Urinary tract infection, site not specified (principal); R30.0 Dysuria; R33.9 Retention of urine, unspecified; Z79.899 Other long term (current) drug therapy
CPT/HCPCS: 36415; 51798; 80048; 80076; 81001; 83735; 85025; 87086; 87088; 87186; 99283; 99285

== ENCOUNTER → 2024-06-26 09:02 | Outpatient (REF) | payer MEDICARE, SELFPAY ==
--- NOTE | 2024-06-26 09:05 | CA_ITS ---
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 Normal LV ejection fraction of 65-70% with mild LVH with grade 1 diastolic dysfunction 2. Normal cardiac valvular Dopplers 3. Normal RV systolic pressure 4. No gross pericardial effusion Findings Left Ventricle Normal left ventricular size and systolic function. There is mildly increased left ventricular wall thickness. The visually estimated ejection fraction is between 65-70%. Spectral Doppler is indicative of an impaired relaxation filling pattern. E/E prime ratio is <8, consistent with normal filling pressures. Evidence suggests grade I (mild) diastolic dysfunction. Right Ventricle Normal right ventricular cavity size and systolic function. Atria The left atrium is likely dilated. There is no evidence of interatrial shunt. The right atrium is normal in size. Aortic Valve Normal aortic valve structure and function. There is no aortic valve stenosis. There is no aortic valve regurgitation. Mitral Valve Normal mitral valve structure and function. There is trace mitral valve regurgitation. There is no mitral valve stenosis. Pulmonic Valve The pulmonic valve is likely normal. Tricuspid Valve Normal tricuspid valve structure. There is trace tricuspid valve regurgitation. The right ventricular systolic pressure is normal. The right ventricular systolic pressure is 14 mmHg. Normal right atrial pressure. There is no evidence of pulmonary hypertension. Great Vessels All visible segments of the aorta are normal in size. The pulmonary artery was not well visualized. Venous The inferior vena cava is normal in size and collapses greater than 50% with inspiration. Pericardium/Pleural There is no evidence of pericardial effusion. Prior Study Comparison No prior study available for comparison. Measurements 2D Linear Measurements IVSd: 1.23 0.6-0.9/0.6-1.0 cm LVIDd: 4.38 3.9-5.3/4.2-5.9 cm LVIDd Index: 2.19 2.4-3.2/2.2-3.1 cm/m2 LVIDs: 2.76 2.0-3.6 cm LVPWd: 1.21 0.7-1.1 cm Ao Root: 3.60 2.1-3.5 cm LA Diam: 3.80 2.7-3.8/3.0-4.0 cm LAIDs Index: 1.90 1.5-2.3 cm/m2 LV Mass: 242.51 67-162/88-224 g LV Mass Index: 121.26 43-95/49-115 g/m2 LVOT Diam: 2.20 3.0+(-)1.3 cm 2D Systolic Function EF 4C: 68.50 >55% EF 2C: 63.00 >55% EF BiP: 65.80 >55% Mitral Valve MV Pk E: 0.77 MV PK A: 0.90 MV Decel Time: 239.00 E/A: 0.90 E'Lateral: 11.10 E'Medial: 5.77 E/E' Med: 13.40 E/E' Lat: 6.90 PHT: 70.00 MVA PHT: 3.14 Decel [place]: 3.23 Aortic Valve AoV Pk Henrique: 1.36 AoV Mn Henrique: 0.92 AoV VTI: 0.31 AoV Pk Grad: 7.00 Aov Mn Grad: 4.00 JOSUÉ Cont.VTI: 3.15 LVOT LVOT Pk [place]: 1.19 LVOT Mn [place]que: 0.79 LVOT VTI: 0.25 LVOT Pk Grad: 6.00 LVOT Mn Grad: 3.00 LVOT Diam: 2.20 LVOT Area: 3.80 Diastolic Function MV Pk E: 0.77 MV Pk A: 0.90 E/A: 0.90 E'Medial: 5.77 E/E' Med: 13.40 E' Laterial: 11.10 E/E' Lat: 6.90 Right Ventricle TAPSE (mm): 27.00 TVS' Henrique: 14.00 Tricuspid Valve TR Pk Henrique: 1.68 TR Pk Grad: 11.00 RA Press: 3.00 RVSP: 14.00 Great Vessels Aorta Ao Root-2D: 3.60 2.0-3.7 cm Ao Asc: 3.40 2.1-3.4 cm Pulmonary Valve PV Pk Henrique: 1.07 Peak PV Grad: 5.00 Updated in Other Vendor System with Status of Final Derek Soliz MD electronically signed on 06/26/2024 10:05:02 AM with status of Final
== END ==
LOC: HO.CARD 09:02
PROVIDERS: PCP Internal Medicine; Visit Provider Internal Medicine
DX: I10 Essential (primary) hypertension (principal); E11.65 Type 2 diabetes mellitus with hyperglycemia
CPT/HCPCS: 93306

== ENCOUNTER → 2024-06-26 09:05 | Outpatient (BNV) | payer MEDICARE, SELFPAY | PROVIDERS: PCP Internal Medicine; Visit Provider Internal Medicine Cardiovascular Disease | DX: I51.89 Other ill-defined heart diseases (principal); I10 Essential (primary) hypertension | CPT/HCPCS: 93306 ==

== ENCOUNTER 2024-06-29 06:05 | Outpatient (REF) | payer MEDICARE, SELFPAY ==
[2024-06-29 06:26] LABS: MANUAL DIFF FLAG NO
[2024-06-29 07:44] LABS: Basophils Percent Auto 0.6 % (0-2); Eosinophils Absolute Auto 0.2 X10*3/uL (0.0-0.4); Eosinophils Percent Auto 2.2 % (0-4); Hematocrit 43.9 % (42.0-52.0); Hemoglobin 14.3 g/dl (14.0-18.0); Imm Gran Abs Auto 0.02 X10*3/uL (0.00-0.03); Imm Gran Pct Auto 0.3 % (0.0-0.4); Lymphocytes Absolute Auto 2.1 X10*3/uL (1.2-4.9); Lymphocytes Percent Auto 30.9 % (20-40); Mean Corpuscular HGB Conc 32.6 g/dl (31.0-36.0); Mean Corpuscular Hemoglobin 30.9 pg (27.0-33.0); Mean Corpuscular Volume 94.8 fL (80.0-98.0); Mean Platelet Volume 10.5 fL (9.4-12.4); Monocytes Absolute Auto 0.7 X10*3/uL (0.1-1.2); Monocytes Percent Auto 11.1 % (2-11); Neutrophils Absolute Auto 3.7 x10*3/uL (2.0-8.3); Neutrophils Percent Auto 54.9 % (45-73); Platelet Count 299 X10*3/uL (160-400); Red Blood Count 4.63 X10*6/uL (4.60-5.80); Red Cell Distribution Width 13.5 % (11.0-16.0); White Blood Count 6.7 X10*3/uL (4.8-10.8)
[2024-06-29 08:05] LABS: Alanine Aminotransferase 26 U/L (0-40); Albumin Level 3.9 g/dL (3.5-5.0); Alkaline Phosphatase 75 U/L (39-117); Anion Gap 12 (12-20); Aspartate Amino Transferase 23 U/L (5-37); Bilirubin Total 0.3 mg/dL (0.0-1.0); Blood Urea Nitrogen 23 mg/dL (9-16); Calcium 9.7 mg/dL (8.4-10.2); Carbon Dioxide 27 mmol/L (22-29); Chloride 105 mmol/L (96-108); Cholesterol 143 mg/dL (<200); Estimated Glomerular Filt Rate > 60; Glucose Fasting 160 mg/dL (60-99); HDL Cholesterol 44 mg/dL (>40); LDL Cholesterol Calculated 79 mg/dL (<100); Potassium 4.6 mmol/L (3.3-5.1); Sodium 139 mmol/L (135-145); Total Protein 7.5 g/dL (6.5-8.0); Triglycerides 104 mg/dL (<150)
[2024-06-29 08:13] LABS: PSA,Total (Free>4and<10) 3.28 ng/mL (0.00-4.00)
[2024-06-29 08:24] LABS: Vitamin D 25-OH Total 30.4 ng/mL (>30)
[2024-06-29 08:29] LABS: Folate 13.1 ng/mL (> or = 4.0); Vitamin B12 489 pg/mL (200-900)
[2024-06-29 08:37] LABS: Creatinine Urine 57.74 mg/dL; Microalbumin Urine < 5.0 mg/L
== END 2024-06-29 06:06 | disposition home or self-care (01) ==
LOC: HO.LAB 06:05
PROVIDERS: Urology; PCP Internal Medicine; Visit Provider Internal Medicine
DX: R97.20 Elevated prostate specific antigen [PSA] (principal); E55.9 Vitamin D deficiency, unspecified; E11.65 Type 2 diabetes mellitus with hyperglycemia; E78.5 Hyperlipidemia, unspecified; D64.9 Anemia, unspecified; E53.8 Deficiency of other specified B group vitamins; Z12.5 Encounter for screening for malignant neoplasm of prostate
CPT/HCPCS: 36415; 80053; 80061; 82043; 82306; 82570; 82607; 82746; 84153; 85025

== ENCOUNTER 2024-08-30 15:50 | Outpatient (AMB) | payer MEDICARE, SELFPAY ==
--- NOTE | 2024-08-29 22:31 | A.OFFVIS_ITS ---
Intake Visit Reasons: :UTI Intake Note: Patient presents today for a follow-up/UTI Urology Meds- Finasteride Allergies to Antibiotic- No Known Allergies Blood Thinner- None PVR:90ml Plastic Press Molder Required: Yes Plastic Press Molder Name: Fidelina Oneill Information Interpreted: non-clinical & clinical Accompanied by: Family/Other Allergies pioglitazone Adverse Reaction (Mild, Verified 08/30/24 16:05) diarrhea,polyuria canagliflozin (Invokana) Adverse Reaction (Unknown, Verified 08/30/24 16:05) dizziness Medication List - Last Reconciled 08/30/24 by Geoffrey Ziegler MD amlodipine 2.5 mg PO DAILY blood sugar diagnostic (FreeStyle Lite Strips) As directed twice a day blood-glucose meter (FreeStyle Lite Meter kit) As directed cefuroxime axetil 250 mg PO BID 7 days cholecalciferol (vitamin D3) 25 mcg PO DAILY 90 days dulaglutide (Trulicity) 4.5 mg (0.5 mL) subcut QWEEK 90 days empagliflozin (Jardiance) 25 mg PO DAILY 90 days finasteride (Proscar) 5 mg PO DAILY 90 days lancets (TRUEplus Lancets) TEST BLOOD SUGAR ONCE DAILY losartan 100 mg PO DAILY 90 days metformin 1,000 mg PO BID miscellaneous medical supply (Blood Pressure Cuff) As directed HPI Comments Details: 08/30/24--Hay is a 69-year-old male who is being followed for elevated PSA he is prescribed Proscar 5 mg daily he had a prostate biopsy in the past which was benign he follow-up today with a repeat PSA which was done on PSA- 06/29/24--3.28 ng/mL History of Present Illness - The patient is a 69-year-old male presenting for follow-up of elevated PSA levels. - History of elevated PSA levels, currently being managed with Proscar (finasteride) 5 mg daily. - Previous prostate biopsy was performed, results were not explicitly discussed. - Recent PSA level on 06/29 was 3.28, showing improvement from a previous level of 5.58. Plan - Continue Proscar finasteride) 5 mg daily. follow-up PSA test in nine months to monitor levels. 04/22/23--Hay is a 66-year-old male who presents to the clinic as fu evaluation for elevated PSA. He is here with his daughters who interprets for him. I have reviewed recent PSA obtained 03/10/2023 which is stable at 5.58 ng/mL. He is prescribed Proscar 5 mg daily. The patient is compliant on the medication. He denies irritative voiding symptoms. He states he has a good urinary flow. 05/06/2022--The patient is a male. Qualified [place] speaker was present during the encounter. He complains increased voiding. C/o's concerns regarding problems getting and maintaining erections Wakes up 3 times at night and 2-4 times during the day to void. States completely emptying his bladder after voiding. Complains having right lower back pain. FHx: Father and uncle had prostate cancer. States his father was 82 years old when he was diagnosed with prostate cancer. Brother had surgery for enlarged prostate. PSA results reviewed?04/23/2022?5.54. BUN levels reviewed--02/28/2022--23. Evaluation today-- Blood: negative, Leukocytes: negative. Bladder scan PVR: 50 mL.? USG scrotum results reviewed--03/11/2020--Unremarkable. Prostate exam: Moderately enlarged.? Plan: Elevated PSA- Schedule prostate biopsy procedure minor procedure room. ED- Testosterone free and total test prior was ordered due to problem with erections. ? ? 09/09/2022-- Hay is a 67-year-old [place] speaking male who presents today to the office for follow-up on biopsy results. The patient is a [place] speaking male. Certified sign language interpreter was present during the visit. He is here today to review the prostate biopsy results which were done on 06/28. He was evaluated for elevated PSA; his last visit in the office was on 05/06/2022. He reports on and off urinary urgency. He denies any dysuria or hematuria. Pathology of the prostate tissue was benign, estimated prostate size on transrectal was 49.1mL. I have discussed place the patient on Proscar 5 mg daily. Will monitor PSA. [facility] Medical History Sciatica Testicular pain Type 2 diabetes mellitus with hyperglycemia, without long-term current use of insulin Other obesity due to excess calories BMI 38.0-38.9,adult Surgical History Meningioma Hx of endoscopy History of colonoscopy Family History Father History of cancer Mother Hx of diabetes insipidus Social History Household Members: Spouse Housing: Apartment Unable to assess alcohol history related to: Unknown Alcohol intake: never Patient Tobacco Use Status: Never used Tobacco e-Cigarette/Vaping Use: Never Used Second Hand Smoke Exposure: No service: No Current occupational status: employed Current occupational exposures/hazards: No Cognitive needs: No Hearing needs: No Vision needs: No Review of Systems Const All systems reviewed & are unremarkable except as noted in HPI and below Reports no additional complaints Eyes Reports no additional complaints ENT Reports no additional complaints Card Reports no additional complaints Resp Reports no additional complaints GI Reports no additional complaints Reports as per HPI Musc Reports no additional complaints Skin/Breast Reports system reviewed and no additional complaints, except as documented Neuro Reports no additional complaints Psych Reports no additional complaints Endo Reports no additional complaints Giancarlo/Lymph Reports no additional complaints Aller/Immun Reports no additional complaints Office Procedures Post Void Residual Post Residual Void Post Void Residual (PVR): [id number] Void Residual by ultrasound Results AMB Urinalysis, Automated UA Leukoctes 0 Martín/uL Last Edit by Lennie Johnson on 08/30/24 16:26 UA Nitrite Negative Last Edit by Lennie Johnson on 08/30/24 16:26 UA Urobilinogen 17 mg/dL Last Edit by Lennie Johnson on 08/30/24 16:26 UA Protein 1 mg/dL Last Edit by Lennie Johnson on 08/30/24 16:26 UA pH 6.0 Last Edit by Lennie Johnson on 08/30/24 16:26 UA Blood 0 Yvon/uL Last Edit by Lennie Johnson on 08/30/24 16:26 UA Specific Morton 1.015 Last Edit by Lennie Johnson on 08/30/24 16:26 UA Ketone Negative Last Edit by Lennie Johnson on 08/30/24 16:26 UA Bilirubin 0 mg/dL Last Edit by Lennie Johnson on 08/30/24 16:26 UA Glucose 60 mg/dL Last Edit by Lennie Johnson on 08/30/24 16:26 Results Reviewed Results Reviewed: Laboratory Last Values Urine pH (Auto) 6.0 08/30/24 16:17 Specific Morton (Auto) 1.015 08/30/24 16:17 Urine Protein (Auto) 1 mg/dL 08/30/24 16:17 Glucose (UA)(Auto) 60 mg/dL 08/30/24 16:17 Urine Ketones (Auto) Negative 08/30/24 16:17 Urine Blood (Auto) 0 Yvon/uL 08/30/24 16:17 Urine Nitrite (Auto) Negative 08/30/24 16:17 Urine Bilirubin (Auto) 0 mg/dL 08/30/24 16:17 Urine Urobilinogen (Auto) 17 mg/dL 08/30/24 16:17 Leukocyte Esterase (Auto) 0 Martín/uL 08/30/24 16:17 Assessment & Plan Assessment & Plan (1) Elevated PSA: Code(s): R97.20 - Elevated prostate specific antigen [PSA] Category: Medical (2) BPH loc w urin obs/LUTS: Code(s): N40.1 - Benign prostatic hyperplasia with lower urinary tract symptoms Category: Medical Plan Plan - Continue Proscar finasteride) 5 mg daily. follow-up PSA test in nine months to monitor levels. Orders: Orders AMB Urinalysis Automated Today Z13.9 - Encounter for screening, unspecified AMB Post Void Residual by ultrasound Today N40.0 - Benign prostatic hyperplasia without lower urinary tract symptoms PSA,Total (Free>4and<10) 9 Months N40.1 - Benign prostatic hyperplasia with lower urinary tract symptoms, R97.20 - Elevated prostate specific antigen [PSA] Medications: Refilled finasteride (Proscar) 5 mg PO DAILY 90 tabs 3RF 90 days C61 - Malignant neoplasm of prostate Patient Instructions: The patient had an opportunity to ask questions regarding treatment plan. The patient expressed understanding and agreement with the above treatment plan. The patient is aware they should contact our office by phone for worsening of their current condition or the appearance of new symptoms. Compliance is encouraged with any medications and followup testing that is ordered. It is a privilege to be allowed the opportunity to participate in the urologic care of your patient. If you have any questions or concerns regarding treatment for the above conditions please do not hesitate to contact me. The office telephone contact is [phone]. This note is constructed in part using voice recognition software. While every effort has been made to ensure accuracy facilities maintenance technician errors may have been included. Yours sincerely, Geoffrey Ziegler MD Scribe Plan - Not visible on output: Patient was informed and verbally consented to the use of an ambient scribe for clinic note documentation during this visit. Coding Level of Care Code Est Pt Level 4 (53994) Complex EM visit Add On G2211 Diagnoses Elevated PSA R97.20 BPH loc w urin obs/LUTS N40.1 CPT Codes Post Residual Void - PVR CPT Code: 06728-Junl Void Residual by ultrasound ([id number])
== END 2024-08-30 16:42 | disposition home or self-care (01) ==
LOC: HO.HUSH 15:51
PROVIDERS: PCP Internal Medicine; Visit Provider Urology
DX: R97.20 Elevated prostate specific antigen [PSA] (principal); N40.1 Benign prostatic hyperplasia with lower urinary tract symptoms; Z13.9 Encounter for screening, unspecified
CPT/HCPCS: 99214; G2211

== ENCOUNTER → 2024-08-30 15:50 | Outpatient (BNVA) | payer MEDICARE, SELFPAY | PROVIDERS: PCP Internal Medicine; Visit Provider Urology | DX: R97.20 Elevated prostate specific antigen [PSA] (principal); N40.1 Benign prostatic hyperplasia with lower urinary tract symptoms | CPT/HCPCS: 51798; 81003; 99212 ==

== ENCOUNTER 2024-09-05 14:44 | Outpatient (AMB) | payer MEDICARE, SELFPAY ==
--- NOTE | 2024-09-05 14:50 | MHC.OFFVIS ---
Vital Signs 09/05/24 14:51 Height 5 ft 4 in Weight 202 lb 13.204 oz BMI 34.8 BP 124/68 Blood Pressure Location Lt brachial Position Sitting Pulse 68 Pulse Source Pulse Oximeter Intake Visit Reasons: 3 mth f/up echo ett Business Practices Officer Required: Yes Business Practices Officer Name: BRITTANY [id number] Allergies pioglitazone Adverse Reaction (Mild, Verified 08/30/24 16:05) diarrhea,polyuria canagliflozin (Invokana) Adverse Reaction (Unknown, Verified 08/30/24 16:05) dizziness Medication List - Last Reconciled 09/05/24 by Jesus Alberto Chatterjee MD amlodipine 2.5 mg PO DAILY blood sugar diagnostic (FreeStyle Lite Strips) As directed twice a day blood-glucose meter (FreeStyle Lite Meter kit) As directed cholecalciferol (vitamin D3) 25 mcg PO DAILY 90 days dulaglutide (Trulicity) 4.5 mg (0.5 mL) subcut QWEEK 90 days empagliflozin (Jardiance) 25 mg PO DAILY 90 days finasteride (Proscar) 5 mg PO DAILY 90 days lancets (TRUEplus Lancets) TEST BLOOD SUGAR ONCE DAILY losartan 100 mg PO DAILY 90 days metformin 1,000 mg PO BID miscellaneous medical supply (Blood Pressure Cuff) As directed HPI Comments Details: Hay returns for follow-up. Recently seen in consultation regarding hypertension. He was on losartan 100 mg daily but blood pressures were running on the higher side. We had added amlodipine and today's blood pressure seems better. He also has a history of diabetes but not well controlled. No known coronary disease myocardial infarction. Within limits of his activity, he has got no clear-cut cardiac symptoms. Nonspecific burning in his ears. Since last seen, he has completed an echocardiogram and stress test. [facility] Medical History Sciatica Testicular pain Type 2 diabetes mellitus with hyperglycemia, without long-term current use of insulin Other obesity due to excess calories BMI 38.0-38.9,adult Surgical History Meningioma Hx of endoscopy History of colonoscopy Family History Father History of cancer Mother Hx of diabetes insipidus Social History Household Members: Spouse Housing: Apartment Unable to assess alcohol history related to: Unknown Alcohol intake: never Patient Tobacco Use Status: Never used Tobacco e-Cigarette/Vaping Use: Never Used Second Hand Smoke Exposure: No service: No Current occupational status: employed Current occupational exposures/hazards: No Cognitive needs: No Hearing needs: No Vision needs: No Review of Systems Const Denies weakness ENT Denies dizziness Card Denies chest pain, Denies chest pain with activity, Denies syncope, Denies rapid heart rate, Denies pedal edema, Denies edema, Denies leg edema, Denies lightheadedness, Denies palpitations, Denies dyspnea, Denies dyspnea on exertion and Denies orthopnea Resp Denies cough, Denies dyspnea and Denies dyspnea on exertion GI Denies hematochezia and Denies change in stool character Musc Denies abnormal gait, Denies muscle cramps, Denies muscle weakness, Denies numbness, Denies radiating pain into limb and Denies tingling Neuro Denies abnormal gait, Denies dizziness, Denies syncope, Denies numbness, Denies tingling and Denies weakness Endo Denies palpitations Physical Exam Vital Signs: Last Vital Signs Pulse 68 09/05/24 14:51 BP 124/68 09/05/24 14:51 BMI result Body Mass Index 34.8 Const General: comfortable and no acute distress Orientation/consciousness: patient oriented x3 HEENT Other: Unremarkable Head: Yes normal to inspection Neck Neck: Yes normal visual inspection Chest Chest palpation & inspection: normal inspection of the chest Resp Auscultation: clear to auscultation bilaterally Cardio Palpation: normal PMI Heart sounds: S1 normal heart sound present, S2 normal heart sound present, no gallops, no murmurs and no rubs GI Palpation (GI): Soft to palpation Back/Spine/Pelvis Other: unremarkable Skin General skin exam: no rashes or lesions noted Neuro General: patient oriented x3 Extrem General: Yes normal to inspection Psych Mental Status: mental status grossly normal Assessment & Plan Assessment & Plan (1) Hypertension: Code(s): I10 - Essential (primary) hypertension Category: Medical Qualifiers: Hypertension type: primary hypertension Qualified Code(s): I10 - Essential (primary) hypertension (2) Type 2 diabetes mellitus with hyperglycemia, without long-term current use of insulin: Code(s): E11.65 - Type 2 diabetes mellitus with hyperglycemia Category: Medical (3) First degree heart block: Code(s): I44.0 - Atrioventricular block, first degree Category: Medical Plan Cardiac studies reviewed. EKG- sinus at 103/Min; MS prolongation to 244 milliseconds; left atrial enlargement; normal corrected QT. Echocardiogram-LVEF is 65-70%. Mild diastolic dysfunction but otherwise unremarkable. Exercise EKG-8.8 METS on Brian protocol and reached target heart rate. No EKG evidence of ischemia. No clear-cut angina but it appears there is a typo in report. Overall, vascular risk factors but no clear evidence of obstructive CAD. With regard to blood pressure, on losartan/amlodipine. Seems stable. With regard to diabetes, hemoglobin A1c is 8.2%. This indicates less than ideal control. He seems to be on Trulicity, Jardiance, metformin. With regard to the posterior heart block, we will need monitoring with EKGs for any progressive conduction system disease in the future. Follow-up in one year. Coding Level of Care Code Est Pt Level 3 (27659) Diagnoses Primary hypertension I10 Hypertension type: primary hypertension Type 2 diabetes mellitus with hyperglycemia, without long-term current use of insulin E11.65 First degree heart block I44.0
[2024-09-05 14:51] VITALS: BP 124/68; PULSE 68; BMI 34.8
== END 2024-09-05 15:05 | disposition home or self-care (01) ==
LOC: HO.HCS 14:45
PROVIDERS: PCP Internal Medicine; Visit Provider Internal Medicine
DX: I10 Essential (primary) hypertension (principal); E11.65 Type 2 diabetes mellitus with hyperglycemia; I44.0 Atrioventricular block, first degree
CPT/HCPCS: 99213

== ENCOUNTER → 2024-09-05 14:44 | Outpatient (BNVA) | payer MEDICARE, SELFPAY | PROVIDERS: PCP Internal Medicine; Visit Provider Internal Medicine | DX: I44.0 Atrioventricular block, first degree (principal); I10 Essential (primary) hypertension; E11.65 Type 2 diabetes mellitus with hyperglycemia | CPT/HCPCS: 99212 ==

== ENCOUNTER 2024-09-24 12:35 | Outpatient (AMB) | payer MEDICARE, SELFPAY ==
[2024-09-24 12:36] VITALS: BP 126/60; PULSE 84; RESP 18; TEMP 37.2; O2SAT 98; BMI 35.2
--- NOTE | 2024-09-24 12:36 | MHC.PC.OV ---
Vital Signs 09/24/24 12:36 Height 5 ft 4 in Weight 205 lb BMI 35.2 BP 126/60 Blood Pressure Location Lt brachial Position Sitting Respiration 18 Pulse 84 Pulse Source Pulse Oximeter Temp 99 F Temp Source Temporal Artery Scan Pulse Oximetry (%) 98 Oxygen Delivery Method Room Air Intake Visit Reasons: annual exam- see comments Nanofabrication Specialist Required: No Accompanied by: Self / Same As Patient Allergies pioglitazone Adverse Reaction (Mild, Verified 09/24/24 12:47) diarrhea,polyuria canagliflozin (Invokana) Adverse Reaction (Unknown, Verified 09/24/24 12:47) dizziness Medication List - Last Reconciled 09/24/24 by Ritika Hernández MD amlodipine 2.5 mg PO DAILY blood sugar diagnostic (FreeStyle Lite Strips) As directed twice a day blood-glucose meter (FreeStyle Lite Meter kit) As directed cholecalciferol (vitamin D3) 25 mcg PO DAILY 90 days dulaglutide (Trulicity) 4.5 mg (0.5 mL) subcut QWEEK 90 days empagliflozin (Jardiance) 25 mg PO DAILY 90 days finasteride (Proscar) 5 mg PO DAILY 90 days lancets (TRUEplus Lancets) TEST BLOOD SUGAR ONCE DAILY losartan 100 mg PO DAILY 90 days metformin 1,000 mg PO BID miscellaneous medical supply (Blood Pressure Cuff) As directed rosuvastatin 5 mg PO DAILY 90 days Tobacco use date assessed: 09/24/24 Fall risk assessment: No Falls in past year Last assessed Fall Risk: 09/24/24 Dental Screening Dental Screen Date: 09/24/24 Did you have a dental visit in the last 12 months?: No Did you have a dental problem in the last 6 months where you did not have access to dental care?: No Was dental information given to patient?: No HPI HPI Comments History of Present Illness Details The patient is a 69-year-old male presenting for a routine physical examination and management of chronic conditions. The patient has a history of hypertension, currently managed with losartan 100 mg. He also has diabetes mellitus, for which he is taking metformin and Trulicity. The patient reports a family history of diabetes, with his mother and her siblings affected. He has been diagnosed with prostate enlargement and is on Procarbide 5 mg for management. Additionally, he has a history of meningioma, though no specific treatment details were discussed. The patient has coronary artery disease, though specific management details were not provided. He reports penile erythema but denies associated pruritus. Preventative care measures include a colonoscopy last performed in 2019, with a recommendation for repeat screening. He also received a pneumonia vaccination during this visit. [facility] Medical History (Updated 09/24/24 @ 13:39 by Ritika Hernández MD) Sciatica Testicular pain Type 2 diabetes mellitus with hyperglycemia, without long-term current use of insulin Other obesity due to excess calories BMI 38.0-38.9,adult Surgical History Meningioma Hx of endoscopy History of colonoscopy Family History Father History of cancer Mother Hx of diabetes insipidus Social History Household Members: Spouse Housing: Apartment Unable to assess alcohol history related to: Unknown Alcohol intake: never Patient Tobacco Use Status: Never used Tobacco e-Cigarette/Vaping Use: Never Used Second Hand Smoke Exposure: No service: No Current occupational status: employed Current occupational exposures/hazards: No Cognitive needs: No Hearing needs: No Vision needs: No Questionnaire PHQ-9 Over the last 2 weeks, how often have you been bothered by any of the following problems? 1. Little interest or pleasure in doing things: several days 2. Feeling down, depressed, or hopeless: not at all 3. Trouble falling or staying asleep, or sleeping too much: not at all 4. Feeling tired or having little energy: not at all 5. Poor appetite or overeating: not at all 6. Feeling bad about yourself - or that you are a failure or have let yourself or your family down: not at all 7. Trouble concentrating on things, such as reading the newspaper or watching television: not at all 8. Moving or speaking so slowly that other people could have noticed. Or the opposite - being so fidgety or restless that you have been moving around a lot more than usual: not at all 9. Thoughts that you would be better off or of hurting yourself in some way: not at all Total score: 1 Depression Screening Interpretation: Negative Depression Screening Done: Yes 00456 - PHQ-9 Billing: Yes Source: Developed by Whitney Ferrer, Schuyler Dickens and colleagues, with an educational rei from [employer]. Thrive Questionnaire Date Thrive assessed: 09/24/24 I am a: Patient What is your living situation today?: I have a steady place to live Within the past 12 months, did the food you bought not last and you didn't have the money to get more?: Never true Within the past 12 months, did you worry whether your food would run out before you got money to buy more?: Never true Do you have trouble paying for medicines?: No Do you have trouble getting transportation to medical appointments?: No Do you have trouble paying your heating and electricity bill?: No Do you have trouble taking care of your child, family member or friend?: No Do you have trouble with day-to-day activities such as bathing, preparing meals, shopping, managing finances, etc.?: No Are you currently unemployed and looking for a job?: No Are you interested in more education?: No Please select the resources that you would like help with: None Currently or been in a relationship where the following occur: No concerns reported THRIVE Score: 0 AUDIT C Alcohol Use Questionnaire (AUDIT-C) 1. How often do you have a drink containing alcohol?: Never 3. How often do you have six or more drinks on one occasion?: Never Total Score: 0 Score Reviewed/Action Taken: No KALEB-7 AMB Questionnaire KALEB-7 Date KALEB - 7 assessed: 09/24/24 Feeling nervous, anxious, or on edge: 0 = Not at all Not being able to stop or control worryin = Not at all Worrying too much about different things: 0 = Not at all Trouble relaxin = Not at all Being so restless that it is hard to sit still: 0 = Not at all Becoming easily annoyed or irritable: 0 = Not at all Feeling afraid as if something awful might happen: 0 = Not at all Total KALEB-7 score (0-4 normal; 5-9 mild; 10-14 moderate; 15-21 severe): 0 Source: Developed by Whitney Ferrer Kurt Kroenke and colleagues, with an educational rei from [employer]. KALEB-7 Assessment Billing KALEB-7 Assessment Tool: KALEB-7 Assessment 51638 Review of Systems Const All systems reviewed & are unremarkable except as noted in HPI and below Card Denies chest pain at rest, Denies chest pain with activity, Denies edema, Denies irregular heart rhythm, Denies claudication, Denies dyspnea, Denies dyspnea on exertion, Denies orthopnea, Denies paroxysmal nocturnal dyspnea and Denies slow heart rate Resp Denies cough, Denies dyspnea and Denies dyspnea on exertion GI Denies abdominal pain, Denies change in bowel habits, Denies excessive flatus, Denies nausea and Denies vomiting Denies urinary hesitancy, Denies urinary incontinence and Denies urinary urgency Musc Denies atrophy, Denies deformity and Denies limited range of motion Physical exam (Primary Care) Vital Signs: Last Vital Signs Temp 99 F 09/24/24 12:36 Pulse 84 09/24/24 12:36 Resp 18 09/24/24 12:36 BP 126/60 09/24/24 12:36 Pulse Ox 98 09/24/24 12:36 Oxygen Delivery Method Room Air 09/24/24 12:36 BMI result Body Mass Index 35.2 BMI Assessment/Plan discussion: High BMI High, discussed plan: lifestyle, weight reduction, dietary and physical activity Tobacco/Smoking Status: Tobacco use Status Tobacco use date assessed 09/24/24 09/24/24 12:44 Patient Tobacco Use Status Never used Tobacco 09/24/24 12:44 e-Cigarette/Vaping Use Never Used 09/24/24 12:44 PHQ-9: PHQ-9 Score PHQ-9: Total score 1 09/24/24 13:07 Depression Screening Interpretation: Negative Thrive Assessment: Date of Thrive Assessment Date Thrive assessed 09/24/24 09/24/24 12:44 Currently or been in a relationship where the following occur: No concerns reported HENMT Head: Yes normal to inspection, Yes normocephalic and Yes atraumatic Ears: external ears normal Eyes General: appearance normal, both eyes and all related structures Eyelids: Yes eyelids normal Conjunctivae: conjunctivae normal Neck Neck: Yes normal visual inspection and Yes supple Resp Effort & Inspection: normal respiratory effort Auscultation: clear to auscultation bilaterally Cardio Jugular venous distension: no JVD Rate: regular rate Rhythm: regular rhythm Heart sounds: S1 normal heart sound present and S2 normal heart sound present GI Inspection: Yes normal to inspection Palpation (GI): Soft to palpation and nontender Auscultation: normal bowel sounds Skin General skin exam: no rashes or lesions noted Neuro General: no focal motor deficits Extrem General: Yes full ROM Psych Appearance: grossly normal Results AMB Hemoglobin A1c AMB Hemoglobin A1c 7.8 % Last Edit by Josee Peña CMA on 09/24/24 13:06 Immunizations pneumoc 20-steffen conj-dip cr(PF) 0.5 mL IM syringe Performing Provider: Ritika Hernández MD [facility] Administered by: Robina Marlow LPN on 09/24/24 13:07 Dose Route Admin Location Dispensed Lot Number Expiration Date NDC Director Occupational 0.5 mL IM Right Deltoid 0.5 mL [id number] 09/13/25 4485-3049-44 [email or web address] Total Dispensed Waste 0.5 mL 0 % VIS Given Date VIS Provided VIS Publication Date 09/24/24 Single Vaccine 24 Eligibility Eligibility Date Funding Source Not [facility] Eligible 09/24/24 Private Results Reviewed Results Reviewed: Laboratory Last Values Hgb A1c (Clinic) 7.8 % (4.0-6.0) H 09/24/24 13:05 Coding Level of Care Code Est Pt Level 3 (89853) Est Pt Prev Care >65y(92628) Diagnoses Physical exam Z00.00 Type 2 diabetes mellitus with hyperglycemia, without long-term current use of insulin E11.65 Rash R21 Additional Codes KALEB-7 Assessment Billing - KALEB-7 Assessment Tool: KALEB-7 Assessment 40676 ([id number]) PHQ-9 - 88447 - PHQ-9 Billing: Yes ([id number]) Time Spent (min) 33 Assessment & Plan Assessment & Plan (1) Physical exam: Code(s): Z00.00 - Encounter for general adult medical examination without abnormal findings Category: Medical (2) Type 2 diabetes mellitus with hyperglycemia, without long-term current use of insulin: Code(s): E11.65 - Type 2 diabetes mellitus with hyperglycemia Category: Medical (3) Rash: Code(s): R21 - Rash and other nonspecific skin eruption Category: Medical Plan The plan includes continued management of hypertension with losartan and diabetes with metformin and Trulicity. The patient will receive a follow-up colonoscopy as part of preventative care measures. A pneumonia vaccination was administered during this visit. Further evaluation of penile erythema is recommended, although the patient denies pruritus. Patient was informed and verbally consented to the use of an ambient scribe for clinic note documentation during this visit. Orders: Orders Lipid Panel 4 Months E78.5 - Hyperlipidemia, unspecified Microalbumin, Random (w Creat) 4 Months R80.9 - Proteinuria, unspecified Comprehensive [place]. Panel Fast 4 Months Z00.00 - Encounter for general adult medical examination without abnormal findings AMB Hemoglobin A1c Today Z13.9 - Encounter for screening, unspecified Pneumococcal 20 Immunization Today Z23 - Encounter for immunization Medications: New clotrimazole 1% 1 appl topical BID 15 grams 0RF 2 weeks R21 - Rash and other nonspecific skin eruption
== END 2024-09-24 13:09 | disposition home or self-care (01) ==
LOC: HO.HMCH 12:36
PROVIDERS: PCP Internal Medicine; Visit Provider Internal Medicine
DX: Z00.00 Encounter for general adult medical examination without abnormal findings (principal); E11.65 Type 2 diabetes mellitus with hyperglycemia; R21 Rash and other nonspecific skin eruption; Z23 Encounter for immunization

== ENCOUNTER → 2024-09-24 12:35 | Outpatient (BNVA) | payer MEDICARE, SELFPAY | PROVIDERS: PCP Internal Medicine; Visit Provider Internal Medicine | DX: Z00.00 Encounter for general adult medical examination without abnormal findings (principal); I10 Essential (primary) hypertension; E11.9 Type 2 diabetes mellitus without complications; E11.65 Type 2 diabetes mellitus with hyperglycemia; R21 Rash and other nonspecific skin eruption; E78.5 Hyperlipidemia, unspecified; R80.9 Proteinuria, unspecified; Z23 Encounter for immunization; Z79.899 Other long term (current) drug therapy | CPT/HCPCS: 83036; 90471; 90677; 96127; 99212; 99397 ==

== ENCOUNTER 2024-11-17 09:22 | Observation (INO) | payer MEDICARE, SELFPAY ==
--- NOTE | ~2024-11-17 | US_ITS ---
CLINICAL HISTORY: PAIN, SWELLING US Scrotum with Doppler Comparison: US - US SCROTUM - 03/11/2020 01:15 PM EST Findings: Right testicle normal echotexture, 3.1 x 2.3 x 1.9 cm. Left testicle normal echotexture, 3.6 x 2.0 x 1.7 cm. Color Doppler and arterial/venous spectral tracings of both testicles within normal limits. Epididymides are unremarkable. No varicoceles. There is a right pyocele or hematocele. IMPRESSION: 1. Complex right hydrocele, possible pyocele or hematocele 2. No evidence of torsion. This document has been electronically signed by: Boom Lima MD on 11/17/2024 12:11:05
[2024-11-17 09:24] VITALS: BP 145/70; PULSE 81; RESP 20; TEMP 36.3; O2SAT 97; BMI 35.1
--- NOTE | 2024-11-17 09:43 | ED.GENADULT ---
HPI - General Adult General Chief complaint: General Medical Stated complaint: ?hernia Time Seen by Provider: 11/17/24 09:43 History of Present Illness ED Provider: Jia BURTON narrative: The patient is a 69-year-old male who presents with a 2-3 day history of pain in his right testicle. He says there has been no trauma or other inciting incident. He simply as a felt that he has developed swelling and pain in the region of his right testicle. He denies fever, sweats, chills. He denies any urinary discomfort. He says he is not sexually active and has not been sexually active for a long time. No abdominal pain. No nausea or vomiting. No change in his bowel habits. The pain is worse when he moves. Related Data Home Medications ?Medication ?Instructions ?Recorded ?Confirmed amlodipine 2.5 mg tablet 2.5 mg PO DAILY@1200 11/17/24 11/17/24 dulaglutide 4.5 mg/0.5 mL 4.5 mg subcut WE@0900 11/17/24 11/17/24 subcutaneous pen injector (Trulicity) losartan 100 mg tablet 100 mg PO DAILY@1200 11/17/24 11/17/24 Previous Rx's ?Medication ?Instructions ?Recorded lancets 33 gauge (TRUEplus Lancets) ##100 04/24/22 miscellaneous medical supply #1 ea 12/24/22 (Blood Pressure Cuff) blood-glucose meter (FreeStyle #1 ea 02/05/23 Lite Meter kit) metformin 1,000 mg tablet 1,000 mg PO BID #180 tabs 01/22/24 cholecalciferol (vitamin D3) 25 25 mcg PO DAILY 90 days #90 caps 03/20/24 mcg (1,000 unit) capsule blood sugar diagnostic (FreeStyle #50 ea 03/23/24 Lite Strips) rosuvastatin 5 mg tablet 5 mg PO DAILY 90 days #90 tabs 09/16/24 empagliflozin 25 mg tablet 25 mg PO DAILY 90 days #90 tabs 11/04/24 (Jardiance) Allergies Allergy/AdvReac Type Severity Reaction Status Date / Time pioglitazone AdvReac Mild diarrhea,po Verified 11/17/24 09:31 lyuria canagliflozin (Invokana) AdvReac Unknown dizziness Verified 11/17/24 09:31 Review of Systems Review of Systems: Yes all other systems are reviewed and are negative [facility] Past Medical History Medical History Sciatica Testicular pain Type 2 diabetes mellitus with hyperglycemia, without long-term current use of insulin Other obesity due to excess calories BMI 38.0-38.9,adult Surgical History Meningioma Hx of endoscopy History of colonoscopy Family History Family History Father History of cancer Mother Hx of diabetes insipidus Social History Social History Household Members: Spouse Housing: Apartment Do you presently have visiting nurse or other home services: No Alcohol intake: never Patient Tobacco Use Status: Never used Tobacco Smoked in Last 30 Days: No e-Cigarette/Vaping Use: Never Used Second Hand Smoke Exposure: No Use of substances other than those prescribed or required for medical reasons: No Have you been hit, kicked, punched, or otherwise hurt by someone within the past year? If so, by whom?: No Do you feel safe in your current relationship?: Yes Is there a partner from a previous relationship who is making you feel unsafe now?: No Are you made to feel afraid or neglected: No Sikhism Healthcare Practices: mormon Advance Directives: No Advance Directives Information Provided: No Do you have a plan to hurt others: No Plan Recently lost weight without trying: No Nutrition Risks: No Nutritional Risk service: No Current occupational status: employed Current occupational exposures/hazards: No Cognitive needs: No Hearing needs: No Vision needs: No Physical Exam ED Vital Signs: Vital Signs - 24 hr 11/17/24 09:24 Temperature 97.3 F Pulse Rate 81 Respiratory Rate 20 Blood Pressure 145/70 H Pulse Oximetry 97 Oxygen Delivery Method Room Air BMI result Body Mass Index 35.1 Const Other: The patient is a frausto older man who was awake and alert, pleasant cooperative. He does not appear in obvious distress. Orientation/consciousness: patient oriented x3 HENMT Other: The face is symmetrical. ?Mucous membranes moist. Eyes Other: Pupils are round equal, conjunctivae are clear, extraocular movements intact Neck Neck: Yes normal visual inspection and Yes full ROM Resp Effort & Inspection: normal respiratory effort Auscultation: clear to auscultation bilaterally Cardio Rate: regular rate Rhythm: regular rhythm Heart sounds: S1 normal heart sound present and S2 normal heart sound present GI Other: The patient has a large and protuberant abdomen that is soft and nontender. Other: The patient has what I believe is a significantly swollen right testicle. There was no erythema to the skin of the scrotum although the skin looks mildly edematous. The left testicle is normal in size and is nontender. The right testicle is large and tender. No fluctuance. I do not appreciate any hernia in the inguinal canal. Skin Other: The skin is dry and unremarkable Neuro General: patient oriented x3, tone normal, moves all extremities, no focal motor deficits and CN's II-XI intact bilaterally Extrem Other: There is no calf swelling or tenderness. No asymmetry. No peripheral edema. Medications Administered Generic Name Dose Route Start Last Admin Trade Name Freq PRN Reason Stop Dose Admin Acetaminophen 650 mg 11/17/24 13:10 11/17/24 15:58 Acetaminophen 325 Mg Tablet PO 650 mg Q6H PRN Administration Pain, Mild 1-3,fever,headache Heparin Sodium (Porcine) 5,000 unit 11/17/24 14:00 11/17/24 13:29 Heparin Sodium,Porcine 5,000 Unit/Ml Vial SUBCUT Not Given Q12H VIJI Sodium Chloride 3 ml 11/17/24 16:00 11/17/24 15:59 0.9 % Sodium Chloride Flush 3 Ml Syringe IVFLUSH 3 ml QSHIFT VIJI Administration Discontinued Medications Generic Name Dose Route Start Last Admin Trade Name Freq PRN Reason Stop Dose Admin Ceftriaxone Sodium 2 gm 11/17/24 12:06 11/17/24 12:28 Ceftriaxone Sodium 2 Gm Vial IVPUSH 11/17/24 12:07 2 gm ONCE ONE Administration Metronidazole 500 mg in 100 mls @ 100 mls/hr 11/17/24 12:06 11/17/24 13:32 Flagyl IV 11/17/24 13:05 Infused ONCE ONE Infusion Sodium Chloride 1,000 mls @ 999 mls/hr 11/17/24 13:15 11/17/24 14:27 Ns IV 11/17/24 14:15 Infused .Q1H1M VIJI Infusion Medical Decision Making Medical Decision Making [facility] Narrative: The patient is a 69-year-old male who presents with right testicular pain and swelling. Symptoms has been coming on for 3 days. The right testicle is painful, swollen, and tender. The skin of the surrounding scrotum is mildly edematous but not erythematous. This does not, in my opinion, have the appearance of Alexandre gangrene. He has a mildly elevated white count. Also a C-reactive protein of 9.8. He is afebrile. The patient had an ultrasound of the scrotum that shows a complex right hydrocele which is probably a pyocele. The patient was started on antibiotics with ceftriaxone and metronidazole. I discussed the case with Dr. Ziegler of Urology who recommended hospitalization for ongoing antibiotics. Dr. Vigil was comfortable with these antibiotics. The patient will be admitted to the hospitalist service with Urology consult. The patient seemed comfortable. He does not seem toxic or severely ill. Lab Data 11/17/24 10:04 11/17/24 10:04 Labs: Lab Results 11/17/24 11/17/24 Range/Units 10:04 12:22 WBC 12.1 H (4.8-10.8) X10*3/uL RBC 4.43 L (4.60-5.80) X10*6/uL Hgb 14.0 (14.0-18.0) g/dl Hct 40.5 L (42.0-52.0) % MCV 91.4 (80.0-98.0) fL MCH 31.6 (27.0-33.0) pg MCHC 34.6 (31.0-36.0) g/dl RDW 13.5 (11.0-16.0) % Plt Count 256 (160-400) X10*3/uL MPV 9.7 (9.4-12.4) fL Immature Gran % (Auto) 0.4 (0.0-0.4) % Neut % (Auto) 73.9 H (45-73) % Lymph % (Auto) 13.5 L (20-40) % Island % (Auto) 11.8 H (2-11) % Eos % (Auto) 0.2 (0-4) % Baso % (Auto) 0.2 (0-2) % Lymph # (Auto) 1.6 (1.2-4.9) X10*3/uL Island # (Auto) 1.4 H (0.1-1.2) X10*3/uL Eos # (Auto) 0.0 (0.0-0.4) X10*3/uL Baso # (Auto) 0.0 (0.0-0.2) X10*3/uL Abs Immat Gran (auto) 0.05 H (0.00-0.03) X10*3/uL Absolute Neuts (auto) 8.9 H (2.0-8.3) x10*3/uL Absolute Nucleated RBC 0.000 (0.0-0.012) X10*3/uL Nucleated RBC % (auto) 0.0 (0.0-0.2) /100WBC Sodium 136 (135-145) mmol/L Potassium 4.1 (3.3-5.1) mmol/L Chloride 104 (96-108) mmol/L Carbon Dioxide 26 (22-29) mmol/L Anion Gap 10 L (12-20) BUN 26 H (9-16) mg/dL Creatinine 0.92 (0.5-1.4) mg/dL Estim Creat Clear Calc 77.8 Estimated GFR > 60 Random Glucose 243 H (60-115) mg/dL Lactic Acid 2.7 H* (0.5-2.0) mmol/L Calcium 9.4 (8.4-10.2) mg/dL C-Reactive Protein 9.84 H (< or = 0.50) mg/dL Urine Color Yellow Urine Appearance Clear Urine pH 5.5 (5.0-9.0) Ur Specific [place] >= 1.030 H (1.005-1.025) Urine Protein Negative (Neg-Trace) mg/dL Urine Glucose (UA) >=1000 H (Negative) mg/dL Urine Ketones 15 (Negative) mg/dL Urine Blood Negative (Negative) Urine Nitrite Negative (Negative) Ur Leukocyte Esterase Negative (Negative) Urine RBC 0-2 (0-2) /HPF Urine WBC 0-5 (0-5) /HPF Ur Squamous Epith Cells 0-2 (0-2) /HPF Urine Bacteria None Seen (None Seen) Hyaline Casts 0-2 (0-2) /LPF Discharge Plan Discharge Clinical Impression: Pyocele Patient Disposition: Admitted As Inpatient Interventions: Admission Worksheet (ED) Last Done: 11/17/24 14:33 Discharge Date/Time: 11/17/24 15:02
[2024-11-17 10:08] LABS: MANUAL DIFF FLAG NO
[2024-11-17 10:09] LABS: Hematocrit 40.5 % (42.0-52.0); Hemoglobin 14.0 g/dl (14.0-18.0); Imm Gran Abs Auto 0.05 X10*3/uL (0.00-0.03); Imm Gran Pct Auto 0.4 % (0.0-0.4); Lymphocytes Absolute Auto 1.6 X10*3/uL (1.2-4.9); Mean Corpuscular HGB Conc 34.6 g/dl (31.0-36.0); Mean Corpuscular Hemoglobin 31.6 pg (27.0-33.0); Mean Corpuscular Volume 91.4 fL (80.0-98.0); NRBC Abs Auto 0.000 X10*3/uL (0.0-0.012); NRBC Pct Auto 0.0 /100WBC (0.0-0.2); Platelet Count 256 X10*3/uL (160-400); Red Blood Count 4.43 X10*6/uL (4.60-5.80); White Blood Count 12.1 X10*3/uL (4.8-10.8)
[2024-11-17 10:17] LABS: Appearance Urine Clear; Glucose Urine UA >=1000 mg/dL (Negative); PH 5.5 (5.0-9.0); Specific Gravity - Urine >= 1.030 (1.005-1.025); UMIC TRIGGER UACC YES
[2024-11-17 10:27] LABS: Anion Gap 10 (12-20); Blood Urea Nitrogen 26 mg/dL (9-16); Calcium 9.4 mg/dL (8.4-10.2); Carbon Dioxide 26 mmol/L (22-29); Chloride 104 mmol/L (96-108); Creatinine Clr Calc Pharmacy 77.8; Estimated Glomerular Filt Rate > 60; Potassium 4.1 mmol/L (3.3-5.1); Sodium 136 mmol/L (135-145)
[2024-11-17] MEDS: metroNIDAZOLE/NS 500 MG/100 ML PIGGYBACK 100 MG IV ×2 (12:32→17:22)
--- NOTE | 2024-11-17 12:38 | PC.NURSE ---
20g IV access obtained in R-AC, labs obtained, pt medicated per APR, all questions answered with ladle repairman, juanita Hicks within reach
[2024-11-17 14:28] VITALS: BP 132/67; PULSE 77; RESP 16; O2SAT 98
[2024-11-17 14:31] LABS: Reflex Lactate? Lactic Acid Added
--- NOTE | 2024-11-17 14:31 | HO.NURTONUR ---
PER MD: patient is a 69-year-old male who presents with a 2-3 day history of pain in his right testicle. He says there has been no trauma or other inciting incident. He simply as a felt that he has developed swelling and pain in the region of his right testicle. He denies fever, sweats, chills. He denies any urinary discomfort. He says he is not sexually active and has not been sexually active for a long time. No abdominal pain. No nausea or vomiting. No change in his bowel habits. The pain is worse when he moves. Per RN: Albanian speaking only Alert and oriented,ambulatory independent Admitting dx: epididymo-orchitis RX: ABX and fluids, vanco and rocephin Pain: with movement, minimal at rest Relevant Labs: Lactic 2.7, C-reactive 9.84. WBC 12.1 IV: 20G in right AC Meds done at this time.
[2024-11-17 15:08] VITALS: BP 155/75; PULSE 78; RESP 18; TEMP 36.4; O2SAT 97
[2024-11-17 15:41] LABS: ~Lactic Acid-LAB USE ONLY 1.8 mmol/L (0.5-2.0)
[2024-11-17] MEDS: 0.9 % Sodium Chloride Flush 3 ML SYRINGE IVFLUSH (15:59)
--- NOTE | 2024-11-17 16:13 | PM.IMHP ---
History of Present Illness Date of Service: 11/17/24 Attending physician on admission: Spring Persaud Chief Complaint: swelling and pain in the region of his right testicle. 69y/o M with Pmhx diabetes type 2 with hyperglycemia,? testicular pain, morbid obesity, hypertension, BPH: who presents with a 2-3 day history of pain in his right testicle. He says there has been no trauma or other inciting incident. He simply as a felt that he has developed swelling and pain in the region of his right testicle: Patient says that he was having some foamy urine and some frequency from at least 5 days-subsequently he started having pain in the testicle and swelling. He says his quite painful in the testicular area, has mild swelling also. He says he is not sexually active and has not been sexually active for a long time. Denies any dysuria but complains of frequency and foamy urine from few days as above. No fever. No abdominal pain or nausea vomiting. In addition patient says that he he was also treated for UTI 4-5 months ago. Lab imaging reviewed: WBC count 12.1, no fever or tachycardia, lactic acid is 2.7-repeated 1.8 BUN 26, creatinine 0.92, glucose 243 UA is negative for pyuria and bacteriuria, but has significant glucosuria. Testicular ultrasound: 1. Complex right hydrocele, possible pyocele or hematocele 2. No evidence of torsion. Blood culture pending Patient was given ceftriaxone and Flagyl in the ED -after discussion with Urology -requested admission for possible testicle infection . Review of Systems Review of Systems: As above. Yes all other systems are reviewed and are negative [facility] Medical History Sciatica Testicular pain Type 2 diabetes mellitus with hyperglycemia, without long-term current use of insulin Other obesity due to excess calories BMI 38.0-38.9,adult Family History Father History of cancer Mother Hx of diabetes insipidus Surgical History Meningioma Hx of endoscopy History of colonoscopy Social History Household Members: Spouse Housing: Apartment Do you presently have visiting nurse or other home services: No Alcohol intake: never Patient Tobacco Use Status: Never used Tobacco Smoked in Last 30 Days: No e-Cigarette/Vaping Use: Never Used Second Hand Smoke Exposure: No Use of substances other than those prescribed or required for medical reasons: No Have you been hit, kicked, punched, or otherwise hurt by someone within the past year? 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 Healthcare Practices: mormonism Advance Directives: No Advance Directives Information Provided: No Do you have a plan to hurt others: No Plan Recently lost weight without trying: No Nutrition Risks: No Nutritional Risk service: No Current occupational status: employed Current occupational exposures/hazards: No Cognitive needs: No Hearing needs: No Vision needs: No Meds Allergies Allergy/AdvReac Type Severity Reaction Status Date / Time pioglitazone AdvReac Mild diarrhea,po Verified 11/17/24 09:31 lyuria canagliflozin (Invokana) AdvReac Unknown dizziness Verified 11/17/24 09:31 Active Medications: Current Medications Acetaminophen (Acetaminophen 325 Mg Tablet) 650 mg PO Q6H PRN PRN Reason: Pain, Mild 1-3,fever,headache Last Admin: 11/17/24 15:58 Dose: 650 mg Calcium Carbonate (Calcium Carbonate 750 Mg Tab.Chew) 750 mg PO Q4H PRN PRN Reason: Heartburn Ceftriaxone Sodium (Ceftriaxone Sodium 1 Gm Vial) 1 gm IVPUSH Q24H [facility] Dextrose (Dextrose 50 % 25 Gm/50 Ml Syringe) 25 gm IVPUSH Q15M PRN; Protocol PRN Reason: per Hypoglycemia Standing Ord. Glucose (Glucose Gel 15 Gm Gel..Gram.) 15 gm PO Q15M PRN; Protocol PRN Reason: per Hypoglycemia Standing Ord. Heparin Sodium (Porcine) (Heparin Sodium,Porcine 5,000 Unit/Ml Vial) 5,000 unit SUBCUT Q12H [facility] Last Admin: 11/17/24 13:29 Dose: Not Given Metronidazole (Flagyl) 500 mg in 100 mls @ 100 mls/hr IV Q6H [facility] Insulin Human Lispro (Insulin Lispro 100 Unit/Ml 3 Ml Vial) 0 unit SUBCUT QIDACHS COUNTS INCLUDE 234 BEDS AT THE [facility]; Protocol Magnesium Hydroxide (Milk Of Magnesia 30 Ml Oral.Susp) 30 ml PO DAILY PRN PRN Reason: Constipation Melatonin (Melatonin 3 Mg Tablet) 6 mg PO BEDTIME PRN PRN Reason: Insomnia Sodium Chloride (0.9 % Sodium Chloride Flush 3 Ml Syringe) 3 ml IVFLUSH QSHIFT COUNTS INCLUDE 234 BEDS AT THE [facility] Last Admin: 11/17/24 15:59 Dose: 3 ml Home Medications ?Medication ?Instructions ?Recorded ?Confirmed ?Last Taken ?Type amlodipine 2.5 mg tablet 2.5 mg PO DAILY@1200 11/17/24 11/17/24 11/16/24 History dulaglutide 4.5 mg/0.5 mL 4.5 mg subcut WE@0900 11/17/24 11/17/24 11/14/24 History subcutaneous pen injector (Trulicity) losartan 100 mg tablet 100 mg PO DAILY@1200 11/17/24 11/17/24 11/16/24 History Physical Exam Vital Signs and Narrative: Vital Signs: Last Vital Signs Temp 97.6 F 11/17/24 15:08 Pulse 78 11/17/24 15:08 Resp 18 11/17/24 15:08 BP 155/75 H 11/17/24 15:08 Pulse Ox 97 11/17/24 15:08 O2 Del Method Room Air 11/17/24 15:08 BMI result Body Mass Index 35.1 Appearance: Alert.? Oriented X3. cvs: rrr, [id number]. res: clear to auscultation ,no rhonchii or wheezing abd: no rebound or guarding ,nt, bs present. : mostly right sided testicular swelling/pain/erythema, no fluctuation or discharge ext pulses present , no cyanosis . neuro: axo3 , nonfocal. Results Labs 11/17/24 10:04 11/17/24 10:04 Labs: Laboratory Results - last 24 hr 11/17/24 11/17/24 11/17/24 10:04 12:22 15:14 MCV 91.4 MCH 31.6 MCHC 34.6 RDW 13.5 Plt Count 256 MPV 9.7 Immature Gran % (Auto) 0.4 Neut % (Auto) 73.9 H Lymph % (Auto) 13.5 L [place] % (Auto) 11.8 H Eos % (Auto) 0.2 Baso % (Auto) 0.2 Lymph # (Auto) 1.6 [place] # (Auto) 1.4 H Eos # (Auto) 0.0 Baso # (Auto) 0.0 Abs Immat Gran (auto) 0.05 H Absolute Neuts (auto) 8.9 H Absolute Nucleated RBC 0.000 Nucleated RBC % (auto) 0.0 Hold Purple Top SEE NOTE Anion Gap 10 L Estim Creat Clear Calc 77.8 Estimated GFR > 60 Random Glucose 243 H Lactic Acid 2.7 H* Lactic Acid F/U @ 2Hr 1.8 Calcium 9.4 C-Reactive Protein 9.84 H Urine Color Yellow Urine Appearance Clear Urine pH 5.5 Ur Specific [place] >= 1.030 H Urine Protein Negative Urine Glucose (UA) >=1000 H Urine Ketones 15 Urine Blood Negative Urine Nitrite Negative Ur Leukocyte Esterase Negative Urine RBC 0-2 Urine WBC 0-5 Ur Squamous Epith Cells 0-2 Urine Bacteria None Seen Hyaline Casts 0-2 Assessment and Plan (1) Pyocele: Status: Acute Plan 69y/o M with Pmhx diabetes type 2 with hyperglycemia,? testicular pain, morbid obesity, hypertension, BPH came with right testicular pain /swelling Right testeicular pain/swlling -possible right testicular orchitis/epididymitis-possible pyocele/ epididymo-orchitis with pyocele given the slightly asymmetric color on us -in setting of BPH/also has history of diabetes.: Acute lactic acidosis-likely secondary to metformin/hyperglycemia Not septic at present-no tachycardia or tachypnea or fever . Has leukocytosis 12.1 UA negative Blood culture pending Plan: We will continue IV antibiotics, elevate testicles, blood culture pending Urology evaluation id eval. Diabetes: Fingerstick with sliding scale coverage Hypertension : continue home medications. BPH: Continue home medication. Morbid obesity: Encouraged to lose weight and cutdown calories. Ongoing need of stay-patient with benefit from at least observation admission-need IV antibiotics and close monitoring considering pididymo-orchitis with pyocele given the slightly asymmetric color on us -in setting of BPH/also has history of diabetes-concern of failure with outpatient antibiotics, need urology and ID input. Above management discussed with the patient and family at bedside in detail length they all understand and in agreement with the above plan, time spent 70 min, all questions answered. Patient is full code. Quality Stroke Does the patient have a stroke diagnosis?: No VTE Prior VTE?: No VTE Risk Level:: Medical - moderate - high VTE Device Contraindication: N/A - Device Ordered VTE Drug Contraindication: N/A - Med Ordered
--- NOTE | 2024-11-17 16:30 | PHA.MEDREC ---
Pharmacy Consult ? Medication Reconciliation Pharmacy has completed the medication reconciliation. Med rec complete utilizing transfer coordinator services. Patient was mostly able to name his medications and doses. Needed some prompting with names of a few but knew what they were for and when reminded of the names he was able to confirm them. Spouse present at bedside also able to confirm medications, doses, and times.
[2024-11-17 16:51] LABS: Glucose, Whole Blood 224 mg/dL (60-115)
[2024-11-17 19:10] VITALS: BP 117/60; PULSE 68; RESP 18; TEMP 36.2; O2SAT 96
[2024-11-17 20:22] LABS: Glucose, Whole Blood 135 mg/dL (60-115)
[2024-11-18 04:00] VITALS: BP 127/64; PULSE 73; RESP 16; TEMP 36.8; O2SAT 96
[2024-11-18] MEDS: metroNIDAZOLE/NS 500 MG/100 ML PIGGYBACK 100 MG IV ×5 (05:51→23:28)
[2024-11-18 06:37] LABS: MANUAL DIFF FLAG NO
[2024-11-18 06:46] LABS: Hematocrit 38.8 % (42.0-52.0); Hemoglobin 13.0 g/dl (14.0-18.0); Imm Gran Abs Auto 0.04 X10*3/uL (0.00-0.03); Imm Gran Pct Auto 0.5 % (0.0-0.4); Lymphocytes Absolute Auto 2.0 X10*3/uL (1.2-4.9); Mean Corpuscular HGB Conc 33.5 g/dl (31.0-36.0); Mean Corpuscular Hemoglobin 31.7 pg (27.0-33.0); Mean Corpuscular Volume 94.6 fL (80.0-98.0); NRBC Abs Auto 0.000 X10*3/uL (0.0-0.012); NRBC Pct Auto 0.0 /100WBC (0.0-0.2); Platelet Count 235 X10*3/uL (160-400); Red Blood Count 4.10 X10*6/uL (4.60-5.80); White Blood Count 8.8 X10*3/uL (4.8-10.8)
[2024-11-18 07:01] LABS: Anion Gap 10 (12-20); Blood Urea Nitrogen 25 mg/dL (9-16); Calcium 8.7 mg/dL (8.4-10.2); Carbon Dioxide 25 mmol/L (22-29); Chloride 106 mmol/L (96-108); Creatinine Clr Calc Pharmacy 87.3; Estimated Glomerular Filt Rate > 60; Potassium 4.0 mmol/L (3.3-5.1); Sodium 137 mmol/L (135-145)
[2024-11-18 07:43] LABS: Glucose, Whole Blood 100 mg/dL (60-115)
[2024-11-18] MEDS: 0.9 % Sodium Chloride Flush 3 ML SYRINGE IVFLUSH ×3 (07:45→20:46)
[2024-11-18 07:46] VITALS: BP 128/75; PULSE 73; RESP 16; TEMP 36.4; O2SAT 96
--- NOTE | 2024-11-18 07:57 | P.PNIM_ITS ---
Subjective Subjective Date of Service: 11/18/24 Interval History: possible right testicular orchitis/epididymitis Review of Systems testicular pain/swelling pain similar no fever Review of Systems: Yes all other systems are reviewed and are negative Physical Exam 2 Exam: Exam: Appearance: Alert.? Oriented X3. cvs: rrr, [id number]. res: clear to auscultation ,no rhonchii or wheezing abd: no rebound or guarding ,nt, bs present. : mostly right sided testicular swelling/pain/erythema, no fluctuation or discharge ext pulses present , no cyanosis . neuro: axo3 , nonfocal. Vital Signs: Vital Signs: Last Vital Signs Temp 97.6 F 11/18/24 07:46 Pulse 73 11/18/24 07:46 Resp 16 11/18/24 07:46 BP 128/75 11/18/24 07:46 Pulse Ox 96 11/18/24 07:46 O2 Del Method Room Air 11/18/24 07:46 BMI result Body Mass Index 35.1 Objective Data Active Medications Acetaminophen (Acetaminophen 325 Mg Tablet) 650 mg PO Q6H PRN PRN Reason: Pain, Mild 1-3,fever,headache Last Admin: 11/17/24 15:58 Dose: 650 mg Documented By: CARLA Amlodipine Besylate (Amlodipine Besylate 2.5 Mg Tablet) 2.5 mg PO DAILY@1200 [facility]; Protocol Atorvastatin Calcium (Atorvastatin Calcium 20 Mg Tablet) 20 mg PO BEDTIME [facility] Last Admin: 11/17/24 20:31 Dose: 20 mg Documented By: FRANCK Calcium Carbonate (Calcium Carbonate 750 Mg Tab.Chew) 750 mg PO Q4H PRN PRN Reason: Heartburn Ceftriaxone Sodium (Ceftriaxone Sodium 1 Gm Vial) 1 gm IVPUSH Q24H [facility] Dextrose (Dextrose 50 % 25 Gm/50 Ml Syringe) 25 gm IVPUSH Q15M PRN; Protocol PRN Reason: per Hypoglycemia Standing Ord. Glucose (Glucose Gel 15 Gm Gel..Gram.) 15 gm PO Q15M PRN; Protocol PRN Reason: per Hypoglycemia Standing Ord. Heparin Sodium (Porcine) (Heparin Sodium,Porcine 5,000 Unit/Ml Vial) 5,000 unit SUBCUT Q12H [facility] Last Admin: 11/18/24 01:41 Dose: 5,000 unit Documented By: FRANCK Metronidazole (Flagyl) 500 mg in 100 mls @ 100 mls/hr IV Q6H [facility] Last Infusion: 11/18/24 07:07 Dose: Infused Documented By: CARLA Insulin Human Lispro (Insulin Lispro 100 Unit/Ml 3 Ml Vial) 0 unit SUBCUT QIDACHS [facility]; Protocol Last Admin: 11/18/24 07:46 Dose: Not Given Documented By: CARLA Non-Admin Reason: No Insulin Coverage Losartan Potassium (Losartan Potassium 50 Mg Tablet) 100 mg PO DAILY@1200 [facility]; Protocol Magnesium Hydroxide (Milk Of Magnesia 30 Ml Oral.Susp) 30 ml PO DAILY PRN PRN Reason: Constipation Melatonin (Melatonin 3 Mg Tablet) 6 mg PO BEDTIME PRN PRN Reason: Insomnia Non-Formulary Medication (Dulaglutide [Trulicity]) 4.5 mg SUBCUT WE@0900 [facility] Sodium Chloride (0.9 % Sodium Chloride Flush 3 Ml Syringe) 3 ml IVFLUSH QSHIFT [facility] Last Admin: 11/18/24 07:45 Dose: 3 ml Documented By: CARLA Vitamin D (Cholecalciferol (Vitamin D3) 25 Mcg Tablet) 25 mcg PO DAILY [facility] Last Admin: 11/18/24 07:45 Dose: 25 mcg Documented By: CARLA Labs 11/18/24 05:58 11/18/24 05:58 Labs: Laboratory Results - last 24 hr 11/17/24 11/17/24 11/17/24 10:04 12:22 15:14 MCV 91.4 MCH 31.6 MCHC 34.6 RDW 13.5 Plt Count 256 MPV 9.7 Immature Gran % (Auto) 0.4 Neut % (Auto) 73.9 H Lymph % (Auto) 13.5 L [place] % (Auto) 11.8 H Eos % (Auto) 0.2 Baso % (Auto) 0.2 Lymph # (Auto) 1.6 [place] # (Auto) 1.4 H Eos # (Auto) 0.0 Baso # (Auto) 0.0 Abs Immat Gran (auto) 0.05 H Absolute Neuts (auto) 8.9 H Absolute Nucleated RBC 0.000 Nucleated RBC % (auto) 0.0 Hold Purple Top SEE NOTE Anion Gap 10 L Estim Creat Clear Calc 77.8 Estimated GFR > 60 POC Glucose Random Glucose 243 H Lactic Acid 2.7 H* Lactic Acid F/U @ 2Hr 1.8 Calcium 9.4 C-Reactive Protein 9.84 H Urine Color Yellow Urine Appearance Clear Urine pH 5.5 Ur Specific [place] >= 1.030 H Urine Protein Negative Urine Glucose (UA) >=1000 H Urine Ketones 15 Urine Blood Negative Urine Nitrite Negative Ur Leukocyte Esterase Negative Urine RBC 0-2 Urine WBC 0-5 Ur Squamous Epith Cells 0-2 Urine Bacteria None Seen Hyaline Casts 0-2 11/17/24 11/17/24 11/18/24 16:45 20:16 05:58 MCV 94.6 MCH 31.7 MCHC 33.5 RDW 13.4 Plt Count 235 MPV 10.3 Immature Gran % (Auto) 0.5 H Neut % (Auto) 63.2 Lymph % (Auto) 23.0 [place] % (Auto) 11.6 H Eos % (Auto) 1.4 Baso % (Auto) 0.3 Lymph # (Auto) 2.0 [place] # (Auto) 1.0 Eos # (Auto) 0.1 Baso # (Auto) 0.0 Abs Immat Gran (auto) 0.04 H Absolute Neuts (auto) 5.6 Absolute Nucleated RBC 0.000 Nucleated RBC % (auto) 0.0 Hold Purple Top Anion Gap 10 L Estim Creat Clear Calc 87.3 Estimated GFR > 60 POC Glucose 224 H 135 H Random Glucose 101 Lactic Acid Lactic Acid F/U @ 2Hr Calcium 8.7 D C-Reactive Protein Urine Color Urine Appearance Urine pH Ur Specific [place] Urine Protein Urine Glucose (UA) Urine Ketones Urine Blood Urine Nitrite Ur Leukocyte Esterase Urine RBC Urine WBC Ur Squamous Epith Cells Urine Bacteria Hyaline Casts 11/18/24 07:40 MCV MCH MCHC RDW Plt Count MPV Immature Gran % (Auto) Neut % (Auto) Lymph % (Auto) [place] % (Auto) Eos % (Auto) Baso % (Auto) Lymph # (Auto) [place] # (Auto) Eos # (Auto) Baso # (Auto) Abs Immat Gran (auto) Absolute Neuts (auto) Absolute Nucleated RBC Nucleated RBC % (auto) Hold Purple Top Anion Gap Estim Creat Clear Calc Estimated GFR POC Glucose 100 Random Glucose Lactic Acid Lactic Acid F/U @ 2Hr Calcium C-Reactive Protein Urine Color Urine Appearance Urine pH Ur Specific [place] Urine Protein Urine Glucose (UA) Urine Ketones Urine Blood Urine Nitrite Ur Leukocyte Esterase Urine RBC Urine WBC Ur Squamous Epith Cells Urine Bacteria Hyaline Casts Assessment and Plan (1) Pyocele: Status: Acute Assessment and Plan: 69y/o M with Pmhx diabetes type 2 with hyperglycemia,? testicular pain, morbid obesity, hypertension, BPH came with right testicular pain /swelling Right testeicular pain/swlling -possible right testicular orchitis/epididymitis- possible pyocele/ epididymo-orchitis with pyocele given the slightly asymmetric color on us -in setting of BPH/also has history of diabetes.: Acute lactic acidosis-likely secondary to metformin/hyperglycemia Not septic at present-no tachycardia or tachypnea or fever . Has leukocytosis 12.1 UA negative Blood culture pending Plan: We will continue IV antibiotics, elevate testicles, blood culture pending Urology evaluation noted -continue iv antibiotics for 24 hrs id eval. Diabetes: Fingerstick with sliding scale coverage Hypertension : continue home medications. BPH: Continue home medication. Morbid obesity: Encouraged to lose weight and cutdown calories. Ongoing need of stay--need IV antibiotics and close monitoring considering pididymo-orchitis with pyocele given the slightly asymmetric color on us -in setting of BPH/also has history of diabetes-concern of failure with outpatient antibiotics, ID input. Quality Stroke Does the patient have a stroke diagnosis?: No VTE Prior VTE?: No VTE Risk Level:: Medical - moderate - high VTE Device Contraindication: N/A - Device Ordered VTE Drug Contraindication: N/A - Med Ordered
--- NOTE | 2024-11-18 10:15 | P.CNUR_ITS ---
History of Present Illness Consult details Consult date: 11/18/24 Narrative: 69 year old male with Pmhx diabetes type 2 with hyperglycemia,? testicular pain, morbid obesity, hypertension, BPH: who presents with a 2-3 day history of pain in his right testicle. He says there has been no trauma or other inciting incident. Patient says that he was having some foamy urine and some frequency from at least 5 days-subsequently he started having pain in the testicle and swelling. Denies any dysuria g. He says his quite painful in the testicular area, has mild swelling also. He says he is not sexually active and has not been sexually active for a long time. No fever. No abdominal pain or nausea vomiting. Patient says that he he was also treated for UTI 4-5 months ago. Review of Systems 2 Review of Systems: Yes all other systems are reviewed and are negative Constitutional: Constitutional: Reports no additional constitutional complaints Eyes: Eyes: Reports no additional eye complaints ENT: Reports system reviewed and no additional complaints, except as documented Cardiovascular: Cardiovascular: Reports no additional cardiovascular complaints Respiratory: Respiratory: Reports no additional respiratory complaints Gastrointestinal: Gastrointestinal: Reports no additional gastrointestinal complaints Genitourinary: Genitourinary: Reports as per HPI Musculoskeletal: Musculoskeletal: Reports no additional musculoskeletal complaints Integumentary/Breasts: Skin/Breast: Reports system reviewed and no additional complaints, except as docu Neurologic: Reports system reviewed and no additional complaints, except as documented Psychiatric: Psychiatric: Reports no additional psychiatric complaints Endocrine: Endocrine: Reports no additional endocrine complaints Hematologic/Lymphatic: Hematologic/Lymphatic: Reports no additional hematologic/lymphatic complaints Allergic/Immunologic: Allergic/Immunologic: Reports no additional allergic/immunologic complaints [facility] Past Medical History Medical History Sciatica Testicular pain Type 2 diabetes mellitus with hyperglycemia, without long-term current use of insulin Other obesity due to excess calories BMI 38.0-38.9,adult Family History Family History Father History of cancer Mother Hx of diabetes insipidus Surgical History Surgical History Meningioma Hx of endoscopy History of colonoscopy Social History Social History Household Members: Spouse Housing: Apartment Do you presently have visiting nurse or other home services: No Alcohol intake: never Patient Tobacco Use Status: Never used Tobacco Smoked in Last 30 Days: No e-Cigarette/Vaping Use: Never Used Second Hand Smoke Exposure: No Use of substances other than those prescribed or required for medical reasons: No Currently Displaying Signs/Symptoms of Drug Intoxication Withdrawal: No Have you been hit, kicked, punched, or otherwise hurt by someone within the past year? 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 Healthcare Practices: nondenominational Advance Directives: No Advance Directives Information Provided: No Do you have a plan to hurt others: No Plan Recently lost weight without trying: No Nutrition Risks: No Nutritional Risk service: No Current occupational status: employed Current occupational exposures/hazards: No Cognitive needs: No Hearing needs: No Vision needs: No Meds Allergies Allergy/AdvReac Type Severity Reaction Status Date / Time pioglitazone AdvReac Mild diarrhea,po Verified 11/17/24 09:31 lyuria canagliflozin (Invokana) AdvReac Unknown dizziness Verified 11/17/24 09:31 Active Medications: Current Medications Acetaminophen (Acetaminophen 325 Mg Tablet) 650 mg PO Q6H PRN PRN Reason: Pain, Mild 1-3,fever,headache Last Admin: 11/17/24 15:58 Dose: 650 mg Amlodipine Besylate (Amlodipine Besylate 2.5 Mg Tablet) 2.5 mg PO DAILY@1200 [facility]; Protocol Atorvastatin Calcium (Atorvastatin Calcium 20 Mg Tablet) 20 mg PO BEDTIME [facility]JI Last Admin: 11/17/24 20:31 Dose: 20 mg Calcium Carbonate (Calcium Carbonate 750 Mg Tab.Chew) 750 mg PO Q4H PRN PRN Reason: Heartburn Ceftriaxone Sodium (Ceftriaxone Sodium 1 Gm Vial) 1 gm IVPUSH Q24H [facility] Dextrose (Dextrose 50 % 25 Gm/50 Ml Syringe) 25 gm IVPUSH Q15M PRN; Protocol PRN Reason: per Hypoglycemia Standing Ord. Glucose (Glucose Gel 15 Gm Gel..Gram.) 15 gm PO Q15M PRN; Protocol PRN Reason: per Hypoglycemia Standing Ord. Heparin Sodium (Porcine) (Heparin Sodium,Porcine 5,000 Unit/Ml Vial) 5,000 unit SUBCUT Q12H [facility] Last Admin: 11/18/24 01:41 Dose: 5,000 unit Metronidazole (Flagyl) 500 mg in 100 mls @ 100 mls/hr IV Q6H [facility] Last Infusion: 11/18/24 07:07 Dose: Infused Insulin Human Lispro (Insulin Lispro 100 Unit/Ml 3 Ml Vial) 0 unit SUBCUT QIDACHS [facility]; Protocol Last Admin: 11/18/24 07:46 Dose: Not Given Losartan Potassium (Losartan Potassium 50 Mg Tablet) 100 mg PO DAILY@1200 [facility]; Protocol Magnesium Hydroxide (Milk Of Magnesia 30 Ml Oral.Susp) 30 ml PO DAILY PRN PRN Reason: Constipation Melatonin (Melatonin 3 Mg Tablet) 6 mg PO BEDTIME PRN PRN Reason: Insomnia Non-Formulary Medication (Dulaglutide [Trulicity]) 4.5 mg SUBCUT WE@0900 [facility] Sodium Chloride (0.9 % Sodium Chloride Flush 3 Ml Syringe) 3 ml IVFLUSH QSHIFT [facility] Last Admin: 11/18/24 07:45 Dose: 3 ml Vitamin D (Cholecalciferol (Vitamin D3) 25 Mcg Tablet) 25 mcg PO DAILY [facility] Last Admin: 11/18/24 07:45 Dose: 25 mcg Home Medications ?Medication ?Instructions ?Recorded ?Confirmed ?Last Taken ?Type amlodipine 2.5 mg tablet 2.5 mg PO DAILY@1200 5 11/17/24 11/16/24 History dulaglutide 4.5 mg/0.5 mL 4.5 mg subcut WE@0900 11/17/24 11/14/24 History subcutaneous pen injector (Trulicity) losartan 100 mg tablet 100 mg PO DAILY@1200 5 11/17/24 11/16/24 History Physical Exam 2 Vital Signs: Vital Signs: Last Vital Signs Temp 97.6 F 11/18/24 07:46 Pulse 73 11/18/24 07:46 Resp 16 11/18/24 07:46 BP 128/75 11/18/24 07:46 Pulse Ox 96 11/18/24 07:46 O2 Del Method Room Air 11/18/24 07:46 BMI result Body Mass Index 35.1 Const: General: healthy appearing, no acute distress and well developed O rientation/consciousness: patient oriented x3 HEENT: Head: Yes normocephalic and Yes atraumatic Eyes: Conjunctivae: conjunctivae normal Neck: Neck: Yes normal visual inspection Chest: Chest palpation & inspection: normal inspection of the chest Resp: Effort & Inspection: normal respiratory effort GI: Inspection: Yes normal to inspection Palpation (GI): Soft to palpation : Other: Right testis mildly tender to palpation, minimal cellulitis Neuro: General: patient oriented x3 Psych: Appearance: grossly normal Affect: normal affect Results Labs 11/18/24 05:58 11/18/24 05:58 Labs: Abnormal lab results 11/17/24 11/17/24 11/17/24 Range/Units 10:04 12:22 16:45 RBC (4.60-5.80) X10*6/uL Hgb (14.0-18.0) g/dl Hct (42.0-52.0) % Immature Gran % (Auto) (0.0-0.4) % Island % (Auto) (2-11) % Abs Immat Gran (auto) (0.00-0.03) X10*3/uL Anion Gap 10 L (12-20) BUN 26 H (9-16) mg/dL POC Glucose 224 H (60-115) mg/dL Random Glucose 243 H (60-115) mg/dL Lactic Acid 2.7 H* (0.5-2.0) mmol/L C-Reactive Protein 9.84 H (< or = 0.50) mg/dL Ur Specific [place] >= 1.030 H (1.005-1.025) Urine Glucose (UA) >=1000 H (Negative) mg/dL 11/17/24 11/18/24 Range/Units 20:16 05:58 RBC 4.10 L (4.60-5.80) X10*6/uL Hgb 13.0 L (14.0-18.0) g/dl Hct 38.8 L (42.0-52.0) % Immature Gran % (Auto) 0.5 H (0.0-0.4) % Island % (Auto) 11.6 H (2-11) % Abs Immat Gran (auto) 0.04 H (0.00-0.03) X10*3/uL Anion Gap 10 L (12-20) BUN 25 H (9-16) mg/dL POC Glucose 135 H (60-115) mg/dL Random Glucose (60-115) mg/dL Lactic Acid (0.5-2.0) mmol/L C-Reactive Protein (< or = 0.50) mg/dL Ur Specific [place] (1.005-1.025) Urine Glucose (UA) (Negative) mg/dL Short CBC 11/18/24 Range/Units 05:58 WBC 8.8 (4.8-10.8) X10*3/uL Hgb 13.0 L (14.0-18.0) g/dl Hct 38.8 L (42.0-52.0) % Plt Count 235 (160-400) X10*3/uL BMP 11/17/24 11/18/24 10:04 05:58 Sodium 136 137 Potassium 4.1 4.0 Chloride 104 106 Carbon Dioxide 26 25 BUN 26 H 25 H Creatinine 0.92 0.82 Calcium 9.4 8.7 D Urine 11/17/24 Range/Units 10:04 Urine Color Yellow Urine Appearance Clear Urine pH 5.5 (5.0-9.0) Ur Specific [place] >= 1.030 H (1.005-1.025) Urine Protein Negative (Neg-Trace) mg/dL Urine Glucose (UA) >=1000 H (Negative) mg/dL All other labs normal. Imaging Additional studies: Date of Service: 11/17/24 Reason for Exam: PAIN, SWELLING ADDENDUM11/17/2024 12:33:40 ADDENDUM: ADDENDUM: Further historical information provided is elevated white count making the current findings more likely related to epididymo-orchitis with pyocele given the slightly asymmetric color Doppler between the testes and epididymi. I spoke with Dr. Ro regarding the findings at 11:34 am on 11/17/2024. ADDENDUMThis document has been electronically signed by: Boom Lima MD on 11/17/2024 12:11:05 ADDENDUM: Receipt of this report by the clinical staff was confirmed with Db Ro MD on Nov 17, 2024 12:32:00 EDT. This document has been electronically signed by: Ashley Longoria on 11/17/2024 12:33:40 11/17/2406/08/1232 CLINICAL HISTORY: PAIN, SWELLING US Scrotum with Doppler Comparison: US - US SCROTUM - 03/11/2020 01:15 PM EST Findings: Right testicle normal echotexture, 3.1 x 2.3 x 1.9 cm. Left testicle normal echotexture, 3.6 x 2.0 x 1.7 cm. Color Doppler and arterial/venous spectral tracings of both testicles within normal limits. Epididymides are unremarkable. No varicoceles. There is a right pyocele or hematocele. IMPRESSION: 1. Complex right hydrocele, possible pyocele or hematocele 2. No evidence of torsion. Assessment and Plan (1) Orchiditis: Status: Acute (2) Cellulitis, scrotum: Status: Acute Plan Right scrutom mildly tender to palpation, minimal cellulitis, Diabetes comorbidity orchitis, no evidence for abscess IV ABx, cultures pending Procedures Date of Service Date of Service: 11/18/24
[2024-11-18 11:08] LABS: Glucose, Whole Blood 196 mg/dL (60-115)
[2024-11-18 12:25] VITALS: BP 120/67
[2024-11-18 15:17] VITALS: BP 135/75; PULSE 56; RESP 17; TEMP 36.6; O2SAT 97
[2024-11-18 16:08] LABS: Glucose, Whole Blood 187 mg/dL (60-115)
--- NOTE | 2024-11-18 16:26 | MHC.CM.PN ---
CM MET WITH PT AND AT BEDSIDE WITH [facility]KE INSPECTOR PT LIVES WITH HIS AND IS INDEPENDENT WITH CARE HE HAS NO DME OR SERVICES HE DOES NOT HAVE A HCP AND WILL CONSIDER COMPLETING ONE PCP: UZAIR ALMAZAN OBSERVATION NOTICE DELIVERED DCP: HOME VIA FAMILY TRANSPORT
[2024-11-18 19:44] LABS: Glucose, Whole Blood 153 mg/dL (60-115)
[2024-11-18 20:00] VITALS: BP 159/74; PULSE 70; RESP 18; TEMP 36.3; O2SAT 98
[2024-11-19 03:17] VITALS: BP 126/65; PULSE 66; RESP 18; TEMP 36.4; O2SAT 98
[2024-11-19] MEDS: metroNIDAZOLE/NS 500 MG/100 ML PIGGYBACK 100 MG IV (05:33)
[2024-11-19] MEDS: oxyCODONE HCl Immed Release 5 MG TABLET PO (06:17)
[2024-11-19 07:19] LABS: Glucose, Whole Blood 119 mg/dL (60-115)
[2024-11-19 07:58] VITALS: BP 127/69; PULSE 65; RESP 18; TEMP 36.2; O2SAT 97
[2024-11-19] MEDS: 0.9 % Sodium Chloride Flush 3 ML SYRINGE IVFLUSH (09:15)
--- NOTE | 2024-11-19 10:29 | PM.DS ---
DS: Providers Provider Date of Service: 11/19/24 Date of admission: 11/17/24 13:22 Date of discharge: 11/19/24 Primary care physician: Ritika Hernández MD Consults: 11/17/24 13:08 Consult to Urology Routine Consulting Provider: [facility] [place] [facility] Reason for consultation: epididiymo-orchitis, pyocele Has provider been notified: No 11/17/24 16:40 Consult to Infectious Diseases Routine Consulting Provider: [facility] [place] [facility] Reason for consultation: epididymo-orchitis with pyocele Attending physician on discharge: Spring Persaud Discharging clinician: Spring Persaud DS: Diagnosis Discharge Diagnosis (1) Pyocele: Status: Acute DS: Summary Hospital Course Hospital Course: HPI:69y/o M with Pmhx diabetes type 2 with hyperglycemia,? testicular pain, morbid obesity, hypertension, BPH: who presents with a 2-3 day history of pain in his right testicle. He says there has been no trauma or other inciting incident. He simply as a felt that he has developed swelling and pain in the region of his right testicle: Patient says that he was having some foamy urine and some frequency from at least 5 days-subsequently he started having pain in the testicle and swelling. He says his quite painful in the testicular area, has mild swelling also. He says he is not sexually active and has not been sexually active for a long time. Denies any dysuria but complains of frequency and foamy urine from few days as above. No fever. No abdominal pain or nausea vomiting. In addition patient says that he he was also treated for UTI 4-5 months ago. Lab imaging reviewed: WBC count 12.1, no fever or tachycardia, lactic acid is 2.7-repeated 1.8 BUN 26, creatinine 0.92, glucose 243 UA is negative for pyuria and bacteriuria, but has significant glucosuria. Testicular ultrasound: 1. Complex right hydrocele, possible pyocele or hematocele 2. No evidence of torsion. Blood culture pending Patient was given ceftriaxone and Flagyl in the ED -after discussion with Urology -requested admission for possible testicle infection . Hospital course: acute orchitis -us showed:Right testeicular pain/swlling -possible right testicular orchitis/epididymitis-possible pyocele/ epididymo-orchitis with pyocele given the slightly asymmetric color on us -in setting of BPH/also has history of diabetes.: Started on IV antibiotics, blood cultures sent. UA negative Acute lactic acidosis-likely secondary to metformin/hyperglycemia which improved with the hydration.Not septic at present-no tachycardia or tachypnea or fever . With the above supportive care-patient seems improved significantly with iv antibiotics : seen by urology -possible orchitis, no abscess, seems improved ,switched to po antiobiotics upon discharge. Complete levofloxacin as above. Scrotal elevation. Follow up with Dr. Vigil's office outpatient. Plan as above: acute orchitis -seems improved significantly with iv antibiotics : seen by urology -seems imrpoved ,switched to po antiobiotics upon discharge. Complete levofloxacin as above. Scrotal elevation. Follow up with Dr. Vigil's office outpatient. Above management discussed with the patient and his in detail length-they both understand and in agreement with the above plan, time spent 45 minute. All questions answered. Time Attestation Total time managing care of this patient today: 45 mintues. Discharge Coordination Time (in mins): 45 min Quality: Safe Use of Opioids Does Pt have an Active Cancer Diagnosis on the Problem List?: No Quality: Stroke Does the patient have a stroke diagnosis?: No Physical Exam Exam: Exam: Appearance: Alert.? Oriented X3. cvs: rrr, [id number]. res: clear to auscultation ,no rhonchii or wheezing abd: no rebound or guarding ,nt, bs present. : mostly right sided testicular swelling, pain, erythema seems to be improved significantly. ext pulses present , no cyanosis . neuro: axo3 , nonfocal. Vital Signs: Vital Signs: Last Vital Signs Temp 97.1 F 11/19/24 07:58 Pulse 65 11/19/24 07:58 Resp 18 11/19/24 07:58 BP 127/69 11/19/24 07:58 Pulse Ox 97 11/19/24 07:58 O2 Del Method Room Air 11/19/24 07:58 BMI result Body Mass Index 35.1 DS: Data Data Completed and Pending Labs on day of discharge: Laboratory Results - last 24 hr 11/18/24 11/18/24 11/18/24 10:59 16:04 19:33 POC Glucose 196 H 187 H 153 H 11/19/24 07:16 POC Glucose 119 H Preliminary micro results at discharge 11/17/24 12:22 Blood Culture - Preliminary Blood - Venous No growth after 24 hours. 11/17/24 12:22 Blood Culture - Preliminary Blood - Venous No growth after 24 hours. Discharge Plan Discharge Anticipated Discharge Date/Time: 11/19/24 10:26 Patient Disposition: Home, Self-Care Discharge Diagnosis: orchitis Referrals: Geoffrey Ziegler MD [Physician, Urology] - 1 Week Ritika Forte MD [Primary Care Provider, Internal Medicine] - 1 Week Discharge Medications: New levofloxacin 500 mg tablet 500 mg PO DAILY Qty: 13 0RF Continued (DME) lancets [TRUEplus Lancets] 33 gauge misc See Rx Instructions .ROUTE .COMPLEX Qty: 100 11RF Dose Instruction: TEST BLOOD SUGAR ONCE DAILY Rx Instructions: TEST BLOOD SUGAR ONCE DAILY (DME) blood-glucose meter [FreeStyle Lite Meter] Kit See Rx Instructions .ROUTE .MEDSUPPLY Qty: 1 0RF Rx Instructions: As directed metformin 1,000 mg tablet 1,000 mg PO BID Qty: 180 3RF cholecalciferol (vitamin D3) 25 mcg (1,000 unit) capsule 25 mcg PO DAILY 90 Days Qty: 90 1RF (DME) FreeStyle Lite Strips Strip See Rx Instructions .ROUTE .MEDSUPPLY Qty: 50 11RF Rx Instructions: As directed twice a day rosuvastatin 5 mg tablet 5 mg PO DAILY 90 Days Qty: 90 1RF Jardiance 25 mg tablet 25 mg PO DAILY 90 Days Qty: 90 1RF amlodipine 2.5 mg tablet 2.5 mg PO DAILY@1200 losartan 100 mg tablet 100 mg PO DAILY@1200 Trulicity 4.5 mg/0.5 mL pen injector 4.5 mg subcut WE@0900 (DME) Blood Pressure Cuff Misc See Rx Instructions .ROUTE .MEDSUPPLY Qty: 1 0RF Rx Instructions: As directed Discharge Orders: Discharge Order (Routine); Ordered 11/19/24 Ordered By: Spring Persaud Diet: Advance to usual diet Activity on Discharge: As tolerated Stand Alone Forms: Patient Portal Discharge page, Work/School Release Print Language: Georgian Care Plan Goals: acute orchitis -seems improved significantly with iv antibiotics : seen by urology -seems imrpoved ,switched to po antiobiotics upon discharge. Complete levofloxacin as above. Scrotal elevation. Follow up with Dr. Vigil's office outpatient. Health Concerns: complete po antibiotics . Plan of Treatment: as above. Assessment: as above. Patient Instructions: Orchitis (GEN) Discharge Date/Time: 11/19/24 11:51
--- NOTE | 2024-11-19 10:35 | MHC.CM.PN ---
pt dcd home self care
[2024-11-19 11:23] LABS: Glucose, Whole Blood 164 mg/dL (60-115)
[2024-11-19 11:35] VITALS: BP 135/77; PULSE 68; RESP 18; TEMP 36.3; O2SAT 97
[2024-11-19 11:40] VITALS: BP 135/77
[2024-11-19 11:41] VITALS: BP 135/77
== END 2024-11-19 11:51 | disposition home or self-care (01) ==
LOC: HO.ED 13:10 → HO.EDOVER 13:23 → HO.S3 14:27
PROVIDERS: Admitting Provider Physician Assistant Medical; Emergency Provider Emergency Medicine; PCP Internal Medicine; Visit Provider Internal Medicine
DX: N45.2 Orchitis (principal); N50.811 Right testicular pain; N40.0 Benign prostatic hyperplasia without lower urinary tract symptoms; E87.20 Acidosis, unspecified; E11.9 Type 2 diabetes mellitus without complications; I10 Essential (primary) hypertension; Z79.899 Other long term (current) drug therapy
CPT/HCPCS: 36415; 76870; 80048; 81001; 82947; 83605; 85025; 86140; 87040; 93975; 96361; 96365; 96366; 96375; 96376; 99221; 99285; J0696; J1644; J1836

== ENCOUNTER → 2024-11-17 10:13 | Outpatient (BNV) | payer MEDICARE, SELFPAY | PROVIDERS: Emergency Provider Emergency Medicine; PCP Internal Medicine; Visit Provider Specialist | DX: N43.3 Hydrocele, unspecified (principal) | CPT/HCPCS: 76870 ==

== ENCOUNTER → 2024-11-17 13:22 | Outpatient (BNV) | payer MEDICARE, SELFPAY | PROVIDERS: Admitting Provider Physician Assistant Medical; Emergency Provider Emergency Medicine; PCP Internal Medicine; Visit Provider Internal Medicine | DX: N43.1 Infected hydrocele (principal) | CPT/HCPCS: 99222; 99231; 99239 ==

== ENCOUNTER → 2024-11-17 13:22 | Outpatient (BNV) | payer MEDICARE, SELFPAY | PROVIDERS: Admitting Provider Physician Assistant Medical; Emergency Provider Emergency Medicine; PCP Internal Medicine; Visit Provider Urology | DX: N45.2 Orchitis (principal); N49.2 Inflammatory disorders of scrotum | CPT/HCPCS: 99222 ==

== ENCOUNTER 2024-11-23 08:14 | Outpatient (AMB) | payer MEDICARE, SELFPAY ==
--- NOTE | 2024-11-23 08:18 | A.OFFPC_ITS ---
Vital Signs 11/23/24 08:20 Height 5 ft 4 in Weight 205 lb 4 oz BMI 35.2 BP 120/66 Blood Pressure Location Lt brachial Position Sitting Pulse 72 Pulse Source Pulse Oximeter Temp 97.1 F Temp Source Temporal Artery Scan Pulse Oximetry (%) 99 Oxygen Delivery Method Room Air Intake Visit Reasons: post discharge for Cellulitis scrotum Intake Note: Patient is here for hospital discharge follow up. [place] [facility] [place]. Veterinary Bacteriologist Required: Yes Veterinary Bacteriologist Language: Product Support Representative Name: Thor ([id number]) Information Interpreted: non-clinical & clinical Shipping Support Clerk: Present Accompanied by: Spouse Allergies pioglitazone Adverse Reaction (Mild, Verified 11/23/24 08:19) diarrhea,polyuria canagliflozin (Invokana) Adverse Reaction (Unknown, Verified 11/23/24 08:19) dizziness Tobacco use date assessed: 11/23/24 Fall risk assessment: No Falls in past year Last assessed Fall Risk: 11/23/24 Dental Screening Dental Screen Date: 09/24/24 HPI TCM TCM Information Date of Discharge 11/19/24 Discharged From [facility] Interactive Contact Date (Reference documentation from this date) 11/20/24 HPI Comments History of Present Illness Details 69 y/o Male patient who presents to the clinic today for HDF TCM. He was [place] [facility] [place] for an evaluation and treatment of Right epididymo-orchitis with pyocele. U/S in the Hospital showed: Right testicular pain/swelling -possible right testicular orchitis/epididymitis-possible pyocele/ epididymo-orchitis with pyocele. He was discharged home on PO Levofloxacin 500 mg. Today Patient c/o Pain still on right Testicle. He is still taking PO Abx Levo and has appointment with Urology on 12/17/2024. Pt asking for work Note with restrictions - reports that lifting Heavy objects cause severe pain. [facility] Medical History (Updated 11/23/24 @ 08:28 by Jeanette Hankins NP) Epididymo-orchitis Sciatica Testicular pain Type 2 diabetes mellitus with hyperglycemia, without long-term current use of insulin Other obesity due to excess calories BMI 38.0-38.9,adult Surgical History Meningioma Hx of endoscopy History of colonoscopy Family History Father History of cancer Mother Hx of diabetes insipidus Social History Household Members: Spouse Housing: Apartment Do you presently have visiting nurse or other home services: No Alcohol intake: never Patient Tobacco Use Status: Never used Tobacco e-Cigarette/Vaping Use: Never Used Second Hand Smoke Exposure: No service: No Current occupational status: employed Current occupational exposures/hazards: No Cognitive needs: No Hearing needs: No Vision needs: No Questionnaire Thrive Questionnaire Date Thrive assessed: 09/24/24 I am a: Patient What is your living situation today?: I have a steady place to live Within the past 12 months, did the food you bought not last and you didn't have the money to get more?: Never true Within the past 12 months, did you worry whether your food would run out before you got money to buy more?: Never true Do you have trouble paying for medicines?: No Do you have trouble getting transportation to medical appointments?: No Do you have trouble paying your heating and electricity bill?: No Do you have trouble taking care of your child, family member or friend?: No Do you have trouble with day-to-day activities such as bathing, preparing meals, shopping, managing finances, etc.?: No Are you currently unemployed and looking for a job?: No Are you interested in more education?: No Please select the resources that you would like help with: None Currently or been in a relationship where the following occur: No concerns reported THRIVE Score: 0 KALEB-7 AMB Questionnaire KALEB-7 Date KALEB - 7 assessed: 09/24/24 Source: Developed by Drs. Rocael Sarabia, Whitney Hoang, Schuyler Dickens and colleagues, with an educational rei from [employer]. Physical exam (Primary Care) Vital Signs: Last Vital Signs Temp 97.1 F 11/23/24 08:20 Pulse 72 11/23/24 08:20 BP 120/66 11/23/24 08:20 Pulse Ox 99 11/23/24 08:20 Oxygen Delivery Method Room Air 11/23/24 08:20 BMI result Body Mass Index 35.2 Tobacco/Smoking Status: Tobacco use Status Tobacco use date assessed 11/23/24 11/23/24 08:26 Patient Tobacco Use Status Never used Tobacco 11/23/24 08:26 e-Cigarette/Vaping Use Never Used 11/23/24 08:26 Thrive Assessment: Date of Thrive Assessment Date Thrive assessed 09/24/24 11/23/24 08:26 Currently or been in a relationship where the following occur: No concerns reported Const General: no acute distress Nutritional Appearance: overweight Orientation/consciousness: patient oriented x3 Resp Effort & Inspection: normal respiratory effort Cardio Rate: regular rate Skin Other: Mostly right sided testicular swelling, pain, erythema seems to be improved significantly. Neuro General: patient oriented x3 Psych Speech and movement: Normal speech and movement present Coding Level of Care Code TCM Mod MDM <= 7 Days Diagnoses Epididymo-orchitis N45.3 Time Spent (min) 20 Assessment & Plan Assessment & Plan (1) Epididymo-orchitis: Code(s): N45.3 - Epididymo-orchitis Category: Medical Plan: Stable - improving Testicle still TTP, swollen - advised using Ice and Scrotal Support. May Take NSAIDs or Acetaminophen for pain relief. Finish the Abx as directed. F/U with Urology as scheduled. Work Note given to Pt - Return to work 12/01 - full duty. Medications: New [scrotal support] As directed by Physician. 2 ea 0RF N45.3 - Epididymo- orchitis
[2024-11-23 08:20] VITALS: BP 120/66; PULSE 72; TEMP 36.2; O2SAT 99; BMI 35.2
== END 2024-11-23 08:53 | disposition home or self-care (01) ==
LOC: HO.HMCH 08:14
PROVIDERS: PCP Internal Medicine; Visit Provider Nurse Practitioner Family
DX: N45.3 Epididymo-orchitis (principal)

== ENCOUNTER → 2024-11-23 08:14 | Outpatient (BNVA) | payer MEDICARE, SELFPAY | PROVIDERS: PCP Internal Medicine; Visit Provider Nurse Practitioner Family | DX: N45.3 Epididymo-orchitis (principal) | CPT/HCPCS: 99495 ==

== ENCOUNTER 2024-12-17 10:11 | Outpatient (AMB) | payer MEDICARE, SELFPAY ==
--- NOTE | 2024-12-17 10:52 | A.OFFVIS_ITS ---
Intake Visit Reasons: right testicular orchitis/epididymitis Intake Note: Patient presents today for right testicular orchitis/epididymitis Urology Meds- None Allergies to Antibiotic- No Known Allergies Blood Thinner- None PVR:0ml [employer] Required: Yes [employer] Name: Fidelina Oneill Information Interpreted: non-clinical & clinical Accompanied by: Family/Other Allergies pioglitazone Adverse Reaction (Mild, Verified 12/17/24 10:52) diarrhea,polyuria canagliflozin (Invokana) Adverse Reaction (Unknown, Verified 12/17/24 10:52) dizziness HPI Comments Details: 12/17/24--Hay has been followed for elevated PSA and BPH he is on Proscar 5 mg daily. History of Present Illness The patient is a 69-year-old male presenting with elevated PSA and BPH. He has been on Proscar 5 mg daily for the management of BPH. Recently, the patient experienced a testicular infection for which antibiotics were prescribed. The infection has been managed, and the patient reports improvement. Results Ultrasound scrotum-11/17/2024 consistent with epididymal orchitis Examination today both testicles examined and nontender no swelling noted. Patient uncircumcised. Plan 1. Elevated Prostate-Specific Antigen (Psa) - Continue monitoring PSA levels with follow-up blood work scheduled for 6 m ont. 2. Benign Prostatic Hyperplasia (Bph) - Continue Proscar 5 mg daily for management. 3. Orchitis- Testicular Infection - Antibiotics were prescribed symptoms resolved 08/30/24--Hay is a 69-year-old male who is being followed for elevated PSA he is prescribed Proscar 5 mg daily he had a prostate biopsy in the past which was benign he follow-up today with a repeat PSA which was done on PSA- 06/29/24--3.28 ng/mL - The patient is a 69-year-old male presenting for follow-up of elevated PSA levels. - History of elevated PSA levels, currently being managed with Proscar (finaster bhupinder) 5 mg daily. - Previous prostate biopsy was performed, results were not explicitly discussed. - Recent PSA level on 06/29 was 3.28, showing improvement from a previous level of 5.58. Plan - Continue Proscar finasteride) 5 mg daily. follow-up PSA test in nine months to monitor levels. 04/22/23--Hay is a 66-year-old male who presents to the clinic as fu evaluation for elevated PSA. He is here with his daughters who interprets for him. I have reviewed recent PSA obtained 03/10/2023 which is stable at 5.58 ng/mL. He is prescribed Proscar 5 mg daily. The patient is compliant on the medication. He denies irritative voiding symptoms. He states he has a good urinary flow. 05/06/2022--The patient is a male. Qualified Nigerien speaker was present during the encounter. He complains increased voiding. C/o's concerns regarding problems getting and maintaining erections Wakes up 3 times at night and 2-4 times during the day to void. States completely emptying his bladder after voiding. Complains having right lower back pain. FHx: Father and uncle had prostate cancer. States his father was 82 years old when he was diagnosed with prostate cancer. Brother had surgery for enlarged prostate. PSA results reviewed?04/23/2022?5.54. BUN levels reviewed--02/28/2022--23. Evaluation today-- Blood: negative, Leukocytes: negative. Bladder scan PVR: 50 mL.? USG scrotum results reviewed--03/11/2020--Unremarkable. Prostate exam: Moderately enlarged.? Plan: Elevated PSA- Schedule prostate biopsy procedure minor procedure room. ED- Testosterone free and total test prior was ordered due to problem with erections. ? ? 09/09/2022-- Hay is a 67-year-old Nigerien speaking male who presents today to the office for follow-up on biopsy results. The patient is a Nigerien speaking male. 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 He is here today to review the prostate biopsy results which were done on 06/28/2022. He was evaluated for elevated PSA; his last visit in the office was on 05/06/2022. He reports on and off urinary urgency. He denies any dysuria or hematuria. Pathology of the prostate tissue was benign, estimated prostate size on transrectal was 49.1mL. I have discussed place the patient on Proscar 5 mg daily. Will monitor PSA. [facility] Medical History Epididymo-orchitis Sciatica Testicular pain Type 2 diabetes mellitus with hyperglycemia, without long-term current use of insulin Other obesity due to excess calories BMI 38.0-38.9,adult Surgical History Meningioma Hx of endoscopy History of colonoscopy Family History Father History of cancer Mother Hx of diabetes insipidus Social History Household Members: Spouse Housing: Apartment Do you presently have visiting nurse or other home services: No Alcohol intake: never Patient Tobacco Use Status: Never used Tobacco e-Cigarette/Vaping Use: Never Used Second Hand Smoke Exposure: No service: No Current occupational status: employed Current occupational exposures/hazards: No Cognitive needs: No Hearing needs: No Vision needs: No Review of Systems Const All systems reviewed & are unremarkable except as noted in HPI and below Reports no additional complaints Eyes Reports no additional complaints ENT Reports no additional complaints Card Reports no additional complaints Resp Reports no additional complaints GI Reports no additional complaints Reports as per HPI Musc Reports no additional complaints Skin/Breast Reports system reviewed and no additional complaints, except as documented Neuro Reports no additional complaints Psych Reports no additional complaints Endo Reports no additional complaints Giancarlo/Lymph Reports no additional complaints Aller/Immun Reports no additional complaints Office Procedures Post Void Residual Post Residual Void Post Void Residual (PVR): 0 23475-Unte Void Residual by ultrasound Results AMB Urinalysis, Automated UA Leukoctes 0 Martín/uL Last Edit by Lennie Johnson on 12/17/24 12:05 UA Nitrite Negative Last Edit by Lennie Johnson on 12/17/24 12:05 UA Urobilinogen 0.2 mg/dL Last Edit by Lennie Johnson on 12/17/24 12:05 UA Protein 0 mg/dL Last Edit by Lennie Jhonson on 12/17/24 12:05 UA pH 6.0 Last Edit by Lennie Johnson on 12/17/24 12:05 UA Blood 0 Yvon/uL Last Edit by Lennie Johnson on 12/17/24 12:05 UA Specific [place] 1.015 Last Edit by Lennie Johnson on 12/17/24 12:05 UA Ketone Negative Last Edit by Lennie Johnson on 12/17/24 12:05 UA Bilirubin 0 mg/dL Last Edit by Lennie Johnson on 12/17/24 12:05 UA Glucose 1000 mg/dL Last Edit by Lennie Johnson on 12/17/24 12:05 Results Reviewed Results Reviewed: Laboratory Last Values Urine pH (Auto) 6.0 12/17/24 11:58 Specific [place] (Auto) 1.015 12/17/24 11:58 Urine Protein (Auto) 0 mg/dL 12/17/24 11:58 Glucose (UA)(Auto) 1000 mg/dL 12/17/24 11:58 Urine Ketones (Auto) Negative 12/17/24 11:58 Urine Blood (Auto) 0 Yvon/uL 12/17/24 11:58 Urine Nitrite (Auto) Negative 12/17/24 11:58 Urine Bilirubin (Auto) 0 mg/dL 12/17/24 11:58 Urine Urobilinogen (Auto) 0.2 mg/dL 12/17/24 11:58 Leukocyte Esterase (Auto) 0 Martín/uL 12/17/24 11:58 Date of Service: 03/11/20 EXAMINATION: US SCROTUM CLINICAL INFORMATION: Testicular pain, unspecified. COMPARISON: Scrotal ultrasound dated 09/25/2018. TECHNIQUE: A sonogram of the scrotum was performed assessing gonzalez-scale appearance and color Doppler flow. Spectral Doppler analysis of the arterial and venous flow were performed in the testes bilaterally. FINDINGS: RIGHT: Right testicle measures 3.5 x 1.6 x 2.2 cm, volume 6.6 mL. The testicle has normal parenchymal echotexture. No microlithiasis or mass. Color Doppler images with spectral analysis reveals normal arterial and venous flow within the testicle. The epididymis is unremarkable. No evidence of hypervascularity within the epididymis. No hydrocele or varicocele. LEFT: Left testicle measures 3.8 x 1.6 x 2.5 cm, volume 7.8 mL. The testicle has normal parenchymal echotexture. No microlithiasis or mass. Color Doppler images with spectral analysis reveals normal arterial and venous flow within the testicle. The epididymis is unremarkable. No evidence of hypervascularity within the epididymis. No hydrocele or varicocele. The visualized scrotal veins measure less than 0.2 cm AP diameter. IMPRESSION: No acute sonographic abnormalities within the scrotum. No evidence of epididymoorchitis or testicular mass. Assessment & Plan Assessment & Plan (1) Epididymo-orchitis: Code(s): N45.3 - Epididymo-orchitis Category: Medical (2) Elevated PSA: Code(s): R97.20 - Elevated prostate specific antigen [PSA] Category: Medical (3) BPH loc w urin obs/LUTS: Code(s): N40.1 - Benign prostatic hyperplasia with lower urinary tract symptoms Category: Medical Plan Plan 1. Elevated Prostate-Specific Antigen (Psa) - Continue monitoring PSA levels with follow-up blood work scheduled for 6 months. 2. Benign Prostatic Hyperplasia (Bph) - Continue Proscar 5 mg daily for management. 3. Orchitis- Testicular Infection Orders: Orders AMB Urinalysis Automated Today N45.3 - Epididymo-orchitis Patient Instructions: The patient had an opportunity to ask questions regarding treatment plan. The patient expressed understanding and agreement with the above treatment plan. The patient is aware they should contact our office by phone for worsening of their current condition or the appearance of new symptoms. Compliance is encouraged with any medications and followup testing that is ordered. It is a privilege to be allowed the opportunity to participate in the urologic care of your patient. If you have any questions or concerns regarding treatment for the above conditions please do not hesitate to contact me. The office telephone contact is [phone]. This note is constructed in part using voice recognition software. While every effort has been made to ensure accuracy placement director errors may have been included. Yours sincerely, Geoffrey Ziegler MD Scribe Plan - Not visible on output: Patient was informed and verbally consented to the use of an ambient scribe for clinic note documentation during this visit. Coding Level of Care Code Est Pt Level 4 (14970) Diagnoses Epididymo-orchitis N45.3 Elevated PSA R97.20 BPH loc w urin obs/LUTS N40.1 CPT Codes Post Residual Void - PVR CPT Code: 31506-Hycs Void Residual by ultrasound ([id number])
== END 2024-12-17 11:36 | disposition home or self-care (01) ==
LOC: HO.HUSH 10:12
PROVIDERS: PCP Internal Medicine; Visit Provider Urology
DX: N45.3 Epididymo-orchitis (principal); R97.20 Elevated prostate specific antigen [PSA]; N40.1 Benign prostatic hyperplasia with lower urinary tract symptoms
CPT/HCPCS: 99214

== ENCOUNTER → 2024-12-17 10:11 | Outpatient (BNVA) | payer MEDICARE, SELFPAY | PROVIDERS: PCP Internal Medicine; Visit Provider Urology | DX: N40.1 Benign prostatic hyperplasia with lower urinary tract symptoms (principal); N13.8 Other obstructive and reflux uropathy; N45.3 Epididymo-orchitis; R97.20 Elevated prostate specific antigen [PSA] | CPT/HCPCS: 51798; 81003; 99212 ==